=== PATIENT | male | born 1950 | race Caucasian/White ===

== ENCOUNTER 2023-11-08 14:49 | Outpatient (REF) | payer OTHER, SELFPAY ==
--- NOTE | ~2023-11-08 | XR_ITS ---
EXAMINATION: XR BILATERAL HANDS AND WRISTS XR BILATERAL SHOULDERS XR BILATERAL KNEES CLINICAL INFORMATION: Rheumatoid arthritis. COMPARISON: None available. TECHNIQUE: 4 views each hand and wrist, 3 views each knee, 4 views each shoulder. FINDINGS: Bilateral shoulders: Some mild degenerative changes are seen at the glenohumeral joints with some mild sclerotic changes at the inferior glenoid, right greater than left. AC joints appear unremarkable without evidence of erosive changes. There are some sclerotic changes overlying the area of the greater tubercle with some sclerotic change, right greater than left. On the left, there is a tiny area of calcification in the region of the supraspinatus tendon with some smaller areas of calcification adjacent to the right humeral head. Bilateral knees: Joint spaces are maintained. No joint effusions are present. No chondrocalcinosis. No erosive changes. Right hand and wrist: There is soft tissue swelling at the PIP joints most marked in the third and fourth digits. Some periarticular calcium is seen in the third digit. There is a small erosion of the margin present on the distal aspect of the proximal phalanx of the fifth digit. Some erosive changes are seen at the DIP joint in the thumb with some periarticular calcium. Some mild degenerative changes are present at the radiocarpal joint. No chondrocalcinosis is seen. No fractures or dislocations. Left hand and wrist: There is soft tissue swelling around the PIP joints of the third and fourth digits. Some mild degenerative changes are present at the DIP and PIP joints. No gross erosions are seen. Degenerative changes are seen at the radiocarpal joint. A cyst is present in the distal ulna. No chondrocalcinosis. No fractures or dislocations. XR/XR shoulder LT min 2V IMPRESSION: 1. Degenerative changes in the shoulders with some calcific tendinitis. 2. Normal-appearing knees. 3. Degenerative changes in the hands and wrists with some erosive changes as described above.
[2023-11-08 16:20] LABS: MANUAL DIFF FLAG NO
[2023-11-08 16:40] LABS: Basophils Percent Auto 0.4 % (0-2); Eosinophils Absolute Auto 0.1 X10*3/uL (0.0-0.4); Eosinophils Percent Auto 1.9 % (0-4); Imm Gran Abs Auto 0.04 X10*3/uL (0.00-0.03); Imm Gran Pct Auto 0.7 % (0.0-0.4); Lymphocytes Percent Auto 18.7 % (20-40); Mean Corpuscular HGB Conc 32.1 g/dl (31.0-36.0); Mean Corpuscular Hemoglobin 30.9 pg (27.0-33.0); Mean Corpuscular Volume 96.4 fL (80.0-98.0); Monocytes Absolute Auto 0.7 X10*3/uL (0.1-1.2); Monocytes Percent Auto 13.3 % (2-11); Neutrophils Absolute Auto 3.5 x10*3/uL (2.0-8.3); Platelet Count 184 X10*3/uL (160-400); Red Cell Distribution Width 13.2 % (11.0-16.0); White Blood Count 5.3 X10*3/uL (4.8-10.8)
[2023-11-08 16:59] LABS: Estimated Average Glucose 117 mg/dL; Hemoglobin A1c % 5.7 % (<6.0)
[2023-11-08 17:19] LABS: Alanine Aminotransferase 7 U/L (0-40); Albumin Level 4.1 g/dL (3.5-5.0); Alkaline Phosphatase 133 U/L (39-117); Anion Gap 16 (12-20); Aspartate Amino Transferase 13 U/L (5-37); Blood Urea Nitrogen 17 mg/dL (9-16); C Reactive Protein 5.04 mg/dL (< or = 0.50); Carbon Dioxide 26 mmol/L (22-29); Chloride 104 mmol/L (96-108); Estimated Glomerular Filt Rate > 60; Glucose Random 74 mg/dL (60-115); Potassium 4.7 mmol/L (3.3-5.1); Sodium 141 mmol/L (135-145); Total Protein 7.1 g/dL (6.5-8.0)
[2023-11-08 17:24] LABS: Rheumatoid Factor < 13.0 IU/mL (<15.0)
[2023-11-08 17:44] LABS: Erythrocyte Sedimentation Rate 4 MM/HR (0-15)
[2023-11-09 03:49] LABS: HBS Num1 0.52 mIU/mL (0-7.99); HBc Num1 0.12 S/CO (0.00-0.79); HBsAGNum1 0.29 S/CO (0.00-0.99); Hepatitis A Antibody IgM 0.21 Index (0-0.79); Hepatitis B Core Antibody Nonreactive (Nonreactive); Hepatitis B Surface Antigen Negative (Negative); ~HepC Num1 0.09 S/CO (0.00-0.79); ~Hepatitis A Antibody IgM Nonreactive (Nonreactive); ~Hepatitis B Surface Antibody NONREACTIVE (Nonreactive); ~Hepatitis C Antibody Nonreactive (Nonreactive)
[2023-11-09 12:49] LABS: Complement C3 93 mg/dL (82-185)
[2023-11-09 20:09] LABS: Anti DNA DS Antibody <1 IU/mL; Antibody to SS-A Antigen <1.0 NEG AI (<1.0 NEG); Antibody to SS-B Antigen <1.0 NEG AI (<1.0 NEG); SM/Ribonucleoprotein Ab <1.0 NEG AI (<1.0 NEG); Smith Protein <1.0 NEG AI (<1.0 NEG)
[2023-11-09 21:29] LABS: Prot Elec - Albumin 3.7 g/dL (3.8-4.8); Prot Elec - Alpha1 0.4 g/dL (0.2-0.3); Prot Elec - Alpha2 0.8 g/dL (0.5-0.9); Prot Elec - Beta 1 0.4 g/dL (0.4-0.6); Prot Elec - Beta 2 0.4 g/dL (0.2-0.5); Prot Elec - Gamma 0.9 g/dL (0.8-1.7); Prot Elec - Total Protein 6.6 g/dL (6.1-8.1)
[2023-11-10 15:09] LABS: Anti Nuclear Antibody Screen NEGATIVE (NEGATIVE)
[2023-11-10 20:03] LABS: Cyclic Citrullinated Peptide <16 UNITS
[2023-11-10 22:48] LABS: TS Negative Control Passed; TS Panel A 0; TS Panel B 3; TS Positive Control Passed; TSpotTB Negative (Negative)
[2023-11-11 14:42] LABS: IgA 252 mg/dL (70-320); IgG 1119 mg/dL (600-1540); IgM 90 mg/dL (50-300)
== END 2023-11-08 14:50 | disposition home or self-care (01) ==
LOC: HO.LAB 14:49
PROVIDERS: Visit Provider Student in an Organized Health Care Education/Training Program
DX: M32.9 Systemic lupus erythematosus, unspecified (principal); M06.9 Rheumatoid arthritis, unspecified; M25.50 Pain in unspecified joint; M19.90 Unspecified osteoarthritis, unspecified site; R63.4 Abnormal weight loss; Z11.59 Encounter for screening for other viral diseases; Z11.7 Encounter for testing for latent tuberculosis infection; Z72.89 Other problems related to lifestyle
CPT/HCPCS: 36415; 73030; 73110; 73130; 73562; 80053; 82550; 82784; 83036; 84165; 85025; 85652; 86038; 86140; 86160; 86200; 86225; 86235; 86334; 86431; 86481; 86704; 86706; 86709; 86803; 87340; 99202

== ENCOUNTER 2023-11-08 14:49 | Outpatient (AMB) | payer OTHER, SELFPAY ==
--- NOTE | 2023-11-08 15:01 | MHC.OFFVIS ---
Vital Signs 11/08/23 15:12 Height 5 ft 6.61 in Weight 131 lb 9.855 oz BMI 20.9 BP 122/60 Blood Pressure Location Rt brachial Position Sitting Pulse 69 Pulse Source Pulse Oximeter Pulse Oximetry (%) 94 Oxygen Delivery Method Room Air Intake Visit Reasons: Polyarthralgia ? PMR Intake Note: New patient, externally referred by [place], presents to office today for polyarthralgia, ? PMR. 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 The condition started abruptly in May of 2023. Patient woke up 1 day with diffuse joint pain and stiffness. Could not get out of bed. Significant difficulty raising his arms above his shoulders. He was evaluated by his PCP. High sensitivity CRP was elevated. PMR was suspected and he was started on prednisone with movement of range of motion of his shoulders. Patient states that he has bilateral weak general inspector strength. Swelling of his ankles and feet. He has lost 30 lb since May. Denies any skin rashes. Denies any headaches or visual changes. FORMERLY [facility] Medical History Unspecified atrial fibrillation Inguinal hernia Post-traumatic stress disorder, chronic Pain in unspecified joint Other pulmonary embolism without acute cor pulmonale Other intra-abdominal and pelvic swelling, mass and lump Old FB in soft tissue Mild cognitive impairment of uncertain or unknown etiology Left ventricular failure Hyperlipidemia, unspecified Coronary atherosclerosis due to lipid rich plaque Chronic periodontitis Chest pain Cardiomyopathy, unspecified Acute anxiety Accretions on teeth Surgical History No history of previous surgery Family History Mother Cancer Father No problems noted. Social History Household Members: None Alcohol intake: never Patient Tobacco Use Status: Former Tobacco user Review of Systems Const Reports fatigue, Reports weakness and Reports weight loss Card Reports irregular heart rhythm and Reports dyspnea Resp Reports dyspnea Musc Reports arthralgias, Reports joint swelling, Reports limited range of motion and Reports stiffness Skin/Breast Denies rash Neuro Reports weakness Psych Reports abnormal sleep pattern, Reports anxiety and Reports depression Endo Reports fatigue Physical Exam Vital Signs: Last Vital Signs Pulse 69 11/08/23 15:12 BP 122/60 11/08/23 15:12 Pulse Ox 94 11/08/23 15:12 Oxygen Delivery Method Room Air 11/08/23 15:12 BMI result Body Mass Index 20.9 Const General: cooperative, healthy appearing and comfortable Nutritional Appearance: average body habitus Orientation/consciousness: patient oriented x3 Limitations: no limitations HEENT Head: Yes normocephalic and Yes atraumatic Resp Effort & Inspection: normal respiratory effort and able to speak in complete sentences Cardio Rhythm: abnormal rhythm Skin General skin exam: no rashes or lesions noted Neuro General: patient oriented x3 Extrem Other: Bilateral reduced hand general inspector strength No wrist tenderness or swelling but pain with flexion and extension bilaterally Left 2nd MCP swelling but no tenderness Negative MCP squeeze test Multiple tender flexor tendons on the left hand Right 2nd MCP swelling but no tenderness Negative MCP squeeze test Multiple flexor tendon tenderness Bilateral elbow pain with full extension Right knee swelling, warmth, crepitus and pain with full flexion Pitting edema extending to both ankles Negative MTP squeeze test bilaterally Results Reviewed Results Reviewed: Labs 06/2023? RENEE/HLA B27/CCP/RF negative High sensitivity CRP elevated? ESR 3 Assessment & Plan Assessment & Plan (1) Inflammatory arthritis: Code(s): M19.90 - Unspecified osteoarthritis, unspecified site Category: Medical Plan: This is a 73-year-old male who [facility] of onset of diffuse joint pain and and stiffness.? Symptoms improved with prednisone taper.? On exam patient has a trigger tender small joints.? Clinical picture consistent with new onset inflammatory arthritis such as seronegative RA.? Will order comprehensive serology to better understand his underlying autoimmune condition.? Check x-rays of involved joints? Start prednisone taper for relief (2) Weight loss: Code(s): R63.4 - Abnormal weight loss Category: Medical Plan: 30 lb weight loss over the last 6 months. Advised patient to follow-up with his PCP. I recommend malignancy screening Plan I spent 48 minutes reviewing patient's chart, evaluating patient, ordering diagnostic workup, counseling patient and documenting in the chart Orders: Orders RENEE Reflex Titer and Pattern Today M32.9 - Systemic lupus erythematosus, unspecified Anti Extractable Nuclear Ag Today M32.9 - Systemic lupus erythematosus, unspecified Complement C4 Today M32.9 - Systemic lupus erythematosus, unspecified C Reactive Protein Today M32.9 - Systemic lupus erythematosus, unspecified Protein Creatinine Ratio, Ur Today M32.9 - Systemic lupus erythematosus, unspecified Sjogren's Antibodies Today M32.9 - Systemic lupus erythematosus, unspecified T Spot TB Today Z11.7 - Encounter for testing for latent tuberculosis infection Hemoglobin A1c Today M32.9 - Systemic lupus erythematosus, unspecified Creatine Kinase Total Today M32.9 - Systemic lupus erythematosus, unspecified XR hand wrist RT Today M06.9 - Rheumatoid arthritis, unspecified XR knee RT 3V Today M06.9 - Rheumatoid arthritis, unspecified Anti DNA DS Antibody Today M32.9 - Systemic lupus erythematosus, unspecified Complement C3 Today M32.9 - Systemic lupus erythematosus, unspecified Erythrocyte Sedimentation Rate Today M32.9 - Systemic lupus erythematosus, unspecified UA w Microscopic Today M32.9 - Systemic lupus erythematosus, unspecified Complete Blood Count Auto Diff Today M32.9 - Systemic lupus erythematosus, unspecified Comprehensive Met. Panel Today M32.9 - Systemic lupus erythematosus, unspecified Hepatitis A,B,C Profile Today Z11.59 - Encounter for screening for other viral diseases Immunofixation Pnl, Serum Today M32.9 - Systemic lupus erythematosus, unspecified Protein Electrophoresis, Serum Today M32.9 - Systemic lupus erythematosus, unspecified XR hand wrist LT Today M06.9 - Rheumatoid arthritis, unspecified XR knee LT 3V Today M06.9 - Rheumatoid arthritis, unspecified XR knee standing BI Today M06.9 - Rheumatoid arthritis, unspecified XR shoulder LT min 2V Today M06.9 - Rheumatoid arthritis, unspecified XR shoulder RT min 2V Today M06.9 - Rheumatoid arthritis, unspecified Rheumatoid Factor Today M06.9 - Rheumatoid arthritis, unspecified Cyclic Citrullinated Peptide Today M06.9 - Rheumatoid arthritis, unspecified Medications: New prednisone orally; Take 2 tabs daily for 2 weeks then remain on 1 tab daily 58 tabs 0RF Coding Level of Care Code New Pt Level 4 (17778) Diagnoses Inflammatory arthritis M19.90 Weight loss R63.4
[2023-11-08 15:12] VITALS: BP 122/60; PULSE 69; O2SAT 94; BMI 20.9
== END 2023-11-08 15:36 | disposition home or self-care (01) ==
PROVIDERS: Visit Provider Student in an Organized Health Care Education/Training Program
DX: M19.90 Unspecified osteoarthritis, unspecified site (principal); R63.4 Abnormal weight loss
CPT/HCPCS: 99204

== ENCOUNTER 2023-12-14 12:20 | Outpatient (AMB) | payer OTHER, SELFPAY ==
--- NOTE | 2023-12-14 12:32 | MHC.OFFVIS ---
Vital Signs 12/14/23 12:36 Height 5 ft 6.61 in Weight 133 lb 2.547 oz BMI 21.1 BP 112/60 Blood Pressure Location Lt brachial Position Sitting Pulse 41 L Pulse Source Pulse Oximeter Pulse Oximetry (%) 96 Oxygen Delivery Method Room Air Intake Visit Reasons: RA/CM Intake Note: Patient presents for RA. Allergies No Known Allergies Allergy (Verified 12/14/23 12:35) Medication List - Last Reconciled 12/14/23 by Cole Finley MD apixaban 5 mg PO BID cholecalciferol (vitamin D3) 50 mcg PO DAILY empagliflozin 10 mg PO DAILY ferrous sulfate 325 mg PO DAILY fluticasone propion-salmeterol 250-50 mcg/dose 1 inh inhalation BID omeprazole 20 mg PO DAILY prednisone orally; Take 2 tabs daily for 2 weeks then remain on 1 tab daily risperidone 0.5 mg PO BEDTIME sacubitril-valsartan 49-51 mg 1 tab PO BID HPI Comments Details: 73-year-old male with new onset inflammatory arthritis returns for follow-up after completion of his diagnostic workup. He is on prednisone mg daily. States that he feels well overall. Initial history: This is a 73-year-old who [facility] questionable PMR. The condition started abruptly in May of 2023. Patient woke up 1 day with diffuse joint pain and stiffness. Could not get out of bed. Significant difficulty raising his arms above his shoulders. He was evaluated by his PCP. High sensitivity CRP was elevated. PMR was suspected and he was started on prednisone with movement of range of motion of his shoulders. Patient states that he has bilateral weak senior counsel commercial strength. Swelling of his ankles and feet. He has lost 30 lb since May. Denies any skin rashes. Denies any headaches or visual changes. FORMERLY [facility] Medical History Unspecified atrial fibrillation Inguinal hernia Post-traumatic stress disorder, chronic Pain in unspecified joint Other pulmonary embolism without acute cor pulmonale Other intra-abdominal and pelvic swelling, mass and lump Old FB in soft tissue Mild cognitive impairment of uncertain or unknown etiology Left ventricular failure Hyperlipidemia, unspecified Coronary atherosclerosis due to lipid rich plaque Chronic periodontitis Chest pain Cardiomyopathy, unspecified Acute anxiety Accretions on teeth Surgical History No history of previous surgery Family History Mother Cancer Father No problems noted. Social History Household Members: None Alcohol intake: never Patient Tobacco Use Status: Former Tobacco user Review of Systems [facility] Reports arthralgias and Reports joint swelling Physical Exam Vital Signs: Last Vital Signs Pulse 41 L 12/14/23 12:36 BP 112/60 12/14/23 12:36 Pulse Ox 96 12/14/23 12:36 Oxygen Delivery Method Room Air 12/14/23 12:36 BMI result Body Mass Index 21.1 Const General: cooperative, healthy appearing and comfortable Nutritional Appearance: average body habitus Orientation/consciousness: patient oriented x3 Limitations: no limitations HEENT Head: Yes normocephalic and Yes atraumatic Resp Effort & Inspection: normal respiratory effort and able to speak in complete sentences Cardio Rhythm: abnormal rhythm Skin General skin exam: no rashes or lesions noted Neuro General: patient oriented x3 Extrem Other: Significant osteoarthritic changes of both hands Bilateral reduced hand senior counsel commercial strength, much better than before No wrist tenderness or swelling but pain with flexion and extension bilaterally Few swollen PIPs bilaterally without tenderness No knee swelling, warmth, tenderness or pain with flexion and extension Results Reviewed Results Reviewed: Labs 06/2023? RENEE/HLA B27/CCP/RF negative High sensitivity CRP elevated? ESR 3 CLINICAL INFORMATION: Rheumatoid arthritis. COMPARISON: None available. TECHNIQUE: 4 views each hand and wrist, 3 views each knee, 4 views each shoulder. FINDINGS: Bilateral shoulders: Some mild degenerative changes are seen at the glenohumeral joints with some mild sclerotic changes at the inferior glenoid, right greater than left. AC joints appear unremarkable without evidence of erosive changes. There are some sclerotic changes overlying the area of the greater tubercle with some sclerotic change, right greater than left. On the left, there is a tiny area of calcification in the region of the supraspinatus tendon with some smaller areas of calcification adjacent to the right humeral head. Bilateral knees: Joint spaces are maintained. No joint effusions are present. No chondrocalcinosis. No erosive changes. Right hand and wrist: There is soft tissue swelling at the PIP joints most marked in the third and fourth digits. Some periarticular calcium is seen in the third digit. There is a small erosion of the margin present on the distal aspect of the proximal phalanx of the fifth digit. Some erosive changes are seen at the DIP joint in the thumb with some periarticular calcium. Some mild degenerative changes are present at the radiocarpal joint. No chondrocalcinosis is seen. No fractures or dislocations. Left hand and wrist: There is soft tissue swelling around the PIP joints of the third and fourth digits. Some mild degenerative changes are present at the DIP and PIP joints. No gross erosions are seen. Degenerative changes are seen at the radiocarpal joint. A cyst is present in the distal ulna. No chondrocalcinosis. No fractures or dislocations. XR/XR shoulder RT min 2V IMPRESSION: 1. Degenerative changes in the shoulders with some calcific tendinitis. 2. Normal-appearing knees. 3. Degenerative changes in the hands and wrists with some erosive changes as described above. Assessment & Plan Assessment & Plan (1) Seronegative rheumatoid arthritis: Comment: -ve RF -ve CCP dx 12/2023 Code(s): M06.00 - Rheumatoid arthritis without rheumatoid factor, unspecified site Category: Medical Plan: This is a 73-year-old male with new onset inflammatory arthritis who presents for follow-up. Blood work showed negative serologies with elevated inflammatory markers. I reviewed his hand x-rays which show osteoarthritis in addition to erosive changes in the right 5th finger consistent with RA. Clinical picture consistent with new onset seronegative RA. Will need to start DMARDs Discussed risks and benefits of methotrexate. Patient agreed to proceed. 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 Patient does not consume alcohol Monitor safety lab (3) Weight loss: Code(s): R63.4 - Abnormal weight loss Category: Medical Plan: 30 lb weight loss over the last 6 months. Advised patient to follow-up with his PCP. I recommend malignancy screening Plan I spent 28 minutes reviewing patient's chart, evaluating patient, ordering diagnostic workup, counseling patient & daughter and documenting in the chart Orders: Orders C Reactive Protein 2 Months M06.00 - Rheumatoid arthritis without rheumatoid factor, unspecified site, Z79.631 - buttermaker continuous churn (current) use of antimetabolite agent Complete Blood Count Auto Diff 2 Months M06.00 - Rheumatoid arthritis without rheumatoid factor, unspecified site, Z79.631 - buttermaker continuous churn (current) use of antimetabolite agent Comprehensive Met. Panel 2 Months M06.00 - Rheumatoid arthritis without rheumatoid factor, unspecified site, Z79.631 - retirement (current) use of antimetabolite agent Erythrocyte Sedimentation Rate 2 Months M06.00 - Rheumatoid arthritis without rheumatoid factor, unspecified site, Z79.631 - buttermaker continuous churn (current) use of antimetabolite agent Medications: New prednisone Take 2 tabs daily for 2 weeks, 1 tab daily for 2 weeks then stop 42 tabs 0RF methotrexate sodium 15 mg (6 x 2.5 mg) PO QWEEK 48 tabs 0RF folic acid 1 mg PO DAILY 90 tabs 1RF Discontinued prednisone Discontinued Reason: Doctor's Order orally; Take 2 tabs daily for 2 weeks then remain on 1 tab daily 58 tabs 0RF Coding Level of Care Code Est Pt Level 4 (69908) Diagnoses Seronegative rheumatoid arthritis M06.00 buttermaker continuous churn methotrexate user Z79.631 Weight loss R63.4
[2023-12-14 12:36] VITALS: BP 112/60; PULSE 41; O2SAT 96; BMI 21.1
== END 2023-12-14 12:58 | disposition home or self-care (01) ==
PROVIDERS: Visit Provider Student in an Organized Health Care Education/Training Program
DX: M06.00 Rheumatoid arthritis without rheumatoid factor, unspecified site (principal); Z79.631 Long term (current) use of antimetabolite agent; R63.4 Abnormal weight loss
CPT/HCPCS: 99214

== ENCOUNTER → 2023-12-14 12:20 | Outpatient (BNVA) | payer OTHER, SELFPAY | PROVIDERS: Visit Provider Student in an Organized Health Care Education/Training Program | DX: M06.00 Rheumatoid arthritis without rheumatoid factor, unspecified site (principal); R63.4 Abnormal weight loss; Z79.631 Long term (current) use of antimetabolite agent | CPT/HCPCS: 99212 ==

== ENCOUNTER 2024-04-02 11:35 | Outpatient (REF) | payer OTHER, SELFPAY ==
[2024-04-02 14:27] LABS: MANUAL DIFF FLAG NO
[2024-04-02 14:32] LABS: Basophils Percent Auto 0.5 % (0-2); Eosinophils Absolute Auto 0.2 X10*3/uL (0.0-0.4); Eosinophils Percent Auto 2.7 % (0-4); Hematocrit 46.2 % (42.0-52.0); Hemoglobin 14.9 g/dl (14.0-18.0); Imm Gran Abs Auto 0.05 X10*3/uL (0.00-0.03); Imm Gran Pct Auto 0.6 % (0.0-0.4); Lymphocytes Absolute Auto 0.8 X10*3/uL (1.2-4.9); Lymphocytes Percent Auto 10.9 % (20-40); Mean Corpuscular HGB Conc 32.3 g/dl (31.0-36.0); Mean Platelet Volume 10.7 fL (9.4-12.4); Monocytes Absolute Auto 0.6 X10*3/uL (0.1-1.2); Monocytes Percent Auto 7.9 % (2-11); Neutrophils Percent Auto 77.4 % (45-73); Platelet Count 275 X10*3/uL (160-400); Red Blood Count 4.81 X10*6/uL (4.60-5.80); Red Cell Distribution Width 13.8 % (11.0-16.0); White Blood Count 7.7 X10*3/uL (4.8-10.8)
[2024-04-02 14:36] LABS: Appearance Urine Clear; Color Urine Yellow; Glucose Urine UA >=1000 mg/dL (Negative); Leukocyte Esterase Urine Negative (Negative); Nitrite Urine Negative (Negative); UMIC TRIGGER UA YES; Urine Blood Negative (Negative); Urine Ketones Negative (Negative); Urine Protein Negative (Neg-Trace)
[2024-04-02 14:39] LABS: Bacteria Urine None Seen (None Seen); Hyaline Casts Urine 0-2 /LPF (0-2); RBC Urine 0-2 /HPF (0-2); Squamous Epithelial Cell Urine 0-2 /HPF (0-2); WBC Urine 0-5 /HPF (0-5)
[2024-04-02 14:47] LABS: Alanine Aminotransferase 7 U/L (0-40); Albumin Level 3.6 g/dL (3.5-5.0); Alkaline Phosphatase 115 U/L (39-117); Anion Gap 13 (12-20); Aspartate Amino Transferase 19 U/L (5-37); Bilirubin Total 0.7 mg/dL (0.0-1.0); Blood Urea Nitrogen 16 mg/dL (9-16); C Reactive Protein 4.71 mg/dL (< or = 0.50); Calcium 9.6 mg/dL (8.4-10.2); Carbon Dioxide 26 mmol/L (22-29); Chloride 103 mmol/L (96-108); Estimated Glomerular Filt Rate > 60; Glucose Random 104 mg/dL (60-115); Potassium 5.1 mmol/L (3.3-5.1); Sodium 137 mmol/L (135-145); Total Protein 6.3 g/dL (6.5-8.0)
[2024-04-02 15:05] LABS: Creatinine Urine 57.65 mg/dL; Protein/Creatinine Ratio, Ur 0.16 (<0.2); Total Protein Urine Random 9 mg/dL (<12)
[2024-04-02 15:20] LABS: Erythrocyte Sedimentation Rate 6 MM/HR (0-15)
== END 2024-04-02 11:36 | disposition home or self-care (01) ==
LOC: HO.WFDLDS 11:35
PROVIDERS: Visit Provider Student in an Organized Health Care Education/Training Program
DX: M32.9 Systemic lupus erythematosus, unspecified (principal); M06.00 Rheumatoid arthritis without rheumatoid factor, unspecified site; Z79.631 Long term (current) use of antimetabolite agent
CPT/HCPCS: 36415; 80053; 81001; 82570; 84156; 85025; 85652; 86140

== ENCOUNTER 2024-04-18 13:46 | Outpatient (AMB) | payer OTHER, SELFPAY ==
--- NOTE | 2024-04-18 13:52 | A.OFFVIS_ITS ---
Vital Signs 04/18/24 13:56 Height 5 ft 6.61 in Weight 128 lb 1.417 oz BMI 20.3 BP 90/60 Blood Pressure Location Lt brachial Position Sitting Pulse 57 Pulse Source Pulse Oximeter Pulse Oximetry (%) 98 Oxygen Delivery Method Room Air Intake Visit Reasons: RA/CM Intake Note: Patient presents for RA. Allergies No Known Allergies Allergy (Verified 04/18/24 13:56) Medication List - Last Reconciled 04/18/24 by Cole Finley MD apixaban 5 mg PO BID cholecalciferol (vitamin D3) 50 mcg PO DAILY empagliflozin 10 mg PO DAILY ferrous sulfate 325 mg PO DAILY fluticasone propion-salmeterol 250-50 mcg/dose 1 inh inhalation BID folic acid 1 mg PO DAILY methotrexate sodium 15 mg (6 x 2.5 mg) PO QWEEK omeprazole 20 mg PO DAILY prednisone Take 2 tabs daily for 2 weeks, 1 tab daily for 2 weeks then stop risperidone 0.5 mg PO BEDTIME sacubitril-valsartan 49-51 mg 1 tab PO BID HPI Comments Details: 74-year-old male with seronegative rheumatoid arthritis returns for follow-up. Patient took methotrexate as prescribed after last visit for about 2 months. Then he ran out. He did not do the safety blood work. He was not complaining much while he was taking it. 3-4 weeks ago patient started having worsening joint pain and swelling, especially in his right foot and ankle. He could barely put on his shoe today. Initial history: This is a 73-year-old who referred from the [place] for evaluation of polyarthralgia questionable PMR. The condition started abruptly in May of 2023. Patient woke up 1 day with diffuse joint pain and stiffness. Could not get out of bed. Significant difficulty raising his arms above his shoulders. He was evaluated by his PCP. High sensitivity CRP was elevated. PMR was suspected and he was started on prednisone with movement of range of motion of his shoulders. Patient states that he has bilateral weak special education case manager strength. Swelling of his ankles and feet. He has lost 30 lb since May. Denies any skin rashes. Denies any headaches or visual changes. [facility] Medical History Unspecified atrial fibrillation Inguinal hernia Post-traumatic stress disorder, chronic Pain in unspecified joint Other pulmonary embolism without acute cor pulmonale Other intra-abdominal and pelvic swelling, mass and lump Old FB in soft tissue Mild cognitive impairment of uncertain or unknown etiology Left ventricular failure Hyperlipidemia, unspecified Coronary atherosclerosis due to lipid rich plaque Chronic periodontitis Chest pain Cardiomyopathy, unspecified Acute anxiety Accretions on teeth Surgical History No history of previous surgery Family History Mother Cancer Father No problems noted. Social History Household Members: None Alcohol intake: never Patient Tobacco Use Status: Former Tobacco user Review of Systems [facility] Reports arthralgias, Reports joint swelling and Reports stiffness Physical Exam Vital Signs: Last Vital Signs Pulse 57 04/18/24 13:56 BP 90/60 04/18/24 13:56 Pulse Ox 98 04/18/24 13:56 Oxygen Delivery Method Room Air 04/18/24 13:56 BMI result Body Mass Index 20.3 Const General: cooperative and comfortable Nutritional Appearance: cachectic Orientation/consciousness: patient oriented x3 Limitations: no limitations HEENT Head: Yes normocephalic and Yes atraumatic Resp Effort & Inspection: normal respiratory effort and able to speak in complete sentences Auscultation: diminished lung sounds Skin General skin exam: no rashes or lesions noted Neuro General: patient oriented x3 Extrem Other: Significant osteoarthritic changes of both hands Bilateral reduced hand special education case manager strength, No wrist tenderness or swelling but pain with flexion and extension bilaterally Few swollen PIPs bilaterally without much tenderness Bilateral limited shoulder abduction No knee swelling, warmth, tenderness or pain with flexion and extension Bilateral lower limb pitting edema Right ankle and foot swelling and tenderness Results Reviewed Results Reviewed: Labs 06/2023? RENEE/HLA B27/CCP/RF negative High sensitivity CRP elevated? ESR 3 CLINICAL INFORMATION: Rheumatoid arthritis. COMPARISON: None available. TECHNIQUE: 4 views each hand and wrist, 3 views each knee, 4 views each shoulder. FINDINGS: Bilateral shoulders: Some mild degenerative changes are seen at the glenohumeral joints with some mild sclerotic changes at the inferior glenoid, right greater than left. AC joints appear unremarkable without evidence of erosive changes. There are some sclerotic changes overlying the area of the greater tubercle with some sclerotic change, right greater than left. On the left, there is a tiny area of calcification in the region of the supraspinatus tendon with some smaller areas of calcification adjacent to the right humeral head. Bilateral knees: Joint spaces are maintained. No joint effusions are present. No chondrocalcinosis. No erosive changes. Right hand and wrist: There is soft tissue swelling at the PIP joints most marked in the third and fourth digits. Some periarticular calcium is seen in the third digit. There is a small erosion of the margin present on the distal aspect of the proximal phalanx of the fifth digit. Some erosive changes are seen at the DIP joint in the thumb with some periarticular calcium. Some mild degenerative changes are present at the radiocarpal joint. No chondrocalcinosis is seen. No fractures or dislocations. Left hand and wrist: There is soft tissue swelling around the PIP joints of the third and fourth digits. Some mild degenerative changes are present at the DIP and PIP joints. No gross erosions are seen. Degenerative changes are seen at the radiocarpal joint. A cyst is present in the distal ulna. No chondrocalcinosis. No fractures or dislocations. XR/XR shoulder RT min 2V IMPRESSION: 1. Degenerative changes in the shoulders with some calcific tendinitis. 2. Normal-appearing knees. 3. Degenerative changes in the hands and wrists with some erosive changes as described above. Assessment & Plan Assessment & Plan (1) Seronegative rheumatoid arthritis: Comment: -ve RF -ve CCP dx 12/2023 MTX 12/2023 Code(s): M06.00 - Rheumatoid arthritis without rheumatoid factor, unspecified site Category: Medical Plan: This is a 74-year-old male with new onset seronegative RA returns for follow-up. It seems that patient was doing better while he was taking methotrexate regularly. He was out of methotrexate for approximately 6 weeks. He just restarted it last week. Advised patient and his daughter on the importance of compliance with methotrexate and safety labs Continue with methotrexate 15 mg once weekly plus folic acid 1 mg daily Prednisone 10 mg daily for 2 weeks then 5 mg daily for 2 weeks then stop Labs before next visit in 2 months (2) FPC methotrexate user: Code(s): Z79.631 - FPC (current) use of antimetabolite agent Category: Medical Plan: Discussed risks of methotrexate such as GI upset, nausea, oral ulcers, hair loss, rare risk of pneumonitis, cytopenias and LFT elevation. Patient does not consume alcohol Monitor safety lab (3) Weight loss: Code(s): R63.4 - Abnormal weight loss Category: Medical Plan: 30 lb weight loss over the last 6 months. Advised patient to follow-up with his PCP. I recommend malignancy screening Plan I spent 28 minutes reviewing patient's chart, evaluating patient, ordering diagnostic workup, counseling patient & daughter and documenting in the chart Orders: Orders C Reactive Protein 2 Months M06.00 - Rheumatoid arthritis without rheumatoid factor, unspecified site, Z79.631 - [facility]PC (current) use of antimetabolite agent Erythrocyte Sedimentation Rate 2 Months M06.00 - Rheumatoid arthritis without rheumatoid factor, unspecified site, Z79.631 - [facility]PC (current) use of antimetabolite agent Complete Blood Count Auto Diff 2 Months M06.00 - Rheumatoid arthritis without rheumatoid factor, unspecified site, Z79.631 - [facility] (current) use of antimetabolite agent Comprehensive Met. Panel 2 Months M06.00 - Rheumatoid arthritis without rheumatoid factor, unspecified site, Z79.631 - [facility] (current) use of antimetabolite agent Medications: Refilled prednisone Take 2 tabs daily for 2 weeks, 1 tab daily for 2 weeks then stop 42 tabs 0RF folic acid 1 mg PO DAILY 90 tabs 1RF Coding Level of Care Code Est Pt Level 4 (96575) Complex EM visit Add On G2211 Diagnoses Seronegative rheumatoid arthritis M06.00 rn long term care methotrexate user Z79.631 Weight loss R63.4
[2024-04-18 13:56] VITALS: BP 90/60; PULSE 57; O2SAT 98; BMI 20.3
== END 2024-04-18 14:29 | disposition home or self-care (01) ==
PROVIDERS: Visit Provider Student in an Organized Health Care Education/Training Program
DX: M06.00 Rheumatoid arthritis without rheumatoid factor, unspecified site (principal); Z79.631 Long term (current) use of antimetabolite agent; R63.4 Abnormal weight loss
CPT/HCPCS: 99214; G2211

== ENCOUNTER → 2024-04-18 13:46 | Outpatient (BNVA) | payer OTHER, SELFPAY | PROVIDERS: Visit Provider Student in an Organized Health Care Education/Training Program | DX: M06.00 Rheumatoid arthritis without rheumatoid factor, unspecified site (principal); R63.4 Abnormal weight loss; Z79.631 Long term (current) use of antimetabolite agent | CPT/HCPCS: 99212 ==

== ENCOUNTER 2024-06-18 08:26 | Outpatient (AMB) | payer OTHER, SELFPAY ==
[2024-06-18 08:33] VITALS: BP 100/64; PULSE 59; O2SAT 99; BMI 21.1
--- NOTE | 2024-06-18 08:33 | A.OFFVIS_ITS ---
Vital Signs 06/18/24 08:33 Height 5 ft 6.61 in Weight 132 lb 15.02 oz BMI 21.1 BP 100/64 Blood Pressure Location Lt brachial Position Sitting Pulse 59 Pulse Source Pulse Oximeter Pulse Oximetry (%) 99 Oxygen Delivery Method Room Air Intake Visit Reasons: RA Intake Note: Patient last seen by Doctor Cole Finley on 04/18/24. Presents today for RA follow up and test results. Accompanied by: Daughter Allergies No Known Allergies Allergy (Verified 06/18/24 08:36) Medication List - Last Reconciled 06/18/24 by Cole Finley MD apixaban 5 mg PO BID cholecalciferol (vitamin D3) 50 mcg PO DAILY empagliflozin 10 mg PO DAILY ferrous sulfate 325 mg PO DAILY fluticasone propion-salmeterol 250-50 mcg/dose 1 inh inhalation BID folic acid 1 mg PO DAILY methotrexate sodium 15 mg (6 x 2.5 mg) PO QWEEK omeprazole 20 mg PO DAILY risperidone 0.5 mg PO BEDTIME sacubitril-valsartan 49-51 mg 1 tab PO BID HPI Comments Details: 74-year-old male with seronegative rheumatoid arthritis returns for follow-up. On methotrexate 15 mg once weekly plus folic acid 1 mg daily. He states that he continues to be achy but he is less stiff. Per his daughter he is much better. The swelling of his legs significantly improved Initial history: This is a 73-year-old who [facility] PM[facility]. The condition started abruptly in May of 2023. Patient woke up 1 day with diffuse joint pain and stiffness. Could not get out of bed. Significant difficulty raising his arms above his shoulders. He was evaluated by his PCP. High sensitivity CRP was elevated. PMR was suspected and he was started on prednisone with movement of range of motion of his shoulders. Patient states that he has bilateral weak licsw strength. Swelling of his ankles and feet. He has lost 30 lb since May. Denies any skin rashes. Denies any headaches or visual changes. [facility] Medical History Unspecified atrial fibrillation Inguinal hernia Post-traumatic stress disorder, chronic Pain in unspecified joint Other pulmonary embolism without acute cor pulmonale Other intra-abdominal and pelvic swelling, mass and lump Old FB in soft tissue Mild cognitive impairment of uncertain or unknown etiology Left ventricular failure Hyperlipidemia, unspecified Coronary atherosclerosis due to lipid rich plaque Chronic periodontitis Chest pain Cardiomyopathy, unspecified Acute anxiety Accretions on teeth Surgical History No history of previous surgery Family History Mother Cancer Father No problems noted. Social History Household Members: None Alcohol intake: never Patient Tobacco Use Status: Former Tobacco user Review of Systems [facility] [place] arthralgias and Denies joint swelling Physical Exam Vital Signs: Last Vital Signs Pulse 59 06/18/24 08:33 BP 100/64 06/18/24 08:33 Pulse Ox 99 06/18/24 08:33 Oxygen Delivery Method Room Air 06/18/24 08:33 BMI result Body Mass Index 21.1 Const General: cooperative and comfortable Nutritional Appearance: cachectic Orientation/consciousness: patient oriented x3 Limitations: no limitations HEENT Head: Yes normocephalic and Yes atraumatic Resp Effort & Inspection: normal respiratory effort and able to speak in complete sentences Auscultation: diminished lung sounds Skin General skin exam: no rashes or lesions noted Neuro General: patient oriented x3 Extrem Other: Significant osteoarthritic changes of both hands Bilateral reduced hand licsw strength, No wrist tenderness or swelling r pain with flexion and extension bilaterally No swelling or tenderness of PIP is bilaterally Bilateral limited shoulder abduction No knee swelling, warmth, tenderness or pain with flexion and extension Bilateral pitting edema resolved No ankle swelling or tenderness bilaterally Assessment & Plan Assessment & Plan (1) Seronegative rheumatoid arthritis: Comment: -ve RF -ve CCP dx 12/2023 MTX 12/2023 effective Code(s): M06.00 - Rheumatoid arthritis without rheumatoid factor, unspecified site Category: Medical Plan: This is a 74-year-old male with seronegative RA returns for follow-up. On methotrexate 15 mg weekly plus folic acid 1 mg daily. Prednisone has been tapered off On exam doing significantly better. There is no active synovitis on exam. Continue with methotrexate 15 mg once weekly plus folic acid 1 mg daily, pending review of safety blood work. Patient stated that he had blood work done last week, we will attempt to retrieve it Labs before next visit in 3 months (2) [employer] methotrexate user: Code(s): Z79.631 - [employer] (current) use of antimetabolite agent Category: Medical Plan: Discussed risks of methotrexate such as GI upset, nausea, oral ulcers, hair loss, rare risk of pneumonitis, cytopenias and LFT elevation. Patient does not consume alcohol Monitor safety labs (3) Weight loss: Code(s): R63.4 - Abnormal weight loss Category: Medical Plan: 30 lb weight loss over the last 9 months. Advised patient to follow-up with his PCP. I recommend malignancy screening. Per daughter, they would not do a colonoscopy for him due to his cardio vascular comorbidities, fit test was ordered but patient did not want to do it Plan I spent 28 minutes reviewing patient's chart, evaluating patient, ordering diagnostic workup, counseling patient & daughter and documenting in the chart Coding Level of Care Code Est Pt Level 4 (35627) Diagnoses Seronegative rheumatoid arthritis M06.00 residential methotrexate user Z79.631 Weight loss R63.4
--- OUTSIDE RECORDS SUMMARY | 2024-06-18 08:34 | XMS_ITS | Encounter Summary ---
Author Name [facility] [place] Organization [facility] [place] Address [address] [place] [address] Care Team Providers Care Manager E Learning Name Role Phone SHADY MANCILLA Primary Care Provide r Unavailable Insurance Providers: All historical and current Section Date Range: From patient's date of to the date document was created. This section includes the names of all active insurance providers for the patient. Insurance Provider Type of Coverage Plan Name Start of Policy Coverage End of Policy Coverage Group Number Member ID Insurance Provider's Telephone Number Policy Hernandez's Name Patient's Relationship to Policy Hernandez MEDICARE (WNR) MEDICARE (M) PART B Jan 04, 2014 PART B [id number] STORMY KEN CE PATIENT MEDICARE (WNR) MEDICARE (M) PART A Jun 06, 2006 PART A [id number] [phone] STORMY KEN CE PATIENT MEDICARE (WNR) MEDICARE (M) PART A Jun 06, 2006 PART A [id number] [id number] STORMY KEN CE PATIENT MEDICARE (WNR) MEDICARE (M) PART A Jun 06, 2006 PART A [id number] 89A STORMY KEN PATIENT Selected Encounter This section includes the information on record at [place] for the Encounter. Date/Time Encounter Type Encounter Description Reason Pro vider Source Jun 28, 2023 12:53 PM Outpatient Encounter TELEPHONE PRIMARY CARE IHE Encounter Template Text not used by [place] Plan of Treatment: Future Appointments (+ 6 months) and Future Tests (+/- 45 days) The Plan of Treatment section includes future care activities for the patient from all [place] treatmentfacilities. This section includes future appointments and future orders which are active, pending or scheduled. Future Appointments This section includes appointments that were scheduled to occur 6 months from the date of the Encounter, up to a maximum of 20 appointments. The data comes from all [place] treatment facilities. Appointment Date/Time Appointment Type Appointme nt Facility Name Jul 05, 2023 10:00 AM AMBULATORY - PSYCHIATRY [facility] Jul 13, 2023 12:00 PM AMBULATORY PSYCHIATRY [facility] Jul 20, 2023 12:30 PM AMBULATORY - MEDICINE [facility] Jul 28, 2023 01:00 PM [facility] Aug 23, 2023 02:30 PM AMBULATORY - PSYCHIATRY [facility] Aug 31, 2023 12:30 PM AMBULATORY - MEDICINE [facility] Sep 02, 2023 11:00 AM AMBULATORY - PSYCHIATRY [facility] Sep 23, 2023 11:00 AM AMBULATORY PSYCHIATRY [facility] November 04, 2023 09:00 AM AMBULATORY PSYCHIATRY [facility] Nov 08, 2023 03:00 PM [facility] Dec 02, 2023 10:00 AM AMBULATORY PSYCHIATRY [facility] Dec 14, 2023 11:30 AM AMBULATORY - MEDICINE [facility] Lab Results: +/- 30 days of the encounter This section includes the Chemistry and Hematology Lab Results on record with [place] for the patient. Radiology Reports and Pathology Reports are provided separately, in subsequent sections. Lab Results This section contains the Chemistry/Hematology Results that were resulted 30 days before or 30 daysafter the date of the Encounter. Date/Time Source Result Type Result - Unit Interpretation Reference Range Comment Jun 08, 2023 01:58 PM [facility] HLA-B27 (QU) Specimen Type: BLOOD Comment: [facility] Performed by [facility], [facility], [id number] [place] [address] Yaya Marley M.D., Ph.D., Director of Laboratories , CLIA [id number] TEST PERFORMED AT: , Ordering Provider: RASHMI VERDUZCO Report Released Date/Time: Jun 08, 2023 01:57 PM Reporting Lab: [facility] [address] [facility] [address] Performing Lab: [facility] [address] [address] HLA-B27 Negative Negative Jun 08, 2023 01:58 PM [facility] VITAMIN D 25-OH (Therapy monitor) Speci men Type: SERUM Comment: Vitamin D, 25-Hydroxy reports concentrations of two common forms, 25-OHD2 and 25-OHD3. 25-OHD3 indicates both endogenous production and supplementation. 25-OHD2 is an indicator of exogenous sources such as diet or supplementation. Therapy is based on measurement of Total 25-OHD, with levels <20 ng/mL indicative of Vitamin D deficiency, while levels between 20 ng/mL and 30 ng/mL suggest insufficiency. Optimal levels are > or = 30 ng/mL. For additional information, please refer to http://education. Tube2Tone. ponUp/faq/VPO314 (This link is being provided for informational/ educational purposes only.) This test was developed and its analytical performance characteristics have been determined by [facility] [place], [place]. It has not been cleared or approved by the U.S. Food and Drug Administration. This assay has been validated pursuant to the CLIA regulations and is used for clinical purposes. This test was developed and its analytical performance characteristics have been determined by [facility] [place] [place]. It has not been cleared or approved by the U.S. Food and Drug Administration. This assay has been validated pursuant to the CLIA regulations and is used for clinical purposes. Test Performed by [facility], [facility] [place], [address] [place] [address] Yaya Marley M.D., Ph.D., Director of Laboratories , CLIA [id number] TEST PERFORMED AT: , Ordering Provider: RASHMI VERDUZCO Report Released Date/Time: Jun 08, 2023 01:57 PM Reporting [facility] [address] [facility] [address] Performing Lab: [facility] [address] [address] VITAMIN D, 25-OH, TOTAL 20 ng/mL L 30-100 VITAMIN D, 25-OH, D3 20 ng/mL VITAMIN D, 25-OH, D2 <4 ng/mL Jun 08, 2023 01:58 PM [facility] C REACTIVE PROTEIN (CRPH) Specimen Type : SERUM Comment: Reference range changed on 11/24/10 CRPH reference ranges for ages >17 years: hsCRP in mg/L Risk According to AHA/CDC Guidelines <1.0 Lower relative cardiovascular risk. 1.0-3.0 Average cardiovascular risk. 3.1-10.0 Higher cardiovascular risk. Consider retesting in two weeks to exclude a benign transient elevation in the baseline CRP value secondary to infection or inflammation. >10.0 Persistent elevation, upon retesting, may be associated with infection and inflammation. Ordering Provider: RASHMI VERDUZCO Report Released Date/Time: Jun 08, 2023 01:57 PM Reporting Lab: [facility] [address] [facility] [address] Performing Lab: [facility] [address] [facility] [address] C REACTIVE PROTEIN (CRPH) 48.72 mg/L See eval. Jun 08, 2023 01:58 PM [facility] RENEE SCREEN/TITER Specimen Type: SERUM No comment entered. Ordering Provider: RASHMI VERDUZCO Report Released Date/Time: Jun 08, 2023 01:57 PM Reporting Lab: [facility] [address] [facility] [address] Performing Lab: [facility] [address] [facility] [address] RENEE SCREEN NEG Jun 08, 2023 01:58 PM [facility] RHEUMATOID FACTOR Specimen Type: SERUM No comment entered. Ordering Provider: RASHMI VERDUZCO Report Released Date/Time: Jun 08, 2023 01:57 PM Reporting Lab[facility] [address] [facility] [address] Performing [facility]: [facility] [address] [facility] [address] RHEUMATOID FACTOR <15 0-15 Jun 08, 2023 01:58 PM [facility] ANTI-CCP Specimen Type: PLASMA Comment: Anti-cyclic citrullinated peptide (anti-CCP), IgG antibodies are present in about 69-83% of patients with Rheumatoid Arthritis (RA) and have specificities of 93-95%. These autoantibodies may be present in the preclinical phase of disease, are associated with future RA development, and may predict radiographic joint destruction. Ordering Provider: RASHMI VERDUZCO Report Released Date/Time: Jun 08, 2023 01:57 PM Reporting Lab: [facility] [address] [facility] [address] Performing Lab: [facility] [address] [facility] [address] ANTI-CCP Negative Negative Jun 08, 2023 01:58 PM [facility] SED RATE, AUTOMATED Specimen Type: BLOOD No comment entered. Ordering Provider: RASHMI VERDUZCO Report Released Date/Time: Jun 08, 2023 01:57 PM Reporting Lab: [facility] [address] [facility] [address] Performing Lab: [address] [address] SED RATE, AUTOMATED 3 mm/h 0-20 Jun 08, 2023 01:58 PM [facility] VITAMIN B12 Specimen Type: SERUM No comment entered. Ordering Provider: RASHMI VERDUZCO Report Released Date/Time: Jun 08, 2023 01:57 PM Reporting Lab: [address] [address] Performing Lab: [address] [address] VITAMIN B12 396 pg/mL 200-900 Social History: Smoking Status (Most current) and Tobacco Use (All prior to encounter date) This section includes the most current, and the historical, smoking and tobacco- related health factors from the [place] facility where the Encounter took place. Current Smoking Status This section includes the most current smoking, or tobacco-related health factor, from the [place] facility where the Encounter took place. Date/Time Current Smoking Status Comment Facil ity Mar 23, 2022 09:30 AM [place]-TOBACCO QUIT 15 YRS OR MORE [facility] Tobacco Use History This section includes a history of the smoking, or tobacco-related health factors, that were collected on or before the date of the Encounter. The data comes from the [place] facility where the Encounter took place. Date/Time Smoking Status/Tobac co Use Comment Facility Mar 23, 2022 09:30 AM [place]-TOBACCO QUIT 15 YRS OR MORE [facility] Sep 07, 2004 01:27 PM HISTORY OF SMOKING QUIT 12 YEARS AGO [facility] May 15, 2004 03:37 PM QUIT TOBACCO USE > 7 YEARS AGO [facility] Sep 02, 2003 01:28 PM QUIT TOBACCO USE > 7 YEARS AGO [facility] Advance Directives: All historical and current Section Date Range: From patient's date of to the date document was created. This section includes ALL of a patient's completed or amended [place] Advance and Rescinded Directives. The entries below indicate that a directive exists for the patient, but an actual copy is not included with this document. The data comes from all [place] facilities. Date Advance Directives Provider Source October 21, 2003 ADVANCE DIRECTIVE RYLAND TOMPKINS [facility] Encounter Notes: All associated encounter notes This section contains the clinical notes associated to the Encounter. Date/Time Encounter Note(s) Provider Source Jul 01, 2023 01:07 PM ADDENDUM: LOCAL TITLE: Addendum STANDARD TITLE: ADDENDUM DATE OF NOTE: JUL 01, 2023@13:07:26 ENTRY DATE: JUL 01, 2023@13:07:27 AUTHOR: RASHMI VERDUZCO EXP COSIGNER: URGENCY: STATUS: COMPLETED The decided to transfer to PACT 5; next appointment is July 05, 2023 I will defer to PACT 5 provider to start tapering of steroids /maddie/ RASHMI VERDUZCO MD PRIMARY CARE PHYSICIAN Signed: 07/01/2023 13:08 Receipt Acknowledged By: 07/02/2023 13:33 /es/ SHADY MANCILLA MD PHYSICIAN ======== --- Original Document --- 06/28/23 NOTE: Called PHONE NUMBER [CELLULAR] - PATIENT PHONE - Re: ======= Elevated CRP-48.72 Low vitamin D20 Discussion: 1-vitamin D deficiency-started on supplements 2000 UI p.o. daily-the prescription will be mailed to patient's house 2-multiple joints arthralgias Only CRP is elevated ESR, RENEE, rheumatoid factor anti-CCP, HLA-B27 are within normal limits Not able to start NSAIDs due to apixaban Will start short course of prednisone 15 mg p.o. daily for 2 weeks then 10 mg p.o. daily for 1 week We will reevaluate [place] in 4 weeks after trial of steroids Further management based on his response to steroids Plan: ====== I discussed with [place] today by phone at length I discussed with patient's Hunter by phone on June 27, 2023 No barriers; Patient understands and agrees to current treatment plan. If pt has any questions, concerns, or changes in current health status he/she will call [facility] 10 minutes spent in patient care and education Upcoming Appointments: 07/05/2023 10:00 SPOPC/MHC/PSYCHIATRY RESI 07/05/2023 11:00 CWM/SO/PACT 5 07/18/2023 09:30 CWM/SO/PACT EIGHT 09/15/2023 14:30 NHM/OPT/VISUAL IMAGING 09/15/2023 15:00 NHM/OPTOMETRY/PHYLLIS /maddie/ RASHMI VERDUZCO MD PRIMARY CARE PHYSICIAN Signed: 06/28/2023 13:00 06/28/2023 ADDENDUM STATUS: COMPLETED ? Polymyalgia rheumatica-we will monitor for response to short course of steroids /maddie/ RASHMI VERDUZCO MD PRIMARY CARE PHYSICIAN Signed: 06/28/2023 13:03 RASHMI VERDUZCO [facility] Jun 28, 2023 01:03 PM ADMINISTRATIVE NOT E: LOCAL TITLE: ADMINISTRATIVE NOTE STANDARD TITLE: ADMINISTRATIVE NOTE DATE OF NOTE: JUN 28, 2023@13:03 ENTRY DATE: JUN 28, 2023@13:03:54 AUTHOR: RASHMI VERDUZCO EXP COSIGNER: URGENCY: STATUS: COMPLETED ADMINISTRATIVE NOTE Has ADDENDA Can you please call this patient and give him an appointment [id number] in 4 weeks. RTC placed /maddie/ RASHMI VERDUZCO MD PRIMARY CARE PHYSICIAN Signed: 06/28/2023 13:04 Receipt Acknowledged By: 06/28/2023 15:44 /maddie/ JOSE CARLOS BERTRAND [facility] PSYCHIATR[facility] REGISTERED NURSE 06/28/2023 ADDENDUM STATUS: COMPLETED THIS BOX SORTER HAD SPOKEN TO FELICIANO (DAUGHTER), 'S DAUGHTER STATED THAT HAD SWITCHED HIS PACT TO CWM/SO/PACT 5. THIS BOX SORTER CANCELLED UPCOMING APPT'S WITH CWM/SO/PACT EIGHT. /maddie/ JOSE CARLOS BERTRAND ADVANCED PSYCHIATRIC REGISTERED NURSE Signed: 06/28/2023 15:46 RASHMI VERDUZCO [facility] Jun 28, 2023 12:53 PM PHYSICIAN NOTE: LOCAL TITLE: NOTE STANDARD TITLE: PHYSICIAN NOTE DATE OF NOTE: JUN 28, 2023@12:53 ENTRY DATE: JUN 28, 2023@12:54:03 AUTHOR: RASHMI VERDUZCO EXP COSIGNER: URGENCY: STATUS: COMPLETED NOTE Has ADDENDA Called PHONE NUMBER [CELLULAR] - PATIENT PHONE - Re: ======= Elevated CRP-48.72 Low vitamin D20 Discussion: 1-vitamin D deficiency-started on supplements 2000 UI p.o. daily-the prescription will be mailed to patient's house 2-multiple joints arthralgias Only CRP is elevated ESR, RENEE, rheumatoid factor anti-CCP, HLA-B27 are within normal limits Not able to start NSAIDs due to apixaban Will start short course of prednisone 15 mg p.o. daily for 2 weeks then 10 mg p.o. daily for 1 week We will reevaluate in 4 weeks after trial of steroids Further management based on his response to steroids Plan: ====== I discussed with [place] today by phone at length I discussed with patient's daughterFab by phone on June 27, 2023 No barriers; Patient understands and agrees to current treatment plan. If pt has any questions, concerns, or changes in current health status he/she will call or come [facility]. 10 minutes spent in patient care and education Upcoming Appointments: 07/05/2023 10:00 SPOPC/MHC/PSYCHIATRY RESI 07/05/2023 11:00 CWM/SO/PACT 5 07/18/2023 09:30 CWM/SO/PACT EIGHT 09/15/2023 14:30 NHM/OPT/VISUAL IMAGING 09/15/2023 15:00 NHM/OPTOMETRY/PHYLLIS /maddie/ RASHMI VERDUZCO MD PRIMARY CARE PHYSICIAN Signed: 06/28/2023 13:00 06/28/2023 ADDENDUM STATUS: COMPLETED ? Polymyalgia rheumatica-we will monitor for response to short course of steroids /maddie/ RASHMI VERDUZCO MD PRIMARY CARE PHYSICIAN Signed: 06/28/2023 13:03 07/01/2023 ADDENDUM STATUS: COMPLETED The [place] decided to transfer to PACT 5; next appointment is July 05, 2023 I will defer to PACT 5 provider to start tapering of steroids /maddie/ RASHMI VERDUZCO MD PRIMARY CARE PHYSICIAN Signed: 07/01/2023 13:08 Receipt Acknowledged By: 07/02/2023 13:33 /maddie/ SHADY MANCILLA MD PHYSICIAN 08/04/2023 ADDENDUM STATUS: COMPLETED The CT of abdomen pelvis-May 2023shows 1.9 cm left adrenal nodule measuring5 Hounsfield units-consistent with adrenal adenoma; based on size and Hounsfield units seems to be benign I will defer to the further work-up and follow-up to the new PCP Dr. Bautista /maddie/ RASHMI VERDUZCO MD PRIMARY CARE PHYSICIAN Signed: 08/04/2023 09:44 RASHMI VERDUZCO
--- OUTSIDE RECORDS SUMMARY | 2024-06-18 08:35 | XMS_ITS | Encounter Summary ---
Author Name [facility] Organization [facility] [place] [place] Address [address] [place] [address] Care Team Providers Care Cellular Plastics Cutter Name Role Phone SHADY MANCILLA Primary Care [...] PART B Jan 04, 2014 PART B [id number] STORMY KEN PATIENT MEDICARE (WNR) MEDICARE (M) PART A Jun 06, 2006 PART A [id number] STORMY KEN PATIENT MEDICARE (WNR) MEDICARE (M) PART A Jun 06, 2006 PART A [id number] [phone] STORMY KEN PATIENT MEDICARE (WNR) MEDICARE (M) PART A Jun 06, 2006 PART A [id number] STORMY KEN PATIENT Selected Encounter This section includes the information on record at [place] for the Encounter. Date/Time Encounter Type Encounter Description Reason Pro vider Source IHE Encounter Template Text not used by [facility] Advance Directives: All historical and current Section Date Range: From patient's date of to the date document was created. This section includes ALL of a patient's completed or amended [place] Advance and Rescinded Directives. The entries below indicate that a directive exists for the patient, but an actual copy is not included with this document. The data comes from all [place] facilities. Date Advance Directives Provider Source October 21, 2003 ADVANCE DIRECTIVE RYLAND TOMPKINS [facility]
--- OUTSIDE RECORDS SUMMARY | 2024-06-18 08:35 | XMS_ITS ---
Author Name [facility] [place] Organization [facility] [place] Address [address] [place] [address] Care Team Providers Care Brick Wheeler Name Role Phone SHADY MANCILLA Primary Care [...] PART B Jan 04, 2014 PART B [id number] STORMY KEN CE PATIENT MEDICARE (WNR) MEDICARE (M) PART A Jun 06, 2006 PART A [id number] [id number] [phone] STORMY KEN CE PATIENT MEDICARE (WNR) MEDICARE (M) PART A Jun 06, 2006 PART A [id number] [id number] [phone] JESUS MANUELSTORMY KELLEY CE PATIENT MEDICARE (WNR) MEDICARE (M) PART A Jun 06, 2006 PART A [id number] JESUS MANUEL,BRU CE PATIENT Selected Encounter This section includes the information on record at [place] for the Encounter. Date/Time Encounter Type Encounter Description Reason Pro vider Source Jun 28, 2023 03:46 PM Outpatient Encounter PRIMARY CARE/MEDICINE IHE Encounter Template Text not used by [place] Plan of Treatment: Future Appointments (+ 6 months) and Future Tests (+/- 45 days) The Plan of Treatment section includes future care activities for the patient from all [place] treatmentfacilities. This section includes future appointments and future orders which are active, pending or scheduled. Future Appointments This section includes appointments that were scheduled to occur 6 months from the date of the Encounter, up to a maximum of 20 appointments. The data comes from all [place] treatment facilities. Appointment Date/Time Appointment Type Appointme nt Facility Name Jul 05, 2023 10:00 AM AMBULATORY - PS[facility]IATRY [facility] Jul 13, 2023 12:00 PM AMBULATORY PS[facility]ATRY [facility] Jul 20, 2023 12:30 PM AMBULATORY - MEDICINE [facility] Jul 28, 2023 01:00 PM [facility] Aug 23, 2023 02:30 PM AMBULATORY - PSYCHIATRY [facility] Aug 31, 2023 12:30 PM AMBULATORY - MEDICINE [facility] Sep 02, 2023 11:00 AM AMBULATORY - PSYCHIATRY [facility] Sep 23, 2023 11:00 AM AMBULATORY PSYCHIATRY [facility] November 04, 2023 09:00 AM AMBULATORY PS[facility]CHIATRY [facility] Nov 08, 2023 03:00 PM AM[facility]ULATORY MED[facility]INE [facility] Dec 02, 2023 10:00 AM AMBULATORY PSYCHIATRY [facility] Dec 14, 2023 11:30 AM AMBULATORY - MEDICINE [facility] Lab Results: +/- 30 days of the encounter This section includes the Chemistry and Hematology Lab Results on record with [place] for the patient. Radiology Reports and Pathology Reports are provided separately, in subsequent sections. Lab Results This section contains the Chemistry/Hematology Results that were resulted 30 days before or 30 daysafter the date of the Encounter. Date/Time Source Result Type Result - Unit Interpretation Reference Range Comment Jun 08, 2023 01:58 PM [place] HLA-B27 (QU) Specimen Type: BLOOD Comment: Test Performed by [facility], [facility], [address] [place] [address] Yaya Marley M.D., Ph.D., Director of Laboratories , CLIA [id number] TEST PERFORMED AT: , Ordering Provider: RASHMI VERDUZCO Report Released Date/Time: Jun 08, 2023 01:57 PM Reporting Lab: [facility] [address] [facility] [address] Performing Lab: [facility] [address] [address] HLA-B27 Negative Negative Jun 08, 2023 01:58 PM [place] VITAMIN D 25-OH (Therapy monitor) Speci men [...] For additional information, please refer to http://education. [employer]/faq/VFA094 (This link is being provided for informational/ educational purposes only.) This test was developed and its analytical performance characteristics have been determined by [employer] [place], [place]. It has not been cleared or approved by the U.S. Food and Drug Administration. This assay has been validated pursuant to the CLIA regulations and is used for clinical purposes. This test was developed and its analytical performance characteristics have been determined by [employer] [place], [place]. It has not been cleared or approved by the U.S. Food and Drug Administration. This assay has been validated pursuant to the CLIA regulations and is used for clinical purposes. Test Performed by [facility], [employer] [place], [address] [place] [address] Yaya Marley M.D., Ph.D., Director of Laboratories , CLIA [id number] TEST PERFORMED AT: , Ordering Provider: RASHMI VERDUZCO Report Released Date/Time: Jun 08, 2023 01:57 PM Reporting Lab: [facility] [address] [facility] [address] Performing Lab: [facility] [address] [facility], [address] [place] [address] VITAMIN D, 25-OH, TOTAL 20 ng/mL L 30-100 VITAMIN D, 25-OH, D3 20 ng/mL VITAMIN D, 25-OH, D2 <4 ng/mL Jun 08, 2023 01:58 PM [place] C REACTIVE PROTEIN (CRPH) Specimen Type : [...] Jun 08, 2023 01:57 PM Reporting Lab: [facility] [address] [facility] [address] Performing Lab: [facility] [address] [facility] [address] C REACTIVE PROTEIN (CRPH) 48.72 mg/L See joselyn. Jun 08, 2023 01:58 PM [place] RENEE SCREEN/TITER Specimen Type: SERUM No comment entered. Ordering Provider: RASHMI VERDUZCO Report Released Date/Time: Jun 08, 2023 01:57 PM Reporting Lab: [facility] [address] [facility] [address] Performing Lab: [facility] [address] [facility] [address] RENEE SCREEN NEG Jun 08, 2023 01:58 PM [place] RHEUMATOID FACTOR Specimen Type: SERUM No comment entered. Ordering Provider: RASHMI VERDUZCO Report Released Date/Time: Jun 08, 2023 01:57 PM Reporting Lab: [facility] [address] [facility] [address] Performing [facility]: [facility] [address] [facility] [address] RHEUMATOID FACTOR <15 0-15 Jun 08, 2023 01:58 PM [place] ANTI-CCP Specimen Type: PLASMA Comment: Anti-cyclic citrullinated [...] Jun 08, 2023 01:57 PM Reporting Lab: [facility] [address] [facility] [address] Performing Lab: [facility] [address] [facility] [address] ANTI-CCP Negative Negative Jun 08, 2023 01:58 PM [place] SED RATE, AUTOMATED Specimen Type: BLOOD No comment entered. Ordering Provider: RASHMI VERDUZCO Report Released Date/Time: Jun 08, 2023 01:57 PM Reporting Lab: [facility] [address] [facility] [address] Performing Lab: [address] [address] SED RATE, AUTOMATED 3 mm/h 0-20 Jun 08, 2023 01:58 PM [place] VITAMIN B12 Specimen Type: SERUM No comment entered. Ordering Provider: RASHMI VERDUZCO Report Released Date/Time: Jun 08, 2023 01:57 PM Reporting Lab: [address] [address] Performing Lab: [address] [address] VITAMIN B12 396 pg/mL 200-900 Social History: Smoking Status (Most current) and Tobacco Use (All prior to encounter date) This section includes the most current, and the historical, smoking and tobacco- related health factors from the [place] facility where the Encounter took place. Current Smoking Status This section includes the most current smoking, or tobacco-related health factor, from the [place] facility where the Encounter took place. Date/Time Current Smoking Status Comment Facil ity Mar 23, 2022 09:30 AM [place]-TOBACCO FORMER USER [facility] Tobacco Use History This section includes a history of the smoking, or tobacco-related health factors, that were collected on or before the date of the Encounter. The data comes from the [place] facility where the Encounter took place. Date/Time Smoking Status/Tobac co Use Comment Facility Mar 23, 2022 09:30 AM [place]-TOBACCO QUIT 15 YRS OR MORE [facility] Sep 07, 2004 01:27 PM HISTORY OF SMOKING QUIT 12 YEARS AGO [facility] May 15, 2004 03:37 PM QUIT TOBACCO USE > 7 YEARS AGO [facility] Sep 02, 2003 01:28 PM QUIT TOBACCO USE > 7 YEARS AGO [facility] Advance Directives: All historical and current Section Date Range: From patient's date of to the date document was created. This section includes ALL of a patient's completed or amended [place] Advance and Rescinded Directives. The entries below indicate that a directive exists for the patient, but an actual copy is not included with this document. The data comes from all [place] facilities. Date Advance Directives Provider Source October 21, 2003 ADVANCE DIRECTIVE RYLAND TOMPKINS [facility] Encounter Notes: All associated encounter notes This section contains the clinical notes associated to the Encounter. 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 SCHEDULED ON 07/05/2023 AT 11AM. /maddie/ JOSE CARLOS BERTRAND ADVANCED FISH SEINER Signed: 06/28/2023 15:48 Receipt Acknowledged By: 06/29/2023 07:38 /es/ DENTON GARZA 06/28/2023 15:55 /es/ RACHEL HENDRICKSON RN REGISTERED NURSE 06/28/2023 16:20 /es/ LACIE DUARTE LPN LPN --- Original Document --- 06/28/23 ADMINISTRATIVE NOTE: [facility] is requesting a new primary care provider. Form has been completed with veteran. [place] current provider: RASHMI VERDUZCO [facility] is requesting... [ ] Review of my opioid medication treatment [X} New provider in the same location [ ] New primary care provider at a new location [ ] NHM [ ] POPC [ ] GOPC [ ] WOPC [ ] FOPC Fagot Heater Helper please approve/disapprove and assign new PCP. /maddie/ JOSE CARLOS BERTRAND ADVANCED FISH SEINER Signed: 06/28/2023 15:47 Receipt Acknowledged By: 06/29/2023 07:18 /maddie/ GREGORIA TRINIDAD NP NURSE PRACTITIONER JOSE CARLOS BERTRAND Jun 28, 2023 03:46 PM ADMINISTRATIVE NOT E: LOCAL TITLE: ADMINISTRATIVE NOTE STANDARD TITLE: ADMINISTRATIVE NOTE DATE OF NOTE: JUN 28, 2023@15:46 ENTRY DATE: JUN 28, 2023@15:46:51 AUTHOR: GAY BERTRAND COSIGNER: URGENCY: STATUS: COMPLETED ADMINISTRATIVE NOTE Has ADDENDA [facility] is requesting a new primary care provider. Form has been completed with veteran. [place] current provider: RASHMI VERDUZCO [facility] is requesting... [ ] Review of my opioid medication treatment [X} New provider in the same location [ ] New primary care provider at a new location [ ] NHM [ ] POPC [ ] GOPC [ ] WOPC [ ] FOPC Fagot Heater Helper please approve/disapprove and assign new PCP. /es/ JOSE CARLOS BERTRAND ADVANCED FISH SEINER Signed: 06/28/2023 15:47 Receipt Acknowledged By: 06/29/2023 07:18 /es/ GREGORIA TRINIDAD NP NURSE PRACTITIONER 06/28/2023 ADDENDUM STATUS: COMPLETED THIS SHOE SHANKER HAD SPOKEN TO FELICIANO (DAUGHTER), HAD REQUESTED CWM/SO/PACT 5 AND HAS AN APPT. SCHEDULED ON 07/05/2023 AT 11AM. /maddie/ JOSE CARLOS BERTRAND ADVANCED FISH SEINER Signed: 06/28/2023 15:48 Receipt Acknowledged By: * AWAITING SIGNATURE * DENTON LE 06/28/2023 15:55 /es/ RACHEL HENDRICKSON RN REGISTERED NURSE 06/28/2023 16:20 /es/ ZAIN WINSLOW LPN, SHARI K [place]
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
--- OUTSIDE RECORDS SUMMARY | 2024-06-18 08:36 | XMS_ITS | Encounter Summary ---
Author Name [facility] Organization [facility] Address [address] [place] [address] Care Team Providers Care Salon Customer Experience Specialist Name Role Phone SHADY MANCILLA Primary Care [...] PART B Jan 04, 2014 PART B [id number] [phone] STORMY KEN PATIENT MEDICARE (WNR) MEDICARE (M) PART A Jun 06, 2006 PART A [id number] [phone] STORMY KEN CE PATIENT MEDICARE (WNR) MEDICARE (M) PART A Jun 06, 2006 PART A [id number] STORMY KEN CE PATIENT MEDICARE (WNR) MEDICARE (M) PART A Jun 06, 2006 PART A [id number] STORMY KEN PATIENT Selected Encounter This section includes the information on record at [place] for the Encounter. Date/Time Encounter Type Encounter Description Reason Pro vider Source Jul 13, 2023 12:00 PM Outpatient Encounter [facility] Encounter Template Text not used by [place] Plan of Treatment: Future Appointments (+ 6 months) and Future Tests (+/- 45 days) The Plan of Treatment section includes future care activities for the patient from all [place] [facility]. This section includes future appointments and future orders which are active, pending or scheduled. Future Appointments This section includes appointments that were scheduled to occur 6 months from the date of the Encounter, up to a maximum of 20 appointments. The data comes from all [place] treatment facilities. Appointment Date/Time Appointment Type Appointme nt Facility Name Jul 20, 2023 12:30 PM AMBULATORY - MEDICINE [facility] Jul 28, 2023 01:00 PM [facility] Aug 23, 2023 02:30 PM AMBULATORY - PSYCHIATRY [facility] Aug 31, 2023 12:30 PM AMBULATORY - MEDICINE [facility] Sep 02, 2023 11:00 AM AMBULATORY - PSYCHIATRY [facility] Sep 23, 2023 11:00 AM AMBULATORY - PSYCHIATRY [facility] November 04, 2023 09:00 AM AMBULATORY - PSYCHIATRY [facility] Nov 08, 2023 03:00 PM [facility] - [facility] [place] [facility] Dec 02, 2023 10:00 AM AMBULATORY - PSYCHIATRY [facility] Dec 14, 2023 11:30 AM AMBULATORY - MEDICINE [facility] Dec 30, 2023 11:00 AM AMBULATORY - PSYCHIATRY [facility] Social History: Smoking Status (Most current) and Tobacco Use (All prior to encounter date) This section includes the most current, and the historical, smoking and tobacco- related health factors from the [place] facility where the Encounter took place. Current Smoking Status This section includes the most current smoking, or tobacco-related health factor, from the [place] facility where the Encounter took place. Date/Time Current Smoking Status Comment Nevaeh samuels Jun 08, 2023 01:00 PM VA-TOBACCO FORMER USER [place] Tobacco Use History This section includes a history of the smoking, or tobacco-related health factors, that were collected on or before the date of the Encounter. The data comes from the [place] facility where the Encounter took place. Date/Time Smoking Status/Tobacco Use Comment Shad acotto Jun 08, 2023 01:00 PM VA-TOBACCO QUIT 15 YRS OR MORE [place] Mar 11, 2021 01:00 PM VA-TOBACCO FORMER USER [place] Mar 11, 2021 01:00 PM VA-TOBACCO QUIT 15 YRS OR MORE [place] Feb 14, 2018 09:07 AM VA-TOBACCO FORMER USER [place] Feb 14, 2018 09:07 AM VA-TOBACCO QUIT 15 YRS OR MORE [place] Mar 03, 2017 10:30 AM QUIT TOBACCO USE > 7 YEARS AGO reports quitting 40 years ago [place] Dec 05, 2015 09:20 AM QUIT TOBACCO USE > 7 YEARS AGO quit 30 years ago smoked 10 years less than a pack a day [place] Advance Directives: All historical and current Section Date Range: From patient's date of to the date document was created. This section includes ALL of a patient's completed or amended [place] Advance and Rescinded Directives. The entries below indicate that a directive exists for the patient, but an actual copy is not included with this document. The data comes from all [place] facilities. Date Advance Directives Provider Source October 21, 2003 ADVANCE DIRECTIVE RYLAND TOMPKINS [facility] Encounter Notes: All associated encounter notes This section contains the clinical notes associated to the Encounter. 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 next appt requested as vvc 08/12/2023 @ 1100. link sent at this time. thank you /maddie/ ART GAGNON ADVANCED ORDNANCE TRUCK INSTALLATION SUPERVISOR Signed: 07/19/2023 09:45 Receipt Acknowledged By: 07/19/2023 13:20 /maddie/ ATIF Rosenbaum CABLE CUTTER AND SWAGER ======== --- Original Document --- 07/13/23 APPOINTMENT NO SHOW: Patient Name: DMITRIY KEN Patient SSN: [id number] Date and time of Appointment No show : 07/13/23 12:00 PATIENT PHONE - PHONE NUMBER [CELLULAR] - Patient's medical record was reviewed. Follow-up actions were determined and initiated: Please check/complete as applies: [X]Telephoned Directly [ ]Re-scheduled for next available appt [ ]Sent a N0-show letter ( must call for appointment) [ ]Other (Emergent/Overbook, etc.): Additional Comments: was called when he did not show for his appointment. He forgot all about it, states he has not been feeling well, both physically and this PTSD stuff . He stated he would contact the clinic to r/s when I am feeling better . Please NS this appt. Future Clinic Visits 07/20/2023 12:30 CWM/SO/VVC/PACT 5 08/23/2023 14:30 CWM/SO/VVC/MHC/PSYCH RESI 09/15/2023 14:30 NHM/OPT/VISUAL IMAGING 09/15/2023 15:00 NHM/OPTOMETRY/PHYLLIS /maddie/ ATIF Rosenbaum CABLE CUTTER AND SWAGER Signed: 07/13/2023 15:30 Receipt Acknowledged By: 07/13/2023 15:47 /maddie/ ART GAGNON ADVANCED ORDNANCE TRUCK INSTALLATION SUPERVISOR 07/13/2023 ADDENDUM STATUS: COMPLETED Appt marked NS and Letter Sent /maddie/ ART GAGNNO ADVANCED ORDNANCE TRUCK INSTALLATION SUPERVISOR Signed: 07/13/2023 15:53 ART GAGNON Jul 13, 2023 03:29 PM CLERICAL NOTE: LOCAL TITLE: APPOINTMENT NO SHOW STANDARD TITLE: CLERICAL NOTE DATE OF NOTE: JUL 13, 2023@15:29 ENTRY DATE: JUL 13, 2023@15:29:28 AUTHOR: ALESSANDRO SHEPPARD EXP COSIGNER: URGENCY: STATUS: COMPLETED APPOINTMENT NO SHOW Has ADDENDA Patient Name: DMITRIY KEN Patient SSN: [id number] Date and time of Appointment No show : 07/13/23 12:00 PATIENT PHONE - PHONE NUMBER [CELLULAR] - Patient's medical record was reviewed. Follow-up actions were determined and initiated: Please check/complete as applies: [X]Telephoned Directly [ ]Re-scheduled for next available appt [ ]Sent a N0-show letter ( must call for appointment) [ ]Other (Emergent/Overbook, etc.): Additional Comments: [place] was called when he did not show for his appointment. He forgot all about it, states he has not been feeling well, both physically and this PTSD stuff . He stated he would contact the clinic to r/s when I am feeling better . Please NS this appt. Future Clinic Visits 07/20/2023 12:30 CWM/SO/VVC/PACT 5 08/23/2023 14:30 CWM/SO/VVC/MHC/PSYCH RESI 09/15/2023 14:30 NHM/OPT/VISUAL IMAGING 09/15/2023 15:00 NHM/OPTOMETRY/PHYLLIS /maddie/ ATIF Rosenbaum CABLE CUTTER AND SWAGER Signed: 07/13/2023 15:30 Receipt Acknowledged By: 07/13/2023 15:47 /maddie/ ART GAGNON ADVANCED ORDNANCE TRUCK INSTALLATION SUPERVISOR 07/13/2023 ADDENDUM STATUS: COMPLETED Appt marked NS and Letter Sent /maddie/ ART GAGNON ADVANCED ORDNANCE TRUCK INSTALLATION SUPERVISOR Signed: 07/13/2023 15:53 07/19/2023 ADDENDUM STATUS: COMPLETED copywriter spoke to veterans daughter, on comm auth, and was able to rs missed appt. next appt requested as vvc 08/12/2023 @ 1100. link sent at this time. thank you /ry GAGNON ADVANCED ORDNANCE TRUCK INSTALLATION SUPERVISOR Signed: 07/19/2023 09:45 Receipt Acknowledged By: * AWAITING SIGNATURE * ALESSANDRO SHEPPARD TAMARA O [place]
--- OUTSIDE RECORDS SUMMARY | 2024-06-18 08:36 | XMS_ITS | Encounter Summary ---
Author Name [facility] [place] [facility] [place] [facility] [place] [facility] [place] Address [address] [place] [address] Care Team Providers Care Team Psychologist Name Role Phone CHARO SHADY Primary Care [...] PART B Jan 04, 2014 PART B [id number] JESUS MANUELSTORMY KELLEY CE PATIENT MEDICARE (WNR) MEDICARE (M) PART A Jun 06, 2006 PART A [id number] [phone] JESUS MANUEL,STORMY CE PATIENT MEDICARE (WNR) MEDICARE (M) PART A Jun 06, 2006 PART A [id number] [phone] JESUS MANUEL,STORMY CE PATIENT MEDICARE (WNR) MEDICARE (M) PART A Jun 06, 2006 PART A [id number] JESUS MANUEL,BRU CE PATIENT Selected Encounter This section includes the information on record at [place] for the Encounter. Date/Time Encounter Type Encounter Description Reason Provider Source Jul 20, 2023 12:30 PM OFFICE O/P EST HI 40 MIN PRIMARY CARE/MEDICINE ICD-10-CM M25.50 Pain in unspecified joint TERRELL-OCTAVIOKO CARISSASHADY [facility] Encounter Template Text not used by [place] Assessments - Encounter Diagnoses This section includes the primary and secondary diagnoses documented for the Encounter. Date/Time Primary/Secondary Diagnosis Diagnosis Name Provider Source Jul 20, 2023 03:55 PM PRIMARY Pain in unspecified joint TERRELL-BOSKO CARISSA,SHADY Johnson [place] Jul 20, 2023 03:55 PM SECONDARY Cardiomyopathy, unspecified SHEILAAZDIN-BOSKO CARISSA,JAZMYNESerinaSILASSerinaCORONA Alex [place] Jul 20, 2023 03:55 PM SECONDARY Chronic obstructive pulmonary disease, unspecified NADAZDIN-BOSKO CARISSA,JAZMYNESerinaSILASSerinaCORONA Johnson [place] Jul 20, 2023 03:55 PM SECONDARY Gastro-esophageal reflux dis with esophagitis, without bleed SHEILARONAN-DEVON CARISSA,JAZMYNESerinaSILASSerinaCORONA Johnson [place] Jul 20, 2023 03:55 PM SECONDARY Hyperlipidemia, unspecified SHEILAAZDIN-BOSKO CARISSA,PRANAVSerinaCORONA Johnson [place] Jul 20, 2023 03:55 PM SECONDARY Left ventricular failure, unspecified SHEILAAZDIN-BOSKO CARISSA,SHADY Johnson [place] Jul 20, 2023 03:55 PM SECONDARY Other pulmonary embolism without acute cor pulmonale SHEILARONAN-BOSKO CARISSAJAZMYNESerinaSILASSerinaCORONA Johnson [place] Jul 20, 2023 03:55 PM SECONDARY Post-traumatic stress disorder, chronic SHEILAAZDIN-BOSKO CARISSA,SHADY Johnson [place] Jul 20, 2023 03:55 PM SECONDARY Unspecified atrial fibrillation SHEILARONAN-BOSKO CARISSA,JAZMYNESerinaSILASSerinaCORONA [facility] Plan of Treatment: Future Appointments (+ 6 months) and Future Tests (+/- 45 days) The Plan of Treatment section includes future care activities for the patient from all [place] treatmentfacilities. This section includes future appointments and future orders which are active, pending or scheduled. Future Appointments This section includes appointments that were scheduled to occur 6 months from the date of the Encounter, up to a maximum of 20 appointments. The data comes from all [place] treatment facilities. Appointment Date/Time Appointment Type Appointme nt Facility Name Jul 28, 2023 01:00 PM AMBULATORY - MEDICINE [facility] YONIST[facility] Aug 23, 2023 02:30 PM AMBULATORY - PSYCHIATRY [facility] Aug 31, 2023 12:30 PM AMBULATORY - MEDICINE [facility] Sep 02, 2023 11:00 AM AMBULATORY - PSYCHIATRY [facility] Sep 23, 2023 11:00 AM AMBULATORY - PSYCHIATRY [facility] November 04, 2023 09:00 AM AMBULATORY - PSYCHIATRY [facility] Nov 08, 2023 03:00 PM AMBUL[facility]ORY - [facility]IC[facility] Dec 02, 2023 10:00 AM AMBULATORY - PS[facility]CHIATRY [facility] Dec 14, 2023 11:30 AM AMBULATORY - MEDICINE [facility] Dec 30, 2023 11:00 AM AMBULATORY - PSYCHIATRY [facility] Social History: Smoking Status (Most current) and Tobacco Use (All prior to encounter date) This section includes the most current, and the historical, smoking and tobacco- related health factors from the [place] facility where the Encounter took place. Current Smoking Status This section includes the most current smoking, or tobacco-related health factor, from the [place] facility where the Encounter took place. Date/Time Current Smoking Status Comment Nevaeh samuels Jun 08, 2023 01:00 PM VA-TOBACCO FORMER USER [place] Tobacco Use History This section includes a history of the smoking, or tobacco-related health factors, that were collected on or before the date of the Encounter. The data comes from the [place] facility where the Encounter took place. Date/Time Smoking Status/Tobacco Use Comment F acility Jun 08, 2023 01:00 PM VA-TOBACCO QUIT 15 YRS OR MORE [place] Mar 11, 2021 01:00 PM VA-TOBACCO FORMER USER [place] Mar 11, 2021 01:00 PM VA-TOBACCO QUIT 15 YRS OR MORE [place] Feb 14, 2018 09:07 AM VA-TOBACCO FORMER USER [place] Feb 14, 2018 09:07 AM VA-TOBACCO QUIT 15 YRS OR MORE [place] Mar 03, 2017 10:30 AM QUIT TOBACCO USE > 7 YEARS AGO reports quitting 40 years ago [place] Dec 05, 2015 09:20 AM QUIT TOBACCO USE > 7 YEARS AGO quit 30 years ago smoked 10 years less than a pack a day [place] Advance Directives: All historical and current Section Date Range: From patient's date of to the date document was created. This section includes ALL of a patient's completed or amended [place] Advance and Rescinded Directives. The entries below indicate that a directive exists for the patient, but an actual copy is not included with this document. The data comes from all [place] facilities. Date Advance Directives Provider Source October 21, 2003 ADVANCE DIRECTIVE RYLAND TOMPKINS Serina [facility] Encounter Notes: All associated encounter notes This section contains the clinical notes associated to the Encounter. Date/Time Encounter Note(s) Provider Source Jul 20, 2023 12:28 PM PHYSICIAN NOTE: LOCAL TITLE: MD NOTE STANDARD TITLE: PHYSICIAN NOTE DATE OF NOTE: JUL 20, 2023@12:28 ENTRY DATE: JUL 20, 2023@01:13:03 AUTHOR: Faraz MANCILLA COSIGNER: URGENCY: STATUS: COMPLETED NOTE Has ADDENDA Pt is 73 y/o M with PMH of HL, CAD, cardiomyopathy, HFrEF 25-30% (10/2022), Afib on DOAC, h/o PE, GERD, COPD, PTSD, anxiety, neurocognitive disorder today initial visit with me Patient transferring care from [facility] Last visit with PCP 06/2023 [facility] Other providers: --lib[facility] dean-Dr Tellez- [facility] last 03/2023 --GI -[facility] 01/2023 --> --[facility] Patient accompanied today by his daughter- Fab who is also my patient. Fab helped with medication reconciliation and HPI CC: Polyarthralgia Started in May 2003 ' Out of nowhere Never had symptoms like that before Denies any prior preceding respiratory GI infections Patient was started on bisoprolol and Entresto within last year-arthralgia listed as a side effect. He was evaluated initially in urgent care palpation tick panel testing was negative. He was prescribed muscle relaxants, Tylenol without improvement in symptoms. Patient denies any fever chills night sweats No changes in vision No headaches Pain was mostly affecting upper body-shoulders, arms, hands, fingers. Her daughter questionable swelling of hands initially. No redness, no warmth Patient had pain with movement, especially overhead activities. Prior to May he was very active, doing yard work, mowing the lawn. Last month he was seen by Dr. Cardona Arthritis work-up, blood work results reviewed: RENEE, RF, CPP, ESR, HLA B27 negative CRPH 48.7 -----> vit D 20 --> started on supplementation B12 396 Impression was likely polymyalgia rheumatica-patient started on prednisone 06/29/2022 2 weeks prednisone 15 mg BID 1 week prednisone 10 mg BID --today last day Since started prednisone patient feels better, although still not back to baseline both him and his daughter agreed his symptoms have improved on prednisone. Shoulders today full range of motion associated with some pain Full abduction Denies weakness Denies any joint swelling Patient is on apixaban for A. fib Not taking omeprazole, denies any epigastric pain, bloody or black stools. #HL/cardiomyopathy/HFrEF October 2022 he was admitted at [facility] for shortness of breath. He was diagnosed with pulmonary embolism, A. fib and severely reduced ejection fraction. His symptoms improved with anticoagulation and rate control. He was never volume overloaded or had orthopnea. not checking BP at home weight at home 130 lbs --> stable for months compliant with medications denies CP/SOB/FARIAS/palpitations/dizzi ness /claudication/LE edema f/w non [facility] cardi[facility] end of july - scheduled for ECHO Unclear if ischemia work-up was completed--> Will obtain most recent cardiology notes prior to next visit #Persistent Afib --> no palpitations, dizziness, no sx of bleeding #Pulmonary embolism, October 2022 #COPD: sx well controlled, no issues with breathing (currently on oral prednisone for ?MO) on wixela and takes albuterol hs denies any cough, wheezing, no increased sputum #Unintentional weight loss-Per patient after hospitalization in October 2022 he lost 30 pounds-weight has been stable over the last 3 months, reports good appetite Patient was referred to GI for malignancy work-up 01/2023 CT abdomen pelvis unremarkable At this time denies any fever chills night sweats nausea vomiting constipation He has episodes of diarrhea once in 2 weeks Denies any bloody or black stools He was evaluated by community care GI in January No reports available for review He was recommended probiotics, to decrease caffeine intake FIT and stool studies, including calprotectin were ordered at that time-results not available for review 01/2023 Colonoscopy was not recommended due to patient cardiac status at that time. PAST MEDICAL HISTORY: -- HL -- CAD -- Ischemic cardiomyopathy with EF 25-30% -- Heart failure with reduced ejection fraction -- Afib -- PE on AC -- Adrenal adenoma CT 05/2023 1.9cm benign, left adrenal gland -- GERD -- COPD -- Polycythemia: JAK2 negative in 2011--presumed secondary to COPD. -- Anxiety -- PTSD -- Neurocognitive disorder with behavioral changes PAST SURGICAL HISTORY: None ALLERGIES: NKDA MEDICATIONS: --APIXABAN 5MG TAB BID --SIMVASTATIN 40MG --SACUBITRIL 49MG/VALSARTAN 51MG BID --BISOPROLOL 5MG DAILY --EMPAGLIFLOZIN 10MG --PREDNISONE 5MG TAB TAKE THREE TABLETS BY MOUTH ONCE ACTIVE DAILY FOR 14 DAYS, THEN TAKE TWO TABLETS ONCE DAILY FOR 7 DAYS ARTHRALGIA --ALBUTEROL 90MCG (CFC-F) 200D --FLUTICAS 250/SALMETEROL 50 INHL --CHOLECALCIF 50MCG (D3-2,000UNIT) --FERROUS SULFATE 325MG daily --OMEPRAZOLE 20MG EC only prn --RISPERIDONE 0.25MG TAB DAILY NEEDED FOR ANXIETY --RISPERIDONE 0.5MG TAB TAKE ONE BEDTIME --sertraline 12.5mg FAMILY HISTORY: --DM: no --Cancer: strong FHx of cancer no sepcifics known mother at 28 - cervical --AR:no --CVA: no HISTORY: 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 - [id number]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 COMBAT SERVICE INDICATED: No SOCIAL HISTORY: --Occupation: retired --Cohabitation: , lives with himself, has a dog owns a house, one level still driving only locally indipendent in [place] --Children: 2 children --Diet: home cooked, eats a lot of red meat and sugar --Exercise: non last 2 months due to pain - alaways busy doing something, walking --Caffeine: 4c/day --EtOH: denies --Tob: quit 20 y/ago, h/o 30 xPPDY --MJ: smokes marijuana BID --Illicits: remote use of drugs, none recently --Sexual activity: --Eye: UTD 2022 --Dental: UTD --Hospitalizations: #10/2022 heart failure/PE/AFIb - [facility] ROS: Constitutional: fatigue +, no fever/no chills, no ns Eyes: no decreased vision/blurry vision Ears/Nose/Throat: no hearing change Respiratory: no cough/wheezing/SOB Cardiovascular: no CP /palpitations/ Le edema Gastrointestinal: no abdominal pain/bloody/black stools, n/v/c/d + sometimes - once a week :no dysuria/hematuria/trouble voiding MSK: no joint pain/myalgia Neuro: no dizziness/H/A Skin: no pruritus/rash walking w/o assistance - no falls PHYSICAL EXAM: Vital Signs: VVC Blood Pressure: 101/70 (07/05/2023 11:37) Pulse: 72 (07/05/2023 11:37) Respiration: 18 (01/19/2023 15:16) Temperature: 97.2 F [36.2 C] (07/05/2023 11:37) Patient Weight: BMI 24 139 lb [63.05 kg] (07/05/2023 11:37) Gen: pleasant, engaged, NAD LABORATORY: Collection DT Spec WBC HGB HCT PLT K+/Pot Sodium HGBA1c 12/14/2022 10:11 BLOOD 7.00 16.5 50.1 194 12/14/2022 10:11 SERUM 4.9 141 04/08/2022 12:10 BLOOD 8.31 15.8 49.6 208 01/22/2022 11:07 BLOOD 5.6 01/22/2022 11:07 SERUM 4.7 140 Collection DT Spec GLUCOSE CREATIN AST ALT T BILI ALK MIYA CHOL 12/14/2022 10:11 SERUM 110 H 1.02 15 13 0.9 62 137 01/22/2022 11:07 SERUM 109 H 1.20 15 14 0.7 63 152 08/06/2019 08:53 SERUM 115 H 1.16 15 15 0.5 106 155 10/02/2018 09:03 SERUM 118 H 1.20 18 18 0.7 68 163 04/06/2018 10:24 SERUM 94 1.27 18 16 0.8 65 153 Collection DT Spec LDL-c HDL TRIG TSH B12 SR- UR GLUC RBC/HPF 12/14/2022 10:11 SERUM 78 50 43 0.95 01/22/2022 11:08 SERUM 0.56 405 01/22/2022 11:07 SERUM 85 56 57 0.53 08/06/2019 08:53 SERUM 94 50 53 --06/2023-- HLA B27: Negative ANTINUCLEAR ANTIBODY: NEG CCP AB: Negative RHEUM FACT (WR): <15 CRP HI SENSITIVITY (WR): 48.72 SED RATE AUTO: 3 VITAMIN D, 25-HYDROXY: 20 L VITAMIN D, 25-OH, D3: 20 VITAMIN D, 25-OH, D2: <4 VIT. B12 (WROX): 396 IMAGING: #ECHO:10/2022 Left ventricle and normal in size Ejection fraction 25 to 30% Wall motion could not be accurately evaluated Left atrium moderately dilated Aortic root 3.5 cm, ascending aorta 3.6 cm Right ventricle mildly dilated with reduced function Right artery and dilated Pulmonary artery pressure 35 to 45 mmHg #EKG 12/2022 A. fib with slow ventricular response with premature ventricular or aberrantly conducted complexes Ventricular rate 59 bpm Cannot rule out anteroseptal infarct Low voltage QRS #CT abdomen without contrast 05/2023 Benign adrenal adenoma 1.9cm, left adrenal gland ASSESSMENT/PLAN: Pt is 73 y/o M with PMH of HL, CAD, cardiomyopathy, HFrEF 25-30% (10/2022), Afib on DOAC, h/o PE, GERD, COPD, PTSD, anxiety, neurocognitive disorder today initial visit with me #Polyarthralgia, myalgia-? Polymyalgia rheumatica, patient denies any vision changes, fevers, headaches -Good response to steroids -Will start tapering down prednisone by 1 mg q. 2 weeks, monitoring symptoms closely and refer to rheumatology -Check CPR #Cardiomyopathy: Patient asymptomatic, last BP 101/70 #HFrEF: last ECHO 10/2022 LVEF 25-30% -Follows with non-VA cardiology-> has scheduled follow-up for August with repeat ECHO -c/w BISOPROLOL 5MG DAILY -c/w sacubitril 49MG/VALSARTAN 51MG BID -c/w EMPAGLIFLOZIN 10MG #10/2022 PE -> started on DOAC #Persistent A. fib: Rate controlled on beta-shaila, on IALF-aqao-hrhkqshmrb without signs of bleeding #HL: Well-controlled, LDL 78 (2022) -c/w simvastatin 40 mg #COPD: Clinically stable on ICS/LABA, CHRIS prn #GERD: Asymptomatic -Continue with omeprazole (patient on steroid and apixaban) #PTSD, anxiety: Doing well on risperidone and sertraline Follows with mental health #h/o Polycythemia: Check CBC, currently on oral steroids Healthcare maintenance: --Lipids: LDL 78 (12/2022) --Diabetes: A1c 5.6 (01/2022) --Colon CA (50-75): 12/2022 GI advised against colonoscopy at that moment due to comorbidities PE/Afib on DOAC --Lung CA: --PSA PSA 3 (01/2022) --AAA (smoker/65): --Influenza (yrly): 06/2023 --COVID: x3 --PCV13 2015 --PCV23: 2018 --HZV (>60yrs, x1): 2014 --RZV (>50yrs, x2): --TDAP: 2007 --Hep C screen: 2003 negative --HIV screen: --DEXA: --Advanced Directives: Address at next visit: GI, cardio notes, non [facility] PCP ? Return to clinic to see me in _1__ months, sooner PRN. Virtual (x ), F2F ( ) ( )non fasting labs ordered prior to f/u ( )fasting labs ordered prior to f/u ( )no labs needed ( )request labs from outside provider ( )request records from outside providers -Please place community care referral to rheumatology-for polyarthralgia-? Polymyalgia rheumatica -Please obtain last note from cardiology-Per patient -last time seen in March 2023, he transferred care to [place] has appointment scheduled for end july -Please obtain most recent note from GI -after 12/29/2022 (last available alexandr whitaker) Medication Reconciliation: Outpatient: Has the patient been taking medications as documented in the EMLR? YES: The patient has been taking medications as documented in the EMLR. Essential Medication List for Review used to complete this medication reconciliation. INCLUDED IN THIS LIST: Alphabetical list of active outpatient prescriptions dispensed from this [facility] (local) and dispensed from another [place] or [facility] facility (remote) as well as inpatient orders [...] whether with a VA or non-VA provider. /maddie/ SHADY MANCILLA MD PHYSICIAN Signed: 07/20/2023 15:55 Receipt Acknowledged By: 07/21/2023 10:40 /ry GARZA 07/21/2023 15:19 /maddie/ RODRIGO DECKER RN REGISTERED NURSE 07/20/2023 ADDENDUM STATUS: COMPLETED Correction: We will taper down prednisone by 2.5 mg monthly. /ry MANCILLA MD PHYSICIAN Signed: 07/20/2023 15:56 07/21/2023 ADDENDUM STATUS: COMPLETED Pipe Turner requested records. /ry GARZA Signed: 07/21/2023 10:40 SB MANCILLA [place]
--- OUTSIDE RECORDS SUMMARY | 2024-06-18 08:36 | XMS_ITS ---
Author Name [facility] [place] [facility] [place] [facility] [place] Address [address] [place] [address] Care Team Providers Care Wood Barker Name Role Phone SHADY MANCILLA Primary Care [...] PART B Jan 04, 2014 PART B [id number] 89A STORMY RAPP CE PATIENT MEDICARE (WNR) MEDICARE (M) PART A Jun 06, 2006 PART A [id number] [id number] STORMY RAPP CE PATIENT MEDICARE (WNR) MEDICARE (M) PART A Jun 06, 2006 PART A [id number] 89A [phone] JESUS MANUELSTORMY KELLEY CE PATIENT MEDICARE (WNR) MEDICARE (M) PART A Jun 06, 2006 PART A [id number] JESUS MANUEL,BRU CE PATIENT Selected Encounter This section includes the information on record at [place] for the Encounter. Date/Time Encounter Type Encounter Description Reason Pro vider Source Jul 20, 2023 12:28 PM Outpatient Encounter PRIMARY CARE/MEDICINE IHE Encounter Template Text not used by [place] Plan of Treatment: Future Appointments (+ 6 months) and Future Tests (+/- 45 days) The Plan of Treatment section includes future care activities for the patient from all [place] treatmentfacilities. This section includes future appointments and future orders which are active, pending or scheduled. Future Appointments This section includes appointments that were scheduled to occur 6 months from the date of the Encounter, up to a maximum of 20 appointments. The data comes from all [place] treatment facilities. Appointment Date/Time Appointment Type Appointme nt Facility Name Jul 28, 2023 01:00 PM [facility] Aug 23, 2023 02:30 PM AMBULATORY - PSYCHIATRY [facility] Aug 31, 2023 12:30 PM AMBULATORY - MEDICINE [facility] Sep 02, 2023 11:00 AM AMBULATORY - PSYCHIATRY [facility] Sep 23, 2023 11:00 AM AMBULATORY - PSYCHIATRY [facility] November 04, 2023 09:00 AM AMBULATORY - PSYCHIATRY [facility] Nov 08, 2023 03:00 PM [facility] Dec 02, 2023 10:00 AM AMBULATORY - PSYCHIATRY [facility] Dec 14, 2023 11:30 AM AMBULATORY - MEDICINE [facility] Dec 30, 2023 11:00 AM AMBULATORY - PSYCHIATRY [facility] Social History: Smoking Status (Most current) and Tobacco Use (All prior to encounter date) This section includes the most current, and the historical, smoking and tobacco- related health factors from the [place] facility where the Encounter took place. Current Smoking Status This section includes the most current smoking, or tobacco-related health factor, from the [place] facility where the Encounter took place. Date/Time Current Smoking Status Comment [facility] Mar 23, 2022 09:30 AM VA-TOBACCO FORMER USER [facility] Tobacco Use History This section includes a history of the smoking, or tobacco-related health factors, that were collected on or before the date of the Encounter. The data comes from the [place] facility where the Encounter took place. Date/Time Smoking Status/Tobac co Use Comment Facility Mar 23, 2022 09:30 AM VA-TOBACCO QUIT 15 YRS OR MORE [facility] Sep 07, 2004 01:27 PM HISTORY OF SMOKING QUIT 12 YEARS AGO [facility] May 15, 2004 03:37 PM QUIT TOBACCO USE > 7 YEARS AGO [facility] Sep 02, 2003 01:28 PM QUIT TOBACCO USE > 7 YEARS AGO [facility] Advance Directives: All historical and current Section Date Range: From patient's date of to the date document was created. This section includes ALL of a patient's completed or amended [place] Advance and Rescinded Directives. The entries below indicate that a directive exists for the patient, but an actual copy is not included with this document. The data comes from all [place] facilities. Date Advance Directives Provider Source October 21, 2003 ADVANCE DIRECTIVE RYLAND TOMPKINS [facility] Encounter Notes: All associated encounter notes This section contains the clinical notes associated to the Encounter. Date/Time Encounter Note(s) Provider Source Jul 20, 2023 12:31 PM PREVENTIVE MEDICIN E NURSING NOTE: LOCAL TITLE: CLINICAL REMINDERS/NURSING STANDARD TITLE: PREVENTIVE MEDICINE NURSING NOTE DATE OF NOTE: JUL 20, 2023@12:31 ENTRY DATE: JUL 20, 2023@12:31:27 AUTHOR: ALVINO KING COSIGNER: URGENCY: STATUS: COMPLETED Advance Directive Screen MH AD: Patient does not have a completed advance directive on file at any facility, [facility] or outside. S/he is not interested in completing one at this time. The patient received education about Advance Directives and written notification of his/her rights. Td / Tdap Immunization: Virtual/Telehealth Visit - Patient educated on the need for receiving Tdap immunization either at VA or outside facility. RHS Screen: RHS Screen Session Format: Clinical Video Telehealth Modality of Care: Video Telehealth Patient's identity verified using two identifiers. Patient Contact Details: Best contact number for backup/emergency communication with patient: PATIENT PHONE - Patient Location/Surroundings During Visit: Patient location during visit: Home [address] [place] [address] Others present for visit with patient's consent: Name: Destinee Rapp/ daughter Patient confirms location is safe and private for visit. Telehealth Disclosure: Visit conducted by synchronous telehealth. Patient verbal consent obtained. Location/emergency number confirmed. Environment surveyed and all participants identified. Virtual conference room locked. Environmental Check Screening was not completed at this time due to: Another adult present /es/ INDU KING LPN LPN Signed: 07/20/2023 12:32 INDU KING [facility] Jul 20, 2023 12:28 PM TELEHEALTH NOTE: LOCAL TITLE: [employer] VIDEO CONNECT PRIMARY CARE STANDARD TITLE: TELEHEALTH NOTE DATE OF NOTE: JUL 20, 2023@12:28 ENTRY DATE: JUL 20, 2023@12:28:32 AUTHOR: ALVINO KING EXP COSIGNER: URGENCY: STATUS: COMPLETED [facility] Video Connect (VVC) Standard Documentation VVC Clinician Resources Only: E911 (Emergency Call Relay Center): [phone] [place] [facility] Line - 988 then press #1. [place] Suicide Coordinator - [phone], Ext. [phone]; Back-up Ext. [phone] [place] Police, [place], [place] - [phone] Introduction: Visit is being conducted by [place] [facility]. identified with 2 identifiers: [X] Full Name [X] Date of [ ] VA ID Card Emergency Plan: confirmed and/or provided the following information in case of emergency or technology failure. PATIENT PHONE - PHONE NUMBER [CELLULAR] - Is patient phone number correct, if not, enter below: Junior's phone number: [address], [place] [address] Junior's present location and address for appointment: [address] [place] [id number] 's emergency contact name and phone number: Destinee Rapp [phone] reported that location is private and safe: Yes Informed Consent: informed of the risks and benefits of Telehealth video care. has the right to refuse video services. If refuses video visit, a [id number] visit will be scheduled. Junior verbalized consent for this video visit: Yes provided consent for any other persons present for visit: Yes If yes, who and relationship to patient: Destinee Rapp/ daughter Secure visit: Visit was locked for security and privacy:Yes /maddie/ INDU KING LPN LPN Signed: 07/20/2023 12:31 INDU KING
--- OUTSIDE RECORDS SUMMARY | 2024-06-18 08:36 | XMS_ITS | Encounter Summary ---
Author Name [facility] [place] [place] [facility] [place] [place] Address [address] [place] [address] Care Team Providers Care Nutritionists Name Role Phone SHADY MANCILLA Primary Care [...] PART B Jan 04, 2014 PART B [id number] 89A STORMY KEN CE PATIENT MEDICARE (WNR) MEDICARE (M) PART A Jun 06, 2006 PART A [id number] 89A STORMY KEN CE PATIENT MEDICARE (WNR) MEDICARE (M) PART A Jun 06, 2006 PART A [id number] 89A [phone] JESUS MANUELSTORMY KELLEY CE PATIENT MEDICARE (WNR) MEDICARE (M) PART A Jun 06, 2006 PART A [id number] 89A JESUS MANUEL,BRU CE PATIENT Selected Encounter This section includes the information on record at [place] for the Encounter. Date/Time Encounter Type Encounter Description Reason Pro vider Source Jul 05, 2023 11:00 AM Outpatient Encounter PRIMARY CARE/MEDICINE IHE Encounter Template Text not used by [place] Plan of Treatment: Future Appointments (+ 6 months) and Future Tests (+/- 45 days) The Plan of Treatment section includes future care activities for the patient from all [place] treatmentfacilities. This section includes future appointments and future orders which are active, pending or scheduled. Future Appointments This section includes appointments that were scheduled to occur 6 months from the date of the Encounter, up to a maximum of 20 appointments. The data comes from all [place] treatment facilities. Appointment Date/Time Appointment Type Appointme nt Facility Name Jul 13, 2023 12:00 PM AMBULATORY - PSYCHIATRY [facility] Jul 20, 2023 12:30 PM AMBULATORY - MEDICINE [facility] Jul 28, 2023 01:00 PM AMBULATORY MEDICINE [facility] [place] [facility] Aug 23, 2023 02:30 PM AMBULATORY - PSYCHIATRY [facility] Aug 31, 2023 12:30 PM AMBULATORY - MEDICINE [facility] Sep 02, 2023 11:00 AM AMBULATORY - PSYCHIATRY [facility] Sep 23, 2023 11:00 AM AMBULATORY PSYCHIATRY [facility] November 04, 2023 09:00 AM AMBULATORY PSYCHIATRY [facility] Nov 08, 2023 03:00 PM [facility] MEDICINE [facility] [place] [facility] Dec 02, 2023 10:00 AM [facility] PSYCHIATRY [facility] Dec 14, 2023 11:30 AM AMBULATORY - MEDICINE [facility] Dec 30, 2023 11:00 AM AMBULATORY PSYCHIATRY [facility] Lab Results: +/- 30 days of the encounter This section includes the Chemistry and Hematology Lab Results on record with [place] for the patient. Radiology Reports and Pathology Reports are provided separately, in subsequent sections. Lab Results This section contains the Chemistry/Hematology Results that were resulted 30 days before or 30 daysafter the date of the Encounter. Date/Time Source Result Type Result - Unit Interpretation Reference Range Comment Jun 08, 2023 01:58 PM [place] HLA-B27 (QU) Specimen Type: BLOOD Comment: [facility], [facility], [address] [place] [address] Yaya Marley M.D., Ph.D., Director of Laboratories , CLIA [id number] TEST PERFORMED AT: , Ordering Provider: RASHMI VERDUZCO Report Released Date/Time: Jun 08, 2023 01:57 PM Reporting Lab: [facility] [address] [address] Performing Lab: [facility] [address] [address] HLA-B27 Negative Negative Jun 08, 2023 01:58 PM [place] VITAMIN D 25-OH (Therapy monitor) Speci men [...] For additional information, please refer to http://education. Primeloop/faq/EFT900 (This link is being provided for informational/ educational purposes only.) This test was developed and its analytical performance characteristics have been determined by [employer] [place], [place]. It has not been cleared or approved by the U.S. Food and Drug Administration. This assay has been validated pursuant to the CLIA regulations and is used for clinical purposes. This test was developed and its analytical performance characteristics have been determined by [employer] [place] [place]. It has not been cleared or approved by the U.S. Food and Drug Administration. This assay has been validated pursuant to the CLIA regulations and is used for clinical purposes. Test Performed by [facility], [facility] [place], [address] [place] [address] Yaya Marley M.D., Ph.D., Director of Laboratories , CLIA [id number] TEST PERFORMED AT: , Ordering Provider: RASHMI VERDUZCO Report Released Date/Time: Jun 08, 2023 01:57 PM Reporting Lab: [facility] [address] [address] Performing Lab: [facility] [address] [facility] [place], [address] [place] [address] VITAMIN D, 25-OH, TOTAL 20 ng/mL L 30-100 VITAMIN D, 25-OH, D3 20 ng/mL VITAMIN D, 25-OH, D2 <4 ng/mL Jun 08, 2023 01:58 PM [place] RENEE SCREEN/TITER Specimen Type: SERUM No comment entered. Ordering Provider: RASHMI VERDUZCO Report Released Date/Time: Jun 08, 2023 01:57 PM Reporting Lab[facility] [address] [address] Performing Lab: [facility] [address] [facility] [address] RENEE SCREEN NEG Jun 08, 2023 01:58 PM [place] C REACTIVE PROTEIN (CRPH) Specimen Type : SERUM Comment: Reference range changed on 11/24/10 CRP reference ranges for ages >17 years: hsCRP [...] Jun 08, 2023 01:57 PM Reporting Lab: [facility] [address] [address] Performing Lab: [facility] [address] [facility] [address] C REACTIVE PROTEIN (CRPH) 48.72 mg/L See eval. Jun 08, 2023 01:58 PM [place] RHEUMATOID FACTOR Specimen Type: SERUM No comment entered. Ordering Provider: RASHMI VERDUZCO Report Released Date/Time: Jun 08, 2023 01:57 PM Reporting Lab: [facility] [address] [address] Performing Lab: [facility] [address] [facility] [address] RHEUMATOID FACTOR <15 0-15 Jun 08, 2023 01:58 PM [place] ANTI-CCP Specimen Type: PLASMA Comment: Anti-cyclic citrullinated [...] Jun 08, 2023 01:57 PM Reporting Lab: [facility] [address] [address] Performing Lab: [facility] [address] [facility] [address] ANTI-CCP Negative Negative Jun 08, 2023 01:58 PM [place] VITAMIN B12 Specimen Type: SERUM No comment entered. Ordering Provider: RASHMI VERDUZCO Report Released Date/Time: Jun 08, 2023 01:57 PM Reporting Lab: [facility] [address] [address] Performing Lab: [address] [address] VITAMIN B12 396 pg/mL 200-900 Jun 08, 2023 01:58 PM [place] SED RATE, AUTOMATED Specimen Type: BLOOD No comment entered. Ordering Provider: RASHMI VERDUZCO Report Released Date/Time: Jun 08, 2023 01:57 PM Reporting Lab: [address] [address] Performing Lab: [address] [address] SED RATE, AUTOMATED 3 mm/h 0-20 Social History: Smoking Status (Most current) and Tobacco Use (All prior to encounter date) This section includes the most current, and the historical, smoking and tobacco- related health factors from the [place] facility where the Encounter took place. Current Smoking Status This section includes the most current smoking, or tobacco-related health factor, from the [place] facility where the Encounter took place. Date/Time Current Smoking Status Comment Facil ity Mar 23, 2022 09:30 AM [place]-TOBACCO QUIT 15 YRS OR MORE [facility] Tobacco Use History This section includes a history of the smoking, or tobacco-related health factors, that were collected on or before the date of the Encounter. The data comes from the [place] facility where the Encounter took place. Date/Time Smoking Status/Tobac co Use Comment Facility Mar 23, 2022 09:30 AM NH-TOBACCO QUIT 15 YRS OR MORE [facility] Sep 07, 2004 01:27 PM HISTORY OF SMOKING QUIT 12 YEARS AGO [facility] May 15, 2004 03:37 PM QUIT TOBACCO USE > 7 YEARS AGO [facility] Sep 02, 2003 01:28 PM QUIT TOBACCO USE > 7 YEARS AGO [facility] Advance Directives: All historical and current Section Date Range: From patient's date of to the date document was created. This section includes ALL of a patient's completed or amended [place] Advance and Rescinded Directives. The entries below indicate that a directive exists for the patient, but an actual copy is not included with this document. The data comes from all [place] facilities. Date Advance Directives Provider Source October 21, 2003 ADVANCE DIRECTIVE RYLAND TOMPKINS [facility] Encounter Notes: All associated encounter notes This section contains the clinical notes associated to the Encounter. Date/Time Encounter Note(s) Provider Source Jul 05, 2023 11:44 AM PREVENTIVE MEDICIN E NURSING NOTE: LOCAL TITLE: CLINICAL REMINDERS/NURSING STANDARD TITLE: PREVENTIVE MEDICINE NURSING NOTE DATE OF NOTE: JUL 05, 2023@11:44 ENTRY DATE: JUL 05, 2023@11:44:02 AUTHOR: LACIE DUARTE EXP COSIGNER: URGENCY: STATUS: COMPLETED RHS Screen: RHS Screen Session Format: Face to Face Environmental Check Screening was not completed at this time due to: Another adult present /maddie/ LACIE DUARTE LPN LPN Signed: 07/05/2023 11:46 LACIE DUARTE
--- OUTSIDE RECORDS SUMMARY | 2024-06-18 08:36 | XMS_ITS | Encounter Summary ---
Author Name [facility] [place] [facility] [place] [facility] [place] Address [address] [place] [address] Care Team Providers Care Ecological Economist Name Role Phone SHADY MANCILLA Primary Care [...] PART B Jan 04, 2014 PART B [id number] [id number] STORMY KEN PATIENT MEDICARE (WNR) MEDICARE (M) PART A Jun 06, 2006 PART A [id number] [id number] [phone] STORMY KEN CE PATIENT MEDICARE (WNR) MEDICARE (M) PART A Jun 06, 2006 PART A [id number] 89A STORMY KEN CE PATIENT MEDICARE (WNR) MEDICARE (M) PART A Jun 06, 2006 PART A [id number] 89A STORMY KEN PATIENT Selected Encounter This section includes the information on record at [place] for the Encounter. Date/Time Encounter Type Encounter Description Reason Pro vider Source Jul 05, 2023 01:39 PM Outpatient Encounter ADMIN PAT ACTIVTIES (MARGANONCT) IHE Encounter Template Text not used by [place] Plan of Treatment: Future Appointments (+ 6 months) and Future Tests (+/- 45 days) The Plan of Treatment section includes future care activities for the patient from all [place] [facility] This section includes future appointments and future orders which are active, pending or scheduled. Future Appointments This section includes appointments that were scheduled to occur 6 months from the date of the Encounter, up to a maximum of 20 appointments. The data comes from all [place] treatment facilities. Appointment Date/Time Appointment Type Appointme nt Facility Name Jul 13, 2023 12:00 PM AMBULATORY - PSYCHIATRY [facility] Jul 20, 2023 12:30 PM AMBULATORY - MEDICINE [facility] Jul 28, 2023 01:00 PM [facility] Aug 23, 2023 02:30 PM AMBULATORY - PSYCHIATRY [facility] Aug 31, 2023 12:30 PM AMBULATORY - MEDICINE [facility] Sep 02, 2023 11:00 AM AMBULATORY PSYCHIATRY [facility] Sep 23, 2023 11:00 AM AMBULATORY PSYCHIATRY [facility] November 04, 2023 09:00 AM AMBULATORY PSYCHIATRY [facility] Nov 08, 2023 03:00 PM AMBULATORY MEDICINE [facility] Dec 02, 2023 10:00 AM AMBULATORY PSYCHIATRY [facility] Dec 14, 2023 11:30 AM AMBULATORY - MEDICINE [facility] Dec 30, 2023 11:00 AM AMBULATORY PSYCHIATRY [facility] Lab Results: +/- 30 days of the encounter This section includes the Chemistry and Hematology Lab Results on record with [place] for the patient. Radiology Reports and Pathology Reports are provided separately, in subsequent sections. Lab Results This section contains the Chemistry/Hematology Results that were resulted 30 days before or 30 daysafter the date of the Encounter. Date/Time Source Result Type Result - Unit Interpretation Reference Range Comment Jun 08, 2023 01:58 PM [place] HLA-B27 (QU) Specimen Type: BLOOD Comment: Test Performed by Marvin Stephenson, [employer] [facility], [address] [place] [address] Yaya Marley M.D., Ph.D., Director of Laboratories , CLIA [id number] TEST PERFORMED AT: , Ordering Provider: RASHMI VERDUZCO Report Released Date/Time: Jun 08, 2023 01:57 PM Reporting Lab: [facility] [address] [facility] [address] Performing Lab: [facility] [address] [address] HLA-B27 Negative Negative Jun 08, 2023 01:58 PM [place] VITAMIN D 25-OH (Therapy monitor) Speci men [...] For additional information, please refer to http://education. [employer]/faq/CYA344 (This link is being provided for informational/ educational purposes only.) This test was developed and its analytical performance characteristics have been determined by [facility] [employer] [facility] [place], [place]. It has not been cleared or approved by the U.S. Food and Drug Administration. This assay has been validated pursuant to the CLIA regulations and is used for clinical purposes. This test was developed and its analytical performance characteristics have been determined by [facility] [employer] [facility] [place], [place]. It has not been cleared or approved by the U.S. Food and Drug Administration. This assay has been validated pursuant to the CLIA regulations and is used for clinical purposes. Test Performed by [employer] [place], [employer] [place], [address] [place], [place] Yaya Marley M.D., Ph.D., Director of Laboratories , CLIA [id number] TEST PERFORMED AT: , Ordering Provider: RASHMI VERDUZCO Report Released Date/Time: Jun 08, 2023 01:57 PM Reporting Lab: [facility] [address] [facility] [address] Performing Lab: [facility] [address] [facility], [address] [place] [address] VITAMIN D, 25-OH, TOTAL 20 ng/mL L 30-100 VITAMIN D, 25-OH, D3 20 ng/mL VITAMIN D, 25-OH, D2 <4 ng/mL Jun 08, 2023 01:58 PM [place] C REACTIVE PROTEIN (CRPH) Specimen Type : [...] Jun 08, 2023 01:57 PM Reporting Lab: [facility] [address] [facility] [address] Performing Lab: [facility] [address] [facility] [address] C REACTIVE PROTEIN (CRPH) 48.72 mg/L See joselyn. Jun 08, 2023 01:58 PM [place] RENEE SCREEN/TITER Specimen Type: SERUM No comment entered. Ordering Provider: RASHMI VERDUZCO Report Released Date/Time: Jun 08, 2023 01:57 PM Reporting Lab: [facility] [address] [facility] [address] Performing Lab: [facility] [address] [facility] [address] RENEE SCREEN NEG Jun 08, 2023 01:58 PM [place] RHEUMATOID FACTOR Specimen Type: SERUM No comment entered. Ordering Provider: RASHMI VERDUZCO Report Released Date/Time: Jun 08, 2023 01:57 PM Reporting Lab: [facility] [address] [facility] [address] Performing Lab: [facility] [address] [facility] [address] RHEUMATOID FACTOR <15 0-15 Jun 08, 2023 01:58 PM [place] ANTI-CCP Specimen Type: PLASMA Comment: Anti-cyclic citrullinated [...] Jun 08, 2023 01:57 PM Reporting Lab: [facility] [address] [facility] [address] Performing Lab: [facility] [address] [facility] [address] ANTI-CCP Negative Negative Jun 08, 2023 01:58 PM [place] SED RATE, AUTOMATED Specimen Type: BLOOD No comment entered. Ordering Provider: RASHMI VERDUZCO Report Released Date/Time: Jun 08, 2023 01:57 PM Reporting Lab: [facility] [address] [facility] [address] Performing Lab: [address] [address] SED RATE, AUTOMATED 3 mm/h 0-20 Jun 08, 2023 01:58 PM [place] VITAMIN B12 Specimen Type: SERUM No comment entered. Ordering Provider: RASHMI VERDUZCO Report Released Date/Time: Jun 08, 2023 01:57 PM Reporting Lab: [facility] [address] [address] Performing Lab: [address] [address] VITAMIN B12 396 pg/mL 200-900 Social History: Smoking Status (Most current) and Tobacco Use (All prior to encounter date) This section includes the most current, and the historical, smoking and tobacco- related health factors from the [place] facility where the Encounter took place. Current Smoking Status This section includes the most current smoking, or tobacco-related health factor, from the [place] facility where the Encounter took place. Date/Time Current Smoking Status Comment Nevaeh ity Mar 23, 2022 09:30 AM [place]-TOBACCO FORMER USER [facility] Tobacco Use History This section includes a history of the smoking, or tobacco-related health factors, that were collected on or before the date of the Encounter. The data comes from the [place] facility where the Encounter took place. Date/Time Smoking Status/Tobac co Use Comment Facility Mar 23, 2022 09:30 AM AR-TOBACCO QUIT 15 YRS OR MORE [facility] Sep 07, 2004 01:27 PM HISTORY OF SMOKING QUIT 12 YEARS AGO [facility] May 15, 2004 03:37 PM QUIT TOBACCO USE > 7 YEARS AGO [facility] Sep 02, 2003 01:28 PM QUIT TOBACCO USE > 7 YEARS AGO [facility] Advance Directives: All historical and current Section Date Range: From patient's date of to the date document was created. This section includes ALL of a patient's completed or amended [place] Advance and Rescinded Directives. The entries below indicate that a directive exists for the patient, but an actual copy is not included with this document. The data comes from all [place] facilities. Date Advance Directives Provider Source October 21, 2003 ADVANCE DIRECTIVE RYLAND TOMPKINS [facility] Encounter Notes: All associated encounter notes This section contains the clinical notes associated to the Encounter. 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 /maddie/ JOSE CARLOS BERTRAND ADVANCED JEWELRY SALES COORDINATOR Signed: 07/05/2023 14:03 Receipt Acknowledged By: 07/05/2023 14:17 /es/ DENTON LE AMSA 07/05/2023 14:13 /es/ LACIE CHANFIELD, CONSTRUCTION ESTIMATOR CONSTRUCTION ESTIMATOR === --- Original Document --- 07/05/23 CCC: SCHEDULING ADMINISTRATION: Patient Demographics Patient Name: DMITRIY KEN Patient Primary Phone: [phone] Patient Primary [address]: [address] [place] [id number] Patient : 1950 Patient Age: 73 Caller/Recipient Relation to Patient: Other If Other Describe Relation to Patient: Daughter Caller Name: Sophia Scheduling Cannot Complete Scheduling Action Reason: Restricted / Unavailable Clinic Requested Service(s): Primary Care Scheduling Note Reason: Cannot Complete Appointment Request Open Request: None of the above Administrative Administrative Note Reason: Other Administrative Note Comments: Veterans daughter Jigna calling states she would like to reschedule appt that was today with PACT 07/05. Jigna is requesting for the appt to be a VVC. [facility] does not have access to schedule. Please advise. /maddie/ HUSEYIN GALAVIZ V[facility] Signed: 07/05/2023 13:39 Receipt Acknowledged By: 07/05/2023 14:05 /maddie/ JOSE CARLOS BERTRAND ADVANCED JEWELRY SALES COORDINATOR * AWAITING SIGNATURE * NOEMI LAM 07/05/2023 ADDENDUM STATUS: UNSIGNED You may not VIEW this UNSIGNED Addendum. GAY BERTRAND [place] [facility] [place] [facility] Jul 05, 2023 01:39 PM ADMINISTRATIVE NOTE: LOCAL TITLE: CCC: SCHEDULING ADMINISTRATION STANDARD TITLE: ADMINISTRATIVE NOTE DATE OF NOTE: JUL 05, 2023@13:39:41 ENTRY DATE: JUL 05, 2023@13:39:41 AUTHOR: HUSEYIN GALAVIZ EXP COSIGNER: URGENCY: STATUS: COMPLETED CCC: SCHEDULING ADMINISTRATION Has ADDENDA Patient Demographics Patient Name: DMITRIY KEN Patient Primary Phone: [phone] Patient Primary [address]: [address] [place] [address] [place] [address] Patient : 1950 Patient Age: 73 Caller/Recipient Relation to Patient: Other If Other Describe Relation to Patient: Daughter Caller Name: Sophia Scheduling Cannot Complete Scheduling Action Reason: Restricted / Unavailable Clinic Requested Service(s): Primary Care Scheduling Note Reason: Cannot Complete Appointment Request Open Request: None of the above Administrative Administrative Note Reason: Other Administrative Note Comments: Veterans daughter Jigna calling states she would like to reschedule appt that was today with PACT 07/05. Jigna is requesting for the appt to be a VVC. [facility] [employer] [facility] does not have access to schedule. Please advise. 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 /maddie/ JOSE CARLOS BERTRAND ADVANCED JEWELRY SALES COORDINATOR Signed: 07/05/2023 14:03 Receipt Acknowledged By: 07/05/2023 14:17 /maddie/ DENTON GARZA 07/05/2023 14:13 /es/ LACIE DUARTE LPN LPN 07/05/2023 ADDENDUM STATUS: COMPLETED [facility] [employer] [employer] spoke with keisha's daughter to horowitz a video appointment with new PCP. /maddie/ DENTON GARZA Signed: 07/05/2023 14:18 HUSEYIN GALAVIZ [facility]
--- OUTSIDE RECORDS SUMMARY | 2024-06-18 08:37 | XMS_ITS ---
Author Name [facility] [place] Address [address] [place] [address] Care Team Providers Care Presser Cotton Ginning Name Role Phone SHADY MANCILLA Primary Care [...] PART B Jan 04, 2014 PART B [id number] 89A STORMY KEN CE PATIENT MEDICARE (WNR) MEDICARE (M) PART A Jun 06, 2006 PART A [id number] 89A STORMY KEN CE PATIENT MEDICARE (WNR) MEDICARE (M) PART A Jun 06, 2006 PART A [id number] 89A JESUS MANUELSTORMY KELLEY CE PATIENT MEDICARE (WNR) MEDICARE (M) PART A Jun 06, 2006 PART A [id number] 89A JESUS MANUEL,BRU CE PATIENT Selected Encounter This section includes the information on record at CT for the Encounter. Date/Time Encounter Type Encounter Description Reason Pro vider Source Aug 08, 2023 07:47 AM Outpatient Encounter PRIMARY CARE/MEDICINE IHE Encounter Template Text not used by CT Plan of Treatment: Future Appointments (+ 6 months) and Future Tests (+/- 45 days) The Plan of Treatment section includes future care activities for the patient from all CT treatmentfacilities. This section includes future appointments and future orders which are active, pending or scheduled. Future Appointments This section includes appointments that were scheduled to occur 6 months from the date of the Encounter, up to a maximum of 20 appointments. The data comes from all CT treatment facilities. Appointment Date/Time Appointment Type Appointme nt Facility Name Aug 23, 2023 02:30 PM AMBULATORY - PSYCHIATRY [facility] Aug 31, 2023 12:30 PM AMBULATORY - MEDICINE [facility] Sep 02, 2023 11:00 AM AMBULATORY - PSYCHIATRY [facility] Sep 23, 2023 11:00 AM AMBULATORY - PSYCHIATRY [facility] November 04, 2023 09:00 AM AMBULATORY - PSYCHIATRY [facility] Nov 08, 2023 03:00 PM [facility]ULATORY - [facility]IC[facility] [place] [facility] Dec 02, 2023 10:00 AM AMBULATORY - PSYCHIATRY [facility] Dec 14, 2023 11:30 AM AMBULATORY - MEDICINE [facility] Dec 30, 2023 11:00 AM AMBULATORY - PSYCHIATRY [facility] Jan 24, 2024 01:00 PM AMBULATORY - PSYCHIATRY [facility] Social History: Smoking Status (Most current) and Tobacco Use (All prior to encounter date) This section includes the most current, and the historical, smoking and tobacco- related health factors from the CT facility where the Encounter took place. Current Smoking Status This section includes the most current smoking, or tobacco-related health factor, from the CT facility where the Encounter took place. Date/Time Current Smoking Status Comment [facility] Mar 23, 2022 09:[address]-TOBACCO FORMER USER [facility] Tobacco Use History This section includes a history of the smoking, or tobacco-related health factors, that were collected on or before the date of the Encounter. The data comes from the CT facility where the Encounter took place. Date/Time Smoking Status/Tobac co Use Comment Facility Mar 23, 2022 09:30 AM VA-TOBACCO QUIT [address] [facility] [place] [facility] Sep 07, 2004 01:27 PM HISTORY OF SMOKING QUIT [address] [facility] [place] [facility] May 15, 2004 03:37 PM QUIT TOBACCO USE > [address] [facility] [place] [facility] Sep 02, 2003 01:28 PM QUIT TOBACCO USE > [facility] Advance Directives: All historical and current Section Date Range: From patient's date of to the date document was created. This section includes ALL of a patient's completed or amended CT Advance and Rescinded Directives. The entries below indicate that a directive exists for the patient, but an actual copy is not included with this document. The data comes from all CT facilities. Date Advance Directives Provider Source October 21, 2003 ADVANCE DIRECTIVE RYLAND TOMPKINS [facility] Encounter Notes: All associated encounter notes This section contains the clinical notes associated to the Encounter. Date/Time Encounter Note(s) Provider Source Aug 08, 2023 07:47 AM ADMINISTRATIVE NOT E: LOCAL TITLE: ADMINISTRATIVE NOTE STANDARD TITLE: ADMINISTRATIVE NOTE DATE OF NOTE: AUG 08, 2023@07:47 ENTRY DATE: AUG 08, 2023@07:47:27 AUTHOR: RASHMI VERDUZCO EXP COSIGNER: URGENCY: STATUS: COMPLETED Please check this patient colonoscopy report in [facility] Thank you /maddie/ RASHMI VERDUZCO MD PRIMARY CARE PHYSICIAN Signed: 08/08/2023 07:47 Receipt Acknowledged By: 08/10/2023 14:47 /maddie/ SHADY MANCILLA MD PHYSICIAN RASHMI VERDUZCO ANDALUSIA
--- OUTSIDE RECORDS SUMMARY | 2024-06-18 08:37 | XMS_ITS | Encounter Summary ---
Author Name [facility] Organization [facility] Address [address] [place] [address] Care Team Providers Care Corsage Maker Name Role Phone SHADY MANCILLA Primary Care [...] PART B Jan 04, 2014 PART B [id number] [id number] STORMY KEN CE PATIENT MEDICARE (WNR) MEDICARE (M) PART A Jun 06, 2006 PART A [id number] 89A [phone] STORMY KEN CE PATIENT MEDICARE (WNR) MEDICARE (M) PART A Jun 06, 2006 PART A [id number] 89A STOMRY KEN CE PATIENT MEDICARE (WNR) MEDICARE (M) PART A Jun 06, 2006 PART A [id number] 89A STORMY KEN PATIENT Selected Encounter This section includes the information on record at ID for the Encounter. Date/Time Encounter Type Encounter Description Reason Pro vider Source Jul 21, 2023 11:58 AM Outpatient Encounter COMMUNITY CARE CONSULT IHE Encounter Template Text not used by ID Plan of Treatment: Future Appointments (+ 6 months) and Future Tests (+/- 45 days) The Plan of Treatment section includes future care activities for the patient from all ID treatmentfacilities. This section includes future appointments and future orders which are active, pending or scheduled. Future Appointments This section includes appointments that were scheduled to occur 6 months from the date of the Encounter, up to a maximum of 20 appointments. The data comes from all ID treatment facilities. Appointment Date/Time Appointment Type Appointme nt Facility Name Jul 28, 2023 01:00 PM [facility]UL[facility] Aug 23, 2023 02:30 PM AMBULATORY - PSYCHIATRY [facility] Aug 31, 2023 12:30 PM AMBULATORY - MEDICINE [facility] Sep 02, 2023 11:00 AM AMBULATORY - PSYCHIATRY [facility] Sep 23, 2023 11:00 AM AMBULATORY - PSYCHIATRY [facility] November 04, 2023 09:00 AM AMBULATORY - PSYCHIATRY [facility] Nov 08, 2023 03:00 PM [facility] Dec 02, 2023 10:00 AM AMBULATORY - PSYCHIATRY [facility] Dec 14, 2023 11:30 AM AMBULATORY - MEDICINE [facility] Dec 30, 2023 11:00 AM AMBULATORY - PSYCHIATRY [facility] Social History: Smoking Status (Most current) and Tobacco Use (All prior to encounter date) This section includes the most current, and the historical, smoking and tobacco- related health factors from the ID facility where the Encounter took place. Current Smoking Status This section includes the most current smoking, or tobacco-related health factor, from the ID facility where the Encounter took place. Date/Time Current Smoking Status Comment [facility] Mar 23, 2022 09:30 AM ID-TOBACCO [facility] Tobacco Use History This section includes a history of the smoking, or tobacco-related health factors, that were collected on or before the date of the Encounter. The data comes from the ID facility where the Encounter took place. Date/Time Smoking Status/Tobac co Use Comment Facility Mar 23, 2022 09:30 AM VA-TOBACCO QUIT 15 YRS OR MORE [facility] Sep 07, 2004 01:27 PM HISTORY OF SMOKING QUIT 12 YEARS AGO [place] [facility] [place] [facility] May 15, 2004 03:37 PM QUIT TOBACCO USE > 7 YEARS AGO [facility] Sep 02, 2003 01:28 PM QUIT TOBACCO USE > 7 YEARS AGO [facility] Advance Directives: All historical and current Section Date Range: From patient's date of to the date document was created. This section includes ALL of a patient's completed or amended ID Advance and Rescinded Directives. The entries below indicate that a directive exists for the patient, but an actual copy is not included with this document. The data comes from all ID facilities. Date Advance Directives Provider Source October 21, 2003 ADVANCE DIRECTIVE RYLAND TOMPKINS [facility] Encounter Notes: All associated encounter notes This section contains the clinical notes associated to the Encounter. Date/Time Encounter Note(s) Provider Source Jul 28, 2023 09:50 AM ADDENDUM: LOCAL TITLE: Addendum STANDARD TITLE: ADDENDUM DATE OF NOTE: JUL 28, 2023@09:50:50 ENTRY DATE: JUL 28, 2023@09:50:51 AUTHOR: GAY BERTRAND COSIGNER: URGENCY: STATUS: COMPLETED PLEASE CHANGE PROVIDER TO CWM/SO/PACT 5 IN CPRS [place]. /maddie/ JOSE CARLOS BERTRAND [employer] MANAGER Signed: 07/28/2023 09:51 Receipt Acknowledged By: 07/28/2023 10:59 /maddie/ OLIMPIA Palomares [facility] Sheldon Warp Dyeing Tender ========= --- Original Document --- 07/21/23 COMMUNITY CARE-CARE COORDINATION PLAN NOTE: CC Cardiology Consult Request received for the [place]. has an upcoming appt scheduled: 07/28/23 at 1pm with Oscar MARTINEZ for an overdue follow up. [facility] [address] [place] [address] FAX: [phone] If you are in agreement, please place a new consult. Thank you! /ry WALLER RN STAFF NURSE Signed: 07/21/2023 11:59 Receipt Acknowledged By: 07/27/2023 13:04 /maddie/ JAKOB TA RN-BC REGISTERED NURSE 07/27/2023 20:15 /ry VERDUZCO MD PRIMARY CARE PHYSICIAN 07/21/2023 ADDENDUM STATUS: UNSIGNED You may not VIEW this UNSIGNED Addendum. 07/27/2023 ADDENDUM STATUS: COMPLETED Placed CC cardiology continuation of care consult as requested and held for provider review. /JAKOB Alcocer RN-BC REGISTERED NURSE Signed: 07/27/2023 13:08 07/27/2023 ADDENDUM STATUS: COMPLETED Please change the PCP name for this -he follows up with ; I signed cardiology consultation, but please send to above physician any request for this patient's management. Thank you /ry VERDUZCO MD PRIMARY CARE PHYSICIAN Signed: 07/27/2023 20:17 Receipt Acknowledged By: 07/28/2023 09:50 /ry BERTRAND [employer] MANAGER * AWAITING SIGNATURE * JOAQUÍN SHAW * AWAITING SIGNATURE * MATTHIEU WALLER SHAR I K [place] [facility] [place] [facility] Jul 27, 2023 08:15 PM ADDENDUM: LOCAL TITLE: Addendum STANDARD TITLE: ADDENDUM DATE OF NOTE: JUL 27, 2023@20:15:43 ENTRY DATE: JUL 27, 2023@20:15:44 AUTHOR: RASHMI VERDUZCO COSIGNER: URGENCY: STATUS: COMPLETED Please change the PCP name for this [place]-he follows up with ; I signed cardiology consultation, but please send to above physician any request for this patient's management. Thank you /ry VERDUZCO MD PRIMARY CARE PHYSICIAN Signed: 07/27/2023 20:17 Receipt Acknowledged By: 07/28/2023 09:50 /maddie/ JOSE CARLOS BERTRAND [employer] MANAGER 07/29/2023 16:03 /maddie/ JAKOB TA RN-LEDA REGISTERED NURSE 08/01/2023 19:24 /maddie/ MATTHIEU WALLER RN STAFF NURSE ========= --- Original Document --- 07/21/23 COMMUNITY CARE-CARE COORDINATION PLAN NOTE: CC Cardiology Consult Request received for the . [place] has an upcoming appt scheduled: 07/28/23 at 1pm with Oscar MARTINEZ for an overdue follow up. [facility] [address] [place] [id number] FAX: [phone] If you are in agreement, please place a new consult. Thank you! /ry WALLER RN STAFF NURSE Signed: 07/21/2023 11:59 Receipt Acknowledged By: 07/27/2023 13:04 /JAKOB Alcocer RN-LEDA REGISTERED NURSE 07/27/2023 20:15 /ry VERDUZCO MD PRIMARY CARE PHYSICIAN 07/21/2023 ADDENDUM STATUS: UNSIGNED You may not VIEW this UNSIGNED Addendum. 07/27/2023 ADDENDUM STATUS: COMPLETED Placed CC cardiology continuation of care consult as requested and held for provider review. /JAKOB Alcocer RN-LEDA REGISTERED NURSE Signed: 07/27/2023 13:08 07/28/2023 ADDENDUM STATUS: COMPLETED PLEASE CHANGE PROVIDER TO CWM/SO/PACT 5 IN CPRS [place]. /ry BERTRAND [employer] ENC[employer] CENTER MANAGER Signed: 07/28/2023 09:51 Receipt Acknowledged By: 07/28/2023 10:59 /maddie/ OLIMPIA Palomares [facility] Specialist RASHMI VERDUZCO ID [facility] [place] [place] [facility] Jul 21, 2023 11:58 AM NONVA NOTE: LOCAL TITLE: COMMUNITY CARE-CARE COORDINATION PLAN NOTE STANDARD TITLE: NONVA NOTE DATE OF NOTE: JUL 21, 2023@11:58 ENTRY DATE: JUL 21, 2023@11:58:27 AUTHOR: MATTHIEU WALLER EXP COSIGNER: URGENCY: STATUS: COMPLETED COMMUNITY CARE-CARE COORDINATION PLAN NOTE Has ADDENDA CC Cardiology Consult Request received for the [place]. has an upcoming appt scheduled: 07/28/23 at 1pm with Oscar MARTINEZ for an overdue follow up. [facility] [address] [place] [id number] FAX: [phone] If you are in agreement, please place a new consult. Thank you! /maddie/ MATTHIEU WALLER RN STAFF NURSE Signed: 07/21/2023 11:59 Receipt Acknowledged By: 07/27/2023 13:04 /maddie/ JAKOB TA RN-BC REGISTERED NURSE 07/27/2023 20:15 /maddie/ RASHMI VERDUZCO MD PRIMARY CARE PHYSICIAN 07/21/2023 ADDENDUM STATUS: UNSIGNED You may not VIEW this UNSIGNED Addendum. 07/27/2023 ADDENDUM STATUS: COMPLETED Placed CC cardiology continuation of care consult as requested and held for provider review. /JAKOB Alcocer RN-BC REGISTERED NURSE Signed: 07/27/2023 13:08 07/27/2023 ADDENDUM STATUS: COMPLETED Please change the PCP name for this -he follows up with ; I signed cardiology consultation, but please send to above physician any request for this patient's management. Thank you /ry VERDUZCO MD PRIMARY CARE PHYSICIAN Signed: 07/27/2023 20:17 Receipt Acknowledged By: 07/28/2023 09:50 /maddie/ JOSE CARLOS BERTRAND [employer] MANAGER * AWAITING SIGNATURE * JOAQUÍN SHAW * AWAITING SIGNATURE * MATTHIEU WALLER 07/28/2023 ADDENDUM STATUS: COMPLETED PLEASE CHANGE PROVIDER TO CWM/SO/PACT 5 IN CPRS [place]. /maddie/ JOSE CARLOS BERTRAND [employer]NC[employer] C[employer] MANAGER Signed: 07/28/2023 09:51 Receipt Acknowledged By: * AWAITING SIGNATURE * OLIMPIA ROBBINS [facility]
--- OUTSIDE RECORDS SUMMARY | 2024-06-18 08:37 | XMS_ITS | Encounter Summary ---
Author Name [facility] [place] Organization [facility] [place] Address [address] [place] [address] Care Team Providers Care Manager Restaurant Name Role Phone CHARO SHADY Primary Care [...] PART B Jan 04, 2014 PART B [id number] [phone] JESUS MANUELSTORMY KELLEY CE PATIENT MEDICARE (WNR) MEDICARE (M) PART A Jun 06, 2006 PART A [id number] JESUS MANUEL,STORMY CE PATIENT MEDICARE (WNR) MEDICARE (M) PART A Jun 06, 2006 PART A [id number] [id number] JESUS MANUEL,STORMY CE PATIENT MEDICARE (WNR) MEDICARE (M) PART A Jun 06, 2006 PART A [id number] [id number] JESUS MANUEL,BRU CE PATIENT Selected Encounter This section includes the information on record at [place] for the Encounter. Date/Time Encounter Type Encounter Description Reason Provider Source Aug 31, 2023 12:30 PM OFFICE O/P EST MOD 30 MIN PRIMARY CARE/MEDICINE ICD-10-CM M25.50 Pain in unspecified joint SHEILAAZJOIE-BOSKO CARISSA,SHADY Johnson [facility] Encounter Template Text not used by AR Assessments - Encounter Diagnoses This section includes the primary and secondary diagnoses documented for the Encounter. Date/Time Primary/Secondary Diagnosis Diagnosis Name Provider Source Aug 31, 2023 03:31 PM PRIMARY Pain in unspecified joint TERRELL-BOSKO CARISSA,SHADY Johnson [place] Aug 31, 2023 03:31 PM SECONDARY Anxiety disorder, unspecified NADAZDIN-BOSKO CARISSA,SHADY [facility] Aug 31, 2023 03:31 PM SECONDARY Cardiomyopathy, unspecified NADAZDIN-BOSKO CARISSA,SHADY [facility] Aug 31, 2023 03:31 PM SECONDARY Gastro-esophageal reflux dis with esophagitis, without bleed TERRELL-OCTAVIOKO CARISSA,SHADY [facility] Aug 31, 2023 03:31 PM SECONDARY Hyperlipidemia, unspecified NADAZDIN-BOSKO CARISSA,SHADY [facility] Aug 31, 2023 03:31 PM SECONDARY Left ventricular failure, unspecified NADAZDIN-BOSKO CARISSA,SHADY [facility] Aug 31, 2023 03:31 PM SECONDARY Other pulmonary embolism without acute cor pulmonale TERRELL-BOSKO CARISSA,SHADY [facility] Aug 31, 2023 03:31 PM SECONDARY Post-traumatic stress disorder, chronic SHEILAAZDIN-BOSKO CARISSA,SHADY [facility] Aug 31, 2023 03:31 PM SECONDARY Unspecified asthma, uncomplicated NADAZDIN-BOSKO CARISSA,SHADY [facility] Aug 31, 2023 03:31 PM SECONDARY Unspecified atrial fibrillation SHEILAAZJOIE-BOSKO CARISSA,SHADY [facility] Plan of Treatment: Future Appointments (+ 6 months) and Future Tests (+/- 45 days) The Plan of Treatment section includes future care activities for the patient from all [place] treatmentfacilities. This section includes future appointments and future orders which are active, pending or scheduled. Future Appointments This section includes appointments that were scheduled to occur 6 months from the date of the Encounter, up to a maximum of 20 appointments. The data comes from all AR treatment facilities. Appointment Date/Time Appointment Type Appointme nt Facility Name Sep 02, 2023 11:00 AM AMBULATORY - PSYCHIATRY [facility] Sep 23, 2023 11:00 AM AMBULATORY - PSYCHIATRY [facility] November 04, 2023 09:00 AM AMBULATORY - PSYCHIATRY [facility] Nov 08, 2023 03:00 PM AMBULATORY - MEDICINE [facility] Dec 02, 2023 10:00 AM AMBULATORY - PSYCHIATRY [facility] Dec 14, 2023 11:30 AM [facility]ATORY - MEDICINE [facility] Dec 30, 2023 11:00 AM AMBULATORY - PSYCHIATRY [facility] Jan 24, 2024 01:00 PM AMBULATORY - PSYCHIATRY [facility] Social History: Smoking Status (Most current) [...] 08, 2023 01:00 PM VA-TOBACCO FORMER USER [place] Tobacco Use History This section includes a history of the smoking, or tobacco-related health factors, that were collected on or before the date of the Encounter. The data comes from the AR facility where the Encounter took place. Date/Time Smoking Status/Tobacco Use Comment F acility Jun 08, 2023 01:00 PM VA-TOBACCO QUIT 15 YRS OR MORE [place] Mar 11, 2021 01:00 PM VA-TOBACCO FORMER USER [place] Mar 11, 2021 01:00 PM VA-TOBACCO QUIT 15 YRS OR MORE [place] Feb 14, 2018 09:07 AM VA-TOBACCO FORMER USER [place] Feb 14, 2018 09:07 AM VA-TOBACCO QUIT 15 YRS OR MORE [place] Mar 03, 2017 10:30 AM QUIT TOBACCO USE > 7 YEARS AGO reports quitting 40 years ago [place] Dec 05, 2015 09:20 AM QUIT TOBACCO USE > 7 YEARS AGO quit 30 years ago smoked 10 years less than a pack a day [place] Advance Directives: All historical and current Section [...] October 21, 2003 ADVANCE DIRECTIVE RYLAND TOMPKINS MYNOR OBANDO [facility] Encounter Notes: All associated encounter notes This section contains the clinical notes associated to the Encounter. Date/Time Encounter Note(s) Provider Source Aug 31, 2023 12:30 PM PHYSICIAN NOTE: LOCAL TITLE: MD NOTE STANDARD TITLE: PHYSICIAN NOTE DATE OF NOTE: AUG 31, 2023@12:30 ENTRY DATE: AUG 31, 2023@02:01:58 AUTHOR: Faraz MANCILLA EXP COSIGNER: URGENCY: STATUS: COMPLETED NOTE Has ADDENDA Pt is 73 y/o M with PMH of HL, CAD, cardiomyopathy, HFrEF 25-30% (10/2022), Afib on DOAC, h/o PE, GERD, COPD, PTSD, anxiety, neurocognitive disorder called today for f/u Patient transferred care from [facility] 8 initial visit 07/2023 Other providers: --process control programmer-Dr Tellez- [facility] 03/2023 --GI -[facility] 01/2023 --> --[facility] --[facility] Patient accompanied today by his daughter- Fab who is also my patient. Fab helped with medication reconciliation and HPI #Polyarthralgia -see previous note for more details since May 2003 started Out of nowhere Patient with pains all over Prior to starting prednisone patient was not able to lift his arms over the head Now doing much better Today shoulders with full range of motion Denies any joint swelling/redness He has been walking without assistance, no falls Using a stick j(just to have something in my hand) His pain and weakness was mostly affecting upper body Patient denies any fever chills night sweats No changes in vision No headaches Prior to May he was very active, doing yard work, mowing the lawn. Arthritis work-up RENEE, RF, CPP, ESR, HLA B27 negative CRPH 48.7 -----> vit D 20 --> started on supplementation B12 396 Impression likely polymyalgia rheumatica-patient started on prednisone 06/29/2022 Currently taking prednisone 5 mg daily Rheumatology referral is active but still not scheduled Patient is on apixaban for A. fib taking omeprazole, denies any epigastric pain, bloody or black stools. #HL/cardiomyopathy/HFrEF October 2022 he was admitted at [facility] for shortness of breath. He was diagnosed with pulmonary embolism, A. fib and severely reduced ejection fraction. His symptoms improved with anticoagulation and rate control. He was never volume overloaded or had orthopnea. BP was at goal at cardiology visit last month, no change of medications, scheduled for echo September 21/2024 weight at home 130-133 lbs --> stable for months compliant with medications denies CP/SOB/FARIAS/palpitations/dizzi ness /claudication/LE edema Unclear if ischemia work-up was completed--> Will obtain most recent cardiology notes prior to next visit #Persistent Afib --> no palpitations, dizziness, no sx of bleeding #Pulmonary embolism, October 2022 #COPD: sx well controlled, no issues with breathing (currently on oral prednisone for ?OH) on wixela and takes albuterol hs denies any cough, wheezing, no increased sputum #Unintentional weight loss-Per patient after hospitalization in October 2022 he lost 30 pounds-weight has been stable over the last 4 months, reports good appetite Patient was referred to GI for malignancy work-up 01/2023 CT abdomen pelvis unremarkable today denies any fever chills night sweats nausea vomiting constipation Regular bowel movements Denies any bloody or black stools He [...] PAST SURGICAL HISTORY: None ALLERGIES: NKDA MEDICATIONS: Medications reconciled today --APIXABAN 5MG TAB BID --SIMVASTATIN 40MG --SACUBITRIL [...] 0.5MG TAB TAKE ONE BEDTIME --sertraline 12.5mg --dc/d due to ADR FAMILY HISTORY: --DM: no --Cancer: strong FHx of cancer no sepcifics known mother at 28 - cervical --PR:no --CVA: no HISTORY: 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 - [employer]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 COMBAT SERVICE INDICATED: [...] --Dental: UTD --Hospitalizations: #10/2022 heart failure/PE/AFIb - [facility] ROS: Constitutional: fatigue +, no fever/no chills, no ns Eyes: no decreased vision/blurry vision Ears/Nose/Throat: no hearing change Respiratory: no cough/wheezing/SOB Cardiovascular: no CP /palpitations/ Le edema Gastrointestinal: no abdominal pain/bloody/black stools, n/v/c/d + sometimes - once a week :no dysuria/hematuria/trouble voiding MSK: Body aches + Neuro: no dizziness/H/A Skin: no pruritus/rash walking w/o assistance - no falls PHYSICAL EXAM: Vital Signs: VVC Blood Pressure: 101/70 (07/05/2023 11:37) Patient Weight: BMI 24 139 lb [63.05 kg] (07/05/2023 11:37) Gen: pleasant, engaged, NAD LABORATORY: Collection DT Spec WBC HGB HCT PLT K+/Pot DmzdaiPSGV0s 12/14/2022 10:11 BLOOD 7.00 16.5 50.1 194 [...] LDL-c HDL TRIG TSH B12 SR- UR 12/14/2022 10:11 SERUM 78 50 43 0.95 [...] PE, GERD, COPD, PTSD, anxiety, neurocognitive disorder called for f/u #Polyarthralgia, myalgia-? Polymyalgia rheumatica, patient denies any vision changes, fevers, headaches -Good response to steroids -tapering down prednisone by 2.5 mg monthly, monitoring symptoms closely -Schedule with rheumatology -referral with -Check CPR #Cardiomyopathy: Patient asymptomatic, normotensive (self-reported) #HFrEF: last ECHO 10/2022 LVEF 25-30% -Follows with non-VA cardiology-> has scheduled ECHO for 09/20 -c/w BISOPROLOL 5MG DAILY -c/w sacubitril 49MG/VALSARTAN 51MG BID -c/w EMPAGLIFLOZIN 10MG #h/o PE (10/2022)-at that time started on DOAC #Persistent A. fib: Rate controlled on beta-shaila, on WMBV-hzhq-gzfqrflmur without signs of bleeding #HL: Well-controlled, LDL 78 (2022) -c/w simvastatin 40 mg #COPD: Clinically stable on ICS/LABA, CHRIS prn #GERD: Asymptomatic -Continue with omeprazole (patient on steroid and apixaban) #PTSD, anxiety: Doing well on risperidone Follows with [facility] #h/o Polycythemia: Check CBC, currently on oral steroids Healthcare maintenance: --Lipids: LDL 78 (12/2022) --Diabetes: A1c 5.6 (01/2022) --Colon CA (50-75): 12/2022 GI advised against colonoscopy at that moment due to comorbidities PE/Afib on DOAC --Lung CA: --PSA PSA 3 (01/2022) --AAA (smoker/65): --Influenza (yrly): 06/2023 --COVID: x3 --PCV13 2014 --PCV23: 2017 --HZV (>60yrs, x1): 2014 --RZV (>50yrs, x2): --TDAP: 2007 --Hep C screen: 2003 negative --HIV screen: --DEXA: --Advanced Directives: Address at next visit: GI, cardio notes, non VA PCP ? Return to clinic to see me in _3_ months, sooner PRN. Virtual (x -per patient's preference), F2F ( ) ( )non fasting labs ordered prior to f/u ( )fasting labs ordered prior to f/u ( )no labs needed ( )request labs from outside provider ( )request records from outside providers --Prior to next visit please obtain most recent cardiology (jul 2023 and october 2023) and GI notes (-after 12/29/2022 (last available in [facility]) -- Could you please mail FIT card to patient. Thank you Medication Reconciliation: Outpatient: Has the patient been taking medications as documented in the EMLR? No: Discrepencies were identified. See below. Essential Medication List for Review used to complete this medication reconciliation. INCLUDED IN THIS LIST: Alphabetical list of active outpatient prescriptions dispensed from this VA (local) and dispensed from another AR or DoD facility (remote) as well as inpatient orders (local, pending and active), local clinic medications, locally documented non-VA medications, and local prescriptions that have or been discontinued in the past 90 days. - Discrepancies were identified, addressed, and discussed with the patient/caregiver at this encounter. Discrepancies: self dc/d SSRI - All changes in medications, including all non-VA/Herbal/OTC medications were entered into CPRS. - If there were any medications the patient should no longer take, they were discontinued. - The patient/caregiver was instructed to update this list, discard old lists, and take this list to the next appointment, whether with a VA or non-VA provider. /maddie/ SHADY MANCILLA MD PHYSICIAN Signed: 08/31/2023 15:31 Receipt Acknowledged By: 09/01/2023 08:56 /maddie/ DENTON GARZA 09/02/2023 11:47 /maddie/ LACIE DUARTE LPN LPN 12/02/2023 ADDENDUM STATUS: COMPLETED Cardiology note received, sent to [facility]. /maddie/ Airam Schmidt RN Registered Nurse Signed: 12/02/2023 09:58 SB MANCILLA
--- OUTSIDE RECORDS SUMMARY | 2024-06-18 08:37 | XMS_ITS | Encounter Summary ---
Author Name [facility] [place] Organization [facility] [place] Address [address] [place] [address] Care Team Providers Care Desizing Machine Offbearer Name Role Phone SHADY MANCILLA Primary Care [...] PART B Jan 04, 2014 PART B [id number] 89A [phone] STORMY KEN CE PATIENT MEDICARE (WNR) MEDICARE (M) PART A Jun 06, 2006 PART A [id number] 89A STORMY KEN CE PATIENT MEDICARE (WNR) MEDICARE (M) PART A Jun 06, 2006 PART A [id number] 89A [phone] JESUS MANUELSTORMY KELLEY CE PATIENT MEDICARE (WNR) MEDICARE (M) PART A Jun 06, 2006 PART A [id number] 89A [phone] JESUS MANUEL,BRU CE PATIENT Selected Encounter This section includes the information on record at [place] for the Encounter. Date/Time Encounter Type Encounter Description Reason Pro vider Source Aug 31, 2023 12:39 PM Outpatient Encounter PRIMARY CARE/MEDICINE IHE Encounter Template Text not used by [place] Plan of Treatment: Future Appointments (+ 6 months) and Future Tests (+/- 45 days) The Plan of Treatment section includes future care activities for the patient from all [place] treatmentfacilities. This section includes future appointments and future orders which are active, pending or scheduled. Future Appointments This section includes appointments that were scheduled to occur 6 months from the date of the Encounter, up to a maximum of 20 appointments. The data comes from all [place] treatment facilities. Appointment Date/Time Appointment Type Appointme nt Facility Name Sep 02, 2023 11:00 AM AMBULATORY - PSYCHIATRY [facility] Sep 23, 2023 11:00 AM AMBULATORY - PSYCHIATRY [facility] November 04, 2023 09:00 AM AMBULATORY - PSYCHIATRY [facility] Nov 08, 2023 03:00 PM AMBULATORY - MEDICINE [facility] Dec 02, 2023 10:00 AM AMBULATORY - PSYCHIATRY [facility] Dec 14, 2023 11:30 AM AMBULATORY - MEDICINE [facility] Dec 30, 2023 11:00 AM AMBULATORY - PSYCHIATRY [facility] Jan 24, 2024 01:00 PM AMBULATORY - PSYCHIATRY [facility] Social History: Smoking Status (Most current) and Tobacco Use (All prior to encounter date) This section includes the most current, and the historical, smoking and tobacco- related health factors from the [place] facility where the Encounter took place. Current Smoking Status This section includes the most current smoking, or tobacco-related health factor, from the [place] facility where the Encounter took place. Date/Time Current Smoking Status Comment [facility] [place] Mar 23, 2022 09:30 AM MS-TOBACCO QUIT 15 YRS OR MORE [facility] Tobacco Use History This section includes a history of the smoking, or tobacco-related health factors, that were collected on or before the date of the Encounter. The data comes from the [place] facility where the Encounter took place. Date/Time Smoking Status/Tobac co Use Comment Facility Mar 23, 2022 09:30 AM MS-TOBACCO QUIT 15 YRS OR MORE [facility] Sep 07, 2004 01:27 PM HISTORY OF SMOKING QUIT 12 YEARS AGO [place] [place] [facility] May 15, 2004 03:37 PM QUIT TOBACCO USE > 7 YEARS AGO [facility] WSN [facility] Sep 02, 2003 01:28 PM QUIT TOBACCO USE > 7 YEARS AGO [facility] Advance Directives: All historical and current Section Date Range: From patient's date of to the date document was created. This section includes ALL of a patient's completed or amended [place] Advance and Rescinded Directives. The entries below indicate that a directive exists for the patient, but an actual copy is not included with this document. The data comes from all [place] facilities. Date Advance Directives Provider Source October 21, 2003 ADVANCE DIRECTIVE RYLAND TOMPKINS [facility] Encounter Notes: All associated encounter notes This section contains the clinical notes associated to the Encounter. Date/Time Encounter Note(s) Provider Source Aug 31, 2023 12:52 PM PREVENTIVE MEDICIN E NURSING NOTE: LOCAL TITLE: CLINICAL REMINDERS/NURSING STANDARD TITLE: PREVENTIVE MEDICINE NURSING NOTE DATE OF NOTE: AUG 31, 2023@12:52 ENTRY DATE: AUG 31, 2023@12:52:37 AUTHOR: LACIE DUARTE EXP COSIGNER: URGENCY: STATUS: COMPLETED RHS Screen: RHS Screen Environmental Check Screening was not completed at this time due to: Another adult present ALL VACCINES - VIRTUAL VISIT /es/ LACIE DUARTE LPN LPN Signed: 08/31/2023 12:53 LACIE DUARTE Aug 31, 2023 12:39 PM TELEHEALTH NOTE: LOCAL TITLE: [facility] VIDEO CONNECT NOTE STANDARD TITLE: TELEHEALTH NOTE DATE OF NOTE: AUG 31, 2023@12:39 ENTRY DATE: AUG 31, 2023@12:39:27 AUTHOR: LACIE DUARTE EXP COSIGNER: URGENCY: STATUS: COMPLETED E911 (Emergency Call Relay Center): [phone] Local emergency response numbers can be found at [email or web address]. National Veterans Crisis Line - (7-996-928-TALK) press #1. [place] Suicide Coordinator [phone], Ext. [phone]; Back-up Ext. [phone] Urgent Care, [place] [phone], Ext. [phone] Introduction: Visit is being conducted by [place] Video Connect. [place] identified with 2 identifiers: [X] Full Name [X] Date of [ ] Address [ ] VA ID Card Emergency Plan: confirmed and/or provided the following information in case of emergency or technology failure. PATIENT PHONE - PHONE NUMBER [CELLULAR] - Is patient phone number correct, if not, enter below: Hampton's phone number: [address], [place] [address] Hampton's present location and address for appointment: [address] [place] [id number] [place]'s emergency contact name and phone number: XUAN KEN [phone] reported that location is private and safe: Yes Informed Consent: informed of the risks and benefits of Telehealth video care. has the right to refuse video services. If refuses video visit, a [id number] visit will be scheduled. [place] verbalized consent for this video visit: Yes provided consent for any other persons present for visit: Yes If yes, who and relationship to patient:XUAN KEN Secure visit: Visit was locked for security and privacy:Yes /maddie/ LACIE DUARTE LPN LPN Signed: 08/31/2023 12:40 LACIE DUARTE
--- OUTSIDE RECORDS SUMMARY | 2024-06-18 08:37 | XMS_ITS | Encounter Summary ---
Author Name [facility] Organization [facility] Address [address] [place] [address] Care Team Providers Care Director Of Market Research Name Role Phone SHADY MANCILLA Primary Care [...] PART B Jan 04, 2014 PART B [id number] 89A STORMY KEN PATIENT MEDICARE (WNR) MEDICARE (M) PART A Jun 06, 2006 PART A [id number] 89A STORMY KEN CE PATIENT MEDICARE (WNR) MEDICARE (M) PART A Jun 06, 2006 PART A [id number] 89A STORMY KEN CE PATIENT MEDICARE (WNR) MEDICARE (M) PART A Jun 06, 2006 PART A [id number] 89A STORMY KEN PATIENT Selected Encounter This section includes the information on record at [place] for the Encounter. Date/Time Encounter Type Encounter Description Reason Pro vider Source Aug 23, 2023 02:30 PM Outpatient Encounter [facility] Encounter Template Text not used by [place] Plan of Treatment: Future Appointments (+ 6 months) and Future Tests (+/- 45 days) The Plan of Treatment section includes [facility] care [facility] [place] [facility] This section includes future appointments and future orders which are active, pending or scheduled. Future Appointments This section includes appointments that were scheduled to occur 6 months from the date of the Encounter, up to a maximum of 20 appointments. The data comes from all [place] treatment facilities. Appointment Date/Time Appointment Type Appointme nt Facility Name Aug 31, 2023 12:30 PM AMBULATORY - MEDICINE [facility] Sep 02, 2023 11:00 AM AMBULATORY - PSYCHIATRY [facility] Sep 23, 2023 11:00 AM AMBULATORY - PSYCHIATRY [facility] November 04, 2023 09:00 AM AMBULATORY - PSYCHIATRY [facility] Nov 08, 2023 03:00 PM AMBULATORY - MEDICINE [place] [facility] Dec 02, 2023 10:00 AM AMBULATORY - PSYCHIATRY [facility] Dec 14, 2023 11:30 AM AMBULATORY - MEDICINE [facility] Dec 30, 2023 11:00 AM AMBULATORY - PSYCHIATRY [facility] Jan 24, 2024 01:00 PM AMBULATORY - PSYCHIATRY [facility] Social History: Smoking Status (Most current) [...] 08, 2023 01:00 PM VA-TOBACCO FORMER USER [facility] Tobacco Use History This section includes a history of the smoking, or tobacco-related health factors, that were collected on or before the date of the Encounter. The data comes from the [place] facility where the Encounter took place. Date/Time Smoking Status/Tobacco Use Comment F acility Jun 08, 2023 01:00 PM VA-TOBACCO QUIT 15 YRS OR MORE [facility] Mar 11, 2021 01:00 PM VA-TOBACCO FORMER USER [facility] Mar 11, 2021 01:00 PM VA-TOBACCO QUIT 15 YRS OR MORE [facility] Feb 14, 2018 09:07 AM VA-TOBACCO FORMER USER [facility] Feb 14, 2018 09:07 AM VA-TOBACCO QUIT 15 YRS OR MORE [facility] Mar 03, 2017 10:30 AM QUIT TOBACCO USE > 7 YEARS AGO reports quitting 40 years ago [facility] Dec 05, 2015 09:20 AM QUIT TOBACCO USE > 7 YEARS AGO quit 30 years ago smoked 10 years less than a pack a day [facility] Advance Directives: All historical and current Section [...] 21, 2003 ADVANCE DIRECTIVE RYLAND TOMPKINS [facility] Encounter Notes: All associated encounter notes This section contains the clinical notes associated to the Encounter. Date/Time Encounter Note(s) Provider Source Aug 23, 2023 02:45 PM CLERICAL NOTE: LOCAL TITLE: APPOINTMENT NO SHOW STANDARD TITLE: CLERICAL NOTE DATE OF NOTE: AUG 23, 2023@14:45 ENTRY DATE: AUG 23, 2023@14:46 AUTHOR: LLOYD HOPE EXP COSIGNER: SANDEEP BARROW URGENCY: STATUS: COMPLETED Patient Name: DMITRIY KEN Patient SSN: [id number] Date and time of Appointment No show : 08/23/23 14:30 PATIENT PHONE - PHONE NUMBER [CELLULAR] - Patient's medical record was reviewed. Follow-up actions were determined and initiated: Please check/complete as applies: [X]Telephoned Directly [ ]Re-scheduled for next available appt [ ]Sent a N0-show letter ( must call for appointment) [ ]Other (Emergent/Overbook, etc.): Additional Comments: Left HIPAA compliant voicemail with instructions to reschedule. I left the VVC appointment after 15 minutes. Future Clinic Visits 08/31/2023 12:30 CWM/SO/VVC/PACT 5 09/02/2023 11:00 CWM/SO/VVC/MHC/VALARIE 09/15/2023 14:30 NHM/OPT/VISUAL IMAGING 09/15/2023 15:00 NHM/OPTOMETRY/PHYLLIS /maddie/ LLOYD HOPE MD NEWBORN HEARING SCREENER Signed: 08/23/2023 14:46 /maddie/ SANDEEP BARROW DO Psychiatrist Cosigned: 08/23/2023 16:02 LLOYD HOPEFIELD
--- OUTSIDE RECORDS SUMMARY | 2024-06-18 08:38 | XMS_ITS ---
Author Name [facility] Organization [facility] [place] Address [address] [place] [address] Care Team Providers Care Regrinder Operator Name Role Phone SHADY MANCILLA Primary Care [...] PART B Jan 04, 2014 PART B [id number] 89A JESUS MANUELSTORMY KELLEY CE PATIENT MEDICARE (WNR) MEDICARE (M) PART A Jun 06, 2006 PART A [id number] 89A JESUS MANUELSTORMY KELLEY CE PATIENT MEDICARE (WNR) MEDICARE (M) PART A Jun 06, 2006 PART A [id number] 89A [phone] JESUS MANUELSTORMY KELLEY CE PATIENT MEDICARE (WNR) MEDICARE (M) PART A Jun 06, 2006 PART A [id number] 89A STORMY KEN PATIENT Selected Encounter This section includes the information on record at [place] for the Encounter. Date/Time Encounter Type Encounter Description Reason Pro vider Source Sep 20, 2023 09:41 AM Outpatient Encounter [facility] Encounter Template Text not used by [place] [...] Appointment Type Appointme nt Facility Name Sep 23, 2023 11:00 AM AMBULATORY - PSYCHIATRY [facility] November 04, 2023 09:00 AM AMBULATORY - PSYCHIATRY [facility] Nov 08, 2023 03:00 PM [facility] Dec 02, 2023 10:00 AM AMBULATORY - PSYCHIATRY [facility] Dec 14, 2023 11:30 AM AMBULATORY - MEDICINE [facility] Dec 30, 2023 11:00 AM AMBULATORY - PSYCHIATRY [facility] Jan 24, 2024 01:00 PM AMBULATORY - PSYCHIATRY [facility] Social History: Smoking Status (Most current) [...] took place. Date/Time Current Smoking Status Comment [facility] Mar 23, 2022 09:30 AM ID-[facility]ACCO [facility] Tobacco Use History This section includes a history of the smoking, or tobacco-related health factors, that were collected on or before the date of the Encounter. The data comes from the [place] facility where the Encounter took place. Date/Time Smoking Status/Tobac co Use Comment Facility Mar 23, 2022 09:30 AM ID-TOBACCO QUIT 15 YRS OR MORE [facility] Sep 07, 2004 01:27 PM HISTORY OF SMOKING QUIT 12 YE[facility] AGO [facility] May 15, 2004 03:37 PM QUIT TOBACCO USE > 7 YEARS AGO [facility] Sep 02, 2003 01:28 PM QUIT TOBACCO USE > 7 YEARS AGO [facility] Advance Directives: All historical and current [...] October 21, 2003 ADVANCE DIRECTIVE RYLAND TOMPKINS [facility] Encounter Notes: All associated encounter notes This section contains the clinical notes associated to the Encounter. Date/Time Encounter Note(s) Provider Source Sep 20, 2023 10:12 AM ADDENDUM: LOCAL TITLE: Addendum STANDARD TITLE: ADDENDUM DATE OF NOTE: SEP 20, 2023@10:12:36 ENTRY DATE: SEP 20, 2023@10:12:37 AUTHOR: ART GAGNON EXP COSIGNER: URGENCY: STATUS: COMPLETED telegraphic typewriter mechanic spoke to jigna, and was able to rs to 09/27/2023 vvc appt @ 1100. link she at this time. /maddie/ ART GAGNON ADVANCED WORKFORCE DEVELOPMENT PROGRAM DIRECTOR Signed: 09/20/2023 10:13 Receipt Acknowledged By: 09/20/2023 10:38 /es/ LLOYD HOPE MD PLUG PASTER ======== --- Original Document --- 09/20/23 ADMINISTRATIVE NOTE: Degreasing Solution Reclaimer received a voicemail from 's daughter Jigna (On communication authorization list) needing to cancel her father's appointment today at 2 pm due to having to go to work. She also thought it was a VVC not F2F. Did cancel through automated system but I went in and canceled manually in VSE. Left a call back of [phone]. /es/ KAREN DAO WORKFORCE DEVELOPMENT PROGRAM DIRECTOR Signed: 09/20/2023 09:44 Receipt Acknowledged By: 09/20/2023 10:12 /maddie/ ART GAGNON ADVANCED WORKFORCE DEVELOPMENT PROGRAM DIRECTOR 09/20/2023 10:08 /es/ Tosha Root ADVANCED WORKFORCE DEVELOPMENT PROGRAM DIRECTOR ART GAGNON Sep 20, 2023 09:41 AM ADMINISTRATIVE NOT E: LOCAL TITLE: ADMINISTRATIVE NOTE STANDARD TITLE: ADMINISTRATIVE NOTE DATE OF NOTE: SEP 20, 2023@09:41 ENTRY DATE: SEP 20, 2023@09:41:34 AUTHOR: KAREN DAO COSIGNER: URGENCY: STATUS: COMPLETED ADMINISTRATIVE NOTE Has ADDENDA Degreasing Solution Reclaimer received a voicemail from 's daughter Jigna (On communication authorization list) needing to cancel her father's appointment today at 2 pm due to having to go to work. She also thought it was a VVC not F2F. Did cancel through automated system but I went in and canceled manually in VSE. Left a call back of [phone]. /es/ KAREN DAO WORKFORCE DEVELOPMENT PROGRAM DIRECTOR Signed: 09/20/2023 09:44 Receipt Acknowledged By: 09/20/2023 10:12 /maddie/ ART GAGNON ADVANCED WORKFORCE DEVELOPMENT PROGRAM DIRECTOR 09/20/2023 10:08 /maddie/ Tosha Root ADVANCED WORKFORCE DEVELOPMENT PROGRAM DIRECTOR 09/20/2023 ADDENDUM STATUS: COMPLETED telegraphic typewriter mechanic spoke to jigna, and was able to rs to 09/27/2023 vvc appt @ 1100. link she at this time. /maddie/ ART GAGNON ADVANCED WORKFORCE DEVELOPMENT PROGRAM DIRECTOR Signed: 09/20/2023 10:13 Receipt Acknowledged By: * AWAITING SIGNATURE * LLOYD HOPE KATIE A [place]
--- OUTSIDE RECORDS SUMMARY | 2024-06-18 08:38 | XMS_ITS | Encounter Summary ---
Author Name [facility] [place] [facility] [place] Address [address] [place] [address] Care Team Providers Care Taximeter Repairer Name Role Phone SHADY MANCILLA Primary Care [...] PART B Jan 04, 2014 PART B [id number] 89A [phone] STORMY KEN PATIENT MEDICARE (WNR) MEDICARE (M) PART A Jun 06, 2006 PART A [id number] 89A STORMY KEN CE PATIENT MEDICARE (WNR) MEDICARE (M) PART A Jun 06, 2006 PART A [id number] 89A STORMY KEN CE PATIENT MEDICARE (WNR) MEDICARE (M) PART A Jun 06, 2006 PART A [id number] 89A STORMY KEN PATIENT Selected Encounter This section includes the information on record at [place] for the Encounter. Date/Time Encounter Type Encounter Description Reason Pro vider Source Sep 23, 2023 11:00 AM Outpatient Encounter [facility] Encounter Template Text not used by [place] Plan of Treatment: Future Appointments (+ 6 months) and Future Tests (+/- 45 days) The Plan of Treatment section includes future care activities for the [facility] [place] [facility] This section includes future appointments and future orders which are active, pending or scheduled. Future Appointments This section includes appointments that were scheduled to occur 6 months from the date of the Encounter, up to a maximum of 20 appointments. The data comes from all [place] treatment facilities. Appointment Date/Time Appointment Type Appointme nt Facility Name November 04, 2023 09:00 AM AMBULATORY - PSYCHIATRY [facility] Nov 08, 2023 03:00 PM [facility] [place] [facility] [place] [facility] Dec 02, 2023 10:00 AM AMBULATORY - PSYCHIATRY [facility] Dec 14, 2023 11:30 AM AMBULATORY - MEDICINE [facility] Dec 30, 2023 11:00 AM AMBULATORY - PSYCHIATRY [facility] Jan 24, 2024 01:00 PM AMBULATORY - PSYCHIATRY [facility] Social History: Smoking Status (Most current) and Tobacco Use (All prior to encounter date) This section includes the most current, and the historical, smoking and tobacco- related health factors from the [place] facility where the Encounter took place. Current Smoking Status This section includes the most current smoking, or tobacco-related health factor, from the [place] facility where the Encounter took place. Date/Time Current Smoking Status Comment [facility] Jun 08, 2023 01:00 PM VA-TOBACCO FORMER USER [facility] Tobacco Use History This section includes a history of the smoking, or tobacco-related health factors, that were collected on or before the date of the Encounter. The data comes from the [place] facility where the Encounter took place. Date/Time Smoking Status/Tobacco Use Comment F acility Jun 08, 2023 01:00 PM VA-TOBACCO QUIT 15 YRS OR MORE [facility] Mar 11, 2021 01:00 PM VA-TOBACCO FORMER USER [facility] Mar 11, 2021 01:00 PM VA-TOBACCO QUIT 15 YRS OR MORE [facility] Feb 14, 2018 09:07 AM VA-TOBACCO FORMER USER [facility] Feb 14, 2018 09:07 AM VA-TOBACCO QUIT 15 YRS OR MORE [facility] Mar 03, 2017 10:30 AM QUIT TOBACCO USE > 7 YEARS AGO reports quitting 40 years ago [facility] Dec 05, 2015 09:20 AM QUIT TOBACCO USE > 7 YEARS AGO quit 30 years ago smoked 10 years less than a pack a day [facility] Advance Directives: All historical and current Section Date Range: From patient's date of to the date document was created. This section includes ALL of a patient's completed or amended [place] Advance and Rescinded Directives. The entries below indicate that a directive exists for the patient, but an actual copy is not included with this document. The data comes from all [place] facilities. Date Advance Directives Provider Source October 21, 2003 ADVANCE DIRECTIVE RYLAND TOMPKINS [facility] Encounter Notes: All associated encounter notes This section contains the clinical notes associated to the Encounter. Date/Time Encounter Note(s) Provider Source Sep 23, 2023 11:32 AM ADDENDUM: LOCAL TITLE: Addendum STANDARD TITLE: ADDENDUM DATE OF NOTE: SEP 23, 2023@11:32:16 ENTRY DATE: SEP 23, 2023@11:32:16 AUTHOR: ALESSANDRO SHEPPARDIGNER: URGENCY: STATUS: COMPLETED Please NS this appointment and send a letter, thank you. /maddie/ ATIF Rosenbaum TOP LIFT AND AUTOMATIC WINDOW REPAIRER Signed: 09/23/2023 11:32 Receipt Acknowledged By: 09/23/2023 12:22 /maddie/ Tosha Root ADVANCED VP PURCHASING ======== --- Original Document --- 09/23/23 APPOINTMENT NO SHOW: Patient Name: DMITRIY KEN Patient SSN: [id number] Date and time of Appointment No show : 09/23/23 11:00 PATIENT PHONE - PHONE NUMBER [CELLULAR] - Patient's medical record was reviewed. Follow-up actions were determined and initiated: Please check/complete as applies: [X]Telephoned Directly [ ]Re-scheduled for next available appt [X]Sent a N0-show letter ( must call for appointment) [ ]Other (Emergent/Overbook, etc.): Additional Comments: Calls made to the 's home and is phong ugalde asking they contact the clinic to r/s. Future Clinic Visits 09/27/2023 11:00 CWM/SO/VVC/MHC/PSYCH [facility]I 11/08/2023 15:00 COM CARE-RHEUMATOLOGY 04/27/2024 13:00 NHM/OPT/VISUAL IMAGING 04/27/2024 13:30 NHM/OPTOMETRY/DISLA/ /es/ ATIF Rosenbaum TOP LIFT AND AUTOMATIC WINDOW REPAIRER Signed: 09/23/2023 11:32 09/23/2023 ADDENDUM STATUS: UNSIGNED You may not VIEW this UNSIGNED Addendum. ALESSANDRO SHEPPARD [facility] Sep 23, 2023 11:31 AM CLERICAL NOTE: LOCAL TITLE: APPOINTMENT NO SHOW STANDARD TITLE: CLERICAL NOTE DATE OF NOTE: SEP 23, 2023@11:31 ENTRY DATE: SEP 23, 2023@11:31:23 AUTHOR: ALESSANDRO SHEPPARD EXP COSIGNER: URGENCY: STATUS: COMPLETED APPOINTMENT NO SHOW Has ADDENDA Patient Name: DMITRIY KEN Patient SSN: [id number] Date and time of Appointment No show : 09/23/23 11:00 PATIENT PHONE - PHONE NUMBER [SUATDISV] - Patient's medical record was reviewed. Follow-up actions were determined and initiated: Please check/complete as applies: [X]Telephoned Directly [ ]Re-scheduled for next available appt [X]Sent a N0-show letter ( must call for appointment) [ ]Other (Emergent/Overbook, etc.): Additional Comments: Calls made to the 's home and is phong ugalde asking they contact the clinic to r/s. Future Clinic Visits 09/27/2023 11:00 CWM/SO/VVC/MHC/PSYCH RESI 11/08/2023 15:00 COM CARE-RHEUMATOLOGY 04/27/2024 13:00 NHM/OPT/VISUAL IMAGING 04/27/2024 13:30 NHM/OPTOMETRY/DISLA/ /es/ ATIF Rosenbaum TOP LIFT AND AUTOMATIC WINDOW REPAIRER Signed: 09/23/2023 11:32 09/23/2023 ADDENDUM STATUS: COMPLETED Please NS this appointment and send a letter, thank you. /maddie/ ATIF Rosenbaum TOP LIFT AND AUTOMATIC WINDOW REPAIRER Signed: 09/23/2023 11:32 Receipt Acknowledged By: 09/23/2023 12:22 /maddie/ Tosha Root ADVANCED VP PURCHASING 09/23/2023 ADDENDUM STATUS: COMPLETED provider made first call attempt no show letter mailed 14 day letter mailed RTC Dc o n 10/07/2023 after manadated attempts are made and fail to respond /maddie/ Tosha Root ADVANCED VP PURCHASING Signed: 09/23/2023 12:23 ALESSANDRO SHEPPARDFIELD
--- OUTSIDE RECORDS SUMMARY | 2024-06-18 08:38 | XMS_ITS | Encounter Summary ---
Author Name [facility] [place] [facility] [place] Address [address] [place] [address] Care Team Providers Care Packaging Operator Name Role Phone SHADY MANCILLA Primary [...] PART B Jan 04, 2014 PART B [id number] 89A STORMY RAPP PATIENT MEDICARE (WNR) MEDICARE (M) PART A Jun 06, 2006 PART A [id number] 89A STORMY RAPP CE PATIENT MEDICARE (WNR) MEDICARE (M) PART A Jun 06, 2006 PART A [id number] 89A STORMY RAPP CE PATIENT MEDICARE (WNR) MEDICARE (M) PART A Jun 06, 2006 PART A [id number] 89A STORMY RAPP PATIENT Selected Encounter This section includes the information on record at [place] for the Encounter. Date/Time Encounter Type Encounter Description Reason Pro vider Source Sep 02, 2023 02:46 PM Outpatient Encounter ADMIN PAT ACTIVTIES ([place]VIN) IHE Encounter Template Text not used by [place] Plan of Treatment: Future Appointments (+ 6 months) and Future Tests (+/- 45 days) The Plan of Treatment section includes future care activities for the [facility] [place] [facility] This section includes future appointments and future orders which are active, pending or scheduled. Future Appointments This section includes appointments that were scheduled to occur 6 months from the date of the Encounter, up to a maximum of 20 appointments. The data comes from all [place] treatment facilities. Appointment Date/Time Appointment Type Appointme nt Facility Name Sep 23, 2023 11:00 AM AMBULATORY - PSYCHIATRY [facility] November 04, 2023 09:00 AM AMBULATORY - PSYCHIATRY [facility] Nov 08, 2023 03:00 PM [facility] Dec 02, 2023 10:00 AM AMBULATORY - PSYCHIATRY [facility] Dec 14, 2023 11:30 AM AMBULATORY - MEDICINE [facility] Dec 30, 2023 11:00 AM AMBULATORY - PSYCHIATRY [facility] Jan 24, 2024 01:00 PM AMBULATORY - PSYCHIATRY [facility] Social History: Smoking Status (Most current) and Tobacco Use (All prior to encounter date) This section includes the most current, and the historical, smoking and tobacco- related health factors from the [place] facility where the Encounter took place. Current Smoking Status This section includes the most current smoking, or tobacco-related health factor, from the [place] facility where the Encounter took place. Date/Time Current Smoking Status Comment [facility] Mar 23, 2022 09:30 AM [place]-TOBACCO FORMER USER [facility] Tobacco Use History This section includes a history of the smoking, or tobacco-related health factors, that were collected on or before the date of the Encounter. The data comes from the [place] facility where the Encounter took place. Date/Time Smoking Status/Tobac co Use Comment Facility Mar 23, 2022 09:30 AM [place]-TO[place] QUIT 15 YRS OR MORE [facility] Sep 07, 2004 01:27 PM HISTORY OF SMOKING QUIT 12 YEARS AGO [facility] May 15, 2004 03:37 PM QUIT TOBACCO USE > 7 YEARS AGO [facility] Sep 02, 2003 01:28 PM QUIT TOBACCO USE > 7 YEARS AGO [facility] Advance Directives: All historical and current Section Date Range: From patient's date of to the date document was created. This section includes ALL of a patient's completed or amended [place] Advance and Rescinded Directives. The entries below indicate that a directive exists for the patient, but an actual copy is not included with this document. The data comes from all [place] facilities. Date Advance Directives Provider Source October 21, 2003 ADVANCE DIRECTIVE RLYAND TOMPKINS [facility] Encounter Notes: All associated encounter notes This section contains the clinical notes associated to the Encounter. Date/Time Encounter Note(s) Provider Source Sep 02, 2023 02:47 PM CONSULT: LOCAL TITLE: CONSULT REPORT/CAREGIVER SUPPORT STANDARD TITLE: CONSULT DATE OF NOTE: SEP 02, 2023@14:47 ENTRY DATE: SEP 02, 2023@14:47:34 AUTHOR: PATTI MARTÍNEZ COSIGNER: URGENCY: STATUS: COMPLETED Name of Caregiver: Jigna Rapp Relationship of Caregiver to the : The caregiver is the [place]'s daughter. Caregiver Contact number: [phone] Reason(s) for Referral: Eligibility Evaluation for the Program of Comprehensive Assistance for Family Caregivers Eligibility Evaluation for the Program of General Caregiver Support Services Services/Education Offered: Program of Comprehensive Assistance for Family Caregivers Information provided Program of General Caregiver Support Services Information provided Assessment and Plan: Called identified cg/vet's daughter Jigna at [phone]. Reached CG. Kitchen Assistant introduced herself and provided [facility] program overview and supervision and protection admission criteria. Vet reports assist her with IADLs and at times ADLs. CG reports rgt is independent with ADLs, can do his own cooking/cleaning, and doesn't like to leave his family home. CG reports she calls and reminds bandar to take his medications. Reviewed [facility]. Expressed interest. Emailed her [facility] fly[facility], [facility] fact sheet, and a link to [facility] National Website to provided email [email or web address]; for her review. /maddie/ PATTI GUILLERMO LCSW CAREGIVER SUPPORT PRE OWNED SALES CONSULTANT Signed: 09/02/2023 14:58 PAT[facility]ZRL [facility]
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
--- OUTSIDE RECORDS SUMMARY | 2024-06-18 08:38 | XMS_ITS | Encounter Summary ---
Author Name [facility] [place] Organization [facility] [facility] [place] Address [address] [place] [address] Care Team Providers Care Carpenter General Name Role Phone SHADY MANCILLA Primary Care [...] PART B Jan 04, 2014 PART B [id number] STORMY KEN CE PATIENT MEDICARE (WNR) MEDICARE (M) PART A Jun 06, 2006 PART A [id number] 89A [phone] STORMY KEN CE PATIENT MEDICARE (WNR) MEDICARE (M) PART A Jun 06, 2006 PART A [id number] 89A STORMY KEN CE PATIENT MEDICARE (WNR) MEDICARE (M) PART A Jun 06, 2006 PART A [id number] [phone] STORMY KEN PATIENT Selected Encounter This section includes the information on record at OR for the Encounter. Date/Time Encounter Type Encounter Description Reason Provider Source Sep 02, 2023 11:00 AM OFF/OP EST OCTOBER X REQ PHY/QHP [facility] - IND ICD-10-CM Z71.89 Other specified counseling ALESSANDRO SHEPPARD [facility] Encounter Template Text not used by [place] Assessments - Encounter Diagnoses This section includes the primary and secondary diagnoses documented for the Encounter. Date/Time Primary/Secondary Diagnosis Diagnosis Name Provider Source Sep 02, 2023 12:48 PM PRIMARY Other specified counseling ALESSANDRO SHEPPARD NAKIA Plan of Treatment: Future Appointments (+ 6 months) and Future Tests (+/- 45 days) The Plan of Treatment section includes future care activities for the patient from all [place] treatmentfacilities. This section includes future appointments and future orders which are active, pending or scheduled. Future Appointments This section includes appointments that were scheduled to occur 6 months from the date of the Encounter, up to a maximum of 20 appointments. The data comes from all [place] treatment facilities. Appointment Date/Time Appointment Type Appointme nt Facility Name Sep 23, 2023 11:00 AM AMBULATORY - PSYCHIATRY [facility] November 04, 2023 09:00 AM AMBULATORY - PSYCHIATRY [facility] Nov 08, 2023 03:00 PM AMBULATORY - MEDICINE [place] [facility] Dec 02, 2023 10:00 AM AMBULATORY - PSYCHIATRY [facility] Dec 14, 2023 11:30 AM AMBULATORY - MEDICINE [facility] Dec 30, 2023 11:00 AM AMBULATORY - PSYCHIATRY [facility] Jan 24, 2024 01:00 PM AMBULATORY - PSYCHIATRY [facility] Social History: Smoking Status (Most current) and Tobacco Use (All prior to encounter date) This section includes the most current, and the historical, smoking and tobacco- related health factors from the [place] facility where the Encounter took place. Current Smoking Status This section includes the most current smoking, or tobacco-related health factor, from the [place] facility where the Encounter took place. Date/Time Current Smoking Status Comment Facil ity Jun 08, 2023 01:00 PM VA-TOBACCO FORMER USER [facility] Tobacco Use History This section includes a history of the smoking, or tobacco-related health factors, that were collected on or before the date of the Encounter. The data comes from the [place] facility where the Encounter took place. Date/Time Smoking Status/Tobacco Use Comment F acility Jun 08, 2023 01:00 PM VA-TOBACCO QUIT 15 YRS OR MORE [facility] Mar 11, 2021 01:00 PM VA-TOBACCO FORMER USER [facility] Mar 11, 2021 01:00 PM VA-TOBACCO QUIT 15 YRS OR MORE [facility] Feb 14, 2018 09:07 AM VA-TOBACCO FORMER USER [facility] Feb 14, 2018 09:07 AM VA-TOBACCO QUIT 15 YRS OR MORE [facility] Mar 03, 2017 10:30 AM QUIT TOBACCO USE > 7 YEARS AGO reports quitting 40 years ago [facility] Dec 05, 2015 09:20 AM QUIT TOBACCO USE > 7 YEARS AGO quit 30 years ago smoked 10 years less than a pack a day [facility] Advance Directives: All historical and current Section Date Range: From patient's date of to the date document was created. This section includes ALL of a patient's completed or amended [place] Advance and Rescinded Directives. The entries below indicate that a directive exists for the patient, but an actual copy is not included with this document. The data comes from all [place] facilities. Date Advance Directives Provider Source October 21, 2003 ADVANCE DIRECTIVE RYLAND TOMPKINS [facility] Encounter Notes: All associated encounter notes This section contains the clinical notes associated to the Encounter. Date/Time Encounter Note(s) Provider Source Sep 02, 2023 12:31 PM TELEHEALTH NOTE: LOCAL TITLE: [employer] SOCIAL WORK NOTE STANDARD TITLE: TELEHEALTH NOTE DATE OF NOTE: SEP 02, 2023@12:31 ENTRY DATE: SEP 02, 2023@12:31:50 AUTHOR: ALESSANDRO SHEPPARD COSIGNER: URGENCY: STATUS: COMPLETED [employer] Video Connect (VVC) Standard Documentation VVC Clinician Resources Only: E911 (Emergency Call Relay Center): [phone] National Veterans Crisis Line - 988 then press #1. [place] Suicide Coordinator [phone], Ext. [phone]; Back-up Ext. [phone] [place] PoliceHALEY [place] [phone] Introduction: Visit is being conducted by [employer]. identified with 2 identifiers: [X] Full Name [X] Date of [ ] VA ID Card Emergency Plan: [place] confirmed and/or provided the following information in case of emergency or technology failure. PATIENT PHONE - PHONE NUMBER [CELLULAR] - Is patient phone number correct, if not, enter below: 's phone number: s/p DMITRIY KEN [address], [place], [address] Luttrell's present location and address for appointment: s/a Luttrell's emergency contact name and phone number: as in chart reported that location is private and safe: Yes Informed Consent: [place] informed of the risks and benefits of Telehealth video care. [place] has the right to refuse video services. If refuses video visit, a [id number] visit will be scheduled. verbalized consent for this video visit: Yes L[place]ll provided consent for any other persons present for visit: Yes If yes, who and relationship to patient:lopez Sanders visit: Visit was locked for security and privacy: Yes took the video call sitting at his kitchen table w his 2 daughters. There was some initial confusion as to the purpose of this appointment, was referred to this worker by Dr Stacy to review resourced available to the and his family. Luttrell and his daughters share that his memory is getting worse and is needing more help. He chooses not to drive - I got lost coming home, I missed my exit and ended up in [place], I had to find my way [place] [address] My memory is not good and I don't want to get lost again or hurt someone. Lopez's are suggesting he at least drive to get groceries- he has been refusing thus they are left w this responsibility. Jigna calls her dad 3x/d when he needs to take his meds- they can be right in front of him, the alarm going off, and he still won't remember to take them - vet agrees. They were informed of [facility]- no, I don't want to go there, why? I can stay here... They were informed about meals on wheels, vet is initially resistant, why? I can cook, I have since I was a young kid w my grandmother . He declines home care, declines respite care. Family is accepting of a CSP referral simply to learn more about the general resources available to them, consult placed. It was offered this worker could meet w for supportive visits, he is very agreeable to this. Initially we will do VVC but he is may be open to coming into the office. Luttrell can be irritable, a few times he was argumentative w his lopez's about what he can and cannot do, to accept a resource or not. He recognizes his memory loss, enjoys talking about his life. They show me the home, it is very cluttered but organized, floors are free from clutter. rtc 09/22, VVC. /maddie/ ATIF Rosenbaum ADMINISTRATIVE INTERN Signed: 09/02/2023 12:49 ALESSANDRO SHEPPARD [facility]
--- OUTSIDE RECORDS SUMMARY | 2024-06-18 08:39 | XMS_ITS | Encounter Summary ---
Author Name [facility] [facility] [place] Organization [facility] [place] Address [address] [place] [address] Care Team Providers Care Retread Builder Name Role Phone SHADY MANCILLA Primary Care [...] PART B Jan 04, 2014 PART B [id number] 89A [phone] STORMY KEN CE PATIENT MEDICARE (WNR) MEDICARE (M) PART A Jun 06, 2006 PART A [id number] 89A STORMY KEN CE PATIENT MEDICARE (WNR) MEDICARE (M) PART A Jun 06, 2006 PART A [id number] 89A STORMY KEN CE PATIENT MEDICARE (WNR) MEDICARE (M) PART A Jun 06, 2006 PART A [id number] 89A STORMY KEN PATIENT Selected Encounter This section includes the information on record at [place] for the Encounter. Date/Time Encounter Type Encounter Description Reason Provider Source November 04, 2023 09:00 AM OFF/OP EST OCTOBER X REQ PHY/QHP [facility] - IND ICD-10-CM Z71.89 Other specified counseling ALESSANDRO SHEPPARD [facility] Encounter Template Text not used by [place] Assessments - Encounter Diagnoses This section includes the primary and secondary diagnoses documented for the Encounter. Date/Time Primary/Secondary Diagnosis Diagnosis Name Provider Source November 04, 2023 01:15 PM PRIMARY Other specified counseling ALESSANDRO SHEPPARD NAKIA Plan of Treatment: Future Appointments (+ 6 months) and Future Tests (+/- 45 days) The Plan of Treatment section includes future care activities for the [facility] [place] [facility] This section includes future appointments and future orders which are active, pending or scheduled. Future Appointments This section includes appointments that were scheduled to occur 6 months from the date of the Encounter, up to a maximum of 20 appointments. The data comes from all [facility]. Appointment Date/Time Appointment Type Appointme nt Facility Name Nov 08, 2023 03:00 PM AMBULATORY - MEDICINE [facility] Dec 02, 2023 10:00 AM AMBULATORY - PSYCHIATRY [facility] Dec 14, 2023 11:30 AM AMBULATORY - MEDICINE [facility] Dec 30, 2023 11:00 AM AMBULATORY - PSYCHIATRY [facility] Jan 24, 2024 01:00 PM AMBULATORY - PSYCHIATRY [facility] Apr 24, 2024 01:30 PM AMBULATORY PSYCHIATRY [facility] May 01, 2024 12:45 PM AMBULATORY - MEDICINE [facility] Active, Pending, and Scheduled Orders This section includes a listing of several types of active, pending, and scheduled orders, including clinic medications orders, diagnostic test orders, procedure orders and consult orders; where the start date of the order is 45 days before the date of the Encounter or 45 days after the date of theEncounter. The data comes from all [facility]. Test Date/Time Test Type Test Details Facility Name Nov 30, 2023 12:00 AM Laboratory - Chemi stry Order OCCULT BLOOD FIT X1 SCREEN(IN-HOUSE) STOOL FECES [facility] Nov 30, 2023 12:00 AM Laboratory - Chemi stry Order C REACTIVE PROTEIN HS (WROX) BLOOD (SST-SERUM) [facility] Nov 30, 2023 12:00 AM Laboratory - Chemi stry Order LIVER FUNCTION BLOOD (SST-SERUM) [facility] Nov 30, 2023 12:00 AM Laboratory - Chemi stry Order BASIC METABOLIC PANEL (fasting) BLOOD (SST-SERUM) [facility] Nov 30, 2023 12:00 AM Laboratory - Chemi stry Order LIPID PANEL FASTING BLOOD (SST-SERUM) [facility] Nov 30, 2023 12:00 AM Laboratory - Chemi stry Order CBC AND DIFF (AUTO) BLOOD (LAV-BLOOD) [facility] Nov 30, 2023 12:00 AM Laboratory - Chemi stry Order HEMOGLOBIN A1C PANEL BLOOD (LAV-BLOOD) [facility] Nov 30, 2023 12:00 AM Laboratory - Chemi stry Order TSH BLOOD (SST-SERUM) [facility] Nov 30, 2023 12:00 AM Laboratory - Chemi stry Order SED RATE, AUTOMATED BLOOD (LAV-BLOOD) [facility] Social History: Smoking Status (Most current) and Tobacco Use (All prior to encounter date) This section includes the most current, and the historical, smoking and tobacco- related health factors from the [place] facility where the Encounter took place. Current Smoking Status This section includes the most current smoking, or tobacco-related health factor, from the [place] facility where the Encounter took place. Date/Time Current Smoking Status Comment Facil ity Jun 08, 2023 01:00 PM VA-TOBACCO FORMER USER [place] Tobacco Use History This section includes a history of the smoking, or tobacco-related health factors, that were collected on or before the date of the Encounter. The data comes from the [place] facility where the Encounter took place. Date/Time Smoking Status/Tobacco Use Comment F acility Jun 08, 2023 01:00 PM VA-TOBACCO QUIT 15 YRS OR MORE [facility] Mar 11, 2021 01:00 PM VA-TOBACCO FORMER USER [place] Mar 11, 2021 01:00 PM VA-TOBACCO QUIT 15 YRS OR MORE [place] Feb 14, 2018 09:07 AM VA-TOBACCO FORMER USER [place] Feb 14, 2018 09:07 AM VA-TOBACCO QUIT 15 YRS OR MORE [place] Mar 03, 2017 10:30 AM QUIT TOBACCO USE > 7 YEARS AGO reports quitting 40 years ago [place] Dec 05, 2015 09:20 AM QUIT TOBACCO USE > 7 YEARS AGO quit 30 years ago smoked 10 years less than a pack a day [place] Advance Directives: All historical and current Section Date Range: From patient's date of to the date document was created. This section includes ALL of a patient's completed or amended [place] Advance and Rescinded Directives. The entries below indicate that a directive exists for the patient, but an actual copy is not included with this document. The data comes from all [place] facilities. Date Advance Directives Provider Source October 21, 2003 ADVANCE DIRECTIVE RYLAND TOMPKINS [facility] Encounter Notes: All associated encounter notes This section contains the clinical notes associated to the Encounter. Date/Time Encounter Note(s) Provider Source November 04, 2023 12:41 PM TELEHEALTH NOTE: LOCAL TITLE: [employer] SOCIAL WORK NOTE STANDARD TITLE: TELEHEALTH NOTE DATE OF NOTE: NOVEMBER 04, 2023@12:41 ENTRY DATE: NOVEMBER 04, 2023@12:41:58 AUTHOR: ALESSANDRO SHEPPARD EXP COSIGNER: URGENCY: STATUS: COMPLETED [facility] Video Connect (VVC) Standard Documentation VVC Clinician Resources Only: E911 (Emergency Call Relay Center): [phone] [facility] Crisis Line - 988 then press #1. [facility] Suicide Coordinator [phone], Ext. [phone]; Back-up Ext. [phone] [place] Police, [place] [phone] Introduction: Visit is being conducted by [employer]. identified with 2 identifiers: [X] Full Name [X] Date of [ ] VA ID Card Emergency Plan: confirmed and/or provided the following information in case of emergency or technology failure. PATIENT PHONE - PHONE NUMBER [CELLULAR] - Is patient phone number correct, if not, enter below: Somerset's phone number: s/p ANSHUL GAMBOA JESUS MANUEL [address] [place] [address], [address] 's present location and address for appointment: s/a 's emergency contact name and phone number: as in chart Somerset reported that location is private and safe: Yes Informed Consent: Somerset informed of the risks and benefits of Telehealth video care. [place] has the right to refuse video services. If refuses video visit, a [id number]-[id number] visit will be scheduled. verbalized consent for this video visit: Yes Somerset provided consent for any other persons present for visit: N/A If yes, who and relationship to patient: Secure visit: Visit was locked for security and privacy: Yes Somerset is sitting in his kitchen, his eriberto Fab helped him to connect and then she left. Somerset recently referred to this worker for supportive visits. Anshul spoke about many things. He is quite happy where he is and how things are w his family. He has daily chronic pain which keeps him from doing things such as taking care of his lawn. Bc of his memory he doesn't feel comfortable driving too far, he relies on his family to get groceries and take him to appts. He spoke of his time in [place]. He was in [employer]. One mission 5 of the 12 men were killed- we didn't have the proper support, we should never have been dropped off there in the first place... One time I was woken up in the middle of the night, I don't know why they chose me. They had a marielena that they interrogated and killed, we took him up in a helicopter and I was made to push him out, he landed near the river a place w thought he would be found. His father was a [employer] combat , he was shot in the head and was blinded. His mother when Anshul was 7 y/o, the only picture I have of her is her lying in the hospital bed . He was the middle child of 5. They were raised by his grandparents. I've often asked God why so much happened to our family. Anshul can be very talkative, tends to ramble on. He offers no complaints except for his physical pain. rtc 1mo /es/ ATIF Rosenbaum SENIOR MANAGER CREATIVE SERVICES Signed: 11/04/2023 13:15 ALESSANDRO SHEPPARD
--- OUTSIDE RECORDS SUMMARY | 2024-06-18 08:39 | XMS_ITS ---
Author Name [facility] [place] Address [address] [place] [address] Care Team Providers Care Mainstreaming Facilitator Name Role Phone SHADY MANCILLA Primary Care [...] PART B Jan 04, 2014 PART B [id number] 89A [phone] JESUS MANUELSTORMY KELLEY CE PATIENT MEDICARE (WNR) MEDICARE (M) PART A Jun 06, 2006 PART A [id number] 89A [phone] JESUS MANUELSTORMY KELLEY CE PATIENT MEDICARE (WNR) MEDICARE (M) PART A Jun 06, 2006 PART A [id number] 89A [phone] JESUS MANUELSTORMY KELLEY CE PATIENT MEDICARE (WNR) MEDICARE (M) PART A Jun 06, 2006 PART A [id number] 89A [phone] STORMY KEN PATIENT Selected Encounter This section includes the information on record at [place] for the Encounter. Date/Time Encounter Type Encounter Description Reason Pro vider Source October 27, 2023 11:29 AM Outpatient Encounter [facility] Encounter Template Text not used by [place] Plan of Treatment: Future Appointments (+ 6 months) and Future Tests (+/- 45 days) The Plan of Treatment section includes future care activities for the patient [facility] [place] [facility] This section includes future appointments and future orders which are active, pending or scheduled. Future Appointments This section includes appointments that were scheduled to occur 6 months from the date of the Encounter, up to a maximum of 20 appointments. The data comes from all [place] treatment [facility]. Appointment Date/Time Appointment Type Appointme nt Facility Name November 04, 2023 09:00 AM AMBULATORY - PSYCHIATRY [facility] Nov 08, 2023 03:00 PM AMBULATORY - MEDICINE [place] [facility] Dec 02, 2023 10:00 AM AMBULATORY - PSYCHIATRY [facility] Dec 14, 2023 11:30 AM AMBULATORY - MEDICINE [facility] Dec 30, 2023 11:00 AM AMBULATORY - PSYCHIATRY [facility] Jan 24, 2024 01:00 PM AMBULATORY - PSYCHIATRY [facility] Apr 24, 2024 01:30 PM AMBULATORY PSYCHIATRY [facility] Active, Pending, and Scheduled Orders This section includes a listing of several types of active, pending, and scheduled orders, including clinic medications orders, diagnostic test orders, procedure orders and consult orders; where the start date of the order is 45 days before the date of the Encounter or 45 days after the date of theEncounter. The data comes from all [facility]. Test Date/Time Test Type Test Details Facility Name Nov 30, 2023 12:00 AM Laboratory - Chemi stry Order C REACTIVE PROTEIN HS (WROX) BLOOD (SST-SERUM) [facility] Nov 30, 2023 12:00 AM Laboratory - Chemi stry Order OCCULT BLOOD FIT X1 SCREEN(IN-HOUSE) STOOL FECES [facility] Nov 30, 2023 12:00 AM Laboratory - Chemi stry Order BASIC METABOLIC PANEL (fasting) BLOOD (SST-SERUM) [facility] Nov 30, 2023 12:00 AM Laboratory - Chemi stry Order CBC AND DIFF (AUTO) BLOOD (LAV-BLOOD) [facility] Nov 30, 2023 12:00 AM Laboratory - Chemi stry Order LIVER FUNCTION BLOOD (SST-SERUM) [facility] Nov 30, 2023 12:00 AM Laboratory - Chemi stry Order LIPID PANEL FASTING BLOOD (SST-SERUM) [facility] Nov 30, 2023 12:00 AM Laboratory - Chemi stry Order HEMOGLOBIN A1C PANEL BLOOD (LAV-BLOOD) [facility] Nov 30, 2023 12:00 AM Laboratory - Chemi stry Order TSH BLOOD (SST-SERUM) [facility] Nov 30, 2023 12:00 AM Laboratory - Chemi stry Order SED RATE, AUTOMATED BLOOD (LAV-BLOOD) [facility] Social History: Smoking Status (Most current) and Tobacco Use (All prior to encounter date) This section includes the most current, and the historical, smoking and tobacco- related health factors from the [place] facility where the Encounter took place. Current Smoking Status This section includes the most current smoking, or tobacco-related health factor, from the [place] facility where the Encounter took place. Date/Time Current Smoking Status Comment Facil it Mar 23, 2022 09:30 AM VA-TOBACCO FORMER USER [facility] Tobacco Use History This section includes a history of the smoking, or tobacco-related health factors, that were collected on or before the date of the Encounter. The data comes from the [place] facility where the Encounter took place. Date/Time Smoking Status/Tobac co Use Comment Facility Mar 23, 2022 09:30 AM VA-TOBACCO QUIT 15 YRS OR MORE [facility] Sep 07, 2004 01:27 PM HISTORY OF SMOKING QUIT 12 YEARS AGO [facility] May 15, 2004 03:37 PM QUIT TOBACCO USE > 7 YEARS AGO [facility] Sep 02, 2003 01:28 PM QUIT TOBACCO USE > 7 YEARS AGO [facility] Advance Directives: All historical and current Section Date Range: From patient's date of to the date document was created. This section includes ALL of a patient's completed or amended [place] Advance and Rescinded Directives. The entries below indicate that a directive exists for the patient, but an actual copy is not included with this document. The data comes from all [place] facilities. Date Advance Directives Provider Source October 21, 2003 ADVANCE DIRECTIVE RYLAND TOMPKINS [facility] Encounter Notes: All associated encounter notes This section contains the clinical notes associated to the Encounter. Date/Time Encounter Note(s) Provider Source October 27, 2023 11:29 AM ADMINISTRATIVE NOT E: LOCAL TITLE: ADMINISTRATIVE NOTE STANDARD TITLE: ADMINISTRATIVE NOTE DATE OF NOTE: OCTOBER 27, 2023@11:29 ENTRY DATE: OCTOBER 27, 2023@11:29:15 AUTHOR: KAREN DAO EXP COSIGNER: URGENCY: STATUS: COMPLETED Food [employer] reached out and spoke to to remind of appointment on October at 10am. Did say daughter sets up appointments and will check in with her about it as well. /maddie/ KAREN DAO PRIVATE BRANCH EXCHANGE REPAIRER Signed: 10/27/2023 11:34 KAREN DAO
--- OUTSIDE RECORDS SUMMARY | 2024-06-18 08:39 | XMS_ITS ---
Author Name [facility] [place] Address [address] [place] [address] Care Team Providers Care Manager Room Name Role Phone SHADY MANCILLA Primary Care [...] PART B Jan 04, 2014 PART B [id number] 89A [phone] STORMY KEN CE PATIENT MEDICARE (WNR) MEDICARE (M) PART A Jun 06, 2006 PART A [id number] 89A STORMY KEN CE PATIENT MEDICARE (WNR) MEDICARE (M) PART A Jun 06, 2006 PART A [id number] 89A STORMY KEN CE PATIENT MEDICARE (WNR) MEDICARE (M) PART A Jun 06, 2006 PART A [id number] 89A STORMY KEN PATIENT Selected Encounter This section includes the information on record at [place] for the Encounter. Date/Time Encounter Type Encounter Description Reason Pro vider Source Jul 28, 2023 12:00 PM Outpatient Encounter COMMUNITY CARE CONSULT IHE Encounter Template Text not used by [place] Plan of Treatment: Future Appointments (+ 6 months) and Future Tests (+/- 45 days) The Plan of Treatment section includes future care activities for the patient from all [place] treatmentfacilities. This section includes future appointments and [...] 23, 2023 02:30 PM AMBULATORY - PSYCHIATRY [facility] Aug 31, 2023 12:30 PM AMBULATORY - MEDICINE [facility] Sep 02, 2023 11:00 AM AMBULATORY - PSYCHIATRY [facility] Sep 23, 2023 11:00 AM AMBULATORY - PSYCHIATRY [facility] November 04, 2023 09:00 AM AMBULATORY - PSYCHIATRY [facility] Nov 08, 2023 03:00 PM AMBULATORY - MEDICINE [facility] [place] [facility] Dec 02, 2023 10:00 AM AMBULATORY - PSYCHIATRY [facility] Dec 14, 2023 11:30 AM AMBULATORY - MEDICINE [facility] Dec 30, 2023 11:00 AM AMBULATORY PSYCHIATRY [facility] Jan 24, 2024 01:00 PM AMBULATORY - PSYCHIATRY [facility] Social History: Smoking Status (Most current) [...] took place. Date/Time Current Smoking Status Comment [facility] Mar 23, 2022 09:30 AM [place]-TOBACCO FORMER USER [place] [facility] Tobacco Use History This section includes a history of the smoking, or tobacco-related health factors, that were collected on or before the date of the Encounter. The data comes from the [place] facility where the Encounter took place. Date/Time Smoking Status/Tobac co Use Comment Facility Mar 23, 2022 09:30 AM [place]-TOBACCO QUIT 15 YRS OR MORE [facility] [place] [facility] Sep 07, 2004 01:27 PM HISTORY OF SMOKING QUIT 12 [facility]ARS AGO [facility] May 15, 2004 03:37 PM QUIT TOBACCO USE > 7 YEARS AGO [facility] [place] [facility] Sep 02, 2003 01:28 PM QUIT TOBACCO USE > 7 YEARS AGO [facility] Advance Directives: All historical and current Section [...] October 21, 2003 ADVANCE DIRECTIVE RYLAND TOMPKINS [facility] Encounter Notes: All associated encounter notes This section contains the clinical notes associated to the Encounter. Date/Time Encounter Note(s) Provider Source Jul 28, 2023 12:00 PM NONVA CONSULT: LOCAL TITLE: COMMUNITY CARE-CONSULT RESULT NOTE STANDARD TITLE: NONVA CONSULT DATE OF NOTE: JUL 28, 2023@12:00 ENTRY DATE: OCTOBER 11, 2023@13:44:04 AUTHOR: ROCIO TANG EXP COSIGNER: URGENCY: STATUS: COMPLETED VistA Imaging - Scanned Document SCANNED DOCUMENT SIGNATURE NOT REQUIRED Electronically Filed: 10/11/2023 by: ROCIO JOLLEY [facility]
--- OUTSIDE RECORDS SUMMARY | 2024-06-18 08:39 | XMS_ITS | Encounter Summary ---
Author Name [facility] [place] [facility] [place] Address [address] [place] [address] Care Team Providers Care Dub Room Engineer Name Role Phone CHARO SHADY Primary Care [...] PART B Jan 04, 2014 PART B [id number] 89A JESUS MANUEL,STORMY CE PATIENT MEDICARE (WNR) MEDICARE (M) PART A Jun 06, 2006 PART A [id number] 89A [phone] JESUS MANUEL,BRU CE PATIENT MEDICARE (WNR) MEDICARE (M) PART A Jun 06, 2006 PART A [id number] 89A JESUS MANUEL,BRU CE PATIENT MEDICARE (WNR) MEDICARE (M) PART A Jun 06, 2006 PART A [id number] 89A JESUS MANUEL,BRU CE PATIENT Selected Encounter This section includes the information on record at [place] for the Encounter. Date/Time Encounter Type Encounter Description Reason Provider Source Nov 07, 2023 11:47 AM MTMS BY AURELIA ALEX 15 MIN TELEPHONE/LEVI SAMANO ICD-10-CM Z51.81 Encounter for therapeutic drug level monitoring [place] Encounter Template Text not used by [place] Assessments - Encounter Diagnoses This section includes the primary and secondary diagnoses documented for the Encounter. Date/Time Primary/Secondary Diagnosis Diagnosis Name Provider Source Nov 07, 2023 11:47 AM PRIMARY Encounter for therapeutic drug level monitoring [facility] Nov 07, 2023 11:47 AM SECONDARY Unspecified atrial fibrillation [facility] Plan of Treatment: Future Appointments (+ 6 months) and Future Tests (+/- 45 days) The Plan of Treatment section includes future care activities for the patient [facility] all [place] [facility] This section includes future appointments and future orders which are active, pending or scheduled. Future Appointments This section includes appointments that were scheduled to occur 6 months from the date of the Encounter, up to a maximum of 20 appointments. The data comes from all [facility]. Appointment Date/Time Appointment Type Appointme nt Facility Name Nov 08, 2023 03:00 PM [facility] Dec 02, 2023 10:00 AM AMBULATORY - PSYCHIATRY [facility] Dec 14, 2023 11:30 AM AMBULATORY - MEDICINE [facility] Dec 30, 2023 11:00 AM AMBULATORY - PSYCHIATRY [facility] Jan 24, 2024 01:00 PM AMBULATORY - PSYCHIATRY [facility] Apr 24, 2024 01:30 PM AMBULATORY PSYCHIATRY [facility] May 01, 2024 12:45 PM AMBULATORY MEDICINE [facility] Active, Pending, and Scheduled Orders This section includes a listing of several types of active, pending, and scheduled orders, including clinic medications orders, diagnostic test orders, procedure orders and consult orders; where the start date of the order is 45 days before the date of the Encounter or 45 days after the date of theEncounter. The data comes from all [facility]. Test Date/Time Test Type Test Details Facility Name Nov 30, 2023 12:00 AM Laboratory - Chemi stry Order C REACTIVE PROTEIN HS (WROX) BLOOD (SST-SERUM) [facility] Nov 30, 2023 12:00 AM Laboratory - Chemi stry Order OCCULT BLOOD FIT X1 SCREEN(IN-HOUSE) STOOL FECES [facility] Nov 30, 2023 12:00 AM Laboratory - Chemi stry Order BASIC METABOLIC PANEL (fasting) BLOOD (SST-SERUM) [facility] 26, 2024 12:00 AM Laboratory - Chemi stry Order CBC AND DIFF (AUTO) BLOOD (LAV-BLOOD) [facility] Nov 30, 2023 12:00 AM Laboratory - Chemi stry Order LIVER FUNCTION BLOOD (SST-SERUM) [facility] 26, 2024 12:00 AM Laboratory - Chemi stry Order LIPID PANEL FASTING BLOOD (SST-SERUM) [facility] 26, 2024 12:00 AM Laboratory - Chemi stry Order HEMOGLOBIN A1C PANEL BLOOD (LAV-BLOOD) [facility] 26, 2024 12:00 AM Laboratory - Chemi stry Order TSH BLOOD (SST-SERUM) [facility] Nov 30, 2023 12:00 AM Laboratory - Chemi stry Order SED RATE, AUTOMATED BLOOD (LAV-BLOOD) [facility] Advance Directives: All historical and [...] October 21, 2003 ADVANCE DIRECTIVE RYLAND TOMPKINS [facility] Encounter Notes: All associated encounter notes This section contains the clinical notes associated to the Encounter. Date/Time Encounter Note(s) Provider Source Nov 07, 2023 11:47 AM PHARMACY MEDICATIO N MGT NOTE: LOCAL TITLE: PHARMACY ANTICOAGULATION NOTE STANDARD TITLE: PHARMACY MEDICATION MGT NOTE DATE OF NOTE: NOV 07, 2023@11:47 ENTRY DATE: NOV 07, 2023@11:47:57 AUTHOR: JUANITA MARIA COSIGNER: URGENCY: STATUS: COMPLETED Initial Note: Anticoagulation DOAC Agent Progress Note Reason for visit: Initial Education for Rivaroxaban/Xarelto Indication: atrial fibrillation Start Date: Upon receipt Expected Duration: Indefinite Referring Provider: [facility] Cardiology, MICHELLE Munoz Patient Contact: Daughter Feliciano: [phone] Patient has given permission to leave anticoagulation message on answering machine or with person listed. Subjective: Spoke with pt's daughter who handles all of pt's medications. Pt was missing PM doses of apixaban consistently. [facility] discussed a change from apixaban to rivaroxaban and new Rx sent to [place] for processing. Reviewed differences between apixaban and rivaroxaban with pt's daughter (initially called pt who deferred ACC to his daughter). Reviewed need to take rivaroxaban with a full meal. Daughter to ensure pt takes with first meal of the day (she will be calling pt daily to take Rx as his cardioversion remains pending until 30 days of consistent AC use is achieved). He is not consuming EtOH. No upcoming surgeries/procedures except need for cardioversion. He is using ASA OTC for pain - daughter will have him change to acetaminophen instead. Reviewed how to transition from apixaban to rivaroxaban. Medication disposal envelope to be sent for apixaban as well. D/c to passive monitoring. Labs: Patient reports outside SCR results: Date: October 28, 2023 Results: 1.23 Location: Outside Healthcare Provider Patient reports outside BUN results: Date: October 28, 2023 Results: 11 Location: Outside Healthcare Provider CRCL IBW: 44.1mL/min CRCL ACT: 47.0mL/min CRCL ADJ: 45.2mL/min LFTs WNL Vitals: Weight (BMI): 139 lb [63.05 kg] (07/05/2023 11:37) BMI: 23.9 Height: 64 in [162.6 cm] (01/14/2022 15:05) Active Outpatient Medications (including Supplies): APIXABAN 5MG TAB TAKE ONE TABLET BY MOUTH EVERY 12 HOURS ACTIVE (S) STOPPING BISOPROLOL FUMARATE 5MG TAB TAKE ONE TABLET [...] BY MOUTH AT ACTIVE BEDTIME FOR CHOLESTEROL Interacting Meds: -- none - changing to rivaroxaban from apixaban Rivaroxaban: The patient was provided with the following education: -- Purpose of rivaroxaban -- Signs and symptoms of stroke and thrombosis and what to do should they occur -- Medication Identification -- Dosing recommendations -Rivaroxaban should be taken with a full meal at dinner time -Rivaroxaban may be crushed and put in applesauce -- Storage recommendations -Store medication in a dry area at room temperature -- Recommendations for missed doses or overdosage -- Importance of medication compliance and avoiding lapses in therapy to minimize the risk of stroke -- Monitor for signs/symptoms of bleeding, including: -Burrows or brown urine -Red or black tarry stools -Coughing up blood -Vomiting blood or vomit that looks like coffee grounds -Reoccurring nosebleeds -Unusual bleeding from the gums -Bleeding from a cut that does not stop -- Contact this clinic or provider if patient experiences and serious or intolerable adverse effects -- Review risks associated with falling -- Which medications to avoid due to drug interactions -- Importance of notifying all providers of any medication patient is taking or changes that may occur -- What to do if patient wants to discontinue therapy -- Contact this clinic or provider if scheduled for a procedure -- Contact number for the [facility] provided Assessment/Plan: Initiate : Rivaroxaban 15mg daily WITH FOOD IN PLACE OF APIXABAN ONCE RX RECEIVED - DISCARD APIXABAN USING MEDICATION DISPOSAL ENVELOPE Time Spent: 15 mins Next Appt: N/A - D/C TO PASSIVE MONITORING Next PCP Appt: Nov EDUCATION Provided with verbal instructions: Yes Provided with written instructions: No Barriers to learning: No Readiness to learn: Yes Specific dose directions reviewed: Yes Opportunity for questions/discussion: Yes Reports understanding of instructions: Yes Further learning needs: No /es/ Jaunita Maria PharmD, BCPS Clinical Counter Stitcher Signed: 11/07/2023 11:56 Receipt Acknowledged By: 11/07/2023 13:03 /maddie/ JENNI MEDINA CPHT Clinical [place] [place] JUANITA MARIALAYTON [facility]
--- OUTSIDE RECORDS SUMMARY | 2024-06-18 08:39 | XMS_ITS | Encounter Summary ---
Author Name [facility] [place] Organization [place] Address [address] [place] [address] Care Team Providers Care C D Area Supervisor Name Role Phone SHADY MANCILLA Primary Care [...] PART B Jan 04, 2014 PART B [id number] [id number] JESUS MANUELSTORMY KELLEY CE PATIENT MEDICARE (WNR) MEDICARE (M) PART A Jun 06, 2006 PART A [id number] 89A JESUS MANUELSTORMY KELLEY CE PATIENT MEDICARE (WNR) MEDICARE (M) PART A Jun 06, 2006 PART A [id number] 89A JESUS MANUELSTORMY KELLEY CE PATIENT MEDICARE (WNR) MEDICARE (M) PART A Jun 06, 2006 PART A [id number] 89A JESUS MANUEL,BRU CE PATIENT Selected Encounter This section includes the information on record at [place] for the Encounter. Date/Time Encounter Type Encounter Description Reason Pro vider Source October 28, 2023 12:00 AM Outpatient Encounter EVENT (HISTORICAL) IHE Encounter Template Text not used by [...] 20 appointments. The data comes from all [facility] facilities. Appointment Date/Time Appointment Type Appointme nt Facility Name November 04, 2023 09:00 AM AMBULATORY - PSYCHIATRY [facility] Nov 08, 2023 03:00 PM AMBULATORY - MEDICINE [facility] [place] [facility] Dec 02, 2023 10:00 AM AMBULATORY PSYCHIATRY [facility] Dec 14, 2023 11:30 AM AMBULATORY - MEDICINE [facility] Dec 30, 2023 11:00 AM AMBULATORY - PSYCHIATRY [facility] Jan 24, 2024 01:00 PM AMBULATORY PSYCHIATRY [facility] Apr 24, 2024 01:30 PM AMBULATORY PSYCHIATRY [facility] Active, Pending, and Scheduled Orders This section includes a listing of several types of active, pending, and scheduled orders, including clinic medications orders, diagnostic test orders, procedure orders and consult orders; where the start date of the order is 45 days before the date of the Encounter or 45 days after the date of theEncounter. The data comes from all [facility]. Test Date/Time Test Type Test Details Facility Name Nov 30, 2023 12:00 AM Laboratory - Chemi stry Order OCCULT BLOOD FIT X1 SCREEN(IN-HOUSE) STOOL FECES [facility] Nov 30, 2023 12:00 AM Laboratory - Chemi stry Order C REACTIVE PROTEIN HS (WROX) BLOOD (SST-SERUM) [facility] Nov 30, 2023 12:00 AM Laboratory - Chemi stry Order LIPID PANEL FASTING BLOOD (SST-SERUM) [facility] Nov 30, 2023 12:00 AM Laboratory - Chemi stry Order BASIC METABOLIC PANEL (fasting) BLOOD (SST-SERUM) [facility] Nov 30, 2023 12:00 AM Laboratory - Chemi stry Order LIVER FUNCTION BLOOD (SST-SERUM) [facility] Nov 30, 2023 12:00 AM Laboratory - Chemi stry Order CBC AND DIFF (AUTO) BLOOD (LAV-BLOOD) [facility] Nov 30, 2023 12:00 AM Laboratory - Chemi stry Order HEMOGLOBIN A1C PANEL BLOOD (LAV-BLOOD) [facility] Nov 30, 2023 12:00 AM Laboratory - Chemi stry Order TSH BLOOD (SST-SERUM) [facility] Nov 30, 2023 12:00 AM Laboratory - Chemi stry Order SED RATE, AUTOMATED BLOOD (LAV-BLOOD) [facility] Social History: Smoking Status (Most current) and [...] took place. Date/Time Current Smoking Status Comment [facility] Mar 23, 2022 09:30 AM [place]-TOBACCO FORMER USER [facility] Tobacco Use History This section includes a history of the smoking, or tobacco-related health factors, that were collected on or before the date of the Encounter. The data comes from the [place] facility where the Encounter took place. Date/Time Smoking Status/Tobac co Use Comment Facility Mar 23, 2022 09:30 AM VA-TOBACCO QUIT 15 YRS OR MORE [facility] Sep 07, 2004 01:27 PM HISTORY OF SMOKING QUIT 12 YEARS AGO [facility] May 15, 2004 03:37 PM QUIT TOBACCO USE > 7 YEARS AGO [facility] Sep 02, 2003 01:28 PM QUIT TOBACCO USE > 7 YEARS AGO [facility] Advance Directives: All historical and current Section [...] Source October 21, 2003 ADVANCE DIRECTIVE [facility]LAND [facility]PKINSE [facility]
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
--- OUTSIDE RECORDS SUMMARY | 2024-06-18 08:39 | XMS_ITS | Encounter Summary ---
Author Name [facility] [place] [facility] [place] Organization [facility] [place] [place] Address [address] [place] [address] Care Team Providers Care Woodwind Instrument Repairer Name Role Phone SHADY MANCILLA Primary [...] PART B Jan 04, 2014 PART B [id number] JESUS MANUELSTORMY KELLEY CE PATIENT MEDICARE (WNR) MEDICARE (M) PART A Jun 06, 2006 PART A [id number] 89A JESUS MANUELSTORMY KELLEY CE PATIENT MEDICARE (WNR) MEDICARE (M) PART A Jun 06, 2006 PART A [id number] 89A JESUS MANUELSTORMY KELLEY CE PATIENT MEDICARE (WNR) MEDICARE (M) PART A Jun 06, 2006 PART A [id number] [phone] STORMY KEN PATIENT Selected Encounter This section includes the information on record at [place] for the Encounter. Date/Time Encounter Type Encounter Description Reason Pro vider Source November 03, 2023 02:17 PM Outpatient Encounter [facility] Encounter Template Text not used by [place] Plan of Treatment: Future Appointments (+ 6 months) and Future Tests (+/- 45 days) The Plan of Treatment section includes future care activities for the patient from all [place] [facility]. This section includes future appointments and future orders which are active, pending or scheduled. Future Appointments This section includes appointments that were scheduled to occur 6 months from the date of the Encounter, up to a maximum of 20 appointments. The data comes from all [facility]. Appointment Date/Time Appointment Type Appointme nt Facility Name November 04, 2023 09:00 AM AMBULATORY - PSYCHIATRY [facility] Nov 08, 2023 03:00 PM AMBULATORY - MEDICINE [facility] Dec 02, 2023 10:00 AM AMBULATORY PSYCHIATRY [facility] Dec 14, 2023 11:30 AM AMBULATORY - MEDICINE [facility] Dec 30, 2023 11:00 AM AMBULATORY PSYCHIATRY [facility] Jan 24, 2024 01:00 PM AMBULATORY PSYCHIATRY [facility] Apr 24, 2024 01:30 PM AMBULATORY PSYCHIATRY [facility] May 01, 2024 12:45 PM AMBULATORY MEDICINE [facility] Active, Pending, and Scheduled Orders This section includes a listing of several types of active, pending, and scheduled orders, including clinic medications orders, diagnostic test orders, procedure orders and consult orders; where the start date of the order is 45 days before the date of the Encounter or 45 days after the date of theEncounter. The data comes from all [facility]. Test Date/Time Test Type Test Details Facility Name Nov 30, 2023 12:00 AM Laboratory - Chemi stry Order OCCULT BLOOD FIT X1 SCREEN(IN-HOUSE) STOOL FECES [facility] Nov 30, 2023 12:00 AM Laboratory - Chemi stry Order C REACTIVE PROTEIN HS (WROX) BLOOD (SST-SERUM) [facility] Nov 30, 2023 12:00 AM Laboratory - Chemi stry Order LIPID PANEL FASTING BLOOD (SST-SERUM) [facility] Nov 30, 2023 12:00 AM Laboratory - Chemi stry Order BASIC METABOLIC PANEL (fasting) BLOOD (SST-SERUM) [facility] Nov 30, 2023 12:00 AM Laboratory - Chemi stry Order LIVER FUNCTION BLOOD (SST-SERUM) [facility] Nov 30, 2023 12:00 AM Laboratory - Chemi stry Order CBC AND DIFF (AUTO) BLOOD (LAV-BLOOD) [facility] Nov 30, 2023 12:00 AM Laboratory - Chemi stry Order HEMOGLOBIN A1C PANEL BLOOD (LAV-BLOOD) [facility] Nov 30, 2023 12:00 AM Laboratory - Chemi stry Order TSH BLOOD (SST-SERUM) [facility] Nov 30, 2023 12:00 AM Laboratory - Chemi stry Order SED RATE, AUTOMATED BLOOD (LAV-BLOOD) [facility] Social History: Smoking Status (Most current) and Tobacco Use (All prior to encounter date) This section includes the most current, and the historical, smoking and tobacco- related health factors from the [place] facility where the Encounter took place. Current Smoking Status This section includes the most current smoking, or tobacco-related health factor, from the [place] facility where the Encounter took place. Date/Time Current Smoking Status Comment Facil it Mar 23, 2022 09:30 AM [place]-TOBACCO FORMER USER [facility] Tobacco Use History This section includes a history of the smoking, or tobacco-related health factors, that were collected on or before the date of the Encounter. The data comes from the [place] facility where the Encounter took place. Date/Time Smoking Status/Tobac co Use Comment Facility Mar 23, 2022 09:30 AM VA-TOBACCO QUIT 15 YRS OR MORE [facility] Sep 07, 2004 01:27 PM HISTORY OF SMOKING QUIT 12 YEARS AGO [facility] May 15, 2004 03:37 PM QUIT TOBACCO USE > 7 YEARS AGO [facility] Sep 02, 2003 01:28 PM QUIT TOBACCO USE > 7 YEARS AGO [facility] Advance Directives: All historical and current Section Date Range: From patient's date of to the date document was created. This section includes ALL of a patient's completed or amended [place] Advance and Rescinded Directives. The entries below indicate that a directive exists for the patient, but an actual copy is not included with this document. The data comes from all [place] facilities. Date Advance Directives Provider Source October 21, 2003 ADVANCE DIRECTIVE RYLAND TOMPKINS [facility] Encounter Notes: All associated encounter notes This section contains the clinical notes associated to the Encounter. Date/Time Encounter Note(s) Provider Source November 03, 2023 02:17 PM ADMINISTRATIVE NOT E: LOCAL TITLE: ADMINISTRATIVE NOTE STANDARD TITLE: ADMINISTRATIVE NOTE DATE OF NOTE: NOVEMBER 03, 2023@14:17 ENTRY DATE: NOVEMBER 03, 2023@14:17:30 AUTHOR: KAREN DAO EXP COSIGNER: URGENCY: STATUS: COMPLETED Pump Attendant reached out and spoke with about appointment on 11/04/2023 at 9am with provider Amber. [place] said he would remind daughter of appointment as she sets them up and that it is a VVC. /maddie/ KAREN DAO ELECTRIC NEEDLE SPECIALIST Signed: 11/03/2023 14:18 KAREN DAO
--- OUTSIDE RECORDS SUMMARY | 2024-06-18 08:40 | XMS_ITS | Encounter Summary ---
Author Name [facility] [place] [facility] [place] Address [address] [place] [address] Care Team Providers Care Manager Strategy Name Role Phone CHARO SHADY Primary Care [...] PART B Jan 04, 2014 PART B [id number] [id number] [phone] JESUS MANUELSTORMY KELLEY CE PATIENT MEDICARE (WNR) MEDICARE (M) PART A Jun 06, 2006 PART A [id number] 89A JESUS MANUEL,STORMY CE PATIENT MEDICARE (WNR) MEDICARE (M) PART A Jun 06, 2006 PART A [id number] 89A JESUS MANUEL,STORMY CE PATIENT MEDICARE (WNR) MEDICARE (M) PART A Jun 06, 2006 PART A [id number] 89A JESUS MANUEL,BRU CE PATIENT Selected Encounter This section includes the information on record at [place] for the Encounter. Date/Time Encounter Type Encounter Description Reason Provider Source Jan 24, 2024 01:00 PM OFFICE O/P EST MOD 30 MIN [facility] - IND ICD-10-CM F43.12 Post-traumatic stress disorder, chronic SANDEEP BARROW CHACHOPrincess Encounter Template Text not used by CT Assessments - Encounter Diagnoses This section includes the primary and secondary diagnoses documented for the Encounter. Date/Time Primary/Secondary Diagnosis Diagnosis Name Provider Source Feb 14, 2024 12:23 PM PRIMARY Post-traumatic stress disorder, chronic SANDEEP BARROW [facility] Feb 14, 2024 12:23 PM SECONDARY Anxiety disorder, unspecified DANIALSANDEEP [facility] Feb 14, 2024 12:23 PM SECONDARY Mild cognitive impairment of uncertain or unknown etiology DANIALSANDEEP [place] Feb 14, 2024 12:23 PM SECONDARY Unspecified mood [affective] disorder SANDEEP BARROW [place] Plan of Treatment: Future Appointments (+ 6 [...] Date/Time Appointment Type Appointme nt Facility Name Apr 24, 2024 01:30 PM AMBULATORY - PSYCHIATRY [facility] May 01, 2024 12:45 PM AMBULATORY - MEDICINE [facility] Social History: Smoking Status (Most current) and [...] place. Date/Time Current Smoking Status Comment Nevaeh asmuels Jun 08, 2023 01:00 PM VA-TOBACCO FORMER USER [place] Tobacco Use History This section includes a history of the smoking, or tobacco-related health factors, that were collected on or before the date of the Encounter. The data comes from the [place] facility where the Encounter took place. Date/Time Smoking Status/Tobacco Use Comment F acility Jun 08, 2023 01:00 PM VA-TOBACCO QUIT 15 YRS OR MORE [facility] Mar 11, 2021 01:00 PM VA-TOBACCO FORMER USER [facility] Mar 11, 2021 01:00 PM VA-TOBACCO QUIT 15 YRS OR MORE [facility] Feb 14, 2018 09:07 AM VA-TOBACCO FORMER USER [facility] Feb 14, 2018 09:07 AM VA-TOBACCO QUIT 15 YRS OR MORE [facility] Mar 03, 2017 10:30 AM QUIT TOBACCO USE > 7 YEARS AGO reports quitting 40 years ago [facility] Dec 05, 2015 09:20 AM QUIT TOBACCO USE > 7 YEARS AGO quit 30 years ago smoked 10 years less than a pack a day [facility] Advance Directives: All historical and current Section [...] October 21, 2003 ADVANCE DIRECTIVE RYLAND TOMPKINS [facility] Encounter Notes: All associated encounter notes This section contains the clinical notes associated to the Encounter. Date/Time Encounter Note(s) Provider Source Jan 24, 2024 11:44 AM PSYCHIATRY NOTE: LOCAL TITLE: PSYCHIATRY NOTE STANDARD TITLE: PSYCHIATRY NOTE DATE OF NOTE: JAN 24, 2024@11:44 ENTRY DATE: JAN 24, 2024@11:45:53 AUTHOR: STEPHEN WALSH COSIGNER: SANDEEP BARROW URGENCY: STATUS: COMPLETED Time spent: 30 minutes The presents today for follow up. Mr. Rapp lives in [place], [place] with his dog. He receives SSDI and has a 9th grade education level. He identifies as Confucianism. PATIENT REPORT: Patient was accompanied to today's appointment by Yun who identifies herself as his ex- and friend. She was present for the appointment with his permission. 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 He endorses feeling ready to when God wants me but won't commit suicide. He reports that the last time he felt suicidal was years ago. He denies having firearms at home. Yun notes he does have a large knife collection. It is coming up on the time of year that patient refers to as anniversary time because this is when everything was at its worst in [place]. He recalls being diagnosed with longo fatigue. He denies low energy, trouble sleeping, or poor concentration. He has been going for walks with an elderly neighbor and spends his days whittling and making walking sticks, which he enjoys. He endorses often feeling anxious and having restless sleep with nightmares. He often thinks of all the people who won't come home from [facility]. He denies paranoia/feelings others are out to get him. He denies AVH or HI. Despite his present symptoms, he feels pleased with his current medication regimen and does not desire to make any modifications at this time. He states, if it is isn't broken, don't fix it. Mental Status Exam: Casually dressed and appearing stated age, using well-crafted walking stick that he made himself. Speech is conversational in volume, rate, and prosody with no dysarthria. Thought process is linear and goal directed. Thought content is positive for ambivalence towards being alive, but with no suicidal intent or plan; negative for HI, delusions, or hallucinations. Memory and concentration are grossly intact. Fund of knowledge estimated to be average. SUICIDE RISK ASSESSMENT: -- SUICIDE INQUIRY: IDEATION: Denies active ideation. Denies suicidal intent or plan. Do you currently have any homicidal ideation? No SUBSTANCE USE: Sober from alcohol for ~20 [...] pain. He has been using since 1967. PSYCH MEDICATION HISTORY: Venlafaxine for ~1 yr around. Found it too activating. it made him crazy. Yelling at neighbors, anger outbursts. Denies having been on SSRIs. A careful trial of sertraline 12.5mg was not tolerated due to reports of dizziness and confusion in 2023. Endorses 2 suicide attempts in the past, many decades ago. Was hospitalized at [facility] ~20 years ago. Uses a pill organizer. [...] Mr. Rapp does keep in touch with ex-, Yun. PATIENT ACTIVE PROBLEM LIST: Active problems - Computerized Problem List is the source for the followin. Long-term current use of anticoagulant 2. Arthralgia 3. Adrenal mass 4. AF - Atrial fibrillation 5. PE - Pulmonary embolism 6. Cardiomyopathy 7. Congestive heart failure due to left ventricular systolic dysfunction 8. Neurocognitive disorder 9. Anxiety disorder 10. CHEST PAIN NOS 11. Hernia, Inguinal 12. Colonoscopy 13. Chr Airway Obstruct (COPD) 14. CHRONC PERIODONTITIS NOS 15. ACCRETIONS ON TEETH 16. UNSPECIFIED DENTAL CARIES 17. Residual foreign body in soft tissue 18. Low Back Pain 19. Hyperlipidemia (SNOMED CT 87801569) 20. Atherosclerosis of [place] coronary artery (SNOMED CT 389505571) 21. Retinal defect 22. Asthma (SNOMED CT 267746900) 23. Chronic post-traumatic stress disorder (SNOMED CT 584387751) 24. Depressive disorder (SNOMED CT 75217506) 25. Gastro-esophageal reflux disease (SNOMED CT 248152369) 26. Counseling on Substance Use and Abuse 27. RECURRENT, SEVERE 28. Alcohol Dependence * 29. Cannabis dependence, continuous 30. Cocaine dependence 31. Substance induced mood disorder ACTIVE OUTPATIENT MEDICATIONS (including Supplies): BISOPROLOL FUMARATE 5MG TAB TAKE ONE TABLET [...] WITH COPD - RINSE MOUTH AFTER USE FOLIC ACID 1MG TAB TAKE ONE TABLET BY MOUTH ONCE DAILY ACTIVE VITAMIN/NUTRITION SUPPLEMENT FUROSEMIDE 40MG TAB TAKE ONE TABLET BY MOUTH ONCE DAILY TO ACTIVE REMOVE FLUID/CONTROL BLOOD PRESSURE METHOTREXATE NA 2.5MG TAB TAKE SIX TABLETS BY MOUTH ONCE A ACTIVE WEEK OMEPRAZOLE 20MG EC CAP TAKE ONE CAPSULE BY MOUTH EVERY ACTIVE MORNING 30 MINUTES BEFORE BREAKFAST FOR HEARTBURN RISPERIDONE 1MG TAB TAKE ONE-HALF TABLET BY MOUTH AT ACTIVE BEDTIME FOR IRRITABILITY RIVAROXABAN 15MG TAB TAKE ONE TABLET BY MOUTH ONCE DAILY ACTIVE TAKE WITH FOOD THIS REPLACES APIXABAN SACUBITRIL 49MG/VALSARTAN 51MG TAB TAKE 1 TABLET [...] and hyperlipidemia, who presents for psychopharmacologic follow-up. Per chart review, neuropsych testing revealed mild neurocognitive disorder, however neurology reports that this is less likely Alzheimer dementia. Mr. Rapp used to experience paranoid ideation and irritability toward his neighbor. He has previously failed trials of venlafaxine and sertraline. He was subsequently started on low-dose risperidone nightly, which has been helpful in managing his symptoms. He continues to deny any side effects of risperidone, including EPS, tremors, or excessive fatigue. AIMS exam today (01/24/24) did not reveal evidence of EPS. Mr. Rapp continues to report feeling relatively well despite not being on any psychotropic medications other than low-dose risperidone. He denies paranoid feelings that anyone is out to get him, and he denies AVH. He does report chronic ambivalence to being alive but denied active suicidal ideation, intent, or plan. He struggles with nightmares and anxiety, but ultimately feels these are adequately controlled on the risperidone. In the past, Mr. Rapp has noted it is important for him not to feel overmedicated. Since most recent BP of 101/70 is rather low, this would contraindicate initiation of prazosin to target trauma-related nightmares. If Mr. Rapp becomes interested in a trial of prazosin in the future, repeat BP would be indicated. Mr. Rapp does endorse daily marijuana use since 1967 [...] emergency. I completed a thorough risk assessment today, taking into consideration both the patient's risk factors [...] physician follows blood pressure, weights, lipids, glucose. FOLLOW-UP: Return to clinic on or around 2023 REMINDERS: Medication Reconciliation: Outpatient: Has the patient been taking medications as documented in the EMLR? YES: The patient has been taking medications as documented in the EMLR. Essential Medication List for Review used to complete this medication reconciliation. INCLUDED IN THIS LIST: Alphabetical list of active outpatient prescriptions [facility]ensed from this [facility] (local) and dispensed from another [place] or [facility] facility (remote) as well as inpatient orders [...] with a VA or non-VA provider. /maddie/ STEPHEN WALSH MD Residential Instructor Signed: 01/26/2024 20:34 /maddie/ SANDEEP BARROW DO Psychiatrist Cosigned: 02/14/2024 12:23 STEPHEN WALSH
--- OUTSIDE RECORDS SUMMARY | 2024-06-18 08:40 | XMS_ITS | Encounter Summary ---
Author Name [facility] [place] [facility] [place] Organization [place] Address [address] [place] [address] Care Team Providers Care Knitted Garment Finisher Name Role Phone SHADY MANCILLA Primary Care [...] PART B Jan 04, 2014 PART B [id number] [id number] STORMY KEN CE PATIENT MEDICARE (WNR) MEDICARE (M) PART A Jun 06, 2006 PART A [id number] 89A STORMY KEN CE PATIENT MEDICARE (WNR) MEDICARE (M) PART A Jun 06, 2006 PART A [id number] 89A STORMY KEN CE PATIENT MEDICARE (WNR) MEDICARE (M) PART A Jun 06, 2006 PART A [id number] [phone] STORMY KEN PATIENT Selected Encounter This section includes the information on record at [place] for the Encounter. Date/Time Encounter Type Encounter Description Reason Pro vider Source Dec 19, 2023 12:00 AM Outpatient Encounter COMMUNITY CARE CONSULT [facility] Encounter Template Text not used by [place] Plan of Treatment: Future Appointments (+ 6 months) and Future Tests (+/- 45 days) The Plan of Treatment section includes future care activities for the patient from all [place] [facility]. This section includes future appointments and future orders which are active, pending or scheduled. Future Appointments This section includes appointments that were scheduled to occur 6 months from the date of the Encounter, up to a maximum of 20 appointments. The data comes from all [facility]. Appointment Date/Time Appointment Type Appointme nt Facility Name Dec 30, 2023 11:00 AM AMBULATORY - PSYCHIATRY [facility] Jan 24, 2024 01:00 PM AMBULATORY - PSYCHIATRY [facility] Apr 24, 2024 01:30 PM AMBULATORY - PSYCHIATRY [facility] May 01, 2024 12:45 PM AMBUL[facility]ORY - [facility] Active, Pending, and Scheduled Orders This [...] comes from all [facility]. Test Date/Time Test Type Test Details Facility Name Nov 30, 2023 12:00 AM Laboratory - Chemi stry Order OCCULT BLOOD FIT X1 SCREEN(IN-HOUSE) STOOL FECES [facility] Nov 30, 2023 12:00 AM Laboratory - Chemi stry Order BASIC METABOLIC PANEL (fasting) BLOOD (SST-SERUM) [facility] Nov 30, 2023 12:00 AM Laboratory - Chemi stry Order LIPID PANEL FASTING BLOOD (SST-SERUM) [facility] Nov 30, 2023 12:00 AM Laboratory - Chemi stry Order C REACTIVE PROTEIN HS (WROX) BLOOD (SST-SERUM) [facility] Nov 30, 2023 12:00 AM Laboratory - Chemi stry Order LIVER FUNCTION BLOOD (SST-SERUM) [facility] Nov 30, 2023 12:00 AM Laboratory - Chemi stry Order CBC AND DIFF (AUTO) BLOOD (LAV-BLOOD) [facility] Nov 30, 2023 12:00 AM Laboratory - Chemi stry Order HEMOGLOBIN A1C PANEL BLOOD (LAV-BLOOD) [facility] Nov 30, 2023 12:00 AM Laboratory - Chemi stry Order TSH BLOOD (SST-SERUM) [facility] Nov 30, 2023 12:00 AM Laboratory - Chemi stry Order SED RATE, AUTOMATED BLOOD (LAV-BLOOD) [facility] Social History: Smoking Status (Most current) [...] Facil it Mar 23, 2022 09:30 [facility] Tobacco Use History This section includes a history of the smoking, or tobacco-related health factors, that were collected on or before the date of the Encounter. The data comes from the [place] facility where the Encounter took place. Date/Time Smoking Status/Tobac co Use Comment Facility Mar 23, 2022 09:30 AM [facility] Sep 07, 2004 01:27 PM HISTORY OF SMOKING QUIT 12 YEARS AGO [facility] May 15, 2004 03:37 PM QUIT TOBACCO USE > 7 YEARS AGO [facility] Sep 02, 2003 01:28 PM QUIT TOBACCO USE > 7 YEARS AGO [facility] Advance Directives: All historical and current [...] October 21, 2003 ADVANCE DIRECTIVE RYLAND TOMPKINS [facility] Encounter Notes: All associated encounter notes This section contains the clinical notes associated to the Encounter. Date/Time Encounter Note(s) Provider Source Dec 19, 2023 12:00 AM NONVA CONSULT: LOCAL TITLE: COMMUNITY CARE-CONSULT RESULT NOTE STANDARD TITLE: NONVA CONSULT DATE OF NOTE: DEC 19, 2023 ENTRY DATE: APR 11, 2024@11:32:33 AUTHOR: VARUN HORNER EXP COSIGNER: URGENCY: STATUS: COMPLETED VistA Imaging - Scanned Document SCANNED DOCUMENT SIGNATURE NOT REQUIRED Electronically Filed: 04/11/2024 by: VARUN HORNER ADDICTION PROFESSIONAL VARUN HORNER [facility]
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
--- OUTSIDE RECORDS SUMMARY | 2024-06-18 08:40 | XMS_ITS | Encounter Summary ---
Author Name [facility] [place] Address [address] [place] [address] Care Team Providers Care Radio Recorder Name Role Phone SHADY MANCILLA Primary Care [...] PART B Jan 04, 2014 PART B [id number] [id number] STORMY KEN CE PATIENT MEDICARE (WNR) MEDICARE (M) PART A Jun 06, 2006 PART A [id number] 89A [phone] STORMY KEN CE PATIENT MEDICARE (WNR) MEDICARE (M) PART A Jun 06, 2006 PART A [id number] 89A STORMY KEN CE PATIENT MEDICARE (WNR) MEDICARE (M) PART A Jun 06, 2006 PART A [id number] 89A [phone] STORMY KEN PATIENT Selected Encounter This section includes the information on record at [place] for the Encounter. Date/Time Encounter Type Encounter Description Reason Pro vider Source Apr 09, 2024 09:29 AM Outpatient Encounter COMMUNITY CARE CONSULT I[facility] Encounter Template Text not used by [place] Plan of Treatment: Future Appointments (+ 6 months) and Future Tests (+/- 45 days) The Plan of Treatment section includes future care activities for the patient from all [place] treatmentfacilities. This section includes future appointments and future orders which are active, pending or scheduled. Future Appointments This section includes appointments that were scheduled to occur 6 months from the date of the Encounter, up to a maximum of 20 appointments. The data comes from all [place] treatment facilities. Appointment Date/Time Appointment Type Appointme nt Facility Name Apr 24, 2024 01:30 PM AMBULATORY - PSYCHIATRY [facility] May 01, 2024 12:45 PM AMBULATORY - MEDICINE [facility] Active, Pending, and Scheduled Orders This section includes a listing of several types of active, pending, and scheduled orders, including clinic medications orders, diagnostic test orders, procedure orders and consult orders; where the start date of the order is 45 days before the date of the Encounter or 45 days after the date of theEncounter. The data comes from all [facility]. Test Date/Time Test Type Test Details Facility Name Mar 27, 2024 12:00 AM Laboratory - Chemi stry Order OCCULT BLOOD FIT X1 SCREEN (MFP ONLY) STOOL FECES [facility] Apr 11, 2024 04:18 PM Consult Order COMMUNITY CARE-CARDIOLOGY [facility] Apr 24, 2024 12:00 AM Laboratory - Chemi stry Order LIPID PANEL FASTING BLOOD (SST-SERUM) [facility] Social History: Smoking Status (Most current) and Tobacco Use (All prior to encounter date) This section includes the most current, and the historical, smoking and tobacco- related health factors from the [place] facility where the Encounter took place. Current Smoking Status This section includes the most current smoking, or tobacco-related health factor, from the [place] facility where the Encounter took place. Date/Time Current Smoking Status Comment Facil ity Mar 23, 2022 09:30 AM VA-TOBACCO FORMER USER [facility] Tobacco Use History This section includes a history of the smoking, or tobacco-related health factors, that were collected on or before the date of the Encounter. The data comes from the [place] facility where the Encounter took place. Date/Time Smoking Status/Tobac co Use Comment Facility Mar 23, 2022 09:30 AM VA-TOBACCO QUIT [address] [facility] Sep 07, 2004 01:27 PM HISTORY OF SMOKING QUIT [address] [facility] May 15, 2004 03:37 PM QUIT TOBACCO USE > 7 YEARS AGO [facility] Sep 02, 2003 01:28 PM QUIT TOBACCO USE > 7 YEARS AGO [facility] Advance Directives: All historical and current Section Date Range: From patient's date of to the date document was created. This section includes ALL of a patient's completed or amended [place] Advance and Rescinded Directives. The entries below indicate that a directive exists for the patient, but an actual copy is not included with this document. The data comes from all [place] facilities. Date Advance Directives Provider Source October 21, 2003 ADVANCE DIRECTIVE RYLAND TOMPKINS [facility] Encounter Notes: All associated encounter notes This section contains the clinical notes associated to the Encounter. Date/Time Encounter Note(s) Provider Source Apr 09, 2024 09:29 AM NONVA NOTE: LOCAL TITLE: COMMUNITY CARE-CARE COORDINATION PLAN NOTE STANDARD TITLE: NONVA NOTE DATE OF NOTE: APR 09, 2024@09:29 ENTRY DATE: APR 09, 2024@09:29:39 AUTHOR: JULIANE MIMS EXP COSIGNER: URGENCY: STATUS: COMPLETED COMMUNITY CARE-CARE COORDINATION PLAN NOTE Has ADDENDA Stefan from [facility] requesting continuation of care consult for upcoming appt 05/01/24 @ 12:[address] Melchor Previous consult Expiration Date: 2024-01-24 If PCP in agreement, please enter new referral. Thank you [facility] [address] [place] [id number] FAX: [phone] /es/ JULIANE MIMS [facility] BSN RENEE ROQUE Signed: 04/09/2024 09:31 Receipt Acknowledged By: 04/16/2024 22:36 /es/ SHADY MANCILLA MD PHYSICIAN 04/11/2024 16:16 /maddie/ JIHAN RAMÍREZ RN REGISTERED NURSE 04/11/2024 ADDENDUM STATUS: COMPLETED Consult placed as requested and held for PCP signature. /maddie/ JIHAN RAMÍREZ RN REGISTERED NURSE Signed: 04/11/2024 16:16 JULIANE MIMS [facility]
--- OUTSIDE RECORDS SUMMARY | 2024-06-18 08:40 | XMS_ITS | Encounter Summary ---
Author Name [facility] [place] Address [address] [place] [address] Care Team Providers Care Administrative Law Judge Name Role Phone SHADY MANCILLA Primary Care [...] PART B Jan 04, 2014 PART B [id number] 89A STORMY KEN PATIENT MEDICARE (WNR) MEDICARE (M) PART A Jun 06, 2006 PART A [id number] 89A STORMY KEN CE PATIENT MEDICARE (WNR) MEDICARE (M) PART A Jun 06, 2006 PART A [id number] 89A STORMY KEN CE PATIENT MEDICARE (WNR) MEDICARE (M) PART A Jun 06, 2006 PART A [id number] 89A STORMY KEN PATIENT Selected Encounter This section includes the information on record at [place] for the Encounter. Date/Time Encounter Type Encounter Description Reason Pro vider Source Dec 30, 2023 11:00 AM Outpatient Encounter [facility] - [facility] Encounter Template Text not used by [place] Plan of Treatment: Future Appointments (+ 6 months) and Future Tests (+/- 45 days) The Plan of Treatment section includes future care activities for the patient from all [place] [facility] This section includes future appointments and future orders which are active, pending or scheduled. Future Appointments This section includes appointments that were scheduled to occur 6 months from the date of the Encounter, up to a maximum of 20 appointments. The data comes from all [place] treatment [facility]. Appointment Date/Time Appointment Type Appointme nt Facility Name Jan 24, 2024 01:00 PM AMBULATORY - PSYCHIATRY [facility] Apr 24, 2024 01:30 PM AMBULATORY - PSYCHIATRY [facility] May 01, 2024 12:45 PM AM[place] [facility] Active, Pending, and [...] of theEncounter. The data comes from all [facility]. Test Date/Time Test Type Test Details Facility Name Nov 30, 2023 12:00 AM Laboratory - Chemi stry Order C REACTIVE PROTEIN HS (WROX) BLOOD (SST-SERUM) [facility] Nov 30, 2023 12:00 AM Laboratory - Chemi stry Order BASIC METABOLIC PANEL (fasting) BLOOD (SST-SERUM) [facility] Nov 30, 2023 12:00 AM Laboratory - Chemi stry Order OCCULT BLOOD FIT X1 SCREEN(IN-HOUSE) STOOL FECES [facility] Nov 30, 2023 12:00 AM Laboratory - Chemi stry Order LIPID PANEL FASTING BLOOD (SST-SERUM) [facility] Nov 30, 2023 12:00 AM Laboratory - Chemi stry Order LIVER FUNCTION BLOOD (SST-SERUM) [facility] Nov 30, 2023 12:00 AM Laboratory - Chemi stry Order HEMOGLOBIN A1C PANEL BLOOD (LAV-BLOOD) [facility] Nov 30, 2023 12:00 AM Laboratory - Chemi stry Order TSH BLOOD (SST-SERUM) [facility] Nov 30, 2023 12:00 AM Laboratory - Chemi stry Order CBC AND DIFF (AUTO) BLOOD (LAV-BLOOD) [facility] Nov 30, 2023 12:00 AM Laboratory - Chemi stry Order SED RATE, AUTOMATED BLOOD (LAV-BLOOD) [facility] Social History: Smoking Status (Most current) and Tobacco Use (All prior to encounter date) This section includes the most current, and the historical, smoking and tobacco- related health factors from the [place] facility where the Encounter took place. Current Smoking Status This section includes the most current smoking, or tobacco-related health factor, from the [place] facility where the Encounter took place. Date/Time Current Smoking Status Comment Facil ity Jun 08, 2023 01:00 PM VA-TOBACCO FORMER USER [place] Tobacco Use History This section includes a history of the smoking, or tobacco-related health factors, that were collected on or before the date of the Encounter. The data comes from the [place] facility where the Encounter took place. Date/Time Smoking Status/Tobacco Use Comment F acility Jun 08, 2023 01:00 PM VA-TOBACCO QUIT 15 YRS OR MORE [place] Mar 11, 2021 01:00 PM VA-TOBACCO FORMER USER [place] Mar 11, 2021 01:00 PM VA-TOBACCO QUIT 15 YRS OR MORE [place] Feb 14, 2018 09:07 AM VA-TOBACCO FORMER USER [place] Feb 14, 2018 09:07 AM VA-TOBACCO QUIT 15 YRS OR MORE [place] Mar 03, 2017 10:30 AM QUIT TOBACCO USE > 7 YEARS AGO reports quitting 40 years ago [place] Dec 05, 2015 09:20 AM QUIT TOBACCO USE > 7 YEARS AGO quit 30 years ago smoked 10 years less than a pack a day [place] Advance Directives: All historical and current Section Date Range: From patient's date of to the date document was created. This section includes ALL of a patient's completed or amended [place] Advance and Rescinded Directives. The entries below indicate that a directive exists for the patient, but an actual copy is not included with this document. The data comes from all [facility]. Date Advance Directives Provider Source October 21, 2003 ADVANCE DIRECTIVE RYLAND TOMPKINS [facility] Encounter Notes: All associated encounter notes This section contains the clinical notes associated to the Encounter. Date/Time Encounter Note(s) Provider Source Dec 30, 2023 11:21 AM CLERICAL NOTE: LOCAL TITLE: APPOINTMENT NO SHOW STANDARD TITLE: CLERICAL NOTE DATE OF NOTE: DEC 30, 2023@11:21 ENTRY DATE: DEC 30, 2023@11:21:07 AUTHOR: ALESSANDRO SHEPPARD COSIGNER: URGENCY: STATUS: COMPLETED APPOINTMENT NO SHOW Has ADDENDA Patient Name: DMITRIY KEN Patient SSN: [id number] Date and time of Appointment No show : 12/30/23 11:00 PATIENT PHONE - PHONE NUMBER [CELLULAR] - Patient's medical record was reviewed. Follow-up actions were determined and initiated: Please check/complete as applies: [X]Telephoned Directly [ ]Re-scheduled for next available appt [ ]Sent a N0-show letter ( must call for appointment) [ ]Other (Emergent/Overbook, etc.): Additional Comments: did not connect to [facility] appt. PC to his daughter Fab, she forgot about the appt. Please NS this appt, call eriberto Sanon to r/s, , thank you. Future Clinic Visits 01/24/2024 13:00 SPOPC/MHC/PSYCHIATRY RESI 02/01/2024 09:30 CWM/SO/VVC/PACT 5 04/27/2024 13:00 NHM/OPT/VISUAL IMAGING 04/27/2024 13:30 NHM/OPTOMETRY/DISLA/ /maddie/ ATIF Rosenbaum ALTERATIONS MANAGER Signed: 12/30/2023 11:22 Receipt Acknowledged By: 12/30/2023 12:12 /maddie/ ART GAGNON ADVANCED DIRECTOR SPECIAL EDUCATION 12/30/2023 ADDENDUM STATUS: COMPLETED Appt marked NS and Letter Sent Sales Marketing Coordinator attempted contactbrenda on comm auth with provided phone number. unable to reach at this time, LVM to CB and RS missed MH appt [phone]. /maddie/ ART GAGNON ADVANCED DIRECTOR SPECIAL EDUCATION Signed: 12/30/2023 12:13 02/16/2024 ADDENDUM STATUS: COMPLETED gag writer made 4th call attempt to reah RTC to be MARSHA /maddie/ Tosha Root ADVANCED DIRECTOR SPECIAL EDUCATION Signed: 02/16/2024 07:37 ALESSANDRO SHEPPARDFIELD
--- OUTSIDE RECORDS SUMMARY | 2024-06-18 08:40 | XMS_ITS | Encounter Summary ---
Author Name [facility] [place] [facility] [place] Address [address] [place] [address] Care Team Providers Care Lead Instructor/Flight Attendant Name Role Phone SHADY MANCILLA Primary Care [...] PART B Jan 04, 2014 PART B [id number] 89A STORMY KEN PATIENT MEDICARE (WNR) MEDICARE (M) PART A Jun 06, 2006 PART A [id number] 89A [phone] STORMY KEN PATIENT MEDICARE (WNR) MEDICARE (M) PART A Jun 06, 2006 PART A [id number] 89A STORMY KEN PATIENT MEDICARE (WNR) MEDICARE (M) PART A Jun 06, 2006 PART A [id number] 89A STORMY KEN PATIENT Selected Encounter This [...] 21, 2003 ADVANCE DIRECTIVE RYLAND TOMPKINS [facility]
--- OUTSIDE RECORDS SUMMARY | 2024-06-18 08:40 | XMS_ITS | Encounter Summary ---
Author Name [facility] [place] [facility] [place] Organization [facility] [place] [facility] [place] Address [address] [place] [address] Care Team Providers Care Office Machine Inspector Name Role Phone SHADY MANCILLA Primary Care [...] PART B Jan 04, 2014 PART B [id number] 89A [phone] STORMY KEN CE PATIENT MEDICARE (WNR) MEDICARE (M) PART A Jun 06, 2006 PART A [id number] 89A [phone] STORMY KEN CE PATIENT MEDICARE (WNR) MEDICARE (M) PART A Jun 06, 2006 PART A [id number] 89A [phone] STORMY KEN CE PATIENT MEDICARE (WNR) MEDICARE (M) PART A Jun 06, 2006 PART A [id number] 89A STORMY KEN PATIENT Selected Encounter This section includes the information on record at ME for the Encounter. Date/Time Encounter Type Encounter Description Reason Pro vider Source Dec 14, 2023 12:00 AM Outpatient Encounter COMMUNITY CARE CONSULT IHE Encounter Template Text not used by ME Plan of Treatment: Future Appointments (+ 6 months) and Future Tests (+/- 45 days) The Plan of Treatment section includes future care activities for the patient from all [place] treatment[facility]. This section includes future appointments and future orders which are active, pending or scheduled. Future Appointments This section includes appointments that were scheduled to occur 6 months from the date of the Encounter, up to a maximum of 20 appointments. The data comes from all [facility]. Appointment Date/Time Appointment Type Appointme nt Facility Name Dec 30, 2023 11:00 AM AMBULATORY - PSYCHIATRY [facility] Jan 24, 2024 01:00 PM AMBULATORY - PSYCHIATRY [facility] Apr 24, 2024 01:30 PM AMBULATORY - PSYCHIATRY [facility] May 01, 2024 12:45 PM AMBULATORY - MEDICINE [facility] Active, Pending, and Scheduled Orders This section includes a listing of several types of active, pending, and scheduled orders, including clinic medications orders, diagnostic test orders, procedure orders and consult orders; where the start date of the order is 45 days before the date of the Encounter or 45 days after the date of theEncounter. The data comes from all [facility]. Test Date/Time Test Type Test Details Facility Name Nov 30, 2023 12:00 AM Laboratory - Chemi stry Order C REACTIVE PROTEIN HS (WROX) BLOOD (SST-SERUM) [facility] Nov 30, 2023 12:00 AM Laboratory - Chemi stry Order BASIC METABOLIC PANEL (fasting) BLOOD (SST-SERUM) [facility] Nov 30, 2023 12:00 AM Laboratory - Chemi stry Order OCCULT BLOOD FIT X1 SCREEN(IN-HOUSE) STOOL FECES [facility] Nov 30, 2023 12:00 AM Laboratory - Chemi stry Order LIPID PANEL FASTING BLOOD (SST-SERUM) [facility] Nov 30, 2023 12:00 AM Laboratory - Chemi stry Order LIVER FUNCTION BLOOD (SST-SERUM) [facility] Nov 30, 2023 12:00 AM Laboratory - Chemi stry Order HEMOGLOBIN A1C PANEL BLOOD (LAV-BLOOD) [facility] Nov 30, 2023 12:00 AM Laboratory - Chemi stry Order TSH BLOOD (SST-SERUM) [facility] Nov 30, 2023 12:00 AM Laboratory - Chemi stry Order CBC AND DIFF (AUTO) BLOOD (LAV-BLOOD) [facility] Nov 30, 2023 12:00 AM Laboratory - Chemi stry Order SED RATE, AUTOMATED BLOOD (LAV-BLOOD) [facility] Social History: Smoking Status (Most current) and Tobacco Use (All prior to encounter date) This section includes the most current, and the historical, smoking and tobacco- related health factors from the [place] facility where the Encounter took place. Current Smoking Status This section includes the most current smoking, or tobacco-related health factor, from the [place] facility where the Encounter took place. Date/Time Current Smoking Status Comment Facil it Mar 23, 2022 09[facility] Tobacco Use History This section includes a history of the smoking, or tobacco-related health factors, that were collected on or before the date of the Encounter. The data comes from the [place] facility where the Encounter took place. Date/Time Smoking Status/Tobac co Use Comment Facility Mar 23, 2022 09:30 AM [facility] Sep 07, 2004 01:27 PM HISTORY OF SMOKING QUIT 12 YEARS AGO [facility] May 15, 2004 03:37 PM QUIT TOBACCO USE > 7 YEARS AGO [facility] Sep 02, 2003 01:28 PM QUIT TOBACCO USE > 7 YEARS AGO [facility] Advance Directives: All historical and current Section Date Range: From patient's date of to the date document was created. This section includes ALL of a patient's completed or amended [place] Advance and Rescinded Directives. The entries below indicate that a directive exists for the patient, but an actual copy is not included with this document. The data comes from all [place] facilities. Date Advance Directives Provider Source October 21, 2003 ADVANCE DIRECTIVE RYLAND TOMPKINS [facility] Encounter Notes: All associated encounter notes This section contains the clinical notes associated to the Encounter. Date/Time Encounter Note(s) Provider Source Dec 14, 2023 12:00 AM NONVA CONSULT: LOCAL TITLE: COMMUNITY CARE-CONSULT RESULT NOTE STANDARD TITLE: NONVA CONSULT DATE OF NOTE: DEC 14, 2023 ENTRY DATE: DEC 20, 2023@13:03:18 AUTHOR: MARCO ARREAGA MA EXP COSIGNER: URGENCY: STATUS: COMPLETED VistA Imaging - Scanned Document SCANNED DOCUMENT SIGNATURE NOT REQUIRED Electronically Filed: 12/20/2023 by: MARCO ARREAGA ENTRY LEVEL MARKETING ASSISTANT MARCO ARREAGA [place] [facility]
--- OUTSIDE RECORDS SUMMARY | 2024-06-18 08:40 | XMS_ITS ---
Author Name [facility] [place] [facility] [place] Organization [facility] [place] Address [address] [place] [address] Care Team Providers Care Boarding Mother Name Role Phone SHADY MANCILLA Primary Care [...] PART B Jan 04, 2014 PART B [id number] 89A [phone] STORMY KEN CE PATIENT MEDICARE (WNR) MEDICARE (M) PART A Jun 06, 2006 PART A [id number] 89A [phone] STORMY KEN CE PATIENT MEDICARE (WNR) MEDICARE (M) PART A Jun 06, 2006 PART A [id number] 89A STORMY KEN CE PATIENT MEDICARE (WNR) MEDICARE (M) PART A Jun 06, 2006 PART A [id number] 89A STORMY KEN PATIENT Selected Encounter This section includes the information on record at [place] for the Encounter. Date/Time Encounter Type Encounter Description Reason Pro vider Source October 28, 2023 12:00 AM Outpatient Encounter COMMUNITY CARE CONSULT IHE Encounter Template Text not used by [place] Plan of Treatment: Future Appointments (+ 6 months) and Future Tests (+/- 45 days) The Plan of Treatment section includes future care activities for the patient from all [place] treatmentfacilities. This section includes future appointments and future orders which are active, pending or scheduled. Future Appointments This section includes appointments that were scheduled to occur 6 months from the date of the Encounter, up to a maximum of 20 appointments. The data comes from all [facility]. Appointment Date/Time Appointment Type Appointme nt Facility Name November 04, 2023 09:00 AM AMBULATORY - PSYCHIATRY [facility] Nov 08, 2023 03:00 PM AMBULATORY - MEDICINE [facility] [place] [facility] Dec 02, 2023 10:00 AM AMBULATORY PSYCHIATRY [facility] Dec 14, 2023 11:30 AM AMBULATORY - MEDICINE [facility] Dec 30, 2023 11:00 AM AMBULATORY - PSYCHIATRY [facility] Jan 24, 2024 01:00 PM AMBULATORY PSYCHIATRY [facility] Apr 24, 2024 01:30 PM AMBULATORY PSYCHIATRY [facility] Active, Pending, and Scheduled Orders This section includes a listing of several types of active, pending, and scheduled orders, including clinic medications orders, diagnostic test orders, procedure orders and consult orders; where the start date of the order is 45 days before the date of the Encounter or 45 days after the date of theEncounter. The data comes from all [facility]. Test Date/Time Test Type Test Details Facility Name Nov 30, 2023 12:00 AM Laboratory - Chemi stry Order OCCULT BLOOD FIT X1 SCREEN(IN-HOUSE) STOOL FECES [facility] Nov 30, 2023 12:00 AM Laboratory - Chemi stry Order BASIC METABOLIC PANEL (fasting) BLOOD (SST-SERUM) [facility] Nov 30, 2023 12:00 AM Laboratory - Chemi stry Order LIPID PANEL FASTING BLOOD (SST-SERUM) [facility] Nov 30, 2023 12:00 AM Laboratory - Chemi stry Order C REACTIVE PROTEIN HS (WROX) BLOOD (SST-SERUM) [facility] Nov 30, 2023 12:00 AM Laboratory - Chemi stry Order LIVER FUNCTION BLOOD (SST-SERUM) [facility] Nov 30, 2023 12:00 AM Laboratory - Chemi stry Order CBC AND DIFF (AUTO) BLOOD (LAV-BLOOD) [facility] Nov 30, 2023 12:00 AM Laboratory - Chemi stry Order HEMOGLOBIN A1C PANEL BLOOD (LAV-BLOOD) [facility] Nov 30, 2023 12:00 AM Laboratory - Chemi stry Order TSH BLOOD (SST-SERUM) [facility] Nov 30, 2023 12:00 AM Laboratory - Chemi stry Order SED RATE, AUTOMATED BLOOD (LAV-BLOOD) [facility] Social History: Smoking Status (Most current) [...] took place. Date/Time Current Smoking Status Comment [facility] it Mar 23, 2022 09:30 AM [place]-TOBACCO QUIT 15 YRS OR MORE [facility] Tobacco Use History This section includes a history of the smoking, or tobacco-related health factors, that were collected on or before the date of the Encounter. The data comes from the [place] facility where the Encounter took place. Date/Time Smoking Status/Tobac co Use Comment Facility Mar 23, 2022 09:30 AM MI-TOBACCO QUIT 15 YRS OR MORE [facility] Sep 07, 2004 01:27 PM HISTORY OF SMOKING QUIT 12 YEARS AGO [facility] May 15, 2004 03:37 PM QUIT TOBACCO USE > 7 YEARS AGO [facility] Sep 02, 2003 01:28 PM QUIT TOBACCO USE > 7 YEARS AGO [facility] Advance Directives: All historical and current [...] Directives Provider Source October 21, 2003 ADVANCE RYLAND GARCIA OBANDO [facility] Encounter Notes: All associated encounter notes This section contains the clinical notes associated to the Encounter. Date/Time Encounter Note(s) Provider Source October 28, 2023 12:00 AM NONVA CONSULT: LOCAL TITLE: COMMUNITY CARE-CONSULT RESULT NOTE STANDARD TITLE: NONVA CONSULT DATE OF NOTE: OCTOBER 28, 2023 ENTRY DATE: DEC 17, 2023@13:33:41 AUTHOR: ROCIO TANG EXP COSIGNER: URGENCY: STATUS: COMPLETED VistA Imaging - Scanned Document SCANNED DOCUMENT SIGNATURE NOT REQUIRED Electronically Filed: 12/17/2023 by: ROCIO JOLLEY [place] [facility]
--- OUTSIDE RECORDS SUMMARY | 2024-06-18 08:40 | XMS_ITS | Encounter Summary ---
Author Name [facility] [place] Address [address] [place] [address] Care Team Providers Care Curtain Drier Name Role Phone SHADY MANCILLA Primary Care [...] PART B Jan 04, 2014 PART B [id number] 89A [phone] STORMY KEN PATIENT MEDICARE (WNR) MEDICARE (M) PART A Jun 06, 2006 PART A [id number] 89A STORMY KEN CE PATIENT MEDICARE (WNR) MEDICARE (M) PART A Jun 06, 2006 PART A [id number] 89A STORMY KEN CE PATIENT MEDICARE (WNR) MEDICARE (M) PART A Jun 06, 2006 PART A [id number] 89A STORMY KEN PATIENT Selected Encounter This section includes the information on record at [place] for the Encounter. Date/Time Encounter Type Encounter Description Reason Provider Source Nov 10, 2023 12:21 PM QNHP OL DIG ASSMT&MGMT 5-10 CLINICAL PHARMACY ICD-10-CM Z04.89 Encounter for examination and observation for oth reasons MOHINDER BARBER [facility] Encounter Template Text not used by [place] Assessments - Encounter Diagnoses This section includes the primary and secondary diagnoses documented for the Encounter. Date/Time Primary/Secondary Diagnosis Diagnosis Name Provider Source Nov 10, 2023 12:25 PM PRIMARY Encounter for examination and observation for oth reasons ELPIDIOLEVGILDA [facility] ([id number]) Plan of Treatment: Future Appointments (+ 6 months) and Future Tests (+/- 45 days) The Plan of Treatment section includes future care activities for the patient [facility] [place] [facility] This section includes future appointments and future orders which are active, pending or scheduled. Future Appointments This section includes appointments that were scheduled to occur 6 months from the date of the Encounter, up to a maximum of 20 appointments. The data comes from all [facility]. Appointment Date/Time Appointment Type Appointme nt Facility Name Dec 02, 2023 10:00 AM AMBULATORY - PSYCHIATRY [facility] Dec 14, 2023 11:30 AM AMBULATORY - MEDICINE [facility] Dec 30, 2023 11:00 AM AMBULATORY - PSYCHIATRY [facility] Jan 24, 2024 01:00 PM AMBULATORY - PSYCHIATRY [facility] Apr 24, 2024 01:30 PM AMBULATORY PSYCHIATRY [facility] May 01, 2024 12:45 PM AMBULATORY - MEDICINE [facility] [place] [facility] Active, [...] of theEncounter. The data comes from all [facility]. Test Date/Time Test Type Test Details Facility Name Nov 30, 2023 12:00 AM Laboratory - Chemi stry Order C REACTIVE PROTEIN HS (WROX) BLOOD (SST-SERUM) [facility] Nov 30, 2023 12:00 AM Laboratory - Chemi stry Order BASIC METABOLIC PANEL (fasting) BLOOD (SST-SERUM) [facility] Nov 30, 2023 12:00 AM Laboratory - Chemi stry Order OCCULT BLOOD FIT X1 SCREEN(IN-HOUSE) STOOL FECES [facility] Nov 30, 2023 12:00 AM Laboratory - Chemi stry Order LIPID PANEL FASTING BLOOD (SST-SERUM) [facility] Nov 30, 2023 12:00 AM Laboratory - Chemi stry Order LIVER FUNCTION BLOOD (SST-SERUM) [facility] Nov 30, 2023 12:00 AM Laboratory - Chemi stry Order HEMOGLOBIN A1C PANEL BLOOD (LAV-BLOOD) [facility] Nov 30, 2023 12:00 AM Laboratory - Chemi stry Order TSH BLOOD (SST-SERUM) [facility] Nov 30, 2023 12:00 AM Laboratory - Chemi stry Order CBC AND DIFF (AUTO) BLOOD (LAV-BLOOD) [facility] Nov 30, 2023 12:00 AM Laboratory - Chemi stry Order SED RATE, AUTOMATED BLOOD (LAV-BLOOD) [facility] Advance Directives: All historical and current Section Date Range: From patient's date of to the date document was created. This section includes ALL of a patient's completed or amended [place] Advance and Rescinded Directives. The entries below indicate that a directive exists for the patient, but an actual copy is not included with this document. The data comes from all [place] facilities. Date Advance Directives Provider Source October 21, 2003 ADVANCE DIRECTIVE RYLAND TOMPKINS [facility] Encounter Notes: All associated encounter notes This section contains the clinical notes associated to the Encounter. Date/Time Encounter Note(s) Provider Source Nov 10, 2023 12:22 PM PHARMACY MEDICATIO N MGT NOTE: LOCAL TITLE: PHARMACY ANTICOAGULATION NOTE STANDARD TITLE: PHARMACY MEDICATION MGT NOTE DATE OF NOTE: NOV 10, 2023@12:22 ENTRY DATE: NOV 10, 2023@12:22:09 AUTHOR: MOHINDER BARBER COSIGNER: URGENCY: STATUS: COMPLETED ANTICOAGULATION DOAC MONITORING NOTE SUBJECTIVE: Patient identified through the DOAC population Management Tool based on the following criteria: [ X ] Dosing Issue [ ] Critical Drug Interaction [ ] Cancer Treatment [ ] Active NSAID [ ] Labs Overdue [ ] Prosthetic Valve Replacement [ ] Notable Lab Value [ ] Overdue for Refill [ ] Other: Comments: Pt flagged for review of rivaroxaban dosing for indications Afib and PE. --------- OBJECTIVE: Indication for anticoagulation: [ X ] Atrial fibrilation [ ] Atrial flutter [ X ] VTE (DVT or PE) [ ] Post-op DVT prophylaxis [ ] Other: Most recent lab values include the following: HGB: HGB Collection DT Specimen Test Name Result Units Ref Range 12/14/2022 10:11 BLOOD !! HGB 16.5 g/dL 12.8 - 17 !! Indicates COMMENTS AVAILABLE...Refer to Interim Lab Report. PLT: WBC Collection DT Specimen Test Name Result Units Ref Range 12/14/2022 10:11 BLOOD !! WBC 7.00 K/cmm 4.50 - 11.00 HEIGHT: 64 in [162.6 cm] (01/14/2022 15:05) WEIGHT: 139 lb [63.05 kg] (07/05/2023 11:37) BMI: BMI: 23.9 Patient reports outside SCR results: Date: October 28, 2023 Results: 1.23 Location: Outside Healthcare Provider Patient reports outside BUN results: Date: October 28, 2023 Results: 11 Location: Outside Healthcare Provider CRCL IBW: 44.1mL/min CRCL ACT: 47.0mL/min CRCL ADJ: 45.2mL/min --------- ASSESSMENT: Action required? [ ] Yes [ X ] No Comments: Noted pt w/ PMH PE October 2022; as such, rivaroxaban dosing would be guided by AFib dx. Per CrCl per ABW 47ml/min, rivaroxaban 15mg daily remains appropriate. --------- PLAN: [ X ] No action required, dismiss flag [ ] Will intervene: [ ] Patient education via phone/letter [ ] Schedule phone/[id number]-kv-hifs follow up [ ] Lab ordered [ ] Discontinue interacting medication [ ] Discontinue DOAC [ ] Change to alternative DOAC [ ] Change DOAC dose [ ] Notify PCP [ ] Consult cardiology/hematology [ ] Other: Time spent: 10 mins /maddie/ Mohinder Barber, PharmD, BCACP Clinical Regional Production Manager Signed: 11/10/2023 12:25 MOHINDER BARBER [facility] ([id number])
--- OUTSIDE RECORDS SUMMARY | 2024-06-18 08:40 | XMS_ITS ---
Author Name [facility] [place] Organization [place] Address [address] [place] [address] Care Team Providers Care Superintendent Recreation Name Role Phone SHADY MANCILLA Primary Care [...] PART B Jan 04, 2014 PART B [id number] 89A [phone] JESUS MANUELSTORMY KELLEY CE PATIENT MEDICARE (WNR) MEDICARE (M) PART A Jun 06, 2006 PART A [id number] 89A [phone] JESUS MANUELSTORMY KELLEY CE PATIENT MEDICARE (WNR) MEDICARE (M) PART A Jun 06, 2006 PART A [id number] JESUS MANUELSTORMY KELLEY CE PATIENT MEDICARE (WNR) MEDICARE (M) PART A Jun 06, 2006 PART A [id number] 89A STORMY KEN PATIENT Selected Encounter This section includes the information on record at [place] for the Encounter. Date/Time Encounter Type Encounter Description Reason Pro vider Source Dec 05, 2023 08:39 AM Outpatient Encounter [facility] Encounter Template Text not used by [place] Plan of Treatment: Future Appointments (+ 6 months) and Future Tests (+/- 45 days) The Plan of Treatment section includes future care activities for the patient [facility] all [place] [facility] This section includes future appointments and future orders which are active, pending or scheduled. Future Appointments This section includes appointments that were scheduled to occur 6 months from the date of the Encounter, up to a maximum of 20 appointments. The data comes from all [facility]. Appointment Date/Time Appointment Type Appointme nt Facility Name Dec 14, 2023 11:30 AM AMBULATORY - MEDICINE [facility] Dec 30, 2023 11:00 AM AMBULATORY - PSYCHIATRY [facility] Jan 24, 2024 01:00 PM AMBULATORY - PSYCHIATRY [facility] Apr 24, 2024 01:30 PM AMBULATORY - PSYCHIATRY [facility] May 01, 2024 12:45 PM AMBULATORY - MEDICINE [facility] NTRL W[facility]N [facility] Active, Pending, and Scheduled Orders This section includes a listing of several types of active, pending, and scheduled orders, including clinic medications orders, diagnostic test orders, procedure orders and consult orders; where the start date of the order is 45 days before the date of the Encounter or 45 days after the date of theEncounter. The data comes from all [facility]. Test Date/Time Test Type Test Details Facility Name Nov 30, 2023 12:00 AM Laboratory - Chemi stry Order LIPID PANEL FASTING BLOOD (SST-SERUM) [facility] Nov 30, 2023 12:00 AM Laboratory - Chemi stry Order BASIC METABOLIC PANEL (fasting) BLOOD (SST-SERUM) [facility] Nov 30, 2023 12:00 AM Laboratory - Chemi stry Order OCCULT BLOOD FIT X1 SCREEN(IN-HOUSE) STOOL FECES [facility] Nov 30, 2023 12:00 AM Laboratory - Chemi stry Order LIVER FUNCTION BLOOD (SST-SERUM) [facility] Nov 30, 2023 12:00 AM Laboratory - Chemi stry Order CBC AND DIFF (AUTO) BLOOD (LAV-BLOOD) [facility] Nov 30, 2023 12:00 AM Laboratory - Chemi stry Order C REACTIVE PROTEIN HS (WROX) BLOOD (SST-SERUM) [facility] Nov 30, 2023 12:00 AM Laboratory - Chemi stry Order HEMOGLOBIN A1C PANEL BLOOD (LAV-BLOOD) [facility] Nov 30, 2023 12:00 AM Laboratory - Chemi stry Order TSH BLOOD (SST-SERUM) [facility] Nov 30, 2023 12:00 AM Laboratory - Chemi stry Order SED RATE, AUTOMATED BLOOD (LAV-BLOOD) [facility] Social History: Smoking Status (Most current) and Tobacco Use (All prior to encounter date) This section includes the most current, and the historical, smoking and tobacco- related health factors from the [place] facility where the Encounter took place. Current Smoking Status This section includes the most current smoking, or tobacco-related health factor, from the [place] facility where the Encounter took place. Date/Time Current Smoking Status Comment Facil it Mar 23, 2022 09:30 AM [place]-TOBACCO FORMER USER [facility] Tobacco Use History This section includes a history of the smoking, or tobacco-related health factors, that were collected on or before the date of the Encounter. The data comes from the [place] facility where the Encounter took place. Date/Time Smoking Status/Tobac co Use Comment Facility Mar 23, 2022 09:30 AM [place]-TOBACCO QUIT 15 YRS OR MORE [facility] Sep 07, 2004 01:27 PM HISTORY OF SMOKING QUIT 12 YEARS AGO [facility] May 15, 2004 03:37 PM QUIT TOBACCO USE > 7 YEARS AGO [facility] Sep 02, 2003 01:28 PM QUIT TOBACCO USE > 7 YEARS AGO [facility] Advance Directives: All historical and current Section Date Range: From patient's date of to the date document was created. This section includes ALL of a patient's completed or amended [place] Advance and Rescinded Directives. The entries below indicate that a directive exists for the patient, but an actual copy is not included with this document. The data comes from all [place] facilities. Date Advance Directives Provider Source October 21, 2003 ADVANCE DIRECTIVE RYLAND TOMPKINS [facility] Encounter Notes: All associated encounter notes This section contains the clinical notes associated to the Encounter. Date/Time Encounter Note(s) Provider Source Dec 05, 2023 08:39 AM ADMINISTRATIVE NOT E: LOCAL TITLE: ADMINISTRATIVE NOTE STANDARD TITLE: ADMINISTRATIVE NOTE DATE OF NOTE: DEC 05, 2023@08:39 ENTRY DATE: DEC 05, 2023@08:39:29 AUTHOR: ART GAGNON EXP COSIGNER: URGENCY: STATUS: COMPLETED Fishing Lure Assembler attempted contact, unable to reach at this time, LVM to [facility] and [facility] [phone]. /maddie/ ART GAGNON ADVANCED NAILING MACHINE FEEDER Signed: 12/05/2023 08:40 ART GAGNON [place]
--- OUTSIDE RECORDS SUMMARY | 2024-06-18 08:41 | XMS_ITS | Encounter Summary ---
Author Name [facility] [place] [facility] [place] Address [address] [place] [address] Care Team Providers Care Washroom Operator Name Role Phone SHADY MANCILLA Primary [...] PART B Jan 04, 2014 PART B [id number] JESUS MANUELSTORMY KELLEY CE PATIENT MEDICARE (WNR) MEDICARE (M) PART A Jun 06, 2006 PART A [id number] [phone] JESUS MANUELSTORMY KELLEY CE PATIENT MEDICARE (WNR) MEDICARE (M) PART A Jun 06, 2006 PART A [id number] 89A [phone] JESUS MANUELSTORMY KELLEY CE PATIENT MEDICARE (WNR) MEDICARE (M) PART A Jun 06, 2006 PART A [id number] [id number] JESUS MANUEL,BRU CE PATIENT Selected Encounter This section includes the information on record at [place] for the Encounter. Date/Time Encounter Type Encounter Description Reason Pro vider Source Apr 23, 2024 08:10 AM Outpatient Encounter OPTOMETRY IHE Encounter Template Text not used by [place] Plan of Treatment: Future Appointments (+ 6 months) and Future Tests (+/- 45 days) The Plan of Treatment section includes future care activities for the patient from all [place] treatmentfacilities. This section includes future appointments and future orders which are active, pending or scheduled. Future Appointments This section includes appointments that were scheduled to occur 6 months from the date of the Encounter, up to a maximum of 20 appointments. The data comes from all [place] treatment facilities. Appointment Date/Time Appointment Type Appointme Facility Name Apr 24, 2024 01:30 PM AMBULATORY - PSYCHIATRY [facility] May 01, 2024 12:45 PM AMBULATORY - MEDICINE [facility] Active, Pending, and Scheduled Orders This [...] from all [facility]. Test Date/Time Test Type Test Details Facility Name Mar 27, 2024 12:00 AM Laboratory - Chemi stry Order OCCULT BLOOD FIT X1 SCREEN (MFP ONLY) STOOL FECES [facility] Apr 11, 2024 04:18 PM Consult Order COMMUNITY CARE-CARDIOLOGY Cons Machine Pan Greaser's Choice [facility] Apr 24, 2024 12:00 AM Laboratory - Chemi stry Order LIPID PANEL FASTING BLOOD (SST-SERUM) [facility] Social History: Smoking Status (Most current) and Tobacco Use (All prior to encounter date) This section includes the most current, and the historical, smoking and tobacco- related health factors from the [place] facility where the Encounter took place. Current Smoking Status This section includes the most current smoking, or tobacco-related health factor, from the [place] facility where the Encounter took place. Date/Time Current Smoking Status Comment Facil ity Mar 23, 2022 09:30 AM [place]-TOBACCO FOR[facility] USER [facility] Tobacco Use History This section includes a history of the smoking, or tobacco-related health factors, that were collected on or before the date of the Encounter. The data comes from the [place] facility where the Encounter took place. Date/Time Smoking Status/Tobac co Use Comment Facility Mar 23, 2022 09:30 AM VA-TOBACCO QUIT 15 YRS OR MORE [facility] [place] [facility] Sep 07, 2004 01:27 PM HISTORY OF SMOKING QUIT 12 YEARS AGO [facility] May 15, 2004 03:37 PM QUIT TOBACCO USE > 7 YEARS AGO [facility] Sep 02, 2003 01:28 PM QUIT TOBACCO USE > 7 YEARS AGO [facility] Advance Directives: All historical and current Section Date Range: From patient's date of to the date document was created. This section includes ALL of a patient's completed or amended [place] Advance and Rescinded Directives. The entries below indicate that a directive exists for the patient, but an actual copy is not included with this document. The data comes from all [place] facilities. Date Advance Directives Provider Source October 21, 2003 ADVANCE DIRECTIVE RYLAND TOMPKISN [facility] Encounter Notes: All associated encounter notes This section contains the clinical notes associated to the Encounter. Date/Time Encounter Note(s) Provider Source Apr 23, 2024 08:10 AM ADMINISTRATIVE NOT E: LOCAL TITLE: ADMINISTRATIVE NOTE STANDARD TITLE: ADMINISTRATIVE NOTE DATE OF NOTE: APR 23, 2024@08:10 ENTRY DATE: APR 23, 2024@08:10:31 AUTHOR: KIMBERLI KELLER EXP COSIGNER: URGENCY: STATUS: COMPLETED vet called stating he will not make appt and didnt want to rs at this time will cb RTC 04/27/2024 dispositioned as does not want to reschedule appointment. Dispositioned on 04/23/2024 /maddie/ KIMBERLI KELLER ADVANCED EXTRACTOR TENDER RAW STOCK Signed: 04/23/2024 08:10 KIMBERLI KELLER [facility]
--- OUTSIDE RECORDS SUMMARY | 2024-06-18 08:41 | XMS_ITS | Encounter Summary ---
Author Name [facility] [place] Address [address] [place] [address] Care Team Providers Care Engraver Tender Name Role Phone SHADY MANCILLA Primary Care [...] PART B Jan 04, 2014 PART B [id number] 89A [phone] JESUS MANUELSTORMY KELLEY CE PATIENT MEDICARE (WNR) MEDICARE (M) PART A Jun 06, 2006 PART A [id number] [id number] JESUS MANUELSTORMY KELLEY CE PATIENT MEDICARE (WNR) MEDICARE (M) PART A Jun 06, 2006 PART A [id number] 89A [phone] JESUS MANUELSTORMY KELLEY CE PATIENT MEDICARE (WNR) MEDICARE (M) PART A Jun 06, 2006 PART A [id number] [id number] JESUS MANUEL,BRU CE PATIENT Selected Encounter This section includes the information on record at [place] for the Encounter. Date/Time Encounter Type Encounter Description Reason Pro vider Source Dec 27, 2023 12:00 AM Outpatient Encounter EVENT (HISTORICAL) IHE Encounter Template Text not used by [place] Plan of Treatment: Future Appointments (+ 6 months) and Future Tests (+/- 45 days) The Plan of Treatment section includes future care activities for the patient from all [place] treatmentfacilities. This section includes future appointments and future orders which are active, pending or scheduled. Future Appointments This section includes appointments that were scheduled to occur 6 months from the date of the Encounter, up to a maximum of 20 appointments. The data comes from all [facility]. Appointment Date/Time Appointment Type Appointme nt Facility Name Dec 30, 2023 11:00 AM AMBULATORY - PSYCHIATRY [facility] Jan 24, 2024 01:00 PM AMBULATORY - PSYCHIATRY [facility] Apr 24, 2024 01:30 PM AMBULATORY - PSYCHIATRY [facility] May 01, 2024 12:45 PM AMBULATORY - MEDICINE [facility] Active, Pending, and Scheduled Orders This section includes a listing of several types of active, pending, and scheduled orders, including clinic medications orders, diagnostic test orders, procedure orders and consult orders; where the start date of the order is 45 days before the date of the Encounter or 45 days after the date of theEncounter. The data comes from all [facility]. Test Date/Time Test Type Test Details Facility Name Nov 30, 2023 12:00 AM Laboratory - Chemi stry Order LIPID PANEL FASTING BLOOD (SST-SERUM) [facility] Nov 30, 2023 12:00 AM Laboratory - Chemi stry Order BASIC METABOLIC PANEL (fasting) BLOOD (SST-SERUM) [facility] Nov 30, 2023 12:00 AM Laboratory - Chemi stry Order OCCULT BLOOD FIT X1 SCREEN(IN-HOUSE) STOOL FECES [facility] Nov 30, 2023 12:00 AM Laboratory - Chemi stry Order LIVER FUNCTION BLOOD (SST-SERUM) [facility] Nov 30, 2023 12:00 AM Laboratory - Chemi stry Order CBC AND DIFF (AUTO) BLOOD (LAV-BLOOD) [facility] Nov 30, 2023 12:00 AM Laboratory - Chemi stry Order C REACTIVE PROTEIN HS (WROX) BLOOD (SST-SERUM) [facility] Nov 30, 2023 12:00 AM Laboratory - Chemi stry Order HEMOGLOBIN A1C PANEL BLOOD (LAV-BLOOD) [facility] Nov 30, 2023 12:00 AM Laboratory - Chemi stry Order TSH BLOOD (SST-SERUM) [facility] Nov 30, 2023 12:00 AM Laboratory - Chemi stry Order SED RATE, AUTOMATED BLOOD (LAV-BLOOD) [facility] Social History: Smoking Status (Most current) and Tobacco Use (All prior to encounter date) This section includes the most current, and the historical, smoking and tobacco- related health factors from the [place] facility where the Encounter took place. Current Smoking Status This section includes the most current smoking, or tobacco-related health factor, from the [place] facility where the Encounter took place. Date/Time Current Smoking Status Comment Facil it Mar 23, 2022 09:30 AM [place]-TOBACCO FORMER USER [facility] Tobacco Use History This section includes a history of the smoking, or tobacco-related health factors, that were collected on or before the date of the Encounter. The data comes from the [place] facility where the Encounter took place. Date/Time Smoking Status/Tobac co Use Comment Facility Mar 23, 2022 09:30 AM [place]-TOBACCO QUIT 15 YRS OR MORE [facility] Sep 07, 2004 01:27 PM HISTORY OF SMOKING QUIT 12 YEARS AGO [facility] May 15, 2004 03:37 PM QUIT TOBACCO USE > 7 YEARS AGO [facility] Sep 02, 2003 01:28 PM QUIT TOBACCO USE > 7 YEARS AGO [facility] Advance Directives: All historical and current Section Date Range: From patient's date of to the date document was created. This section includes ALL of a patient's completed or amended [place] Advance and Rescinded Directives. The entries below indicate that a directive exists for the patient, but an actual copy is not included with this document. The data comes from all [place] facilities. Date Advance Directives Provider Source October 21, 2003 ADVANCE DIRECTIVE RYLAND TOMPKINS [facility] Encounter Notes: All associated encounter notes This section contains the clinical notes associated to the Encounter. Date/Time Encounter Note(s) Provider Source Dec 27, 2023 12:00 AM NONVA NOTE: LOCAL TITLE: NON-VA OUTPATIENT NOTES STANDARD TITLE: NONVA NOTE DATE OF NOTE: DEC 27, 2023 ENTRY DATE: APR 11, 2024@11:35:14 AUTHOR: VARUN HORNER EXP COSIGNER: URGENCY: STATUS: COMPLETED VistA Imaging - Scanned Document SCANNED DOCUMENT SIGNATURE NOT REQUIRED Electronically Filed: 04/11/2024 by: VARUN HORNER INSURANCE EXAMINER VARUN HORNER [facility]
--- OUTSIDE RECORDS SUMMARY | 2024-06-18 08:41 | XMS_ITS | Encounter Summary ---
Author Name [facility] [place] Address [address] [place] [address] Care Team Providers Care [facility] Worker Name Role Phone SHADY MANCILLA Primary Care [...] PART B Jan 04, 2014 PART B [id number] 89A [phone] JESUS MANUELSTORMY KELLEY CE PATIENT MEDICARE (WNR) MEDICARE (M) PART A Jun 06, 2006 PART A [id number] 89A [phone] JESUS MANUELSTORMY KELLEY CE PATIENT MEDICARE (WNR) MEDICARE (M) PART A Jun 06, 2006 PART A [id number] 89A JESUS MANUELSTORMY KELLEY CE PATIENT MEDICARE (WNR) MEDICARE (M) PART A Jun 06, 2006 PART A [id number] [id number] JESUS MANUEL,BRU CE PATIENT Selected Encounter This section includes the information on record at [place] for the Encounter. Date/Time Encounter Type Encounter Description Reason Pro vider Source Apr 23, 2024 08:08 AM Outpatient Encounter OPTOMETRY IHE Encounter Template [...] 01, 2024 12:45 PM AMBULATORY - MEDICINE [facility] Active, Pending, and Scheduled Orders This section includes a listing of several types of active, pending, and scheduled orders, including clinic medications orders, diagnostic test orders, procedure orders and consult orders; where the start date of the order is 45 days before the date of the Encounter or 45 days after the date of theEncounter. The data comes from all [facility]. Test Date/Time Test Type Test Details Facility Name Mar 27, 2024 12:00 AM Laboratory - Chemi stry Order OCCULT BLOOD FIT X1 SCREEN (MFP ONLY) STOOL FECES [facility] Apr 11, 2024 04:18 PM Consult Order COMMUNITY CARE-CARDIOLOGY Cons Bone Puller's Choice [facility] Apr 24, 2024 12:00 AM Laboratory - Chemi stry Order LIPID PANEL FASTING BLOOD (SST-SERUM) [facility] Social History: Smoking Status (Most [...] 23, 2022 09:30 AM [facility] Tobacco Use History This section includes a history of the smoking, or tobacco-related health factors, that were collected on or before the date of the Encounter. The data comes from the [place] facility where the Encounter took place. Date/Time Smoking Status/Tobac co Use Comment Facility Mar 23, 2022 09:30 AM VA-TOBACCO QUIT 15 YRS OR [facility] [place] [facility] Sep 07, 2004 01:27 PM HISTORY OF SMOKING QUIT 12 YEARS AGO [facility] May 15, 2004 03:37 PM QUIT TOBACCO USE > 7 YE[facility] A[facility] Sep 02, 2003 01:28 PM QUIT TOBACCO USE > 7 YEARS AGO [facility] Advance Directives: All historical and [...] October 21, 2003 ADVANCE DIRECTIVE RYLAND TOMPKINS [facility] Encounter Notes: All associated encounter notes This section contains the clinical notes associated to the Encounter. Date/Time Encounter Note(s) Provider Source Apr 23, 2024 08:08 AM ADMINISTRATIVE NOT E: LOCAL TITLE: ADMINISTRATIVE NOTE STANDARD TITLE: ADMINISTRATIVE NOTE DATE OF NOTE: APR 23, 2024@08:08 ENTRY DATE: APR 23, 2024@08:09:13 AUTHOR: KIMBERLI KELLER EXP COSIGNER: URGENCY: STATUS: COMPLETED vet called stating he will not make appt and didnt want to rs at this time will cb RTC 04/27/2024 dispositioned as does not want to reschedule appointment. Dispositioned on 04/23/2024 /maddie/ KIMBERLI KELLER ADVANCED DIALYSIS SOCIAL WORKER Signed: 04/23/2024 08:10 KIMBERLI KELLER [facility]
--- OUTSIDE RECORDS SUMMARY | 2024-06-18 08:41 | XMS_ITS | Encounter Summary ---
Author Name [facility] [place] Address [address] [place] [address] Care Team Providers Care Disk Operator Name Role Phone SHADY MANCILLA Primary [...] PART B Jan 04, 2014 PART B [id number] [id number] STORMY KEN PATIENT MEDICARE (WNR) MEDICARE (M) PART A Jun 06, 2006 PART A [id number] 89A STORMY KEN PATIENT MEDICARE (WNR) MEDICARE (M) PART A Jun 06, 2006 PART A [id number] 89A [phone] STORMY KEN PATIENT MEDICARE (WNR) MEDICARE (M) PART A Jun 06, 2006 PART A [id number] 89A [phone] STORMY KEN PATIENT Selected Encounter This section includes the information on record at [place] for the Encounter. Date/Time Encounter Type Encounter Description Reason Pro vider Source Apr 25, 2024 12:30 PM Outpatient Encounter PRIMARY CARE/MEDICINE IHE Encounter Template Text not used by [place] Plan of Treatment: Future Appointments (+ 6 months) and Future Tests (+/- 45 days) The Plan of Treatment section includes future care activities for the patient [facility] [place] [facility] This section includes future appointments and future orders which are active, pending or scheduled. Future Appointments This section includes appointments that were scheduled to occur 6 months from the date of the Encounter, up to a maximum of 20 appointments. The data comes from all [place] treatment facilities. Appointment Date/Time Appointment Type Appointme nt Facility Name May 01, 2024 12:45 PM [place] [facility] [place] [facility] Active, Pending, [...] of theEncounter. The data comes from all [facility]. Test Date/Time Test Type Test Details Facility Name Mar 27, 2024 12:00 AM Laboratory - Chemi stry Order OCCULT BLOOD FIT X1 SCREEN (MFP ONLY) STOOL FECES [facility] Apr 11, 2024 04:18 PM Consult Order COMMUNITY CARE-CARDIOLOGY Cons Seafood Preparer's Choice [facility] Apr 24, 2024 12:00 AM Laboratory - Chemi stry Order LIPID PANEL FASTING BLOOD (SST-SERUM) [facility] Social History: Smoking Status (Most current) and Tobacco Use (All prior to encounter date) This section includes the most current, and the historical, smoking and tobacco- related health factors from the [place] facility where the Encounter took place. Current Smoking Status This section includes the most current smoking, or tobacco-related health factor, from the [place] facility where the Encounter took place. Date/Time Current Smoking Status Comment Nevaeh ity Jun 08, 2023 01:00 PM VA-TOBACCO FORMER USER [facility] Tobacco Use History This section includes a history of the smoking, or tobacco-related health factors, that were collected on or before the date of the Encounter. The data comes from the [place] facility where the Encounter took place. Date/Time Smoking Status/Tobacco Use Comment F acility Jun 08, 2023 01:00 PM VA-TOBACCO QUIT 15 YRS OR MORE [facility] Mar 11, 2021 01:00 PM VA-TOBACCO FORMER USER [facility] Mar 11, 2021 01:00 PM VA-TOBACCO QUIT 15 YRS OR MORE [facility] Feb 14, 2018 09:07 AM VA-TOBACCO FORMER USER [facility] Feb 14, 2018 09:07 AM VA-TOBACCO QUIT 15 YRS OR MORE [facility] Mar 03, 2017 10:30 AM QUIT TOBACCO USE > 7 YEARS AGO reports quitting 40 years ago [facility] Dec 05, 2015 09:20 AM QUIT TOBACCO USE > 7 YEARS AGO quit 30 years ago smoked 10 years less than a pack a day [facility] Advance Directives: All historical and current Section Date Range: From patient's date of to the date document was created. This section includes ALL of a patient's completed or amended [place] Advance and Rescinded Directives. The entries below indicate that a directive exists for the patient, but an actual copy is not included with this document. The data comes from all [place] facilities. Date Advance Directives Provider Source October 21, 2003 ADVANCE DIRECTIVE RYLAND TOMPKINS [facility] Encounter Notes: All associated encounter notes This section contains the clinical notes associated to the Encounter. Date/Time Encounter Note(s) Provider Source Apr 19, 2024 09:04 AM ADMINISTRATIVE NOT E: LOCAL TITLE: ADMINISTRATIVE NOTE STANDARD TITLE: ADMINISTRATIVE NOTE DATE OF NOTE: APR 19, 2024@09:04 ENTRY DATE: APR 19, 2024@09:04:34 AUTHOR: PANCHO SMITH EXP COSIGNER: URGENCY: STATUS: COMPLETED [facility] [address] [place] [address] [phone] * [phone] * DMITRIY KEN [address], [place] [address] Date: APR 19, 2024 re: This is a reminder of your upcoming PCP appt with SHADY MANCILLA. Appointment Date: Apr@12:30 Appointment Type: [facility] video connect Fasting blood work NON fasting blood work CONMFIRMED VVC WITH THE Sincerely, Office Staff for: SHADY MANCILLA Primary Care Provider [facility] [address] [place] [address] T [phone] Upcoming Appointments: 04/24/2024 13:30 SPOPC/MHC/PSYCHIATRY RESI 04/25/2024 12:30 CWM/SO/VVC/PACT 5 04/27/2024 13:00 NHM/OPT/VISUAL IMAGING 04/27/2024 13:30 NHM/OPTOMETRY/DISLA/ 05/01/2024 12:45 [facility] CARE-CARDIOLOGY APPOINTMENT [place] (SPOPC OR SO = [address]) (GOPC OR GO = [address]) (NHM or NO = [facility]) (VVC - Video Call) (Tel-X Telephone Visit) ( - Telehealth) /maddie/ PANCHO GARZA Signed: 04/19/2024 09:05 PANCHO SMITH [facility]
--- OUTSIDE RECORDS SUMMARY | 2024-06-18 08:41 | XMS_ITS | Encounter Summary ---
Author Name [facility] [place] Address [address] [place] [address] Care Team Providers Care Algebra Tutor Name Role Phone SHADY MANCILLA Primary Care [...] PART B Jan 04, 2014 PART B [id number] STORMY KEN CE PATIENT MEDICARE (WNR) MEDICARE (M) PART A Jun 06, 2006 PART A [id number] [phone] SOTRMY KEN CE PATIENT MEDICARE (WNR) MEDICARE (M) PART A Jun 06, 2006 PART A [id number] 89A STORMY KEN CE PATIENT MEDICARE (WNR) MEDICARE (M) PART A Jun 06, 2006 PART A [id number] STORMY KEN PATIENT Selected Encounter This section includes the information on record at [place] for the Encounter. Date/Time Encounter Type Encounter Description Reason Pro vider Source Sep 21, 2023 12:00 AM Outpatient Encounter COMMUNITY CARE CONSULT IHE Encounter Template Text not used by [place] Plan of Treatment: Future Appointments (+ 6 months) and Future Tests (+/- 45 days) The Plan of Treatment section includes future care activities for the patient from all [place] treatmentfacilities. This section includes future appointments and future orders which are active, pending or scheduled. Future Appointments This section includes appointments that were scheduled to occur 6 months from the date of the Encounter, up to a maximum of 20 appointments. The data comes from all [place] treatment facilities. Appointment Date/Time Appointment Type Appointme nt Facility Name Sep 23, 2023 11:00 AM AMBULATORY - PSYCHIATRY [facility] November 04, 2023 09:00 AM AMBULATORY - PSYCHIATRY [facility] Nov 08, 2023 03:00 PM AMBULATORY - MEDICINE [facility] Dec 02, 2023 10:00 AM AMBULATORY - PSYCHIATRY [facility] Dec 14, 2023 11:30 AM AMBULATORY - MEDICINE [facility] Dec 30, 2023 11:00 AM [...] took place. Date/Time Current Smoking Status Comment [facility] Mar 23, 2022 09:30 AM [place]-TOBACCO FORMER USER [facility] Tobacco Use History This section includes a history of the smoking, or tobacco-related health factors, that were collected on or before the date of the Encounter. The data comes from the [place] facility where the Encounter took place. Date/Time Smoking Status/Tobac co Use Comment Facility Mar 23, 2022 09:30 AM [place]-TOBACCO QUIT 15 YRS OR MORE [facility] Sep 07, 2004 01:27 PM HISTORY OF SMOKING QUIT 12 YEARS AGO [facility] May 15, 2004 03:37 PM QUIT TOBACCO USE > 7 YEARS AGO [facility] Sep 02, 2003 01:28 PM QUIT TOBACCO USE > 7 YEARS AGO [facility] Advance Directives: All historical and current [...] October 21, 2003 ADVANCE DIRECTIVE RYLAND TOMPKINS [facility] Encounter Notes: All associated encounter notes This section contains the clinical notes associated to the Encounter. Date/Time Encounter Note(s) Provider Source Sep 21, 2023 12:00 AM NONVA CONSULT: LOCAL TITLE: COMMUNITY CARE-CONSULT RESULT NOTE STANDARD TITLE: NONVA CONSULT DATE OF NOTE: SEP 21, 2023 ENTRY DATE: APR 11, 2024@11:38:27 AUTHOR: VARUN HORNER EXP COSIGNER: URGENCY: STATUS: COMPLETED VistA Imaging - Scanned Document SCANNED DOCUMENT SIGNATURE NOT REQUIRED Electronically Filed: 04/11/2024 by: VARUN HORNER HEALTH INSURANCE ASSESSOR VARUN HORNER [facility]
--- OUTSIDE RECORDS SUMMARY | 2024-06-18 08:42 | XMS_ITS | Encounter Summary ---
Author Name [facility] Organization [facility] [place] Address [address] [place] [address] Care Team Providers Care Franchise Business Consultant Name Role Phone CHARO SHADY Primary Care [...] PART B Jan 04, 2014 PART B [id number] JESUS MANUELSTORMY KELLEY CE PATIENT MEDICARE (WNR) MEDICARE (M) PART A Jun 06, 2006 PART A [id number] JESUS MANUEL,STORMY CE PATIENT MEDICARE (WNR) MEDICARE (M) PART A Jun 06, 2006 PART A [id number] JESUS MANUEL,STORMY CE PATIENT MEDICARE (WNR) MEDICARE (M) PART A Jun 06, 2006 PART A [id number] JESUS MANUEL,BRU CE PATIENT Selected Encounter This section includes the information on record at ID for the Encounter. Date/Time Encounter Type Encounter Description Reason Provider Source Apr 24, 2024 01:30 PM OFFICE O/P EST MOD 30 MIN [facility] - IND ICD-10-CM F43.12 Post-traumatic stress disorder, chronic BRIAN RIGGINS Serina Odalys [facility]incess Encounter Template Text not used by ID Assessments - Encounter Diagnoses This section includes the primary and secondary diagnoses documented for the Encounter. Date/Time Primary/Secondary Diagnosis Diagnosis Name Provider Source Apr 24, 2024 09:40 PM PRIMARY Post-traumatic stress disorder, chronic JOSTIN RIGGINS [place] Plan of Treatment: Future Appointments (+ 6 months) and Future Tests (+/- 45 days) The Plan of Treatment section includes future care activities for the patient [facility]. This section includes future appointments and [...] 01, 2024 12:45 PM AMBULATORY - MEDICINE ID [facility] [place] [facility] Active, Pending, [...] of theEncounter. The data comes from all ID treatment [facility]. Test Date/Time Test Type Test Details Facility Name Mar 27, 2024 12:00 AM Laboratory - Chemi stry Order OCCULT BLOOD FIT X1 SCREEN (MFP ONLY) STOOL [facility] Apr 11, 2024 04:18 PM Consult Order COMMUNITY CARE-CARDIOLOGY Cons Composition Worker's Choice [place] Apr 24, 2024 12:00 AM Laboratory - Chemi stry Order LIPID PANEL FASTING BLOOD (SST-SERUM) [facility] Social History: Smoking Status (Most current) [...] 08, 2023 01:00 PM VA-TOBACCO FORMER USER [place] Tobacco Use History This section includes a history of the smoking, or tobacco-related health factors, that were collected on or before the date of the Encounter. The data comes from the ID facility where the Encounter took place. Date/Time Smoking Status/Tobacco Use Comment F [place] Jun 08, 2023 01:00 PM VA-TOBACCO QUIT 15 YRS OR MORE [place] Mar 11, 2021 01:00 PM VA-TOBACCO FORMER USER [place] Mar 11, 2021 01:00 PM VA-TOBACCO QUIT 15 YRS OR MORE [place] Feb 14, 2018 09:07 AM VA-TOBACCO FORMER USER [place] Feb 14, 2018 09:07 AM VA-TOBACCO QUIT 15 YRS OR MORE [place] Mar 03, 2017 10:30 AM QUIT TOBACCO USE > 7 YEARS AGO reports quitting 40 years ago [place] Dec 05, 2015 09:20 AM QUIT TOBACCO USE > 7 YEARS AGO quit 30 years ago smoked 10 years less than a pack a day [place] Advance Directives: All historical and current Section Date Range: From patient's date of to the date document was created. This section includes ALL of a patient's completed or amended [place] Advance and Rescinded Directives. The entries below indicate that a directive exists for the patient, but an actual copy is not included with this document. The data comes from all [facility]. Date Advance Directives Provider Source October 21, 2003 ADVANCE DIRECTIVE RYLAND TOMPKINS [facility] Encounter Notes: All associated encounter notes This section contains the clinical notes associated to the Encounter. Date/Time Encounter Note(s) Provider Source Apr 24, 2024 01:35 PM PSYCHIATRY NOTE: LOCAL TITLE: PSYCHIATRY NOTE STANDARD TITLE: PSYCHIATRY NOTE DATE OF NOTE: APR 24, 2024@13:35 ENTRY DATE: APR 24, 2024@13:35:35 AUTHOR: JOSTIN RIGGINS COSIGNER: URGENCY: STATUS: COMPLETED Time spent: 30 minutes, including chart review, interview, charting The patient's daughter Hollie with pt The presents today for follow up in psychiatric medication clinic, I am covering for the psychiatric resident who is away from the clinic Chart reviewed, including Dr. Soria's last note Patient presents as stable. He reports that his mood is generally good. Denies recent depression. Denies elevated mood. PTSD symptoms improved. Much less irritable. Affect is bright, appropriate. Denies suicidal and violent ideation. Thoughts are well-organized. No paranoid or delusional content presented. Denies hallucinations. Cognitive exam grossly unchanged from that noted in the chart. Speech normal. No slowing noted. Good self-care/hygiene. Patient has several activities, enjoys activities at home. He also feels that he has a lot of support from his family. Patient enjoys his dog. He reports sleep has been good. On reviewing the psychiatric medication which is low-dose risperidone, the patient reports that he is doing well with this. He feels that his mood is much better/more stable/less irritable with this med. His daughter notes that the patient has been much improved since the start of the risperidone -- much less paranoid and more stable mood. The patient/daughter would like the patient to continue the current medication. Note that pt taking risperidone since about 03/2022 Patient denies medication side effects. Denies daytime sedation. Reports compliance. Denies alcohol for many years, denies any street drugs. Does report regular marijuana use for many years Record, patient has 2 daughters and 3 grandchildren. Was for 27 years previously; they , but Mr. Rapp does keep in touch with ex-, Yun. Active problems - Computerized Problem List is [...] soft tissue 18. Low Back Pain 19. Hyperlipidaemia (SNOMED CT 00435351) 20. Atherosclerosis of iliamna coronary artery (SNOMED CT 261701264) 21. Retinal defect 22. Asthma (SNOMED CT 305942277) 23. Chronic post-traumatic stress disorder (SNOMED CT 694077458) 24. Depressive disorder (SNOMED CT 94838578) 25. Gastro-esophageal reflux disease (SNOMED CT 760903249) 26. Counseling on Substance Use and Abuse 27. RECURRENT, SEVERE 28. Alcohol Dependence * 29. Cannabis dependence, continuous 30. Cocaine dependence 31. Substance induced mood disorder Active Outpatient Medications (including Supplies): Active Outpatient Medications Status ======= 1) BISOPROLOL FUMARATE 5MG TAB TAKE ONE TABLET BY MOUTH ACTIVE ONCE DAILY 2) CHOLECALCIF 50MCG (D3-2,000UNIT) TAB TAKE ONE TABLET ACTIVE BY MOUTH ONCE DAILY FOR VITAMIN SUPPLEMENTATION 3) EMPAGLIFLOZIN 10MG TAB TAKE ONE TABLET BY MOUTH EVERY ACTIVE MORNING 4) FERROUS SULFATE 325MG TAB TAKE ONE TABLET BY MOUTH ACTIVE ONCE DAILY TO SUPPLEMENT IRON TAKE WITH FOOD 5) FLUTICAS 250/SALMETEROL 50 INHL DISK 60 INHALE 1 PUFF ACTIVE BY MOUTH TWICE DAILY FOR BRONCHOSPASM PREVENTION WITH COPD - RINSE MOUTH AFTER USE 6) FOLIC ACID 1MG TAB TAKE ONE TABLET BY MOUTH ONCE ACTIVE (S) DAILY VITAMIN/NUTRITION SUPPLEMENT 7) FUROSEMIDE 40MG TAB TAKE ONE TABLET BY MOUTH ONCE ACTIVE DAILY TO REMOVE FLUID/CONTROL BLOOD PRESSURE 8) METHOTREXATE NA 2.5MG TAB TAKE SIX TABLETS BY MOUTH ACTIVE ONCE A WEEK 9) OMEPRAZOLE 20MG EC CAP TAKE ONE CAPSULE BY MOUTH ACTIVE EVERY MORNING 30 MINUTES BEFORE BREAKFAST FOR HEARTBURN 10) PREDNISONE 5MG TAB TAKE TWO TABLETS BY MOUTH ONCE ACTIVE DAILY FOR 14 DAYS, THEN TAKE ONE TABLET ONCE DAILY FOR 14 DAYS THEN STOP 11) RISPERIDONE 1MG TAB TAKE ONE-HALF TABLET BY MOUTH AT ACTIVE BEDTIME FOR IRRITABILITY 12) RIVAROXABAN 15MG TAB TAKE ONE TABLET BY MOUTH ONCE ACTIVE DAILY TAKE WITH FOOD THIS REPLACES APIXABAN 13) SACUBITRIL 49MG/VALSARTAN 51MG TAB TAKE 1 TABLET BY ACTIVE MOUTH TWICE DAILY STOP LISINOPRIL 36 HOURS PRIOR TO STARTING 14) SIMVASTATIN 80MG TAB TAKE ONE-HALF TABLET BY MOUTH AT ACTIVE BEDTIME FOR CHOLESTEROL PAST PSYCHIATRIC MEDICATION HISTORY: See prior psychiatric medication notes IMPRESSION (DSM-5): PTSD chronic --70% service-connected for this -- improved sx's Unspecified neurocognitive disorder, with associated behavioral disturbance/paranoia/mood instability, improved on medication Unspecified depressive disorder -- improved Alcohol use disorder, moderate, in sustained remission Cannabis use Anxiety disorder, unspecified PLAN: Careful risk assessment performed. See CSSRS from 06/2023, same today. The pt is probably low risk for suicide or violence -- the patient denied suicidal and violent ideation, but the [place] Crisis Line information and number were given to patient/daughter as a precaution. The patient/daughter also understand to call 911 or to go to ER in the event of an emergency. Encourage patient to continue working with MATY Rainey for psychosocial support in the setting of cognitive decline. CONTINUE RISPERIDONE 0.5MG NIGHTLY FOR PARANOIA AND MOOD LABILITY. According to patient and the patient's daughter this has helped significantly with the patient's mood and paranoia and irritability. Patient did decline dose increase, and the patient is stable at this low-dose, thus it is reasonable to continue this, rather than increasing because we want to try to minimize potential side effects given the patient's age. Note that previously recommended referral to [employer] to assist with HCP and other legal documents; reviewed with the patient's daughter about the patient's gradual cognitive decline and important support/supervision. States the family supports/checks the patient frequently. Patient also has Meals on Wheels. The discussion with patient about treatments including medications involved shared decision making. The patient/daughter was educated about the rationale and plan for the psychiatric medications. Medication instructions were reviewed with the patient/daughter. Alternatives to treatment were discussed with the patient/daughter. The side effect profile of the psychiatric medications was reviewed with the patient/daughter. This also included discussion of potential drug interactions associated with psychiatric medication. The patient discussed/verbalized back the understanding of the medication, side effects, and the plan/instructions, and the patient asked good questions (even with mild dementia, the patient demonstrated reasonable understanding). The patient/family feel that the benefits of psychiatric medications outweigh risks for this patient, this is reasonable. The patient consents to medication treatment. I asked the patient to call me or to come to open access if the patient does not like the effect of psychiatric medication or if has side effects with psychiatric medication. The side effect profile of the atypical antipsychotic medication have been discussed with the patient/family. The risk of EPS, weight gain, metabolic syndrome (including risk of diabetes and hyperlipidemia), sedation, dizziness, orthostatic hypotension, falling, and TD with the atypical antipsychotic agent have been reviewed with the patient/family. This included discussion that TD is potentially irreversible. We have also discussed with the patient/family the black box warning of increased mortality risk with antipsychotic medication for patients with dementia. The pt verbalized reasonable understanding of the side effect profile of the atypical antipsychotic medication. Even with mild dementia, the patient demonstrated reasonable understanding. The patient agrees to the medication. The benefits of treatment outweigh risks for this patient. The patient's primary care physician follows blood pressure, weights, lipids, glucose Follow-up with PCP for regular health maintenance. Note that I advised patient/daughter that patient not drive due to dementia FOLLOW-UP: Return to clinic 1 month or sooner through open access if needed AIMS Testing: AIMS (Mental Health Instrument) The patient was evaluated for symptoms of tardive dyskinesia using the AIMS. Total score for items 1-7: 0 MH Atyp Antipsych Metabol Syndrome : Lipid profile ordered at this encounter. Medication Reconciliation: Outpatient: Has the patient been taking medications as documented in the EMLR? YES: The patient has been taking medications as documented in the EMLR. Essential Medication List for Review used to complete this medication reconciliation. INCLUDED IN THIS LIST: Alphabetical list of active outpatient prescriptions dispensed from this [facility] (local) and dispensed from another ID or [facility] facility (remote) as well as inpatient [...] with a VA or non-VA provider. /maddie/ JOSTIN RIGGINS MD STAFF PSYCHIATRIST Signed: 04/24/2024 21:40 JOSTIN RIGGINS
--- OUTSIDE RECORDS SUMMARY | 2024-06-18 08:42 | XMS_ITS | Encounter Summary ---
Author Name [facility] [place] [facility] [place] [facility] [place] Address [address] [place] [address] Care Team Providers Care Planning Official Name Role Phone SHADY MANCILLA Primary Care [...] PART B Jan 04, 2014 PART B [id number] [phone] STORMY RAPP PATIENT MEDICARE (WNR) MEDICARE (M) PART A Jun 06, 2006 PART A [id number] [id number] [phone] STORMY RAPP PATIENT MEDICARE (WNR) MEDICARE (M) PART A Jun 06, 2006 PART A [id number] STORMY RAPP PATIENT MEDICARE (WNR) MEDICARE (M) PART A Jun 06, 2006 PART A [id number] [phone] STORMY RAPP PATIENT Selected Encounter This section includes the information on record at [place] for the Encounter. Date/Time Encounter Type Encounter Description Reason Provider Source May 08, 2024 10:02 AM HC PRO PHONE CALL 21-30 MIN TELEPHONE/LEVI SAMANO ICD-10-CM Z74.1 Need for assistance with personal care ZAHIRA SCHWARZ [facility] Encounter Template Text not used by [place] Assessments - Encounter Diagnoses This section includes the primary and secondary diagnoses documented for the Encounter. Date/Time Primary/Secondary Diagnosis Diagnosis Name Provider Source May 08, 2024 10:02 AM PRIMARY Need for assistance with personal care ZAHIRA SCHWARZ [facility] ([id number]) Plan of Treatment: Future Appointments (+ 6 months) and Future Tests (+/- 45 days) The Plan of Treatment section includes future care activities for the patient from all [place] treatmentfacilities. This section includes future appointments and future orders which are active, pending or scheduled. Active, Pending, and Scheduled Orders This section includes a listing of several types of active, pending, and scheduled orders, including clinic medications orders, diagnostic test orders, procedure orders and consult orders; where the start date of the order is 45 days before the date of the Encounter or 45 days after the date of theEncounter. The data comes from all [place] treatment facilities. Test Date/Time Test Type Test Details Facility Name Mar 27, 2024 12:00 AM Laboratory - Chemi stry Order OCCULT BLOOD FIT X1 SCREEN (MFP ONLY) STOOL [facility]ECES [facility] Apr 11, 2024 04:18 PM Consult Order COMMUNITY CARE-CARDIOLOGY Cons Painter [facility] [place] Apr 24, 2024 12:00 AM Laboratory - Chemi stry Order LIPID PANEL FASTING BLOOD (SST-SERUM) [facility] Advance Directives: All historical and [...] the Encounter. Date/Time Encounter Note(s) Provider Source May 08, 2024 10:09 AM CAREGIVER CERTIFIC ATE: LOCAL TITLE: CSP DENIAL NOTE STANDARD TITLE: CAREGIVER CERTIFICATE DATE OF NOTE: MAY 08, 2024@10:09 ENTRY DATE: MAY 08, 2024@10:09:30 AUTHOR: ZAHIRA SCHWARZ COSIGNER: URGENCY: STATUS: COMPLETED CSP DENIAL NOTE Has ADDENDA Caregiver Support Program Denial Note The individual being denied from the Program of Comprehensive Assistance for Family Caregivers is the [place]: ANSHUL RAPP Name of Primary Family Caregiver: Samir Carey Reason(s) for denial: - [place]/Caregiver withdrew application Denial date: 05/07/2024 Notification letter was mailed on: TBD [facility] staff provided the following document(s): - [facility] John Contact Information - Program of General Caregiver Support Services - PCAFC Eligibility Criteria Fact Sheet - [place] Caregiver Support Program PCAFC Appeal FAQs - VA Form 10-305 Your Rights to Seek Further Review of PCAFC Decisions /es/ EKATERINA SCHWARZ, [facility] Quarryman/GEC/Caregiver Blankbook Stitching Machine Operator Signed: 05/08/2024 10:10 05/08/2024 ADDENDUM STATUS: COMPLETED Anshul Rapp [address] [place] [address] May 08, 2024 Dear Anshul Rapp: Thank you for your interest in the Program of Comprehensive Assistance for Family Caregivers (PCAFC). THIS LETTER CONFIRMS THAT YOU HAVE WITHDRAWN YOUR APPLICATION We received your application for PCAFC on 05/07/2024. On 05/07/2024, you indicated you would like to withdraw the application. You may reapply for Caregiver benefits You may reapply by submitting a new joint application using VA Form 10-10CG, Application for Program of Comprehensive Assistance for Family Caregivers which can be found at https://www.va.gov/vaforms /medical/pdf/10-10CG.pdf. WHAT TO DO IF YOU DISAGREE WITH THE DECISION If you disagree with this decision, you have the right to request [facility] Administration (A) review, or appeal to the Board of Veterans' Appeals (Board). Your options for doing so are described in the attached VA Form 10-305, Your Rights to Seek Further Review of PCAFC Decisions. OTHER VA SERVICES AND PROGRAMS TO SUPPORT CAREGIVERS PCAFC is just one way [place] supports caregivers. Program of General Caregiver Support Services (PGCSS) Caregivers who are caring for a who is enrolled in VA health care may be eligible to participate in PGCSS. PGCSS provides: * Caregiver skills training and education, both online and in-person * Coaching, supportive counseling and support groups * Peer Support Mentoring * Information on and referrals to VA and community resources There is no application needed for PGCSS. For more information about PGCSS, please visit the VA Caregiver Support Program's website at www.caregiver.va.gov or contact your local Caregiver Support Program (CSP) Team. [place] Geriatric[facility] and Extended Care (GEC) [facility] offers a variety of programs to support Veterans and caregivers, including services in the home and in the community. Please visit the [place] GE website at www.va.gov/GERIATRICS for information on all [facility] services and additional resources. [place] [facility] [place] [facility] serves as the foundation of [facility] ([facility]) health care and is the first point of contact with the health care system for Veterans enrolled in [facility]. If you are interested in learning about VA resources, please speak with your Patient Aligned Care Team (PACT) Quarryman or Primary Care provider for more information or assistance with a referral. If you have any questions about this letter or other matters, please contact the local [place]'s Caregiver Support Program Team or visit the Caregiver Support Program's website at www.caregiver.va.gov. Sincerely, Caregiver Support Program Team Enclosures: * Local [place] [facility] Contact Information * Program of Comprehensive Assistance for Family Caregivers Eligibility Requirements Fact Sheet * VA form 10-305 Your Right to Seek Further Review of PCAFC * Changes to Review and Appeal Options for PCAFC Decisions FAQs CC: Samir Carey [address] [place] [address] /es/ AYO AMAYA Quarryman/GE/Caregiver Blankbook Stitching Machine Operator Signed: 05/08/2024 10:13 ZAHIRA SCHWARZ [facility] ([id number]) May 08, 2024 10:02 AM CAREGIVER CERTIFIC ATE: LOCAL TITLE: CSP PCAFC APPLICATION INTAKE STANDARD TITLE: CAREGIVER CERTIFICATE DATE OF NOTE: MAY 08, 2024@10:02 ENTRY DATE: MAY 08, 2024@10:02:52 AUTHOR: ZAHIRA SCHWARZ EXP COSIGNER: URGENCY: STATUS: COMPLETED Program of Comprehensive Assistance for Family Caregivers (PCAFC) Application Intake The Local Caregiver Support Program (CSP) Staff contact [place] and identified caregiver applicant(s) for the PCAFC to discuss the program application process and complete the application intake. A brief overview of the eligibility requirements, application process and appeal rights are reviewed with the and caregiver applicant(s). Date of visit: May Identified the using full name and the following other john identifier(s): Full name: ANSHUL RAPP Full SSN: [id number] The application intake was conducted using the telephone. Application received date: May Individuals providing input include: Primary Family Caregiver applicant Application Information Review: Local Caregiver Support Program (CSP) staff have reviewed and verified information contained in the 10-CG. 10-CG has been determined to be a valid application. [place] Information: [place] address: [address] [place] [address] [place] phone #: PATIENT PHONE - [place] Facility where [place] receives care: [facility] The does not live in a foster home, assisted living, or other institutional location. The does not have a legal guardian\conservator. The does not have an Advance Directive. Were Advance Directives discussed/reviewed with ? No Details: Not discussed The does not have a [place] fiduciary. Service Information: Dates of service: 04/05/66 - 04/05/69 Branch of service: [employer] [place] connected ratin% [place] service connected disabilities: DS - Disabilities Eligibility: SERVICE CONNECTED 50% to 100% VERIFIED Total S/C %: 70 POST-TRAUMATIC STRESS DISORDER 70% S/C LIMITED FLEXION OF FOREARM 0% S/C The individual is not on active duty or in the Reserves. [place] Requirements: 1) The individual is either a or a member of the Armed Forces undergoing a medical discharge from the Armed Forces: Yes 2) The individual has a serious injury incurred or aggravated in the line of duty in the active , naval, or air service: Yes (* Serious injury means any service-connected disability that (1) is rated at 70 percent or more by VA, or (2) is combined with any other service-connected disability or disabilities, and a combined rating of 70 percent or more is assigned by VA.) 3) The individual receives care at home or will do so if VA designates a Family Caregiver: Yes 4) The individual receives ongoing care from a primary care team or will do so if VA designates a Family Caregiver: Yes 5) The individual resides in a State, defined as each of the several States, Territories, and possessions of the [place], the [facility], and the [facility]: Yes Caregiver Requirements: Primary Family Caregiver Applicant Name: Samir Carey VA Form 10-5345 ([place]) is on file for Caregiver. Date of Release of Information: 12/03/21 The Primary Family Caregiver applicant is 18 years of age or older. The Primary Family Caregiver applicant is a family member or will live multimedia services coordinator with the if designated as a Family Caregiver. Relationship to : Daughter Address of applicant's residence: [address] [place] [address] Requirement Status: The and at least one Family Caregiver applicant meet all of the requirements listed above. Local CSP staff will coordinate the following next steps: Coordinate the necessary [place] assessment(s) Additional Information: - [place] and caregiver withdrew application after reviewing eligibility criteria and application process. Per Caregiver, she is supporting with IADLs. [facility] /maddie/ AYO AMAYA Quarryman/GEC/Caregiver Blankbook Stitching Machine Operator Signed: 05/08/2024 10:09 ZAHIRA SCHWARZ [facility] ([id number])
--- OUTSIDE RECORDS SUMMARY | 2024-06-18 08:42 | XMS_ITS | Encounter Summary ---
Author Name [facility] [place] [place] Organization [facility] [place] Address [address] [place] [address] Care Team Providers Care Coding Specialist Name Role Phone SHADY MANCILLA Primary [...] PART B Jan 04, 2014 PART B [id number] [phone] STORMY KEN PATIENT MEDICARE (WNR) MEDICARE (M) PART A Jun 06, 2006 PART A [id number] [phone] STORMY KEN PATIENT MEDICARE (WNR) MEDICARE (M) PART A Jun 06, 2006 PART A [id number] 89A STORMY KEN PATIENT MEDICARE (WNR) MEDICARE (M) PART A Jun 06, 2006 PART A [id number] [phone] STORMY KEN PATIENT Selected Encounter This [...] 2003 ADVANCE DIRECTIVE RYLAND TOMPKINS [facility]
== END 2024-06-18 08:56 | disposition home or self-care (01) ==
PROVIDERS: Visit Provider Student in an Organized Health Care Education/Training Program
DX: M06.00 Rheumatoid arthritis without rheumatoid factor, unspecified site (principal); Z79.631 Long term (current) use of antimetabolite agent; R63.4 Abnormal weight loss
CPT/HCPCS: 99214

== ENCOUNTER → 2024-06-18 08:26 | Outpatient (BNVA) | payer OTHER, SELFPAY | PROVIDERS: Visit Provider Student in an Organized Health Care Education/Training Program | DX: M06.00 Rheumatoid arthritis without rheumatoid factor, unspecified site (principal); R63.4 Abnormal weight loss; Z79.631 Long term (current) use of antimetabolite agent | CPT/HCPCS: 99212 ==

== ENCOUNTER 2024-09-25 07:56 | Outpatient (AMB) | payer OTHER, SELFPAY ==
--- OUTSIDE RECORDS SUMMARY | 2024-09-25 08:02 | XMS_ITS | Encounter Summary ---
Author Name [facility] [place] [facility] [place] Address [address] [place] [address] Care Team Providers Care Bridge Rigger Name Role Phone SHADY MANCILLA Primary Care [...] PART B Jan 04, 2014 PART B [id number] JESUS MANUELSTORMY KELLEY CE PATIENT MEDICARE (WNR) MEDICARE (M) PART B Jan 04, 2014 PART B [id number] [phone] JESUS MANUEL,STORMY CE PATIENT MEDICARE (WNR) MEDICARE () PART A Jun 06, 2006 PART A [id number] JESUS MANUEL,STORMY CE PATIENT MEDICARE (WNR) MEDICARE (M) PART A Jun 06, 2006 PART A [id number] [phone] JESUS MANUEL,BRU CE PATIENT MEDICARE (WNR) MEDICARE (M) PART A Jun 06, 2006 PART A [id number] JESUS MANUELSTORMY KELLEY PATIENT MEDICARE (WNR) MEDICARE (M) PART A Jun 06, 2006 PART A [id number] JESUS MANUELSTORMY KELLEY PATIENT MEDICARE (WNR) MEDICARE (M) PART A Jun 06, 2006 PART A [id number] JESUS MANUELSTORMY KELLEY PATIENT MEDICARE (WNR) MEDICARE (M) PART A Jun 06, 2006 PART A [id number] STORMY KEN PATIENT Selected Encounter This section includes the information on record at [place] for the Encounter. Date/Time Encounter Type Encounter Description Reason Provider Source November 04, 2023 09:00 AM OFF/OP EST OCTOBER X REQ PHY/QHP [facility] - IND ICD-10-CM Z71.89 Other specified counseling ALESSANDRO SHEPPARD [facility] Encounter Template Text not used by [place] Assessments - Encounter Diagnoses This section includes the primary and secondary diagnoses documented for the Encounter. Date/Time Primary/Secondary Diagnosis Diagnosis Name Provider Source November 04, 2023 01:15 PM PRIMARY Other specified counseling ALESSANDRO SHEPPARD Plan of Treatment: Future Appointments (+ 6 [...] AMBULATORY - [place]ICINE [place] [facility] Dec 02, 2023 10:00 AM AMBULATORY - PSYCHIATRY [facility] Dec 14, 2023 11:30 AM AMBULATORY - MED[facility]INE [facility] Dec 30, 2023 11:00 AM AMBULATORY - PSYCHIATRY [facility] Jan 24, 2024 01:00 PM AMBULATORY - PSYCHIATRY [facility] Apr 24, 2024 01:30 PM AMBULATORY - PSYCHIATRY [facility] Active, Pending, and [...] of theEncounter. The data comes from all [place] treatment facilities. Test Date/Time Test Type Test Details Facility Name Nov 30, 2023 12:00 AM Laboratory - Chemi stry Order OCCULT BLOOD FIT X1 SCREEN(IN-HOUSE) STOOL [facility]ES [facility] Nov 30, 2023 12:00 AM Laboratory - Chemi stry Order BASIC METABOLIC PANEL (fasting) BLOOD (SST-SERUM) [facility] Nov 30, 2023 12:00 AM Laboratory - Chemi stry Order LIVER FUNCTION BLOOD (SST-SERUM) [facility] Nov 30, 2023 12:00 AM Laboratory - Chemi stry Order CBC AND DIFF (AUTO) BLOOD (LAV-BLOOD) [facility] Nov 30, 2023 12:00 AM Laboratory - Chemi stry Order HEMOGLOBIN A1C PANEL BLOOD (LAV-BLOOD) [facility] Nov 30, 2023 12:00 AM Laboratory - Chemi stry Order LIPID PANEL FASTING BLOOD (SST-SERUM) [facility] Nov 30, 2023 12:00 AM Laboratory - Chemi stry Order SED RATE, AUTOMATED BLOOD (LAV-BLOOD) [facility] Nov 30, 2023 12:00 AM Laboratory - Chemi stry Order TSH BLOOD (SST-SERUM) [facility] Social History: Smoking Status (Most current) [...] 08, 2023 01:00 PM VA-TOBACCO FORMER USER [place] Tobacco Use History This section includes a history of the smoking, or tobacco-related health factors, that were collected on or before the date of the Encounter. The data comes from the [place] facility where the Encounter took place. Date/Time Smoking Status/Tobacco Use Comment F acility Jun 08, 2023 01:00 PM [place]-TOBACCO QUIT 15 YRS OR MORE [place] Mar 11, 2021 01:00 PM VA-TOBACCO FORMER USER [place] Mar 11, 2021 01:00 PM VA-TOBACCO QUIT 15 YRS OR MORE [place] Feb 14, 2018 09:07 AM VA-TOBACCO FORMER USER [place] Feb 14, 2018 09:07 AM VA-TOBACCO QUIT 15 YRS OR MORE [place] Mar 03, 2017 10:30 AM QUIT TOBACCO USE > 7 YEARS AGO reports quitting 40 years ago [place] Dec 05, 2015 09:20 AM QUIT TOBACCO USE > 7 YEARS AGO quit 30 years ago smoked 10 years less than a pack a day [place] Advance Directives: All historical and current Section [...] 21, 2003 ADVANCE DIRECTIVE RYLAND TOMPKINS [facility] Encounter Notes: All associated encounter notes This section contains the clinical notes associated to the Encounter. Date/Time Encounter Note(s) Provider Source November 04, 2023 12:41 PM TELEHEALTH NOTE: LOCAL TITLE: [employer] VIDEO CONNECT SOCIAL WORK NOTE STANDARD TITLE: TELEHEALTH NOTE DATE OF NOTE: NOVEMBER 04, 2023@12:41 ENTRY DATE: NOVEMBER 04, 2023@12:41:58 AUTHOR: ALESSANDRO SHEPPARD COSIGNER: URGENCY: STATUS: COMPLETED VA Video Connect (VVC) Standard Documentation VVC Clinician Resources Only: E911 (Emergency Call Relay Center): [phone] National Veterans Crisis Line - 988 then press #1. CW Suicide Coordinator [phone], Ext. [phone]; Back-up Ext. [phone] [place] Police, Pieter [place] LEON [phone] Introduction: Visit is being conducted by [place] [employer]. Fuquay Varina identified with 2 identifiers: [X] Full Name [X] Date of [ ] VA ID Card Emergency Plan: confirmed and/or provided the following information in case of emergency or technology failure. PATIENT PHONE - PHONE NUMBER [CELLULAR] - Is patient phone number correct, if not, enter below: 's phone number: s/p ANSHUL KEN [address], [place], [address] Fuquay Varina's present location and address for appointment: s/a Fuquay Varina's emergency contact name and phone number: as in chart Fuquay Varina reported that location is private and safe: Yes Informed Consent: Fuquay Varina informed of the risks and benefits of Telehealth video care. Fuquay Varina has the right to refuse video services. If refuses video visit, a [id number] visit will be scheduled. Fuquay Varina verbalized consent for this video visit: Yes provided consent for any other persons present for visit: N/A If yes, who and relationship to patient: Secure visit: Visit was locked for security and privacy: Yes Fuquay Varina is sitting in his kitchen, his eriberto Fab helped him to connect and then she left. Fuquay Varina recently referred to this worker for supportive [...] would be found. His father was a Arabic combat , he was shot in the [...] physical pain. rtc 1mo /es/ ATIF Rosenbaum EXTRUSION FORMER Signed: 11/04/2023 13:15 ALESSANDRO SHEPPARD [place]
--- OUTSIDE RECORDS SUMMARY | 2024-09-25 08:02 | XMS_ITS | Encounter Summary ---
Author Name [facility] [place] [facility] [place] Address [address] [place] [address] Care Team Providers Care Cabin Equipment Supervisor Name Role Phone CHARO SHADY Primary [...] PART B Jan 04, 2014 PART B [id number] [phone] STORMY RAPP CE PATIENT MEDICARE (WNR) MEDICARE (M) PART B Jan 04, 2014 PART B [id number] JESUS MANUEL,STORMY CE PATIENT MEDICARE (WNR) MEDICARE (M) PART A Jun 06, 2006 PART A [id number] JESUS MANUELSTORMY KELLEY CE PATIENT MEDICARE (WNR) MEDICARE (M) PART A Jun 06, 2006 PART A [id number] JESUS MANUEL,BRU CE PATIENT MEDICARE (WNR) MEDICARE (M) PART A Jun 06, 2006 PART A [id number] [phone] STORMY RAPP PATIENT MEDICARE (WNR) MEDICARE (M) PART A Jun 06, 2006 PART A [id number] [phone] STORMY RAPP PATIENT MEDICARE (WNR) MEDICARE (M) PART A Jun 06, 2006 PART A [id number] STORMY RAPP PATIENT MEDICARE (WNR) MEDICARE (M) PART A Jun 06, 2006 PART A [id number] STORMY RAPP PATIENT Selected Encounter This section includes the information on record at [place] for the Encounter. Date/Time Encounter Type Encounter Description Reason Provider Source Jan 24, 2024 01:00 PM OFFICE O/P EST MOD 30 MIN [facility] - IND ICD-10-CM F43.12 Post-traumatic stress disorder, chronic SANDEEP BARROW Encounter Template Text not used by [place] Assessments - Encounter Diagnoses This section includes the primary and secondary diagnoses documented for the Encounter. Date/Time Primary/Secondary Diagnosis Diagnosis Name Provider Source Feb 14, 2024 12:23 PM PRIMARY Post-traumatic stress disorder, chronic SANDEEP BARROW Feb 14, 2024 12:23 PM SECONDARY Anxiety disorder, unspecified SANDEEP BARROW Feb 14, 2024 12:23 PM SECONDARY Mild cognitive impairment of uncertain or unknown etiology SANDEEP BARROW Feb 14, 2024 12:23 PM SECONDARY Unspecified mood [affective] disorder SANDEEP BARROW Plan of Treatment: Future Appointments (+ 6 [...] 24, 2024 01:30 PM AMBULATORY - PSYCHIATRY [facility] Jun 18, 2024 08:00 AM AMBULATORY - MEDICINE [place] [facility] [place] [facility] Social History: [...] 08, 2023 01:00 PM VA-TOBACCO FORMER USER [place] Tobacco Use History This section includes a history of the smoking, or tobacco-related health factors, that were collected on or before the date of the Encounter. The data comes from the [place] facility where the Encounter took place. Date/Time Smoking Status/Tobacco Use Comment F acility Jun 08, 2023 01:00 PM VA-TOBACCO QUIT 15 YRS OR MORE [place] Mar 11, 2021 01:00 PM VA-TOBACCO FORMER USER [place] Mar 11, 2021 01:00 PM VA-TOBACCO QUIT 15 YRS OR MORE [place] Feb 14, 2018 09:07 AM VA-TOBACCO FORMER USER [place] Feb 14, 2018 09:07 AM VA-TOBACCO QUIT 15 YRS OR MORE [place] Mar 03, 2017 10:30 AM QUIT TOBACCO USE > 7 YEARS AGO reports quitting 40 years ago [place] Dec 05, 2015 09:20 AM QUIT TOBACCO USE > 7 YEARS AGO quit 30 years ago smoked 10 years less than a pack a day [place] Advance Directives: All historical and current Section [...] 2003 ADVANCE DIRECTIVE RYLAND TOMPKINS [facility] Encounter Notes: All associated encounter notes [...] for follow up. Mr. Rapp lives in [place], [place] with his dog. He receives SSDI and has a 9th grade education level. He identifies as Congregation. PATIENT REPORT: Patient was accompanied to today's [...] people who won't come home from current [employer]. He denies paranoia/feelings others are out to [...] past, many decades ago. Was hospitalized at [facility] ~20 years ago. Uses a pill organizer. FAMILY PSYCHIATRIC HISTORY: Both daughters have responded well to escitalopram for depression or anxiety. 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 Was 16yo when he joined the [employer]. 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 [...] Low Back Pain 19. Hyperlipidemia (SNOMED CT 93591994) 20. Atherosclerosis of [place] coronary artery (SNOMED CT 074019263) 21. Retinal defect 22. Asthma (SNOMED CT 509837733) 23. Chronic post-traumatic stress disorder (SNOMED CT 689352491) 24. Depressive disorder (SNOMED CT 33232281) 25. Gastro-esophageal reflux disease (SNOMED CT 539962301) 26. Counseling on Substance Use and Abuse [...] the patient about their mental health condition. [place] repeated back the plan and education. The [...] this VA (local) and dispensed from another VA or DoD facility (remote) as well as [...] or non-VA provider. /maddie/ STEPHEN WALSH MD Patent Searcher Signed: 01/26/2024 20:34 /maddie/ SANDEEP BARROW DO Psychiatrist Cosigned: 02/14/2024 12:23 STEPHEN WALSHFIELD
--- OUTSIDE RECORDS SUMMARY | 2024-09-25 08:02 | XMS_ITS | Encounter Summary ---
Author Name Department of [place] [place] Address [address] [place] [address] Care Team Providers Care Scalp Specialist Name Role Phone SHADY MANCILLA Primary [...] PART B Jan 04, 2014 PART B [id number] STORMY KEN PATIENT MEDICARE (WNR) MEDICARE (M) PART B Jan 04, 2014 PART B [id number] [phone] STORMY KEN PATIENT MEDICARE (WNR) MEDICARE (M) PART A Jun 06, 2006 PART A [id number] [phone] STORMY KEN PATIENT MEDICARE (WNR) MEDICARE (M) PART A Jun 06, 2006 PART A [id number] [phone] STORMY KEN PATIENT MEDICARE (WNR) MEDICARE (M) PART A Jun 06, 2006 PART A [id number] [id number] JESUS MANUEL,BRU CE PATIENT MEDICARE (WNR) MEDICARE (M) PART A Jun 06, 2006 PART A [id number] [phone] JESUS MANUEL,BRU CE PATIENT MEDICARE (WNR) MEDICARE (M) PART A Jun 06, 2006 PART A [id number] [id number] JESUS MANUEL,BRU CE PATIENT MEDICARE (WNR) MEDICARE (M) PART A Jun 06, 2006 PART A [id number] [phone] JESUS MANUEL,BRU CE PATIENT Selected Encounter This section includes the information on record at [place] for the Encounter. Date/Time Encounter Type Encounter Description Reason Pro vider Source I[facility] Encounter Template Text not used by [place] Advance Directives: All historical and current Section [...] ADVANCE DIRECTIVE RYLAND TOMPKINS [facility]
--- OUTSIDE RECORDS SUMMARY | 2024-09-25 08:03 | XMS_ITS | Encounter Summary ---
Author Name [facility] [place] [facility] [place] Address [address] [place] [address] Care Team Providers Care Contact Lens Technician Name Role Phone CHARO SHADY Primary Care [...] PART B Jan 04, 2014 PART B [id number] STORMY RAPP CE PATIENT MEDICARE (WNR) MEDICARE (M) PART B Jan 04, 2014 PART B [id number] JESUS MANUEL,STORMY CE PATIENT MEDICARE (WNR) MEDICARE (M) PART A Jun 06, 2006 PART A [id number] JESUS MANUELSTORMY KELLEY CE PATIENT MEDICARE (WNR) MEDICARE (M) PART A Jun 06, 2006 PART A [id number] JESUS MANUEL,BRU CE PATIENT MEDICARE (WNR) MEDICARE (M) PART A Jun 06, 2006 PART A [id number] 89A STORMY RAPP PATIENT MEDICARE (WNR) MEDICARE (M) PART A Jun 06, 2006 PART A [id number] [phone] STORMY RAPP PATIENT MEDICARE (WNR) MEDICARE (M) PART A Jun 06, 2006 PART A [id number] STORMY RAPP PATIENT MEDICARE (WNR) MEDICARE (M) PART A Jun 06, 2006 PART A [id number] STORMY RAPP PATIENT Selected Encounter This section includes the information on record at [place] for the Encounter. Date/Time Encounter Type Encounter Description Reason Provider Source Apr 24, 2024 01:30 PM OFFICE O/P EST MOD 30 MIN [facility] - IND ICD-10-CM F43.12 Post-traumatic stress disorder, chronic BRIAN RIGGINS [facility] Encounter Template Text not used by [place] Assessments - Encounter Diagnoses This section includes the primary and secondary diagnoses documented for the Encounter. Date/Time Primary/Secondary Diagnosis Diagnosis Name Provider Source Apr 24, 2024 09:40 PM PRIMARY Post-traumatic stress disorder, chronic JOSTIN RIGGINS [place] Plan of Treatment: Future Appointments (+ 6 months) and Future Tests (+/- 45 days) The Plan of Treatment section includes future care activities for the patient from all [place] treatmentfacilities. This section includes future appointments and future orders which are active, pending or scheduled. Future Appointments This section includes appointments that were scheduled to occur 6 months from the date of the Encounter, up to a maximum of 20 appointments. The data comes from all [place] treatment facilities. Appointment Date/Time Appointment Type Appointme nt Facility Name Jun 18, 2024 08:00 AM [facility] [place] Aug 30, 2024 09:45 AM [facility] Active, Pending, and Scheduled Orders This section includes a listing of several types of active, pending, and scheduled orders, including clinic medications orders, diagnostic test orders, procedure orders and consult orders; where the start date of the order is 45 days before the date of the Encounter or 45 days after the date of theEncounter. The data comes from all [place] treatment facilities. Test Date/Time Test Type Test Details Facility Name Mar 27, 2024 12:00 AM Laboratory - Chemi stry Order OCCULT BLOOD FIT X1 SCREEN (MFP ONLY) STOOL FECES [facility] [place] Apr 24, 2024 12:00 AM Laboratory - Chemi stry Order LIPID PANEL FASTING BLOOD (SST-SERUM) [facility] Social History: Smoking Status (Most current) and Tobacco Use (All prior to encounter date) This section includes the most current, and the historical, smoking and tobacco- related health factors from the [place] facility where the Encounter took place. Current Smoking Status This section includes the most current smoking, or tobacco-related health factor, from the [place] facility where the Encounter took place. Date/Time Current Smoking Status Comment Facil ity Jun 08, 2023 01:00 PM VA-TOBACCO FORMER USER [place] Tobacco Use History This section includes a history of the smoking, or tobacco-related health factors, that were collected on or before the date of the Encounter. The data comes from the [facility] where the Encounter took place. Date/Time Smoking Status/Tobacco Use Comment F acility Jun 08, 2023 01:00 PM VA-TOBACCO QUIT 15 YRS OR MORE [place] Mar 11, 2021 01:00 PM VA-TOBACCO FORMER USER [place] Mar 11, 2021 01:00 PM VA-TOBACCO QUIT 15 YRS OR MORE [place] Feb 14, 2018 09:07 AM VA-TOBACCO FORMER USER [place] Feb 14, 2018 09:07 AM VA-TOBACCO QUIT 15 YRS OR MORE [place] Mar 03, 2017 10:30 AM QUIT TOBACCO USE > 7 YEARS AGO reports quitting 40 years ago [place] Dec 05, 2015 09:20 AM QUIT TOBACCO USE > 7 YEARS AGO quit 30 years ago smoked 10 years less than a pack a day [place] Advance Directives: All historical and current Section Date Range: From patient's date of to the date document was created. This section includes ALL of a patient's completed or amended [place] Advance and Rescinded Directives. The entries below indicate that a directive exists for the patient, but an actual copy is not included with this document. The data comes from all [facility]. Date Advance Directives Provider Source October [...] chart review, interview, charting The patient's daughter Samir with pt The presents today for follow [...] Low Back Pain 19. Hyperlipidaemia (SNOMED CT 62850387) 20. Atherosclerosis of [place] coronary artery (SNOMED CT 737832639) 21. Retinal defect 22. Asthma (SNOMED CT 792023652) 23. Chronic post-traumatic stress disorder (SNOMED CT 947399885) 24. Depressive disorder (SNOMED CT 35673989) 25. Gastro-esophageal reflux disease (SNOMED CT 818595684) 26. Counseling on Substance Use and Abuse [...] denied suicidal and violent ideation, but the [place] Funding Crisis Line information and number were given [...] this [place] (local) and dispensed from another [place] or [place] facility (remote) as well as [...]
--- OUTSIDE RECORDS SUMMARY | 2024-09-25 08:03 | XMS_ITS | Encounter Summary ---
Author Name [facility] [place] [facility] [place] [facility] [place] Address [address] [place] [address] Care Team Providers Care School Teacher Name Role Phone CHARO SHADY Primary Care [...] PART B Jan 04, 2014 PART B [id number] STORMY RAPP CE PATIENT MEDICARE (WNR) MEDICARE (M) PART B Jan 04, 2014 PART B [id number] JESUS MANUEL,STORMY CE PATIENT MEDICARE (WNR) MEDICARE (M) PART A Jun 06, 2006 PART A [id number] JESUS MANUELSTORMY KELLEY CE PATIENT MEDICARE (WNR) MEDICARE (M) PART A Jun 06, 2006 PART A [id number] [phone] JESUS MANUEL,BRU CE PATIENT MEDICARE (WNR) MEDICARE (M) PART A Jun 06, 2006 PART A [id number] [phone] STORMY RAPP PATIENT MEDICARE (WNR) MEDICARE (M) PART A Jun 06, 2006 PART A [id number] [phone] STORMY RAPP PATIENT MEDICARE (WNR) MEDICARE (M) PART A Jun 06, 2006 PART A [id number] STORMY RAPP PATIENT MEDICARE (WNR) MEDICARE (M) PART A Jun 06, 2006 PART A [id number] [phone] STORMY RAPP PATIENT Selected Encounter This section includes the information on record at [place] for the Encounter. Date/Time Encounter Type Encounter Description Reason Provider Source Sep 27, 2023 11:00 AM OFFICE O/P EST LOW 20 MIN [facility] ICD-10-CM F43.12 Post-traumatic stress disorder, chronic SANDEEP BARROW Encounter Template Text not used by [place] Assessments - Encounter Diagnoses This section includes the primary and secondary diagnoses documented for the Encounter. Date/Time Primary/Secondary Diagnosis Diagnosis Name Provider Source Sep 27, 2023 11:00 AM PRIMARY Post-traumatic stress disorder, chronic LLOYD HOPE Sep 27, 2023 11:00 AM SECONDARY Mild cognitive impairment of uncertain or unknown etiology LLOYD HOPE Sep 27, 2023 11:00 AM SECONDARY Unspecified mood [affective] disorder LLOYD HPOE Plan of Treatment: Future Appointments (+ 6 months) and Future Tests (+/- 45 days) The Plan of Treatment section includes [facility] care [facility] the [facility] [place] [facility] This section includes future appointments [...] 08, 2023 03:00 PM AMBULATORY - MEDICINE [place] C [facility] Dec 02, 2023 10:00 AM AMBULATORY - PSYCHIATRY [facility] Dec 14, 2023 11:30 AM AMBULATORY - MEDICINE [facility] Dec 30, 2023 11:00 AM AMBULATORY - PSYCHIATRY [facility] Jan 24, 2024 01:00 [...] 08, 2023 01:00 PM VA-TOBACCO FORMER USER [place] Tobacco Use History This section includes a history of the smoking, or tobacco-related health factors, that were collected on or before the date of the Encounter. The data comes from the [place] facility where the Encounter took place. Date/Time Smoking Status/Tobacco Use Comment [place] Jun 08, 2023 01:00 PM VA-TOBACCO QUIT 15 YRS OR MORE [place] Mar 11, 2021 01:00 PM VA-TOBACCO FORMER USER [place] Mar 11, 2021 01:00 PM VA-TOBACCO QUIT 15 YRS OR MORE [place] Feb 14, 2018 09:07 AM VA-TOBACCO FORMER USER [place] Feb 14, 2018 09:07 AM VA-TOBACCO QUIT 15 YRS OR MORE [place] Mar 03, 2017 10:30 AM QUIT TOBACCO USE > 7 YEARS AGO reports quitting 40 years ago [place] Dec 05, 2015 09:20 AM QUIT TOBACCO USE > 7 YEARS AGO quit 30 years ago smoked 10 years less than a pack a day [place] Advance Directives: All historical and current Section Date Range: From patient's date of to the date document was created. This section includes ALL of a patient's completed or amended [place] Advance and Rescinded Directives. The entries below indicate that a directive exists for the patient, but an actual copy is not included with this document. The data comes from all [facility]. Date Advance Directives Provider Source October 21, 2003 ADVANCE DIRECTIVE RYLAND TOMPKINS [facility] Encounter Notes: All associated encounter notes This section contains the clinical notes associated to the Encounter. Date/Time Encounter Note(s) Provider Source Sep 27, 2023 03:04 PM ADDENDUM: LOCAL TITLE: Addendum STANDARD TITLE: ADDENDUM DATE OF NOTE: SEP 27, 2023@15:04:32 ENTRY DATE: SEP 27, 2023@15:04:33 AUTHOR: SANDEEP BARROW EXP COSIGNER: URGENCY: STATUS: COMPLETED Case discussed with resident and I was present for a portion of the phone interview. I reviewed the note and agree with the findings, assessment, and plan as documented above. /es/ SANDEEP BARROW DO Psychiatrist Signed: 09/27/2023 15:04 Receipt Acknowledged By: 09/27/2023 15:06 /es/ ART GAGNON ADVANCED SALES CORRESPONDENT 09/27/2023 15:15 /es/ Tosha Root ADVANCED SALES CORRESPONDENT == --- Original Document --- 09/27/23 PSYCHIATRY [...] a puff there. Has been smoking since [place]. He is happy with risperidone. Mr. Rapp [...] past, many decades ago. Was hospitalized at [facility] ~20 years ago. Uses a pill organizer. [...] Low Back Pain 18. Hyperlipidemia (SNOMED CT 21358106) 19. Atherosclerosis of [place] coronary artery (SNOMED CT 803701266) 20. Retinal defect 21. Asthma (SNOMED CT 176448719) 22. Chronic post-traumatic stress disorder (SNOMED CT 643064353) 23. Depressive disorder (SNOMED CT 62686676) 24. Gastro-esophageal reflux disease (SNOMED CT 771899933) 25. Counseling on Substance Use and Abuse [...] has brought his anxiety to managable levels. [place] does not want to make any medication [...] lipids, glucose. FOLLOW-UP:4mo /maddie/ LLOYD HOPE MD STICK ROLLER Signed: 09/27/2023 11:44 /maddie/ SANDEEP BARROW DO Psychiatrist Cosigned: 09/27/2023 15:04 SANDEEP BARROW [place] Sep 27, 2023 11:04 AM PSYCHIATRY NOTE: LOCAL TITLE: PSYCHIATRY NOTE STANDARD TITLE: PSYCHIATRY NOTE DATE OF NOTE: SEP 27, 2023@11:04 ENTRY DATE: SEP 27, 2023@11:05:01 AUTHOR: LLOYD HOPE EXP COSIGNER: SANDEEP BARROW URGENCY: STATUS: COMPLETED PSYCHIATRY [...] a puff there. Has been smoking since [place]. He is happy with risperidone. Mr. Rapp [...] past, many decades ago. Was hospitalized at [facility] ~20 years ago. Uses a pill organizer. [...] Low Back Pain 18. Hyperlipidemia (SNOMED CT 73882338) 19. Atherosclerosis of [place] coronary artery (SNOMED CT 863379107) 20. Retinal defect 21. Asthma (SNOMED CT 401728673) 22. Chronic post-traumatic stress disorder (SNOMED CT 093112352) 23. Depressive disorder (SNOMED CT 91228637) 24. Gastro-esophageal reflux disease (SNOMED CT 374998862) 25. Counseling on Substance Use and Abuse [...] has brought his anxiety to managable levels. [place] does not want to make any medication [...] lipids, glucose. FOLLOW-UP:4mo /maddie/ LLOYD HOPE MD STICK ROLLER Signed: 09/27/2023 11:44 /maddie/ SANDEEP BARROW DO Psychiatrist Cosigned: 09/27/2023 15:04 09/27/2023 ADDENDUM STATUS: COMPLETED Case discussed with resident and I was present for a portion of the phone interview. I reviewed the note and agree with the findings, assessment, and plan as documented above. /maddie/ SANDEEP BARROW DO Psychiatrist Signed: 09/27/2023 15:04 Receipt Acknowledged By: 09/27/2023 15:06 /es/ ART GAGNON ADVANCED SALES CORRESPONDENT * AWAITING SIGNATURE * TOSHA ROOT,LLOYD YEE
--- OUTSIDE RECORDS SUMMARY | 2024-09-25 08:03 | XMS_ITS | Encounter Summary ---
Author Name [facility] [place] Organization [facility] [place] Address [address] [place] [address] Care Team Providers Care Mutuel Machine Operator Name Role Phone SHADY MANCILLA Primary [...] PART B Jan 04, 2014 PART B [id number] [phone] STORMY KEN PATIENT MEDICARE (WNR) MEDICARE (M) PART B Jan 04, 2014 PART B [id number] [phone] STORMY KEN PATIENT MEDICARE (WNR) MEDICARE (M) PART A Jun 06, 2006 PART A [id number] [phone] STORMY KEN PATIENT MEDICARE (WNR) MEDICARE (M) PART A Jun 06, 2006 PART A [id number] [phone] JESUS MANUEL,BRU CE PATIENT MEDICARE (WNR) MEDICARE (M) PART A Jun 06, 2006 PART A [id number] JESUS MANUELSTORMY KELLEY CE PATIENT MEDICARE (WNR) MEDICARE (M) PART A Jun 06, 2006 PART A [id number] JESUS MANUELSTORMY KELLEY CE PATIENT MEDICARE (WNR) MEDICARE (M) PART A Jun 06, 2006 PART A [id number] [phone] JESUS MANUEL,STORMY CE PATIENT MEDICARE (WNR) MEDICARE (M) PART A Jun 06, 2006 PART A [id number] [phone] JESUS MANUELSTORMY KELLEY PATIENT Selected Encounter This section includes the information on record at [place] for the Encounter. Date/Time Encounter Type Encounter Description Reason Pro vider Source Dec 30, 2023 11:00 AM Outpatient Encounter [facility] Encounter Template Text not used by [place] Plan of Treatment: Future Appointments (+ 6 months) and Future Tests (+/- 45 days) The Plan of Treatment section includes future care activities for the patient [facility] [place] [facility] This section includes future appointments and future orders which are active, pending or scheduled. Future Appointments This section includes appointments that were scheduled to occur 6 months from the date of the Encounter, up to a maximum of 20 appointments. The data comes from all [facility]. Appointment Date/Time Appointment Type Appointme nt Facility Name Jan 24, 2024 01:00 PM AMBULATORY - PSYCHIATRY [facility] Apr 24, 2024 01:30 PM AMBULATORY - PSYCHIATRY [facility] Jun 18, 2024 08:00 AM AMBULATORY - MEDICINE [place] C [facility] Active, Pending, and Scheduled Orders This section includes a listing of several types of active, pending, and scheduled orders, including clinic medications orders, diagnostic test orders, procedure orders and consult orders; where the start date of the order is 45 days before the date of the Encounter or 45 days after the date of theEncounter. The data comes from all [facility]. Test Date/Time Test Type Test Details Facility Name Nov 30, 2023 12:00 AM Laboratory - Chemi stry Order OCCULT BLOOD FIT X1 SCREEN(IN-HOUSE) [facility] Nov 30, 2023 12:00 AM Laboratory - Chemi stry Order LIPID PANEL FASTING BLOOD (SST-SERUM) [facility] Nov 30, 2023 12:00 AM Laboratory - Chemi stry Order BASIC METABOLIC PANEL (fasting) BLOOD (SST-SERUM) [facility] Nov 30, 2023 12:00 AM Laboratory - Chemi stry Order HEMOGLOBIN A1C PANEL BLOOD (LAV-BLOOD) [facility] Nov 30, 2023 12:00 AM Laboratory - Chemi stry Order CBC AND DIFF (AUTO) BLOOD (LAV-BLOOD) [facility] Nov 30, 2023 12:00 AM Laboratory - Chemi stry Order LIVER FUNCTION BLOOD (SST-SERUM) [facility] Nov 30, 2023 12:00 AM Laboratory - Chemi stry Order TSH BLOOD (SST-SERUM) [facility] Nov 30, 2023 12:00 AM Laboratory - Chemi stry Order SED RATE, AUTOMATED BLOOD (LAV-BLOOD) [facility] Social History: Smoking Status (Most current) and Tobacco Use (All prior to encounter date) This section includes the most current, and the historical, smoking and tobacco- related health factors from the [place] facility where the Encounter took place. Current Smoking Status This section includes the most current smoking, or tobacco-related health factor, from the [place] facility where the Encounter took place. Date/Time Current Smoking Status Comment Facil ity Jun 08, 2023 01:00 PM VA-TOBACCO FORMER USER [facility] Tobacco Use History This section includes a history of the smoking, or tobacco-related health factors, that were collected on or before the date of the Encounter. The data comes from the [place] facility where the Encounter took place. Date/Time Smoking Status/Tobacco Use Comment F acility Jun 08, 2023 01:00 PM VA-TOBACCO QUIT 15 YRS OR MORE [facility] Mar 11, 2021 01:00 PM VA-TOBACCO FORMER USER [facility] Mar 11, 2021 01:00 PM VA-TOBACCO QUIT 15 YRS OR MORE [facility] Feb 14, 2018 09:07 AM VA-TOBACCO FORMER USER [facility] Feb 14, 2018 09:07 AM VA-TOBACCO QUIT 15 YRS OR MORE [facility] Mar 03, 2017 10:30 AM QUIT TOBACCO USE > 7 YEARS AGO reports quitting 40 years ago [facility] Dec 05, 2015 09:20 AM QUIT TOBACCO USE > 7 YEARS AGO quit 30 years ago smoked 10 years less than a pack a day [facility] Advance Directives: All historical and current Section Date Range: From patient's date of to the date document was created. This section includes ALL of a patient's completed or amended [place] Advance and Rescinded Directives. The entries below indicate that a directive exists for the patient, but an actual copy is not included with this document. The data comes from all [place] facilities. Date Advance Directives Provider Source October 21, 2003 ADVANCE DIRECTIVE [place] SCHERER Serina MYNOR OBANDO [facility] Encounter Notes: All associated encounter notes This section contains the clinical notes associated to the Encounter. Date/Time Encounter Note(s) Provider Source Dec 30, 2023 11:21 AM CLERICAL NOTE: LOCAL TITLE: APPOINTMENT NO SHOW STANDARD TITLE: CLERICAL NOTE DATE OF NOTE: DEC 30, 2023@11:21 ENTRY DATE: DEC 30, 2023@11:21:07 AUTHOR: ALESSANDRO SHPEPARD EXP COSIGNER: URGENCY: STATUS: COMPLETED APPOINTMENT NO SHOW Has ADDENDA Patient Name: DMITRIY KEN Patient SSN: [id number] Date and time of Appointment No show : 12/30/23 11:00 PATIENT PHONE - PHONE NUMBER [CELLULAR] - Patient's medical record was reviewed. Follow-up actions were determined and initiated: Please check/complete as applies: [X]Telephoned Directly [ ]Re-scheduled for next available appt [ ]Sent a N0-show letter ( must call for appointment) [ ]Other (Emergent/Overbook, etc.): Additional Comments: [place] did not connect to [facility] appt. PC to his daughter Fab, she forgot about the appt. Please NS this appt, call eriberto Sanon to r/s, , thank you. Future Clinic Visits 01/24/2024 13:00 SPOPC/MHC/PSYCHIATRY RESI 02/01/2024 09:30 CWM/SO/[facility]VC/PACT 5 04/27/2024 13:00 NHM/OPT/VISUAL IMAGING 04/27/2024 13:30 NHM/OPTOMETRY/DISLA/ /es/ ATIF Rosenbaum CORPORATE ANALYST Signed: 12/30/2023 11:22 Receipt Acknowledged By: 12/30/2023 12:12 /es/ ART GAGNON ADVANCED CINDER CRANE OPERATOR 12/30/2023 ADDENDUM STATUS: COMPLETED Appt marked NS and Letter Sent Maintenance Helper Utility Engineer attempted contact,misaelmarizoloralia on comm auth with provided phone number. unable to reach at this time, LVM to CB and RS missed MH appt [phone]. /es/ ART GAGNON ADVANCED CINDER CRANE OPERATOR Signed: 12/30/2023 12:13 02/16/2024 ADDENDUM STATUS: COMPLETED investment underwriter made 4th call attempt to [facility] RTC to be DC /es/ Tosha Root ADVANCED CINDER CRANE OPERATOR Signed: 02/16/2024 07:37 ALESSANDRO SHEPPARD
--- OUTSIDE RECORDS SUMMARY | 2024-09-25 08:03 | XMS_ITS | Continuity of Care Document ---
Author Name [facility] Organization [facility] Care Team Providers Care Licensed Guide Name Role Phone [facility] Unavailable Unavailable Problems Combined list of problems from Department of Defense and Veterans Affairs facilities. It does not include entries that were removed or entered in error. Problem Status Onset Date Problem Type Date of Resolution Comments Source Colonoscopy Active 01/05/20 09 Condition Apr 28, 2009 Entered By: CLIFTON VILLASENOR Comment: no lesions seen [facility] RECURRENT, SEVERE Active Condition [facility] ACCRETIONS ON TEETH Active Condition [facility] Adrenal mass Active Condition Jul 04, 2023 Entered By: SHADY ANDRADE Comment: CT A/P 05/2023 1.9 cm benign - left adrenal adenoma [place] [facility] AF - Atrial fibrillation Active Condition [place] [facility] Alcohol Abuse (ICD-9-CM 305.00) Active Condition [facility] Alcohol Dependence * (ICD-9-CM 303.90/303.91) Active Condition [facility] Anxiety disorder Active Condition [facility] Arthralgia Active Condition [place] Asthma (SNOMED CT 246332775) Active Condition [facility] Atherosclerosis of [place] coronary artery (SNOMED CT 329526764) Active Condition Feb 24, 2006 Entered By: JOSE ELIAS GASTON Comment: 35% EF, 07/11 [facility] Bilateral inguinal hernia, without mention of obstruction or gangrene (ICD-9-CM Active Condition [facility] Cannabis dependence, continuous Active Condition [facility] Cardiomyopathy Active Condition [facility] CHEST PAIN NOS Active Condition [facility] Chr Airway Obstruct (COPD) Active Condition [facility] CHRONC PERIODONTITIS NOS Active Condition [facility] Chronic post-traumatic stress disorder (SNOMED CT 790761841) Active Condition [facility] Cocaine dependence Active Condition [facility] Congestive heart failure due to left ventricular systolic dysfunction Active Condition [place] Counseling on Substance Use and Abuse (ICD-9-CM V65.42) Active Condition [facility] Depressive disorder (SNOMED CT 34990757) Active Condition [facility] Gastro-esophageal reflux disease (SNOMED CT 518951728) Active Condition [facility] Hernia, Inguinal (ICD-9-CM 550.90) Active Condition [facility] Hyperlipidaemia (SNOMED CT 64804734) Active Condition [facility] Long-term current use of anticoagulant Active Condition [facility] Low Back Pain Active Condition Feb Entered By: JOSE ELIAS GASTON Comment: old compression fx's of end plates of L1 and L2 [facility] Neurocognitive disorder Active Condition Apr 06, 2022 Entered By: LINWOOD DALTON Comment: Mild Neurocognitive Disorder Due to Possible Alzheimer's disNov 2021 Entered By: LINWOOD DALTON Comment: Some vascular changes; could have mixed typeNov 2021 Entered By: LINWOOD DALTON Comment: With behavioral changes (increased agitation, irritability) [facility] Open wound of fingers, without mention of complication (ICD-9-CM 883.0) Active Condition [facility] PE - Pulmonary embolism Active Condition [place] Residual foreign body in soft tissue Active Condition Feb 24, 2006 Entered By: JOSE ELIAS GASTON Comment: S/p shrapnel wound to L (minor) forearm in [place], w/o res [facility] Retinal defect (ICD-9-CM 361.30) Active Condition Nov 09 05 Entered By: MARIETTA SMITH OD Comment: foveal pigmentation left eye [facility] Substance induced mood disorder Active Condition [facility] UNSPECIFIED DENTAL CARIES Active Condition [facility] Vocational/educati onal problem (ICD-9-CM V62.2) Active Condition [facility] Diagnosis: ICD-10-CM Z79.631 half-way (current) use of antimetabolite agent Active Diagnosis [facility] Diagnosis: ICD-10-CM Z74.1 Need for assistance with personal care Active Diagnosis [facility] (631GE) Diagnosis: ICD-10-CM F43.12 Post-traumatic stress disorder, chronic Active Diagnosis [place] [facility] Diagnosis: ICD-10-CM Z71.89 Other specified counseling Active Diagnosis [place] [facility] Diagnosis: ICD-10-CM Z04.89 Encounter for examination and observation for oth reasons Active Diagnosis [facility] (631GE) Diagnosis: ICD-10-CM Z51.81 Encounter for therapeutic drug level monitoring Active Diagnosis [facility] Diagnosis: ICD-10-CM M25.50 Pain in unspecified joint Active Diagnosis [facility] Medications Combined list of outpatient medications from Department of Defense and Veterans Affairs facilities.Medications provided include 1) outpatient medications from the last 15 months, and 2) patient-reported medications. Medication Details Route Status Patient Instructions Prescription Expires Prescription Number Last Dispense Date Ordering Provider Order Date Order Qty Source APIXABAN 5MG TAB TAKE ONE TABLET BY MOUTH EVERY 12 HOURS ORAL DISCONT INUED BY PROVIDE R 06/09/2024 [id number] PACK,KEN N 2023 180 [facility] BISOPROLOL FUMARATE 5MG TAB TAKE ONE TABLET BY MOUTH ONCE DAILY ORAL ACTIVE 06/09/2024 [id number] 4 PACK,KEN N 2023 90 [place] CHOLECALCIF [place] 50MCG (2,000UNIT) TAB TAKE ONE TABLET BY MOUTH ONCE DAILY FOR VITAMIN SUPPLEME NTATION ORAL 06/27/2024 [id number] MONET VERDUZCO F 2023 100 [place] EMPAGLIFLOZ IN 10MG TAB TAKE ONE TABLET BY MOUTH EVERY MORNING ORAL 06/09/2024 [id number] 4 PACK,KEN N 2023 90 [place] FERROUS SO4 325MG TAB TAKE ONE TABLET BY MOUTH ONCE DAILY TO SUPPLEME NT IRON TAKE WITH FOOD ORAL 06/08/2024 [id number] 4 MONET VERDUZCO RMEN F 2023 90 [place] FLUTICASONE 250MCG/SALM ETEROL 50MCG INHL,ORAL,D ISKUS,60 INHALE 1 PUFF BY MOUTH TWICE DAILY FOR BRONCHOS PASM PREVENTI ON WITH COPD - RINSE MOUTH AFTER USE RESPIR ATORY (INHAL ATION) 07/20/2024 [id number] 4 SHADY SPEAR M 2023 1 [place] FOLIC ACID 1MG TAB TAKE ONE TABLET BY MOUTH ONCE DAILY VITAMIN/ NUTRITIO N SUPPLEME NT ORAL ACTIVE 04/19/2025 [id number] CELESTINA LEBRON M 2024 90 [place] FOLIC ACID 1MG TAB TAKE ONE TABLET BY MOUTH ONCE DAILY VITAMIN/ NUTRITIO N SUPPLEME NT ORAL DISCONT INUED 12/15/2024 [id number] 4 CELESTINA LEBRON M 2023 90 [facility] FUROSEMIDE 40MG TAB TAKE ONE TABLET BY MOUTH ONCE DAILY TO REMOVE FLUID/CO NTROL BLOOD PRESSURE ORAL ACTIVE 11/18/2024 [id number] 5 MUTLUÓSCAR N 2023 90 [place] METHOTREXAT E NA 2.5MG TAB TAKE SIX TABLETS BY MOUTH ONCE A WEEK ORAL 06/26/2024 [id number] CELESTINA LEBRON M 2023 72 [place] METHOTREXAT E NA 2.5MG TAB TAKE SIX TABLETS BY MOUTH ONCE A WEEK ORAL 02/09/2024 [id number] CELESTINA LEBRONED M 2023 48 [place] OMEPRAZOLE 20MG CAP,EC TAKE ONE CAPSULE BY MOUTH EVERY MORNING 30 MINUTES BEFORE BREAKFAS T FOR HEARTBUR N ORAL DISCONT INUED 06/28/2024 [id number] 4 LUBAMONET RMEN F 2023 30 [place] OMEPRAZOLE 20MG CAP,EC TAKE ONE CAPSULE BY MOUTH EVERY MORNING 30 MINUTES BEFORE BREAKFAS T FOR HEARTBUR N ORAL 07/20/2024 [id number] 4 SHADY SPEAR M 2023 30 [place] PREDNISONE 10MG TAB TAKE TWO TABLETS BY MOUTH ONCE DAILY FOR 14 DAYS, THEN TAKE ONE TABLET ONCE DAILY ORAL DISCONT INUED 12/22/2023 [id number] 4 BLANCONITINCELESTINA VALDESJANIYA M 2023 58 [place] PREDNISONE 5MG TAB TAKE TWO TABLETS BY MOUTH ONCE DAILY FOR 14 DAYS, THEN TAKE ONE TABLET ONCE DAILY FOR 14 DAYS THEN STOP ORAL DISCONT INUED 05/18/2024 [id number] 4 BLANCONITINCELESTINA VALDESJANIYA M 2023 42 [facility]ELD PREDNISONE 5MG TAB TAKE THREE TABLETS BY MOUTH ONCE DAILY FOR 14 DAYS, THEN TAKE TWO TABLETS ONCE DAILY FOR 7 DAYS ARTHRALG IA ORAL DISCONT INUED BY IBIS R 07/28/2023 [id number] 4 MONET VERDUZCO RMEN F 2023 56 [place] PREDNISONE 5MG TAB TAKE TWO TABLETS BY MOUTH ONCE DAILY FOR 2 WEEKS, THEN TAKE ONE TABLET ONCE DAILY FOR 2 WEEKS THEN STOP ORAL 01/14/2024 [id number] 4 BLANCONITINCELESTINA VALDESJANIYA M 2023 42 [place] PREDNISONE 5MG TAB TAKE ONE AND ONE-HALF TABLETS BY MOUTH ONCE DAILY FOR 1 MONTH, THEN TAKE ONE TABLET ONCE DAILY FOR 1 MONTH ORAL 09/18/2023 [id number] 4 SHADY SPEAR M 2023 75 [place] RISPERIDONE 1MG TAB TAKE ONE-HALF TABLET BY MOUTH AT BEDTIME FOR IRRITABI LITY ORAL ACTIVE 01/24/2025 [id number] KANIKA STEARNS 2023 45 [place] RISPERIDONE 1MG TAB TAKE ONE-HALF TABLET BY MOUTH AT BEDTIME FOR IRRITABI LITY ORAL DISCONT INUED 09/27/2024 [id number] YANE HOPE MAUDE 2023 45 [place] RISPERIDONE 1MG TAB TAKE ONE-HALF TABLET BY MOUTH AT BEDTIME FOR IRRITABI LITY ORAL DISCONT INUED (EDIT) 07/05/2024 [id number] 4 YANE HOPE MAUDE 2023 15 [place] RIVAROXABAN 15MG TAB TAKE ONE TABLET BY MOUTH ONCE DAILY TAKE WITH FOOD THIS REPLACES APIXABAN ORAL ACTIVE 11/03/2024 [id number] 4 MUTLU,ÓSCAR N 2023 30 [place] SACUBITRIL 49MG/VALSAR CORONEL 51MG TAB TAKE 1 TABLET BY MOUTH TWICE DAILY STOP LISINOPR IL 36 HOURS PRIOR TO STARTING ORAL 06/09/2024 [id number] 4 PACK,KEN N 2023 180 [place] SERTRALINE HCL 25MG TAB TAKE ONE-HALF TABLET BY MOUTH ONCE DAILY ORAL 08/04/2023 [id number] YANE HOPE MAUDE 2023 15 [place] SIMVASTATIN 80MG TAB TAKE ONE-HALF TABLET BY MOUTH AT BEDTIME FOR CHOLESTE ROL ORAL 06/08/2024 [id number] 4 MONET VERDUZCO RMEN F 2023 45 [facility] Immunizations Combined list of available immunizations from the Department of Defense and Veterans Affairs facilities. Immunization Series Date Given Administered By Site Reaction Lot Number CVX Code Drug Finished Cigar Maker Status Comments Source INFLUENZA, HIGH-DOSE, QUADRIVALENT 2023 NOEMI LAM RIGHT DELTO ID [id number] 197 complet ed [facility] INFLUENZA, INJECTABLE, QUADRIVALENT, PRESERVATIVE FREE 2022 NOEMI LAM LEFT DELTO ID [id number] 150 complet ed [facility]ELD ZOSTER RECOMBINANT 2 2021 187 complet ed [facility] COVID-19 (MODERNA), MRNA, LNP-S, PF, 100 MCG OR 50 MCG DOSE 3 2021 207 complet ed MOD; [id number]; 2 [facility] INFLUENZA VACCINE, QUADRIVALENT, ADJUVANTED 2020 205 complet ed [facility] ZOSTER RECOMBINANT 1 2020 187 complet ed [facility] COVID-19 (PFIZER), MRNA, LNP-S, PF, 30 MCG/0.3 ML DOSE 2 2020 208 complet ed PFR; [id number]; 1 [facility] COVID-19 (PFIZER), MRNA, LNP-S, PF, 30 MCG/0.3 ML DOSE 1 2020 208 complet ed PFR; [id number]; 1 [facility] INFLUENZA, INJECTABLE, QUADRIVALENT, PRESERVATIVE FREE 2018 150 complet ed Site: Left Deltoid [place] INFLUENZA, INJECTABLE, QUADRIVALENT 2017 158 complet ed Site: Left Deltoid [place] PNEUMOCOCCAL POLYSACCHARID E PPV23 2017 33 complet ed [place] INFLUENZA, SEASONAL, INJECTABLE 2017 141 complet ed Site: Left Deltoid [facility] FLU,3 YRS (HISTORICAL) 2016 88 complet ed Site: Left Deltoid [place] PNEUMOCOCCAL CONJUGATE PCV 13 2014 133 complet ed [place] ZOSTER (HISTORICAL) 2014 121 complet ed [place] FLU,3 YRS (HISTORICAL) 2013 88 complet ed [place] FLU,3 YRS (HISTORICAL) 2012 88 complet ed [facility] FLU,3 YRS (HISTORICAL) 2011 88 complet ed Site: Left Deltoid [place] FLU,3 YRS (HISTORICAL) 2010 88 complet ed Site: Left Deltoid [place] FLU,3 YRS (HISTORICAL) 2009 88 complet ed Site: Right Deltoid [place] NOVEL INFLUENZA-H1N 1-09, ALL FORMULATIONS 2009 128 complet ed [employer] [place] FLU,3 YRS (HISTORICAL) 2008 88 complet ed Site: Right Deltoid [place] FLU,3 YRS (HISTORICAL) 2007 88 complet ed Site: Left Deltoid [facility] TDAP 2007 115 complet ed IM Right Deltoid [facility] FLU,3 YRS (HISTORICAL) 2006 88 complet ed Site: Right Deltoid [facility] FLU,3 YRS (HISTORICAL) 2005 SACHA SANCHEZ 88 comple t ed [facility] PNEUMOCOCCAL, UNSPECIFIED FORMULATION 2004 109 complet ed [facility] Results Combined list of recent chemistry, hematology and other laboratory results from Department of Defense and Veterans Affairs, ranging from 15 months to all on record, depending upon the facility. Order Name Results Value Reference Range Date Interpretation Specimen Comments Source HLA-B27 (QU) HLA-B27 [[place]ENCE] Negative 06/08 Specimen Type: BLOOD Comment: [facility], [facility], [address] [place] [address] Yaya Marley M.D., Ph.D., Director of Laboratorie s , CLIA [id number] TEST PERFORMED AT: , Ordering Provider: CLARISSE VERDUZCO Report Released Date/Time: Jun 08, 2023 01:57 PM Reporting Lab: [facility] [place] [facility] [address] [facility] [address] Performing Lab: [facility] [place] [facility] [address] [facility], [address] [place] [address] [facility] VITAMIN D 25-OH (Therapy monitor) 25-HYDROXY VITAMIN D3 [MASS/VOLU ME] IN SERUM OR PLASMA 20 ng/mL 30 - 100 06/08 L Specimen Type: SERUM Comment: Vitamin D, 25-Hydroxy reports concentrati ons of two common forms, 25-OHD2 and 25-OHD3. 25-OHD3 indicates both endogenous production and supplementa tion. 25-OHD2 is an indicator of exogenous sources such as diet or supplementa tion. Therapy is based on measurement of Total 25-OHD, with levels <20 ng/mL indicative of Vitamin D deficiency, while levels between 20 ng/mL and 30 ng/mL suggest insufficien cy. Optimal levels are > or = 30 ng/mL. For additional information , please refer to http://educ ation.Te[employer] .mechatronic systemtechnik/faq/FA Q172 (This link is being provided for information al/ educational purposes only.) This test was developed and its analytical performance characteris tics have been determined by [facility] [place], [place]. It has not been cleared or approved by the U.S. Food and Drug Administrat ion. This assay has been validated pursuant to the CLIA regulations and is used for clinical purposes. This test was developed and its analytical performance characteris tics have been determined by [facility] [place]. It has not been cleared or approved by the U.S. Food and Drug Administrat ion. This assay has been validated pursuant to the CLIA regulations and is used for clinical purposes. Test Performed by [facility], [facility], [address] [place] [address] Yaya Marley M.D., Ph.D., Director of Laboratorie s , CLIA [id number] TEST PERFORMED AT: , Ordering Provider: CLARISSE VERDUZCO Report Released Date/Time: Jun 08, 2023 01:57 PM Reporting Lab: [facility] [address] [facility] [facility] [address] Performing Lab: [facility] [address] [address] [facility] VITAMIN D 25-OH (Therapy monitor) 25-HYDROXY VITAMIN D3 [MASS/VOLU ME] IN SERUM OR PLASMA 20 ng/mL 06/08 Specimen Type: SERUM Comment: Vitamin D, 25-Hydroxy reports concentrati ons of two common forms, 25-OHD2 and 25-OHD3. 25-OHD3 indicates both endogenous production and supplementa tion. 25-OHD2 is an indicator of exogenous sources such as diet or supplementa tion. Therapy is based on measurement of Total 25-OHD, with levels <20 ng/mL indicative of Vitamin D deficiency, while levels between 20 ng/mL and 30 ng/mL suggest insufficien cy. Optimal levels are > or = 30 ng/mL. For additional information , please refer to http://educ ation.[employer]/faq/FA Q199 (This link is being provided for information al/ educational purposes only.) This test was developed and its analytical performance characteris tics have been determined by [facility] [place]. It has not been cleared or approved by the U.S. Food and Drug Administrat ion. This assay has been validated pursuant to the CLIA regulations and is used for clinical purposes. This test was developed and its analytical performance characteris tics have been determined by [facility] [place]. It has not been cleared or approved by the U.S. Food and Drug Administrat ion. This assay has been validated pursuant to the CLIA regulations and is used for clinical purposes. Test Performed by [facility], [employer] [facility] [employer] [facility], [address] [place] [address] Yaya Marley M.D., Ph.D., Director of Laboratorie s , CLIA [id number] TEST PERFORMED AT: , Ordering Provider: CLARISSE VERDUZCO Report Released Date/Time: Jun 08, 2023 01:57 PM Reporting Lab: [facility] [address] [facility] [address] Performing Lab: [facility] [address] [address] [facility] VITAMIN D 25-OH (Therapy monitor) CALCIFEROL (VIT D2) [MASS/VOLU ME] IN SERUM OR PLASMA <4ng/mL 06/08 Specimen Type: SERUM Comment: Vitamin D, 25-Hydroxy reports concentrati ons of two common forms, 25-OHD2 and 25-OHD3. 25-OHD3 indicates both endogenous production and supplementa tion. 25-OHD2 is an indicator of exogenous sources such as diet or supplementa tion. Therapy is based on measurement of Total 25-OHD, with levels <20 ng/mL indicative of Vitamin D deficiency, while levels between 20 ng/mL and 30 ng/mL suggest insufficien cy. Optimal levels are > or = 30 ng/mL. For additional information , please refer to http://educ ation.Teach Me To Be .com/faq/FA Q199 (This link is being provided for information al/ educational purposes only.) This test was developed and its analytical performance characteris tics have been determined by [facility] [place]. It has not been cleared or approved by the U.S. Food and Drug Administrat ion. This assay has been validated pursuant to the CLIA regulations and is used for clinical purposes. This test was developed and its analytical performance characteris tics have been determined by [facility] [place]. It has not been cleared or approved by the U.S. Food and Drug Administrat ion. This assay has been validated pursuant to the CLIA regulations and is used for clinical purposes. Test Performed by [facility], [employer] [facility], [address] [place] [address] Yaya Marley M.D., Ph.D., Director of Laboratorie s , CLIA [id number] TEST PERFORMED AT: , Ordering Provider: CLARISSE VERDUZCO Report Released Date/Time: Jun 08, 2023 01:57 PM Reporting Lab: [address] [address] Performing Lab: [facility] [address] [address] [place] RENEE SCREEN/T ITER NUCLEAR AB [PRESENCE] IN SERUM NEG 06/08 Specimen Type: SERUM No comment entered. Ordering Provider: CLARISSE VERDUZCO Report Released Date/Time: Jun 08, 2023 01:57 PM Reporting Lab: [facility] [address] [facility] [address] Performing Lab: [facility] [address] [facility] [address] [place] C REACTIVE PROTEIN (CRPH) C REACTIVE PROTEIN [MASS/VOLU ME] IN SERUM OR PLASMA BY HIGH SENSITIVIT Y METHOD 48.72 mg/L 06/08 Specimen Type: SERUM Comment: Reference range changed on 11/24/10 [facility] reference ranges for ages >17 years: hsCRP in mg/L Risk According to AHA/CDC Guidelines <1.0 Lower relative cardiovascu lar risk. 1.0-3.0 Average cardiovascu lar risk. 3.1-10.0 Higher cardiovascu lar risk. Consider retesting in two weeks to exclude a benign transient elevation in the baseline CRP value secondary to infection or inflammatio n. >10.0 Persistent elevation, upon retesting, may be associated with infection and inflammatio n. Ordering Provider: CLARISSE VERDUZCO Report Released Date/Time: Jun 08, 2023 01:57 PM Reporting Lab: [facility] [address] [facility] [address] Performing Lab: [facility] [address] [facility] [address] [facility] RHEUMATO ID FACTOR RHEUMATOID FACTOR [UNITS/VOL UME] IN SERUM BY NEPHELOMET RY <15 0 - 15 06/08 Specimen Type: SERUM No comment entered. Ordering Provider: CLARISSE VERDUZCO Report Released Date/Time: Jun 08, 2023 01:57 PM Reporting Lab: [facility] [address] [facility] [address] Performing Lab: [facility] [address] [facility] [address] [facility] ANTI-CCP CYCLIC [place] MUNA PEPTIDE IGG AB [UNITS/VOL UME] IN SERUM OR PLASMA Negative 06/08 Specimen Type: PLASMA Comment: Anti-cyclic citrullinat ed peptide (anti-CCP), IgG antibodies are present in about 69-83% of patients with Rheumatoid Arthritis (RA) and have specificiti es of 93-95%. These autoantibod ies may be present in the preclinical phase of disease, are associated with future RA development , and may predict radiographi c joint destruction . Ordering Provider: CLARISSE VERDUZCO Report Released Date/Time: Jun 08, 2023 01:57 PM Reporting Lab: [facility] [address] [facility] [address] Performing Lab: [facility] [address] [address] [place] SED RATE, AUTOMATE D ERYTHROCYT E SEDIMENTAT ION RATE BY WESTERGREN METHOD 3 mm/h 0 - 20 06/08 Specimen Type: BLOOD No comment entered. Ordering Provider: CLARISSE VERDUZCO Report Released Date/Time: Jun 08, 2023 01:57 PM Reporting Lab: [facility] [address] [facility] [address] Performing Lab: [address] [address] [place] VITAMIN B12 COBALAMIN (VITAMIN B12) [MASS/VOLU ME] IN SERUM OR PLASMA 396 pg/mL 200 - 900 06/08 Specimen Type: SERUM No comment entered. Ordering Provider: CLARISSE VERDUZCO Report Released Date/Time: Jun 08, 2023 01:57 PM Reporting Lab: [facility] [address] [facility] [address] Performing Lab: [facility] [address] [address] [place] TSH THYROTROPI N [UNITS/VOL UME] IN SERUM OR PLASMA 0.95 u[IU]/mL 0.35 - 5.00 12/14 Specimen Type: SERUM No comment entered. Ordering Provider: COURTNEY GONZALEZ Report Released Date/Time: Jul 15, 2022 01:57 PM Reporting Lab: [facility] [address] [facility] [address] Performing Lab: [address] [address] [place] LIPID PANEL FASTING CHOLESTERO L [MASS/VOLU ME] IN SERUM OR PLASMA 137 mg/dL 12/14 Specimen Type: SERUM No comment entered. Ordering Provider: COURTNEY GONZALEZ Report Released Date/Time: Jul 15, 2022 01:57 PM Reporting Lab: [facility] [address] [facility] [address] Performing Lab: [facility] [address] [address] [place] LIPID PANEL FASTING TRIGLYCERI DE [MASS/VOLU ME] IN SERUM OR PLASMA 43 mg/dL 0 - 150 12/14 Specimen Type: SERUM No comment entered. Ordering Provider: COURTNEY GONZALEZ Report Released Date/Time: Jul 15, 2022 01:57 PM Reporting Lab: [facility] [address] [address] Performing Lab: [facility] [address] [address] [place] LIPID PANEL FASTING CHOLESTERO L IN LDL [MASS/VOLU ME] IN SERUM OR PLASMA BY CALCULAMIGUELINAO N 78 mg/dL 0 - 129 12/14 Specimen Type: SERUM No comment entered. Ordering Provider: COURTNEY GONZALEZ Report Released Date/Time: Jul 15, 2022 01:57 PM Reporting Lab: [facility] [address] [address] Performing Lab: [address] [address] [place] LIPID PANEL FASTING CHOLESTERO L.TOTAL/CH OLESTEROL IN HDL [MASS RATIO] IN SERUM OR PLASMA 2.7 12/14 Specimen Type: SERUM No comment entered. Ordering Provider: COURTNEY GONZALEZ Report Released Date/Time: Jul 15, 2022 01:57 PM Reporting Lab: [facility] [address] [address] Performing [facility]: [facility] [address] [address] [place] LIPID PANEL FASTING CHOLESTERO L IN HDL [MASS/VOLU ME] IN SERUM OR PLASMA 50 mg/dL 40 - 60 12/14 Specimen Type: SERUM No comment entered. Ordering Provider: COURTNEY GONZALEZ Report Released Date/Time: Jul 15, 2022 01:57 PM Reporting Lab: [facility] [address] [facility] [id number] Performing Lab: [facility] [address] [facility] [address] [facility] Encounters Combined list of: 1) Encounters from Department of Veterans Affairs facilities going backup to the last 18 months, not all VA inpatient encounters are included; 2) Encounters from the Department of Defense facilities going backup to 280 months. Location Location Details Encounter Type Encounter Number Reason For Visit Attending Provider ADM Date DC Date Status Disposition Source [facility] Outpatient Encounter [id number] 04/14 [facility] Outpatient Encounter [id number] 04/29 [facility] Outpatient Encounter [id number] 05/10 [facility] Outpatient Encounter [id number] 05/11 [facility] Outpatient Encounter [id number] 05/12 [facility] Outpatient Encounter [id number] 05/16 [facility] Outpatient Encounter [id number] 05/17 [facility] Outpatient Encounter [id number] 06/02 [facility] Outpatient Encounter [id number] 06/08 [facility] [place] O/P EST LOW 20 MIN [id number] Diagnos is: ICD-10- CM M25.50 Pain in unspeci fied joint REGINALD VERDUZCO F 06/08 [place] [facility] Outpatient Encounter [id number] 06/10 [facility] Outpatient Encounter [id number] 06/28 [facility] Outpatient Encounter [id number] 06/28 [facility] [place] O/[place] HI 40 MIN [id number] Diagnos is: ICD-10- CM F43.12 Post-tr aumatic stress disorde r, chronic [place] [facility] Outpatient Encounter [id number] 07/05 [facility] Outpatient Encounter [id number] 07/05 [facility] [place] Outpatient Encounter [id number] 07/13 [place] [facility] Outpatient Encounter [id number] 07/20 [facility] [place] O/P EST HI 40 MIN [id number] Diagnos is: ICD-10- CM M25.50 Pain in unspeci fied joint JAZMYNE MARTINEZ 07/20 [facility] Out[facility] Encounter [id number] 07/21 [facility] Outpatient Encounter [id number] 07/28 [facility] Outpatient Encounter [id number] 08/07 [facility] [place] Outpatient Encounter [id number] 08/22 [facility] OFFICE O/P EST MOD 30 MIN [id number] Diagnos is: ICD-10- CM M25.50 Pain in unspeci fied joint JAZMYNE MARTINEZ 08/30 [facility] [place] [facility] Outpatient Encounter [id number] 08/30 [facility] [place] OFF/OP EST OCTOBER X REQ PHY/QHP [id number] Diagnos is: ICD-10- CM 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 IGOR Jeffery O 09/01 [facility] IE [facility] Outpatient Encounter [id number] 09/01 [facility] Outpatient Encounter [id number] 09/19 [facility] Outpatient Encounter [id number] 09/20 [facility] [place] Outpatient Encounter [id number] 09/22 [facility] OFFICE O/P EST LOW 20 MIN [id number] Diagnos is: ICD-10- CM F43.12 Post-tr aumatic stress disorde r, chronic LARROW,RL AN 09[facility]-30 MIN [id number] Diagnos is: ICD-10- CM 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 ing IGOR SHEPPARD O 10/06 [facility] Outpatient Encounter [id number] 10/26 [facility] Outpatient Encounter [id number] 10/27 [facility] Outpatient Encounter [id number] 10/27 [facility] Outpatient Encounter [id number] 11/02 [facility] OFF/OP EST OCTOBER X REQ PHY/QHP [id number] Diagnos is: ICD-10- CM 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 IGOR Jeffery 12/01 [facility] Out[facility] Encounter [id number] 12/04 [facility] Outpatient Encounter [id number] 12/13 [facility] Outpatient Encounter [id number] 12/18 [facility] Outpatient Encounter [id number] 12/26 [facility] Outpatient Encounter [id number] 12/29 [facility] OFFICE O/P EST MOD 30 MIN [id number] Diagnos is: ICD-10- CM F43.12 Post-tr aumatic stress disorde r, chronic LARROW,RL AN 01/23 [facility] Encounter [id number] 1.04/09 [facility] Out[facility] Encounter [id number] 1.04/23 [facility] Encounter [id number] 1.04/23 [facility] OFFICE O/P EST MOD 30 MIN [id number] Diagnos is: ICD-10- CM F43.12 Post-tr aumatic stress disorde r, chronic ST LONA RIGGINS G 04/24 [place] [facility] Outpatient Encounter [id number] 04/25 [place] [facility] Outpatient Encounter [id number] 05/01 [facility] [place] [place] [facility] (631GE) PRO PHONE CALL 21-30 MIN [id number] Diagnos is: ICD-10- CM Z74.1 Need for assista nce with persona l [place] Leyva 05/08 [facility] (631GE) [facility] Outpatient Encounter [id number] 07/08 [facility] NQHP OL DIG ASSMT&MGMT 5-10 [id number] Diagnos is: ICD-10- CM 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 Social History Type Response Date Comment Source Tobacco smoking status [facility] VA-TOBACCO FORMER USER 06/08/2023 [place] History of tobacco use MA-TOBACCO QUIT 15 YRS OR MORE 06/08/2023 [place] History of tobacco use [facility]-TOBACCO FOR[facility] of tobacco use MA-TOBACCO FORMER USER 03/11/2021 [place] History of tobacco use MA-TOBACCO FORMER USER 02/14/2018 [place] History of tobacco use QUIT TOBACCO USE > 7 YEARS AGO 03/03/2017 reports quitting 40 years ago [place] History of tobacco use QUIT TOBACCO USE > 7 YEARS AGO 12/05/2015 quit 30 years ago smoked 10 years less than a pack a day [place] History of tobacco use HISTORY OF SMOKING 09/07/2004 QUIT 12 YEARS AGO [facility] History of tobacco use QUIT TOBACCO USE > 7 YEARS AGO 05/15/2004 [facility] History of tobacco use QUIT TOBACCO USE > 7 YEARS AGO 10/11/2003 Quit smoking 10 yrs ago. GILMER OBANDO [facility] History of tobacco use QUIT TOBACCO USE > 7 YEARS AGO 09/02/2003 [facility] Advance Directives List of completed, amended, or rescinded Advance Directives on record at Department of [facility] Affairs facilities. An actual copy of the Directive is not included. Date Advance Directive Provider Source 10/21/2003 ADVANCE DIRECTIVE RYLAND TOMPKINS [facility]
--- OUTSIDE RECORDS SUMMARY | 2024-09-25 08:03 | XMS_ITS | Encounter Summary ---
Author Name [facility] [place] Address [address] [place] [address] Care Team Providers Care Client Architect Name Role Phone SHADY MANCILLA Primary Care [...] PART B Jan 04, 2014 PART B [id number] [phone] STROMY KEN PATIENT MEDICARE (WNR) MEDICARE (M) PART B Jan 04, 2014 PART B [id number] STORMY KEN PATIENT MEDICARE (WNR) MEDICARE (M) PART A Jun 06, 2006 PART A [id number] STORMY KEN PATIENT MEDICARE (WNR) MEDICARE (M) PART A Jun 06, 2006 PART A [id number] [phone] STORMY KEN PATIENT MEDICARE (WNR) MEDICARE (M) PART A Jun 06, 2006 PART A [id number] [phone] JESUS MANUEL,BRU CE PATIENT MEDICARE (WNR) MEDICARE (M) PART A Jun 06, 2006 PART A [id number] JESUS MANUEL,BRU CE PATIENT MEDICARE (WNR) MEDICARE (M) PART A Jun 06, 2006 PART A [id number] [phone] JESUS MANUEL,BRU CE PATIENT MEDICARE (WNR) MEDICARE (M) PART A Jun 06, 2006 PART A [id number] JESUS MANUEL,BRU CE PATIENT Selected Encounter This section includes the information on record at [place] for the Encounter. Date/Time Encounter Type Encounter Description Reason Pro vider Source IHE Encounter Template Text not used by [place] Advance Directives: All historical and current Section [...] October 21, 2003 ADVANCE DIRECTIVE RYLAND TOMPKINS [facility]
--- OUTSIDE RECORDS SUMMARY | 2024-09-25 08:03 | XMS_ITS ---
Author Name [facility] [place] Address [address] [place] [address] Care Team Providers Care Talend Etl Developer Name Role Phone SHADY MANCILLA Primary Care [...] PART B Jan 04, 2014 PART B [id number] [phone] STORMY KEN PATIENT MEDICARE (WNR) MEDICARE (M) PART B Jan 04, 2014 PART B [id number] STORMY KEN PATIENT MEDICARE (WNR) MEDICARE (M) PART A Jun 06, 2006 PART A [id number] STORMY KEN PATIENT MEDICARE (WNR) MEDICARE (M) PART A Jun 06, 2006 PART A [id number] JESUS MANUELSTORMY KELLEY CE PATIENT MEDICARE (WNR) MEDICARE (M) PART A Jun 06, 2006 PART A [id number] JESUS MANUEL,STORMY CE PATIENT MEDICARE (WNR) MEDICARE (M) PART A Jun 06, 2006 PART A [id number] JESUS MANUEL,BRU CE PATIENT MEDICARE (WNR) MEDICARE (M) PART A Jun 06, 2006 PART A [id number] JESUS MANUEL,BRU CE PATIENT MEDICARE (WNR) MEDICARE (M) PART A Jun 06, 2006 PART A [id number] JESUS MANUEL,STORMY CE PATIENT Selected Encounter This section includes the information on record at [place] for the Encounter. Date/Time Encounter Type Encounter Description Reason Provider Source Nov 10, 2023 12:21 PM QNHP OL DIG ASSMT&MGMT 5-10 CLINICAL PHARMACY ICD-10-CM Z04.89 Encounter for examination and observation for oth reasons MOHINDER BARBER Princess Encounter Template Text not used by [place] Assessments - Encounter Diagnoses This section includes the primary and secondary diagnoses documented for the Encounter. Date/Time Primary/Secondary Diagnosis Diagnosis Name Provider Source Nov 10, 2023 12:25 PM PRIMARY Encounter for examination and observation for oth reasons MOHINDER BARBER [facility] (631GE) Plan of Treatment: Future Appointments (+ [...] 14, 2023 11:30 AM AMBULATORY - MEDICINE [facility] Dec 30, 2023 11:00 AM AMBULATORY - PSYCHIATRY [facility] Jan 24, 2024 01:00 PM AMBULATORY - PSYCHIATRY [facility] Apr 24, 2024 01:30 PM AMBULATORY - PSYCHIATRY [facility] Active, Pending, and Scheduled Orders This section includes a listing of several types of active, pending, and scheduled orders, including clinic medications orders, diagnostic test orders, procedure orders and consult orders; where the start date of the order is 45 days before the date of the Encounter or 45 days after the date of theEncounter. The data comes from all [place] treatment facilities. Test Date/Time Test Type Test Details Facility Name Nov 30, 2023 12:00 AM Laboratory - Chemi stry Order OCCULT BLOOD FIT X1 SCREEN(IN-HOUSE) [facility] Nov 30, 2023 12:00 AM Laboratory - Chemi stry Order LIPID PANEL FASTING BLOOD (SST-SERUM) [facility] 26, 2024 12:00 AM Laboratory - Chemi stry Order BASIC METABOLIC PANEL (fasting) BLOOD (SST-SERUM) [facility] 26, 2024 12:00 AM Laboratory - Chemi stry Order HEMOGLOBIN A1C PANEL BLOOD (LAV-BLOOD) [facility] 26, 2024 12:00 AM Laboratory - Chemi stry Order CBC AND DIFF (AUTO) BLOOD (LAV-BLOOD) [facility] 26, 2024 12:00 AM Laboratory - Chemi stry Order LIVER FUNCTION BLOOD (SST-SERUM) [facility] 26, 2024 12:00 AM Laboratory - Chemi stry Order TSH BLOOD (SST-SERUM) [facility] 26, 2024 12:00 AM Laboratory - Chemi stry Order SED RATE, AUTOMATED BLOOD (LAV-BLOOD) [facility] Advance Directives: All historical and current [...] ADVANCE DIRECTIVE RYLAND TOMPKINS [facility] Encounter Notes: All associated encounter notes This section contains the clinical notes associated to the Encounter. Date/Time Encounter Note(s) Provider Source Nov 10, 2023 12:22 PM PHARMACY MEDICATIO N MGT NOTE: LOCAL TITLE: PHARMACY ANTICOAGULATION NOTE STANDARD TITLE: PHARMACY MEDICATION MGT NOTE DATE OF NOTE: NOV 10, 2023@12:22 ENTRY DATE: NOV 10, 2023@12:22:09 AUTHOR: USTA,RIZA EXP COSIGNER: URGENCY: STATUS: COMPLETED ANTICOAGULATION DOAC MONITORING [...] Patient education via phone/letter [ ] Schedule phone/myad-ez-iwfo follow up [ ] Lab ordered [ ] Discontinue interacting medication [ ] Discontinue DOAC [ ] Change to alternative DOAC [ ] Change DOAC dose [ ] Notify PCP [ ] Consult cardiology/hematology [ ] Other: Time spent: 10 mins /maddie/ Mohinder Barber, PharmD, BCACP Clinical Professor Of Exercise Science Signed: 11/10/2023 12:25 MOHINDER BARBER [facility] (631GE)
--- OUTSIDE RECORDS SUMMARY | 2024-09-25 08:03 | XMS_ITS | Encounter Summary ---
Author Name [facility] [place] Address [address] [place] [address] Care Team Providers Care Patient Care Secretary Name Role Phone SHADY MANCILLA Primary Care [...] PART B Jan 04, 2014 PART B [id number] [id number] STORMY KEN PATIENT MEDICARE (WNR) MEDICARE (M) PART B Jan 04, 2014 PART B [id number] [phone] STORMY KEN PATIENT MEDICARE (WNR) MEDICARE () PART A Jun 06, 2006 PART A [id number] [id number] STORMY KEN PATIENT MEDICARE (WNR) MEDICARE (M) PART A Jun 06, 2006 PART A [id number] STORMY KEN PATIENT MEDICARE (WNR) MEDICARE (M) PART A Jun 06, 2006 PART A [id number] JESUS MANUELSTORMY KELLEY PATIENT MEDICARE (WNR) MEDICARE (M) PART A Jun 06, 2006 PART A [id number] JESUS MNAUELSTORMY KELLEY CE PATIENT MEDICARE (WNR) MEDICARE (M) PART A Jun 06, 2006 PART A [id number] [id number] JESUS MANUELSTORYM KELLEY CE PATIENT MEDICARE (WNR) MEDICARE (M) PART A Jun 06, 2006 PART A [id number] [phone] JESUS MANUELSTORMY KELLEY PATIENT Selected Encounter [...] activities for the patient from all [place] [facility] This section includes future appointments and future orders which are active, pending or scheduled. Future Appointments This section includes appointments that were scheduled to occur 6 months from the date of the Encounter, up to a maximum of 20 appointments. The data comes from all [facility] facilities. Appointment Date/Time Appointment Type Appointme nt Facility Name Jun 18, 2024 08:00 AM AMBULATORY - MEDICINE [facility] Aug 30, 2024 09:45 AM AMBULATORY MEDICINE [facility] Active, Pending, and Scheduled Orders This section includes a listing of several types of active, pending, and scheduled orders, including clinic medications orders, diagnostic test orders, procedure orders and consult orders; where the start date of the order is 45 days before the date of the Encounter or 45 days after the date of theEncounter. The data comes from all [facility] facilities. Test Date/Time Test Type Test Details Facility Name Mar 27, 2024 12:00 AM Laboratory - Chemi stry Order OCCULT BLOOD FIT X1 SCREEN (MFP ONLY) [facility] Apr 24, 2024 12:00 AM Laboratory - [...] 08, 2023 01:00 PM VA-TOBACCO FORMER USER [facility] Tobacco Use History This section includes a history of the smoking, or tobacco-related health factors, that were collected on or before the date of the Encounter. The data comes from the [place] facility where the Encounter took place. Date/Time Smoking Status/Tobacco Use Comment F acility Jun 08, 2023 01:00 PM VA-TOBACCO QUIT 15 YRS OR MORE [facility] Mar 11, 2021 01:00 PM VA-TOBACCO FORMER USER [facility] Mar 11, 2021 01:00 PM VA-TOBACCO QUIT 15 YRS OR MORE [facility] Feb 14, 2018 09:07 AM VA-TOBACCO FORMER USER [facility] Feb 14, 2018 09:07 AM VA-TOBACCO QUIT 15 YRS OR MORE [facility] Mar 03, 2017 10:30 AM QUIT TOBACCO USE > 7 YEARS AGO reports quitting 40 years ago [facility] Dec 05, 2015 09:20 AM QUIT TOBACCO USE > 7 YEARS AGO quit 30 years ago smoked 10 years less than a pack a day [facility] Advance Directives: All historical and current Section Date Range: From patient's date of to the date document was created. This section includes ALL of a patient's completed or amended [place] Advance and Rescinded Directives. The entries below indicate that a directive exists for the patient, but an actual copy is not included with this document. The data comes from all [facility]. Date Advance Directives Provider Source October 21, 2003 ADVANCE DIRECTIVE RYLAND TOMPKINS [facility] Encounter Notes: All associated encounter notes This section contains the clinical notes associated to the Encounter. Date/Time Encounter Note(s) Provider Source Apr 19, 2024 09:04 AM ADMINISTRATIVE NOT E: LOCAL TITLE: ADMINISTRATIVE NOTE STANDARD TITLE: ADMINISTRATIVE NOTE DATE OF NOTE: APR 19, 2024@09:04 ENTRY DATE: APR 19, 2024@09:04:34 AUTHOR: PANCHO SMITH EXP COSIGNER: URGENCY: STATUS: COMPLETED [facility] [address] [place] [phone] * [phone] * DMITRIY BEE KEN [address], [place] [address] Date: APR 19, 2024 re: This is a reminder of your upcoming PCP appt with SHADY MANCILLA. Appointment Date: Apr@12:30 Appointment Type: [facility] video connect Fasting blood work NON fasting blood work CONMFIRMED VVC WITH THE Sincerely, Office Staff for: SHADY MANCILLA Primary Care Provider [facility] [address] [place] [address] [phone] T [phone] F [phone] Upcoming Appointments: 04/24/2024 13:30 SPOPC/MHC/PSYCHIATRY RESI 04/25/2024 12:30 CWM/SO/VVC/PACT 5 04/27/2024 13:00 NHM/OPT/VISUAL IMAGING 04/27/2024 13:30 NHM/OPTOMETRY/DISLA/ 05/01/2024 12:45 [facility] CARE-CARDIOLOGY APPOINTMENT [facility] [place] (SPOPC OR SO = [address]) (GOPC OR GO = [address]) (NHM or NO = [facility]) (VVC - Video Call) (Tel-X Telephone Visit) ( - Telehealth) /es/ PANCHO GARZA Signed: 04/19/2024 09:05 PANCHO [place]FIELD
--- OUTSIDE RECORDS SUMMARY | 2024-09-25 08:03 | XMS_ITS | Clinical Summary ---
Author Organization [facility] Address [address] [place], [place] [id number] Care Team Providers Care Dump Truck Driver Name Role Phone Pcp, No Primary Care Provider Unavailabl e Allergies No known active allergies Medications risperiDONE (RisperDAL) 0.5 MG tablet Take 0.5 mg by mouth 2 (two) times a day. Active empagliflozin (JARDIANCE) 10 MG tablet Take 10 mg by mouth every morning. Active BISOPROLOL FUMARATE PO Take 5 mg by mouth. Active metoPROLOL SUCCINATE (TOPROL-XL) 25 MG 24 hr tablet Take 25 mg by mouth daily. Active simvastatin (ZOCOR) 80 MG tablet Take 80 mg by mouth nightly. Active albuterol (PROVENTIL HFA; VENTOLIN HFA) 108 (90 Base) MCG/ACT inhaler Inhale 2 puffs 4 times daily (every 6 hours) as needed for wheezing. Active apixaban (ELIQUIS) 5 MG tablet Take 5 mg by mouth 2 (two) times a day. Active UNABLE TO FIND cachubitril Act adriane sacubitril-vals neena (ENTRESTO) 49-51 mg per tablet Take 1 tablet by mouth 2 (two) times a day. Active naproxen (NAPROSYN) 500 MG tabletIndicatio ns:Polyarthralg ia Take 1 tablet (500 mg total) by mouth 2 (two) times a day with meals. Take with meals or food to reduce stomach upset. 20 tablet 3 Active methocarbamol (ROBAXIN) 750 MG tabletIndicatio ns:Polyarthralg ia Take 1 tablet (750 mg total) by mouth 4 (four) times a day. 20 tablet 3 Active Active Problems No known active problems Social History Tobacco Use Types Packs/Day Years Used Date Smoking Tobacco: Former Cigarettes Smokeless Tobacco: Never Tobacco Cessation:Counseling Given: Not Answered Alcohol Use Standard Drinks/Week Comments Not Currently 0 (1 standard drink = 0.6 oz pur e alcohol) Sex and Gender Information Value Date Recorded Sex Assigned at Not on file Legal Sex Male 10:47 AM EST Gender Identity Not on file Sexual Orientation Not on file Last Filed Vital Signs Vital Sign Reading Time Taken Comments Blood Pressure 107/62 05/31/2023 11:27 AM EST Pulse 80 05/31/2023 11:27 AM EST Temperature 37 ??C (98.6 ??F) 05/31/2023 11:27 AM EST Respiratory Rate 16 05/31/2023 11:27 AM EST Oxygen Saturation 96% 05/31/2023 11:27 AM EST Inhaled Oxygen Concentration - - Weight 59 kg (130 lb) 05/31/2023 11:27 AM EST Height 152.4 cm (5') 05/31/2023 11:27 AM EST Body Mass Index 25.39 05/31/2023 11:27 AM EST Plan of Treatment Health Maintenance Due Date Last Done Comments Hepatitis C Virus Screening 1950 DTaP/Tdap/Td Vaccines (1 - Tdap) 01/12/1968 Colonoscopy 1994 Pneumococcal Vaccines 50+ (1 of 1 - PCV) 1999 Zoster (Shingles) Vaccine (1 of 2) 1999 Influenza Vaccine 01/05/2024 RSV Vaccine 60 years and old er and Patients (1 - 1-dose 75+ series) 01/12/2024 COVID-19 Vaccine ( - 2023-2 5 season) 2024 Hepatitis B Vaccines Aged Out No long er eligible based on patient's age to complete this topic Insurance [facility] Care Teams Dump Truck Driver Relationship Specialty Start Date End Date Pcp, Lacy PCP - General General Medicine 05/31/23
--- NOTE | 2024-09-25 08:04 | MHC.OFFVIS ---
Vital Signs 09/25/24 08:09 Height 5 ft 6.61 in Weight 129 lb 10.109 oz BMI 20.5 BP 100/64 Blood Pressure Location Lt brachial Position Sitting Pulse 69 Pulse Source Pulse Oximeter Pulse Oximetry (%) 98 Oxygen Delivery Method Room Air Intake Visit Reasons: RA Intake Note: Patient presents for RA follow up. Allergies No Known Allergies Allergy (Verified 09/25/24 08:08) Medication List - Last Reconciled 09/25/24 by Una Garza MD apixaban 5 mg PO BID cholecalciferol (vitamin D3) 50 mcg PO DAILY empagliflozin 10 mg PO DAILY ferrous sulfate 325 mg PO DAILY fluticasone propion-salmeterol 250-50 mcg/dose 1 inh inhalation BID folic acid 1 mg PO DAILY methotrexate sodium 15 mg (6 x 2.5 mg) PO QWEEK omeprazole 20 mg PO DAILY risperidone 0.5 mg PO BEDTIME sacubitril-valsartan 49-51 mg 1 tab PO BID HPI Comments Details: Patient is a 74-year-old male with heart failure with reduced ejection fraction, AFib on Eliquis and seronegative rheumatoid arthritis here today for follow up Interval History: Patient last seen 06/18/[address] Finley. At that time he was on methotrexate 15 mg weekly as well as folic acid 1 mg daily. He had tapered off his prednisone and was doing well without any active synovitis. Today patient is with his daughter Daughter states that he complains of pain and stiffness every day This has improved on the methotrexate but still has breakthrough issues Rheumatologic History: -ve RF -ve CCP dx 12/2023 MTX 12/2023 effective Current Rheumatology Medication(s): Methotrexate 15 mg weekly Folic acid 1 mg daily [facility] Medical History Unspecified atrial fibrillation Inguinal hernia Post-traumatic stress disorder, chronic Pain in unspecified joint Other pulmonary embolism without acute cor pulmonale Other intra-abdominal and pelvic swelling, mass and lump Old FB in soft tissue Mild cognitive impairment of uncertain or unknown etiology Left ventricular failure Hyperlipidemia, unspecified Coronary atherosclerosis due to lipid rich plaque Chronic periodontitis Chest pain Cardiomyopathy, unspecified Acute anxiety Accretions on teeth Surgical History No history of previous surgery Family History Mother Cancer Father No problems noted. Social History Household Members: None Alcohol intake: never Patient Tobacco Use Status: Former Tobacco user Review of Systems Const Details: Review of Systems Constitutional: Denies fever, chills, weight loss ENT: Denies vision changes, eye pain or eye redness, dental caries, dry mouth GI: Denies nausea, vomiting, diarrhea, abdominal pain, change in BM Pulm: Denies SOB, FARIAS, hemoptysis, wheezing Cards: Denies chest pain, palpitations Skin: Denies Raynaud's, rash, nail changes, photosensitivity, [employer]IV[employer] THER[employer] TE[employer]ER: Denies headaches, weakness, paresthesias, recurrent falls MSK: as per HPI All other systems reviewed and are unremarkable except noted above Physical Exam Vital Signs: Last Vital Signs Pulse 69 09/25/24 08:09 BP 100/64 09/25/24 08:09 Pulse Ox 98 09/25/24 08:09 Oxygen Delivery Method Room Air 09/25/24 08:09 BMI result Body Mass Index 20.5 Vital signs reviewed Physical Examination CONSTITUITIONAL Patient alert and cooperative. Well appearing elderly looking male and in no apparent painful distress HEENT Conjunctiva and sclera clear. ?Pupils equal round and reactive to light. ?No lymphadenopathy. ? CHEST/RESPIRATORY SYSTEM Normal respiratory effort and able to speak in complete sentences. ?Clear to auscultation bilaterally. ?No crackles, rales, rhonchi, wheezes heard. CARDIAC SYSTEM Regular rate and rhythm. ?S1 and S2 heard no murmurs. ?Radial pulses intact bilaterally MSK Hands: ?Able to make a fist bilaterally. TTP of the PIPs throughout the hands Wrists: ?Full range of motion at the wrists. TTP of wrist joint bilaterally Elbows: Full range of motion without pain. No tenderness, weakness, swelling, increased warmth or erythema. Shoulders: Decreased active and passive ROM bilaterally up to about 90 and 100 degrees of movement. Knees: ?Full range of motion. ?No tenderness, swelling, increased warmth or erythema.?No effusion or crepitations Ankles: Full range of motion. ?Bilateral TTP with pitting edema Feet: Positive squeeze test bilaterally. Tender points:?No tenderness to palpation of the bilateral trapezius, supraspinatus, greater trochanters, anterior costochondral junctions, bilateral gluteal areas, bilateral suboccipital muscle insertions SKIN Skin intact without rashes. Results Reviewed Results Reviewed: Scan results reviewed from [facility] 06/26/2024 WBC 8.3 HB 16.9 platelets 265 Creatinine 1.01 EGFR 78 AST/ALT 13/10 CRP 12 H [facility] 09/18/2024 WBC 10 HB 14.6 Platelets 344 Creatinine 1.09 EGFR 71 Alkaline phosphatase 171 H AST/ALT 12/8 ESR 17 CRP 60HH XR 11/2023 FINDINGS: Bilateral shoulders: Some mild degenerative changes are seen at the glenohumeral joints with some mild sclerotic changes at the inferior glenoid, right greater than left. AC joints appear unremarkable without evidence of erosive changes. There are some sclerotic changes overlying the area of the greater tubercle with some sclerotic change, right greater than left. On the left, there is a tiny area of calcification in the region of the supraspinatus tendon with some smaller areas of calcification adjacent to the right humeral head. Bilateral knees: Joint spaces are maintained. No joint effusions are present. No chondrocalcinosis. No erosive changes. Right hand and wrist: There is soft tissue swelling at the PIP joints most marked in the third and fourth digits. Some periarticular calcium is seen in the third digit. There is a small erosion of the margin present on the distal aspect of the proximal phalanx of the fifth digit. Some erosive changes are seen at the DIP joint in the thumb with some periarticular calcium. Some mild degenerative changes are present at the radiocarpal joint. No chondrocalcinosis is seen. No fractures or dislocations. Left hand and wrist: There is soft tissue swelling around the PIP joints of the third and fourth digits. Some mild degenerative changes are present at the DIP and PIP joints. No gross erosions are seen. Degenerative changes are seen at the radiocarpal joint. A cyst is present in the distal ulna. No chondrocalcinosis. No fractures or dislocations. IMPRESSION: 1. Degenerative changes in the shoulders with some calcific tendinitis. 2. Normal-appearing knees. 3. Degenerative changes in the hands and wrists with some erosive changes as described above. Assessment & Plan Assessment & Plan (1) Seronegative rheumatoid arthritis: Comment: -ve RF -ve CCP dx 12/2023 MTX 12/2023 effective Code(s): M06.00 - Rheumatoid arthritis without rheumatoid factor, unspecified site Category: Medical Plan: #Seropnegative erosive RA Patient is a 74-year-old male with seronegative erosive (right hand at the DP joint of the thumb) rheumatoid arthritis here today for follow up. Patient continues to have moderate disease activity with multiple tender joints on exam today. We will increase the methotrexate and reevaluate in 3 months Plan - Increase methotrexate to 20mg weekly - Folic acid 1 mg - RTC 3 months - Labs before visit: CBC, CMP, ESR, CRP, hepatitis panel, T spot (2) [facility] methotrexate user: Code(s): Z79.631 - continuous churn buttermaker (current) use of antimetabolite agent Category: Medical Plan: #Long-term Current Use of Methotrexate Discussed with patient the benefits and risks of methotrexate for managing their rheumatic condition Benefits include reduced pain, reduced mortality, maintenance of remission and reduction of flares Risks include oral ulcers, photosensitivity, hepatotoxicity, hematologic toxicity, pneumonitis, flu-like symptoms (especially day after administration), nodulosis, lymphomas ? Limit alcohol and avoid Bactrim ? Monitoring: ?CBC, BMP, LFTs every 3-4 months and hepatitis serologies as needed Plan I spent 30 minutes reviewing the record and labs, taking a history, examining the patient, discussing the treatment plan, ordering diagnostic work up and documenting in the medical record Orders: Orders C Reactive Protein 3 Months M06.00 - Rheumatoid arthritis without rheumatoid factor, unspecified site T Spot TB 3 Months M06.00 - Rheumatoid arthritis without rheumatoid factor, unspecified site Complete Blood Count Auto Diff 3 Months M06.00 - Rheumatoid arthritis without rheumatoid factor, unspecified site Comprehensive Met. Panel 3 Months M06.00 - Rheumatoid arthritis without rheumatoid factor, unspecified site Erythrocyte Sedimentation Rate 3 Months M06.00 - Rheumatoid arthritis without rheumatoid factor, unspecified site Hepatitis A,B,C Profile 3 Months M06.00 - Rheumatoid arthritis without rheumatoid factor, unspecified site Medications: Changed From methotrexate sodium 15 mg (6 x 2.5 mg) PO QWEEK 72 tabs 0RF M06.00 - Rheumatoid arthritis without rheumatoid factor, unspecified site, Z79.631 - penitentiary (current) use of antimetabolite agent To methotrexate sodium Take 4 tablets in the morning and 4 tablets in the evening on Fridays 20 mg (8 x 2.5 mg) PO QWEEK 90 days 104 tabs 1RF M06.00 - Rheumatoid arthritis without rheumatoid factor, unspecified site, Z79.631 - penitentiary (current) use of antimetabolite agent Refilled folic acid 1 mg PO DAILY 90 tabs 1RF M06.00 - Rheumatoid arthritis without rheumatoid factor, unspecified site Coding Level of Care Code Est Pt Level 4 (86269) Complex EM visit Add On G2211 Diagnoses Seronegative rheumatoid arthritis M06.00 continuous churn buttermaker methotrexate user Z79.631
[2024-09-25 08:09] VITALS: BP 100/64; PULSE 69; O2SAT 98; BMI 20.5
== END 2024-09-25 08:50 | disposition home or self-care (01) ==
LOC: HO.RHE 07:57
PROVIDERS: Visit Provider Student in an Organized Health Care Education/Training Program
DX: M06.00 Rheumatoid arthritis without rheumatoid factor, unspecified site (principal); Z79.631 Long term (current) use of antimetabolite agent
CPT/HCPCS: 99214; G2211

== ENCOUNTER → 2024-09-25 07:56 | Outpatient (BNVA) | payer OTHER, SELFPAY | PROVIDERS: Visit Provider Student in an Organized Health Care Education/Training Program | DX: M06.00 Rheumatoid arthritis without rheumatoid factor, unspecified site (principal); Z79.631 Long term (current) use of antimetabolite agent | CPT/HCPCS: 99212 ==